=== PATIENT | male | born 1955 | race Caucasian/White ===

== ENCOUNTER 2020-02-25 16:36 | Outpatient (REF) | payer BC, SELFPAY ==
[2020-02-25 17:48] LABS: Glucose Urine UA NEG (NEG); Leukocyte Esterase Urine 1+ (NEG); Nitrite Urine NEG (NEG); PH 5.5 (5.0-8.0); Urine Blood 1+ (NEG); Urine Ketones NEG (NEG); Urine Protein NEG (NEG-TRACE)
[2020-02-25 17:49] LABS: Appearance Urine HAZY; Color Urine YELLOW
[2020-02-25 17:54] LABS: Bacteria Urine 1+ /LPF; Squamous Epithelial Cell Urine 1+ /LPF
== END 2020-02-25 16:37 | disposition home or self-care (01) ==
LOC: HO.LAB 16:36
PROVIDERS: Visit Provider Urology
DX: R39.15 Urgency of urination (principal); N31.9 Neuromuscular dysfunction of bladder, unspecified
CPT/HCPCS: 81001; 87086

== ENCOUNTER 2020-05-13 17:34 | Outpatient (REF) | payer BC, SELFPAY ==
--- NOTE | ~2020-05-13 | MR_ITS ---
EXAMINATION: MR THORACIC SPINE WITHOUT CONTRAST CLINICAL INFORMATION: Transverse myelitis. COMPARISON: None TECHNIQUE: MRI of the thoracic spine was obtained using routine sequences without contrast. FINDINGS: The thoracic vertebral bodies maintain normal height and alignment. There is focal levoscoliotic curvature at the thoracolumbar junction. Multilevel intervertebral disc height loss is predominantly seen within the lower thoracic spine. No significant marrow edema is seen. The thoracic cord is normal in signal. The spinal canal is capacious without compression of the cord. Moderate degree of cord volume loss is seen from T2 through T8 compatible with myelomalacia. No definite perturbation of the dorsal subarachnoid space pulsation artifact is seen to suggest an intradural arachnoid cyst. Multiple small disc bulges/herniations are seen but none of which result in spinal canal narrowing. Neural foraminal stenosis appears moderate to severe bilaterally at T9-T10 and less advanced at other levels. Multilevel spondylosis is seen within the upper lumbar spine. The extraspinal soft tissues are within normal limits. MR/MR thoracic spine wo con IMPRESSION: Cord volume loss is seen from T2 through T8 compatible with myelomalacia. There is no evidence of compressive lesion. No abnormal intramedullary signal change is seen to suggest transverse myelitis at the present time. Imaging findings may represent the sequela of prior myelitis. Mild spondylotic changes are noted but without significant narrowing the spinal canal. Neural foraminal stenosis appears moderate to severe bilaterally at T9-T10.
== END 2020-05-13 17:35 | disposition home or self-care (01) ==
LOC: HO.MRI 17:34
PROVIDERS: Visit Provider Psychiatry & Neurology Neurology
DX: G37.3 Acute transverse myelitis in demyelinating disease of central nervous system (principal)
CPT/HCPCS: 72146

== ENCOUNTER 2020-08-21 11:45 | Outpatient (REF) | payer BC, SELFPAY ==
[2020-08-21 14:07] LABS: Glucose Urine UA NEG (NEG); Leukocyte Esterase Urine 1+ (NEG); Nitrite Urine NEG (NEG); Urine Blood 2+ (NEG); Urine Ketones NEG (NEG); Urine Protein 2+ MG/DL (NEG-TRACE)
[2020-08-21 14:16] LABS: Appearance Urine HAZY; Color Urine STRAW
[2020-08-21 14:48] LABS: Bacteria Urine 1+ /LPF; Squamous Epithelial Cell Urine TRACE /LPF
== END 2020-08-21 11:46 | disposition home or self-care (01) ==
LOC: HO.LAB 11:45
PROVIDERS: PCP Registered Nurse Community Health; Visit Provider Family Medicine
DX: R82.90 Unspecified abnormal findings in urine (principal); Z78.9 Other specified health status
CPT/HCPCS: 81001; 87086; 87088; 87186

== ENCOUNTER 2020-08-29 14:39 | Outpatient (REF) | payer BC, SELFPAY ==
[2020-08-29 15:38] LABS: MANUAL DIFF FLAG NO
[2020-08-29 15:46] LABS: Basophils Percent Auto 0.5 % (0-2); Eosinophils Absolute Auto 0.1 X10*3/uL (0.0-0.4); Eosinophils Percent Auto 2.4 % (0-4); Hematocrit 42.8 % (42-52); Hemoglobin 13.8 g/dl (14.0-18.0); Imm Gran Abs Auto 0.02 X10*3/uL (0.00-0.03); Imm Gran Pct Auto 0.3 % (0.0-0.4); Lymphocytes Percent Auto 17.9 % (20-40); Mean Corpuscular HGB Conc 32.2 g/dl (31.0-36.0); Mean Corpuscular Hemoglobin 28.1 pg (27.0-33.0); Mean Corpuscular Volume 87.2 fL (80-98); Mean Platelet Volume 8.8 fL (9.4-12.4); Monocytes Absolute Auto 0.4 X10*3/uL (0.1-1.2); Neutrophils Absolute Auto 4.1 X10*3/uL (2.0-8.3); Neutrophils Percent Auto 71.9 % (45-73); Platelet Count 333 X10*3/uL (160-400); Red Blood Count 4.91 X10*6/uL (4.60-5.80); Red Cell Distribution Width 15.4 % (11.0-16.0); White Blood Count 5.7 X10*3/uL (4.8-10.8)
[2020-08-29 16:12] LABS: Alanine Aminotransferase 13 U/L (0-40); Albumin Level 4.1 g/dL (3.5-5.0); Alkaline Phosphatase 74 U/L (39-117); Anion Gap 14 (12-20); Aspartate Amino Transferase 14 U/L (5-37); Bilirubin Total 0.2 mg/dL (0.0-1.0); Blood Urea Nitrogen 16 mg/dL (9-16); Calcium 9.6 mg/dL (8.4-10.2); Carbon Dioxide 20 mmol/L (22-29); Chloride 110 mmol/L (96-108); Cholesterol 191 mg/dL; Estimated Glomerular Filt Rate 45; Glucose Random 100 mg/dL (60-115); HDL Cholesterol 43 mg/dL; LDL Cholesterol Calculated 94 mg/dl; Potassium 3.8 mmol/L (3.3-5.1); Sodium 140 mmol/L (135-145); Total Protein 6.4 g/dL (6.5-8.0); Triglycerides 270 mg/dL
[2020-08-29 16:33] LABS: TSH reflex Free T4 1.97 uIU/mL (0.32-4.0)
[2020-08-29 17:10] LABS: Microalbum/Creatinine Ratio Ur 18.1 ug/mg cr
[2020-09-02 16:07] LABS: Testosterone, Total 193 ng/dL (250-1100)
[2020-09-06 01:12] LABS: Estradiol Free 0.15 pg/mL; Estradiol, Ultrasensitive 7 pg/mL
== END 2020-08-29 14:40 | disposition home or self-care (01) ==
LOC: HO.LAB 14:39
PROVIDERS: PCP Family Medicine; Visit Provider Family Medicine
DX: F64.0 Transsexualism (principal); G37.3 Acute transverse myelitis in demyelinating disease of central nervous system; L03.116 Cellulitis of left lower limb; N17.9 Acute kidney failure, unspecified; N18.1 Chronic kidney disease, stage 1; Z78.9 Other specified health status
CPT/HCPCS: 36415; 80053; 80061; 82043; 82670; 82681; 84403; 84443; 85025

== ENCOUNTER 2020-09-09 12:31 | Outpatient (REF) | payer BC, SELFPAY ==
--- NOTE | ~2020-09-09 | XR_ITS ---
EXAMINATION: XR CERVICAL SPINE AND LEFT HIP CLINICAL INFORMATION: Pain. COMPARISON: None. TECHNIQUE: 3 view cervical spine and 2 views left hip. FINDINGS: Cervical Spine: There is mild straightening of cervical lordosis. There is mild loss of C6-C7 disc height with mild ventral and minimal posterior spondylosis. The rest of the disc heights and all vertebral heights and alignment are normal. The craniovertebral junction and the C1-C2 alignment is normal. No visible acute fracture, dislocation or subluxation seen. The prevertebral soft tissues are normal. There is focal calcification of the ligamentum nuchae and posterior C6 vertebra. Left Hip: There is no acute fracture, dislocation or subluxation seen. No bony erosive changes. There is a sclerotic density left femoral neck. The soft tissues are normal. XR/XR hip LT min 2V IMPRESSION: Sclerotic density with irregular margins left femoral neck. Benign osteoblastic lesion versus metastasis. Correlate with old x-rays if possible. Otherwise, recommend follow-up with bone scan or CT left hip exam. Degenerative disc changes with ventral and mild posterior spondylosis C6-C7 disc level. No acute fracture or dislocation seen.
--- NOTE | ~2020-09-09 | XR_ITS ---
EXAMINATION: XR CERVICAL SPINE AND LEFT HIP CLINICAL INFORMATION: Pain. COMPARISON: None. TECHNIQUE: 3 view cervical spine and 2 views left hip. FINDINGS: Cervical Spine: There is mild straightening of cervical lordosis. There is mild loss of C6-C7 disc height with mild ventral and minimal posterior spondylosis. The rest of the disc heights and all vertebral heights and alignment are normal. The craniovertebral junction and the C1-C2 alignment is normal. No visible acute fracture, dislocation or subluxation seen. The prevertebral soft tissues are normal. There is focal calcification of the ligamentum nuchae and posterior C6 vertebra. Left Hip: There is no acute fracture, dislocation or subluxation seen. No bony erosive changes. There is a sclerotic density left femoral neck. The soft tissues are normal. XR/XR cervical spine 2V IMPRESSION: Sclerotic density with irregular margins left femoral neck. Benign osteoblastic lesion versus metastasis. Correlate with old x-rays if possible. Otherwise, recommend follow-up with bone scan or CT left hip exam. Degenerative disc changes with ventral and mild posterior spondylosis C6-C7 disc level. No acute fracture or dislocation seen.
[2020-09-09 14:02] LABS: MANUAL DIFF FLAG NO
[2020-09-09 14:08] LABS: Basophils Absolute Auto 0.1 X10*3/uL (0.0-0.2); Basophils Percent Auto 1.3 % (0-2); Eosinophils Absolute Auto 0.1 X10*3/uL (0.0-0.4); Eosinophils Percent Auto 2.4 % (0-4); Imm Gran Abs Auto 0.02 X10*3/uL (0.00-0.03); Imm Gran Pct Auto 0.4 % (0.0-0.4); Lymphocytes Absolute Auto 1.7 X10*3/uL (1.2-4.9); Lymphocytes Percent Auto 31.1 % (20-40); Mean Corpuscular HGB Conc 31.1 g/dl (31.0-36.0); Mean Corpuscular Hemoglobin 27.7 pg (27.0-33.0); Mean Corpuscular Volume 89.1 fL (80-98); Mean Platelet Volume 8.8 fL (9.4-12.4); Monocytes Absolute Auto 0.4 X10*3/uL (0.1-1.2); Monocytes Percent Auto 7.6 % (2-11); Neutrophils Absolute Auto 3.1 X10*3/uL (2.0-8.3); Neutrophils Percent Auto 57.2 % (45-73); Platelet Count 387 X10*3/uL (160-400); Red Blood Count 5.05 X10*6/uL (4.60-5.80); Red Cell Distribution Width 14.4 % (11.0-16.0); White Blood Count 5.4 X10*3/uL (4.8-10.8)
[2020-09-09 14:46] LABS: Alanine Aminotransferase 11 U/L (0-40); Albumin Level 4.1 g/dL (3.5-5.0); Alkaline Phosphatase 71 U/L (39-117); Anion Gap 11 (12-20); Aspartate Amino Transferase 14 U/L (5-37); Bilirubin Total 0.6 mg/dL (0.0-1.0); Blood Urea Nitrogen 21 mg/dL (9-16); C Reactive Protein 0.08 mg/dL (< or = 0.50); Calcium 10.1 mg/dL (8.4-10.2); Carbon Dioxide 27 mmol/L (22-29); Chloride 107 mmol/L (96-108); Estimated Glomerular Filt Rate 46; Glucose Random 102 mg/dL (60-115); Potassium 4.4 mmol/L (3.3-5.1); Rheumatoid Factor < 15.0 IU/mL (<15.0); Sodium 141 mmol/L (135-145); Total Protein 6.4 g/dL (6.5-8.0)
[2020-09-09 15:02] LABS: Erythrocyte Sedimentation Rate 3 MM/HR (0-15)
[2020-09-09 17:33] LABS: Amphetamine Screen Urine Not Detected (Not Detect); Barbiturates, Urine Not Detected (Not Detect); Benzodiazepines Screen Urine Not Detected (Not Detect); Cannabinoid Screen Urine POSITIVE (Not Detect); Cocaine Screen Urine Not Detected (Not Detect); Opiate Screen Urine Not Detected (Not Detect); Phencyclidine Screen Urine Not Detected (Not Detect)
[2020-09-10 20:07] LABS: Cyclic Citrullinated Peptide <16 UNITS
[2020-09-11 13:32] LABS: Anti Nuclear Antibody Screen NEGATIVE (NEGATIVE)
== END 2020-09-09 12:32 | disposition home or self-care (01) ==
LOC: HO.LAB 12:31
PROVIDERS: Absent Provider Internal Medicine; PCP Family Medicine; Visit Provider Student in an Organized Health Care Education/Training Program
DX: M54.2 Cervicalgia (principal); M25.552 Pain in left hip; M79.642 Pain in left hand; G89.29 Other chronic pain; Z79.899 Other long term (current) drug therapy
CPT/HCPCS: 36415; 72040; 73502; 80053; 80307; 85025; 85652; 86038; 86039; 86140; 86200; 86431

== ENCOUNTER 2020-10-07 16:30 | Outpatient (REF) | payer BC, SELFPAY ==
--- NOTE | ~2020-10-07 | CT_ITS ---
EXAMINATION: CT HIP WITHOUT CONTRAST, LEFT CLINICAL INFORMATION: Sclerotic lesion left hip. COMPARISON: Left hip x-ray 09/09/2020 TECHNIQUE: Axial 2 mm thin and reformatted 2 mm thin coronal and sagittal images of left hip were obtained. This CT examination was performed using dose optimization techniques as appropriate, variously including the following: *Automated exposure control *Adjustment of mA and/or kV according to patient size (this includes techniques or standardized protocols for targeted exams where dose is matched to indication/reason for exam; i.e. extremities or head) *Use of iterative reconstruction technique DLP: 429 mGy-cm FINDINGS: There is a sclerotic lesion left distal femoral neck measuring 1.3 x 1.0 x 2.1 cm. There is no cortical thickening or thinning of the overlying femur. The left hip joint space is maintained normal. No bony erosive changes. The soft tissues are normal. The SI joints are symmetric and normal. The soft tissues are normal. CT/CT hip LT wo con IMPRESSION: 1.3 cm sclerotic lesion left hip joint likely large bone island.
== END 2020-10-07 16:31 | disposition home or self-care (01) ==
LOC: HO.CT 16:30
PROVIDERS: Visit Provider Student in an Organized Health Care Education/Training Program
DX: M89.9 Disorder of bone, unspecified (principal)
CPT/HCPCS: 73700

== ENCOUNTER 2021-01-01 12:03 | Outpatient (REF) | payer BC, SELFPAY ==
--- NOTE | ~2021-01-01 | US_ITS ---
EXAMINATION: US RETROPERITONEAL LIMITED (RENAL ONLY) CLINICAL INFORMATION: Renal calculus. Evaluate for hydronephrosis. COMPARISON: Ultrasound kidneys and bladder 09/10/2016. TECHNIQUE: Real-time imaging of the kidneys. FINDINGS: RIGHT KIDNEY: 11.3 x 5.6 x 6.0 cm (SAG x AP x TRV). The kidney is normal in size, contour, and echogenicity. Renal cortical thickness is normal. No renal calculi or hydronephrosis. Simple upper pole cyst measuring 1.5 x 1.3 x 1.4 cm. Findings are not clinically significant and no follow-up imaging is recommended. LEFT KIDNEY: 10.2 x 4.9 x 5.4 cm (SAG x AP x TRV). The kidney is normal in size, contour, and echogenicity. Renal cortical thickness is normal. No calculi or focal parenchymal lesions. No hydronephrosis. US/US renal BI IMPRESSION: No hydronephrosis or nephrolithiasis.
== END 2021-01-01 12:04 | disposition home or self-care (01) ==
LOC: HO.US 12:03
PROVIDERS: Visit Provider Internal Medicine Nephrology
DX: N31.8 Other neuromuscular dysfunction of bladder (principal)
CPT/HCPCS: 76775

== ENCOUNTER → 2021-02-17 12:34 | Outpatient (BNVA) | payer BC, SELFPAY | PROVIDERS: PCP Family Medicine; Visit Provider Nurse Practitioner Family ==

== ENCOUNTER 2021-02-17 13:56 | Outpatient (REF) | payer BC, SELFPAY ==
--- NOTE | ~2021-02-17 | XR_ITS ---
EXAMINATION: XR KNEE, RIGHT CLINICAL INFORMATION: Pain COMPARISON: None TECHNIQUE: Three views of the right knee. FINDINGS: There is valgus angulation. No fracture or dislocation is seen. There is arthritis at the lateral femoral tibial and patellofemoral joints with joint space narrowing and osteophyte formation. There is slight lateral subluxation of the patella respect to the femoral groove on the sunrise view. There is a moderate to large joint effusion. XR/XR knee RT 3V IMPRESSION: Arthritis and joint effusion.
[2021-02-17 15:32] LABS: Appearance Urine CLEAR; Color Urine YELLOW; Glucose Urine UA NEG (NEG); Leukocyte Esterase Urine NEG (NEG); Nitrite Urine NEG (NEG); PH 6.5 (5.0-8.0); Urine Blood NEG (NEG); Urine Ketones NEG (NEG); Urine Protein NEG (NEG-TRACE)
== END 2021-02-17 13:57 | disposition home or self-care (01) ==
LOC: HO.LAB 13:56
PROVIDERS: PCP Family Medicine; Referring Provider Urology; Visit Provider Student in an Organized Health Care Education/Training Program
DX: M25.561 Pain in right knee (principal); N39.41 Urge incontinence
CPT/HCPCS: 73562; 81003; 87086

== ENCOUNTER → 2021-03-04 13:12 | Outpatient (BNVA) | payer BC, SELFPAY | PROVIDERS: PCP Family Medicine; Visit Provider Physician Assistant ==

== ENCOUNTER 2021-03-20 09:33 | Outpatient (REF) | payer BC, SELFPAY ==
--- NOTE | ~2021-03-20 | CT_ITS ---
EXAMINATION: CT CHEST SCREENING CLINICAL INFORMATION: Former smoker quit 4 years. 35 pack-year history of smoking. COMPARISON: None. TECHNIQUE: Multidetector volumetric CT imaging of the chest is performed without contrast using low dose technique. Additional 2D coronal and sagittal reformatted images and axial 3D maximum intensity projection (MIP) images are generated on the CT workstation. This CT examination was performed using dose optimization techniques as appropriate, variously including the following: *Automated exposure control *Adjustment of mA and/or kV according to patient size (this includes techniques or standardized protocols for targeted exams where dose is matched to indication/reason for exam; i.e. extremities or head) *Use of iterative reconstruction technique DLP: 56 mGy-cm FINDINGS: LUNGS: There is centrilobular emphysema without acute pneumonic process. There is 5 mm pulmonary nodule right middle lobe axial image 329/6. No additional pulmonary nodules, mass or consolidation seen. Mild focal atelectatic changes are seen in the lingula. No additional pulmonary nodules, mass or groundglass density seen. MEDIASTINUM: The thyroid lobes are symmetric and normal. The central trachea and the bronchi widely patent. Heart size and the great vessels are normal caliber. No abnormal size mediastinal or hilar lymph nodes seen. There is no pericardial effusion. PLEURA: There is no pleural effusion. No pleural mass or thickening. AXILLA: No abnormal axillary lymphadenopathy seen. The chest wall is unremarkable. UPPER ABDOMEN: Visualized liver, spleen, pancreas and bilateral adrenal glands are unremarkable. OSSEOUS STRUCTURES: No lytic or sclerotic process seen. There is mild ventral spondylosis. CT/CT lung screening IMPRESSION: 5 mm pulmonary nodule right middle lobe. No additional nodules seen. No abnormal mediastinal adenopathy. ASSESSMENT: Lung-RADS category 2: Benign RECOMMENDATION: Low-dose annual CT chest.
== END 2021-03-20 09:34 | disposition home or self-care (01) ==
LOC: HO.CT 09:33
PROVIDERS: Visit Provider Physician Assistant Medical
DX: Z12.2 Encounter for screening for malignant neoplasm of respiratory organs (principal); Z87.891 Personal history of nicotine dependence
CPT/HCPCS: 71271

== ENCOUNTER 2021-04-30 14:00 | Outpatient (RCR) | payer BC, SELFPAY ==
--- NOTE | 2021-03-17 15:04 | MHC.PT.OE ---
[facility] [place] Office [place] Office [place] Office [address] Chula Oropeza [address] [phone] F: [phone] F: [phone] F: [phone] F: [phone] Physical Therapy Evaluation Evaluation Date: 03/17/21 Current Condition Diagnosis: cervicalgia/ L hip pain Onset Date: 1 year Date of Surgery: n/a Chief Complaint/ Current Level of Function: Pt presents today with L hip pain that began over the course of the last year. States he has a bone island in his hip. He denies any injury. Pain began insidiously. He localizes his pain to his posterior L hip and states at times his pain wraps around to the front of his L thigh radiates down his L leg to his knee. He states he is unable to identify if he has numbness or tingling due to comorbidity of transverse myelitis which he was diagnosed with 5-6 years ago. He uses a cane at baseline due to this dx. Prior Level of Function/Occupation: does not work lives with spouse in a house with stairs ADLs able but doesn't do a lot spouse helps but this is due to transverse myelitis spends time watching movies or surfing internet Diagnostic Imaging: X-Ray MRI CT Scan IMPRESSION: hip CT 1.3 cm sclerotic lesion left hip joint likely large bone island. IMPRESSION: hip x-ray Sclerotic density with irregular margins left femoral neck. Benign osteoblastic lesion versus metastasis. Correlate with old x-rays if possible. Otherwise, recommend follow-up with bone scan or CT left hip exam. Degenerative disc changes with ventral and mild posterior spondylosis C6-C7 disc level. No acute fracture or dislocation seen. IMPRESSION: thoracic MRI Cord volume loss is seen from T2 through T8 compatible with myelomalacia. There is no evidence of compressive lesion. No abnormal intramedullary signal change is seen to suggest transverse myelitis at the present time. Imaging findings may represent the sequela of prior myelitis. Mild spondylotic changes are noted but without significant narrowing the spinal canal. Neural foraminal stenosis appears moderate to severe bilaterally at T9-T10 Patient Goals and Expectations: less pain and more flexibility Past Medical History: Transverse myelitis arthritis COPD Medications: please refer to chart Precautions/ Contraindications: transverse myelitis Outcome Measure: LEFI 28/80 Pain Pain Score: 2 Pain Scale Used: Numeric (0 - 10) Pain Location/ Description: L posterior hip wrapping around to ant L thigh stopping at knee Aggravating Factors: worse in the morning, standing Alleviating Factors: stretching Objective Findings Posture: Forward Head Rounded Shoulders Skin & Soft Tissue/ Palpation: +ttp L piriformis Gait/ Functional Mobility: WBOS, decreased push off B AROM (PROM) Strength Cervical Spine Flexion: Extension: Lateral Flexion: Rotation: Cervical Comments: Flexion: Extension: Lateral Flexion: Rotation: Other: Shoulder Flexion: Extension: Abduction: ER: IR: Apley ER: Apley IR: Comments: Flexion: Extension: Abduction: Adduction: ER: IR: Other: Elbow Flexion: Extension: Pronation: Supination: Comments: Flexion: Extension: Pronation: Supination: Wrist Flexion: Wrist Extension: Other: Lumbar Spine Flexion: to mid lozano Extension: 25% states he will lose balance but no increase in pain Lateral Flexion: to distal thigh B Rotation: 25% slight pain on L hip Comments: Transverse abdominus: Extensors: Other: Hip Flexion: L 110, R 105 Extension: B 10 Abduction: Adduction: ER: R 30, L 30 IR: R 30, L 25 Comment: Flexion: b 4/5 Extension: B 3+/5 Abduction: B 3+/5 Adduction: ER: IR: Other: Knee Flexion: Extension: Comments: Patella Mobility: Flexion: B 5/5 Extension: B 5/5 Other: Ankle Dorsiflexion: Plantarflexion: Inversion: Eversion: Comments: Dorsiflexion: B 5/5 Plantarflexion: B 5/5 against hand resistance Inversion: Eversion: Comments: Orquidea Assessment: Sacroiliac Assessment: Muscle Length: Special Tests: slump neg B Vitals: BP: HR: O2SAT: RR: Other: Balance: pt reports this is off at baseline due to transverse myelitis Neurological Screen: Biceps DTR: Brachioradialis DTR: Triceps DTR: Patella DTR: Achilles DTR: Other: Dermatomes: Sensation: states at baseline his sensation is spotty in different regions of his legs due to transverse myelitis Myotomes: Patient Education 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 Pt reports onset of pain began progressively over the last year due to insidious onset. He presents today with impairments in hip strength, +ttp L piriformis, posture, core strength, and pain. Pt's current occupation is none, with baseline physical activities including ambulation, sitting, ADLs, stair negotiation. 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 Clinical presentation today is most consistent with signs and sx associated with possible L piriformis syndrome and pt will benefit from skilled PT to address the following problems and impairments noted upon evaluation: hip strength, +ttp L piriformis, core strength, posture, and pain. These problems limit the patient with the following functional activities: ADLs, sitting, ambulation, and stair negotiation. The prescribed treatment plan of care is medically necessary. Co-morbidities of transverse myelitis and COPD were identified and taken into considerations of plan of care. Pt was educated on HEP, role of PT, prognosis, POC. Rehabilitation Potential: Good Plan of Care Frequency and Duration 2 x week x 4 weeks Short Term Goals Pt will demonstrate improved hip strength by 1/3 MMT for improved lumbopelvic stability in 2 weeks. Pt will demonstrate only minimal tenderness to palpation to L piriformis in 2 weeks. Pt will demonstrate ability to perform PPT to demonstrate good core recruitment in 2 weeks. Pt will demonstrate improved posture as evidence by <2 cues required during session for upright posture in 2 weeks. Supervising Deputy Goals Pt will demonstrate improved LEFI score by 9 points for improved overall functional mobility in 4 weeks. Pt will demonstrate ability to complete ADLs at his PLOF with min to no pain in 4 weeks. Pt will demonstrate ability to both sit an stand for prolonged periods of time at his PLOF with min to no pain in 4 weeks. Treatment Plan Therapeutic Exercise Dynamic Therapeutic Activities Neuromuscular Re-ed Manual Therapies Joint Mobilization Taping Gait Home Exercise Program Patient Education Hot or Cold Pack Reviewed/ Agreed with Student Documentation: Therapist: Electronically signed by: Valery Brumfield, PT, DPT, ATC Please sign and return to therapist. Thank you for your referral.
--- NOTE | 2021-03-17 15:05 | MHC.PT.EP ---
[facility] [place] Office [place] Office [place] Office [address] Chula Oropeza [address] [phone] F: [phone] F: [phone] F: [phone] F: [phone] Physical Therapy Plan of Care Date of Evaluation: Date of Surgery: n/a Diagnosis: cervicalgia/ L hip pain Assessment: Patient is a 66 year old male presenting to PT with complaints of pain in his L posterior hip. Pt reports onset of pain began progressively over the last year due to insidious onset. He presents today with impairments in hip strength, +ttp L piriformis, posture, core strength, and pain. Pt's current occupation is none, with baseline physical activities including ambulation, sitting, ADLs, stair negotiation. 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 Clinical presentation today is most consistent with signs and sx associated with possible L piriformis syndrome and pt will benefit from skilled PT to address the following problems and impairments noted upon evaluation: hip strength, +ttp L piriformis, core strength, posture, and pain. These problems limit the patient with the following functional activities: ADLs, sitting, ambulation, and stair negotiation. The prescribed treatment plan of care is medically necessary. Co-morbidities of transverse myelitis and COPD were identified and taken into considerations of plan of care. Pt was educated on HEP, role of PT, prognosis, POC. Frequency and Duration: The patient will be seen 2 x week x 4 weeks Short Term Goals: Pt will demonstrate improved hip strength by 1/3 MMT for improved lumbopelvic stability in 2 weeks. Pt will demonstrate only minimal tenderness to palpation to L piriformis in 2 weeks. Pt will demonstrate ability to perform PPT to demonstrate good core recruitment in 2 weeks. Pt will demonstrate improved posture as evidence by <2 cues required during session for upright posture in 2 weeks. Retirement Goals: Pt will demonstrate improved LEFI score by 9 points for improved overall functional mobility in 4 weeks. Pt will demonstrate ability to complete ADLs at his PLOF with min to no pain in 4 weeks. Pt will demonstrate ability to both sit an stand for prolonged periods of time at his PLOF with min to no pain in 4 weeks. Treatment Plan: Modalities to reduce pain, spasms and effusion. Manual therapy to restore motion and function. Therapeutic exercise to improve strength and flexibility. Neuromuscular re-education for posture and balance. Therapeutic activities to return to functional activities of daily living. Electronically signed by: Valery Brumfield, PT, DPT, ATC Please sign and return to therapist. Thank you for your referral.
--- NOTE | 2021-05-04 11:51 | MHC.PT.DC ---
[facility] [place] Office [place] Office [place] [facility] [address] Chula Oropeza [address] [phone] F: [phone] F: [phone] F: [phone] F: [phone] Physical Therapy Discharge Report Diagnosis: cervicalgia/ L hip pain Date of Surgery: n/a Date of Evaluation: 03/17/21 Date of Discharge: 05/04/21 Treatments to Date: 9 Cancellations to Date: 2 No Shows to Date: Discharge Status: Achieved Goals Improved Function Independent with HEP Discharge Summary: Pt was seen for PT from 03/17/21-04/30/21. His last scheduled and attended PT session was 04/30/21. He has made good progress since SOC. He has had no pain in his most recent PT sessions and reports he feels ready for D/C at this time. Pt is I with HEP. Pt is being D/C from skilled PT services. Electronically signed by: Rebekah Peralta, PT, DPT Please sign and return to therapist. Thank you for your referral.
== END 2021-05-04 11:52 | disposition home or self-care (01) ==
LOC: HO.PT 14:00
PROVIDERS: PCP Family Medicine; Visit Provider Nurse Practitioner Family
DX: M54.2 Cervicalgia (principal); M25.552 Pain in left hip
CPT/HCPCS: 97110; 97161

== ENCOUNTER → 2021-08-03 13:03 | Outpatient (BNVA) | payer BC, SELFPAY | PROVIDERS: PCP Family Medicine; Visit Provider Nurse Practitioner Family | DX: M54.2 Cervicalgia (principal) ==

== ENCOUNTER 2021-08-19 15:24 | Outpatient (REF) | payer BC, SELFPAY ==
[2021-08-19 15:56] LABS: Appearance Urine CLEAR; Color Urine YELLOW; Glucose Urine UA NEG (NEG); Leukocyte Esterase Urine 2+ (NEG); Nitrite Urine NEG (NEG); Urine Blood 1+ (NEG); Urine Ketones NEG (NEG); Urine Protein NEG (NEG-TRACE)
[2021-08-19 16:07] LABS: Bacteria Urine TRACE /LPF; Squamous Epithelial Cell Urine TRACE /LPF
== END 2021-08-19 15:25 | disposition home or self-care (01) ==
LOC: HO.LAB 15:24
PROVIDERS: PCP Family Medicine; Visit Provider Urology
DX: R39.15 Urgency of urination (principal)
CPT/HCPCS: 81001; 81003; 87086; 87088; 87186

== ENCOUNTER 2021-09-14 12:12 | Outpatient (REF) | payer BC, SELFPAY | END 2021-09-14 12:13 | disposition home or self-care (01) | LOC: HO.HOSX 12:12 | PROVIDERS: Visit Provider Orthopaedic Surgery | DX: Z13.89 Encounter for screening for other disorder (principal) ==

== ENCOUNTER 2021-09-28 08:10 | Outpatient (REF) | payer BC, SELFPAY ==
--- NOTE | ~2021-09-28 | XR_ITS ---
EXAMINATION: XR KNEE AP STANDING CLINICAL INFORMATION: Pain in the knee COMPARISON: Right knee 02/17/2021 TECHNIQUE: AP bilateral standing view of the knees was obtained. FINDINGS: Marked degenerative joint disease of the right knee. There is [id number] contact, marginal bone spurs and subchondral osteosclerosis of the femur and tibia at the lateral femoral tibial joint. Mild joint narrowing of the medial femoral tibial joint. Compared to prior study 02/17/2021 there has been further joint narrowing of the lateral femoral tibial joint of the knee. There is moderate degenerative joint narrowing of the medial and lateral femoral tibial joint of the left knee with small marginal bone spurs of femur and tibia at the lateral femoral tibial compartment. Faint chondrocalcinosis of the medial and lateral meniscus of the left knee. XR/XR knee standing BI IMPRESSION: 1. Marked degenerative arthrosis of the right knee. 2. Moderate degenerative joint disease of left knee.
== END 2021-09-28 08:11 | disposition home or self-care (01) ==
LOC: HO.HOSX 08:10
PROVIDERS: Visit Provider Physician Assistant
DX: M17.11 Unilateral primary osteoarthritis, right knee (principal)
CPT/HCPCS: 20610; 73565; J1040

== ENCOUNTER 2021-11-10 16:45 | Outpatient (REF) | payer BC, SELFPAY ==
[2021-11-10 17:01] LABS: MANUAL DIFF FLAG NO
[2021-11-10 17:25] LABS: Basophils Absolute Auto 0.1 X10*3/uL (0.0-0.2); Basophils Percent Auto 0.7 % (0-2); Eosinophils Absolute Auto 0.5 X10*3/uL (0.0-0.4); Eosinophils Percent Auto 6.3 % (0-4); Hematocrit 44.9 % (42.0-52.0); Hemoglobin 14.2 g/dl (14.0-18.0); Imm Gran Abs Auto 0.04 X10*3/uL (0.00-0.03); Imm Gran Pct Auto 0.5 % (0.0-0.4); Lymphocytes Absolute Auto 1.2 X10*3/uL (1.2-4.9); Lymphocytes Percent Auto 14.8 % (20-40); Mean Corpuscular HGB Conc 31.6 g/dl (31.0-36.0); Mean Corpuscular Hemoglobin 28.2 pg (27.0-33.0); Mean Corpuscular Volume 89.1 fL (80.0-98.0); Monocytes Absolute Auto 0.6 X10*3/uL (0.1-1.2); Monocytes Percent Auto 7.2 % (2-11); Neutrophils Absolute Auto 5.7 x10*3/uL (2.0-8.3); Neutrophils Percent Auto 70.5 % (45-73); Platelet Count 370 X10*3/uL (160-400); Red Blood Count 5.04 X10*6/uL (4.60-5.80); Red Cell Distribution Width 12.6 % (11.0-16.0); White Blood Count 8.1 X10*3/uL (4.8-10.8)
[2021-11-10 17:47] LABS: Alanine Aminotransferase 13 U/L (0-40); Alkaline Phosphatase 84 U/L (39-117); Anion Gap 14 (12-20); Aspartate Amino Transferase 12 U/L (5-37); Bilirubin Total 0.3 mg/dL (0.0-1.0); Blood Urea Nitrogen 24 mg/dL (9-16); Calcium 9.8 mg/dL (8.4-10.2); Carbon Dioxide 27 mmol/L (22-29); Chloride 107 mmol/L (96-108); Estimated Glomerular Filt Rate 46; Glucose Random 97 mg/dL (60-115); Potassium 4.6 mmol/L (3.3-5.1); Sodium 143 mmol/L (135-145); Total Protein 6.3 g/dL (6.5-8.0)
[2021-11-10 18:28] LABS: Erythrocyte Sedimentation Rate 16 MM/HR (0-15)
== END 2021-11-10 16:46 | disposition home or self-care (01) ==
LOC: HO.LAB 16:45
PROVIDERS: PCP Family Medicine; Visit Provider Psychiatry & Neurology Neurology
DX: G37.3 Acute transverse myelitis in demyelinating disease of central nervous system (principal)
CPT/HCPCS: 36415; 80053; 85025; 85652

== ENCOUNTER 2021-11-17 00:23 | Emergency (ER) | payer BC, SELFPAY ==
--- NOTE | ~2021-11-17 | XR_ITS ---
EXAMINATION: XR CHEST CLINICAL INFORMATION: Pain COMPARISON: 03/20/2020 TECHNIQUE: Frontal view of the chest was obtained. FINDINGS: Normal symmetric lung volumes. Mild emphysema. No parenchymal consolidation. No pleural effusion. No pneumothorax. Cardiomediastinal silhouette and pulmonary vascularity are within normal limits. Aorta is atherosclerotic. No acute osseous abnormalities. XR/XR chest 1V IMPRESSION: No acute findings.
--- NOTE | ~2021-11-17 | CT_ITS ---
EXAMINATION: CT HEAD WITHOUT CONTRAST CLINICAL INFORMATION: Confusion COMPARISON: None TECHNIQUE: Contiguous axial imaging was performed from the skull base to vertex without intravenous administration of contrast. This CT examination was performed using dose optimization techniques as appropriate, variously including the following: *Automated exposure control *Adjustment of mA and/or kV according to patient size (this includes techniques or standardized protocols for targeted exams where dose is matched to indication/reason for exam; i.e. extremities or head) *Use of iterative reconstruction technique DLP: 684 mGy-cm FINDINGS: There is no evidence of acute intracranial hemorrhage or territorial infarction. No abnormal mass effect or midline shift is seen. [place] to white matter differentiation is well preserved. No extra-axial fluid collections are identified. There is no abnormal attenuation within the brain parenchyma. The ventricles are normal in size. The osseous structures and soft tissues are normal. The mastoid air cells and visualized portions of the paranasal sinuses are well-aerated. CT/CT head/brain wo con IMPRESSION: No acute intracranial pathology.
--- NOTE | 2021-11-17 00:50 | ECG_ITS ---
Test Reason : DIZZINESS Blood Pressure : / mmHG Vent. Rate : 059 BPM Atrial Rate : 059 BPM P-R Int : 150 ms QRS Dur : 074 ms QT Int : 408 ms P-R-T Axes : 043 012 058 degrees QTc Int : 403 ms Poor data quality, interpretation may be adversely affected Sinus bradycardia Septal infarct , age undetermined Abnormal ECG When compared with ECG of 29-SEP-2016 13:16, Heart rate has decreased Referred By: Frank Casas Electronically Signed By:DI WHATLEY
--- NOTE | 2021-11-17 00:53 | ED.GENADULT ---
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 The patient has trouble sleeping and for several days has not felt well at night. Today was noted to sleep all day. His family member found him this evening the basement and he seemed disoriented also had profound word-finding difficulty, no slurring of speech, and did not appear to be himself. The patient has a history of COPD but denies any increased shortness of breath. Denies being in pain at this time, though his family member does state that he previously had complained of pain when she 1st came home. He denies any chest pain, cough, abdominal pain, vomiting, diarrhea. He does have a rectal prolapse and has some chronic symptoms related to that denies any change. Says the transverse myelitis affects his left foot and has had gradually progressive problems with ambulation, but no significant change today. Related Data Home Medications Medication Instructions Recorded Confirmed acetaminophen 500 mg tablet 500 mg PO Q6H PRN 09/09/20 (Tylenol Extra Strength) ascorbic acid (vitamin C) 1,000 mg 1 g PO DAILY 09/09/20 tablet cholecalciferol (vitamin D3) 125 125 mcg PO BID 09/09/20 mcg (5,000 unit) capsule duloxetine 60 mg capsule,delayed 60 mg PO DAILY 09/09/20 release ferrous sulfate 325 mg (65 mg 325 mg PO DAILY 09/09/20 iron) tablet gabapentin 600 mg tablet 600 mg PO BEDTIME 09/09/20 glucosamine HCl 500 mg tablet 500 mg PO BID 09/09/20 ibuprofen 200 mg capsule 200 mg PO Q6H PRN 09/09/20 lorazepam 1 mg tablet 1 mg PO BEDTIME PRN 09/09/20 magnesium 250 mg tablet 250 mg PO BID 09/09/20 oxybutynin chloride 15 mg 15 mg PO DAILY 09/09/20 tablet,extended release 24 hr oxycodone-acetaminophen 5 mg-325 1 tab PO .twice a day PRN 09/09/20 mg tablet potassium gluconate 595 mg (99 mg) 595 mg PO DAILY 09/09/20 tablet ropinirole 0.5 mg tablet 0.5 mg PO BEDTIME 09/09/20 tizanidine 4 mg capsule 4 mg PO BEDTIME 09/09/20 topiramate 50 mg tablet 50 mg PO BID 09/09/20 zonisamide 100 mg capsule 200 mg PO BID 09/09/20 diphenhydramine HCl 25 mg capsule 25 mg PO BEDTIME PRN 09/28/21 (Allergy Medication) Previous Rx's Medication Instructions Recorded cefdinir 300 mg capsule 300 mg PO BID #14 caps 11/17/21 Allergies Allergy/AdvReac Type Severity Reaction Status Date / Time No Known Allergies Allergy Verified 09/28/21 14:36 [No Known Allergies*] Review of Systems Review of Systems: Yes all other systems are reviewed and are negative Constitutional: Constitutional: Reports as per HPI and Denies fever(s) Eyes: Eyes: Reports as per HPI and Reports no additional eye complaints ENT: Reports system reviewed and no additional complaints, except as documented, Reports as per HPI, Denies nasal congestion, Denies nasal discharge and Denies sore throat Cardiovascular: Cardiovascular: Reports as per HPI, Denies chest pain and Denies dyspnea Respiratory: Respiratory: Reports as per HPI, Denies cough and Denies dyspnea Gastrointestinal: Gastrointestinal: Reports as per HPI, Denies abdominal pain, Denies diarrhea and Denies vomiting Genitourinary: Genitourinary: Reports as per HPI, Denies hematuria, Denies dysuria and Denies urinary frequency Musculoskeletal: Musculoskeletal: Reports no additional musculoskeletal complaints Integumentary/Breasts: Skin/Breast: Reports as per HPI and Denies rash Neurologic: Reports as per HPI, Reports Abnormal speech present (Word-finding difficulty) and Reports focal weakness (Chronic unchanged) Psychiatric: Psychiatric: Reports no additional psychiatric complaints and Reports as per HPI Endocrine: Endocrine: Reports no additional endocrine complaints and Reports as per HPI Hematologic/Lymphatic: Hematologic/Lymphatic: Reports no additional hematologic/lymphatic complaints, Reports as per HPI and Reports other (No peripheral edema) [facility] Past Medical History Medical History Arthritis Transverse myelitis Surgical History History of surgery on wrist Social History Social History Alcohol intake: former Patient Tobacco Use Status: Former Tobacco user Tobacco use type: Cigarette Cigarettes Per Day: 20 Years Smoked: 35 e-Cigarette/Vaping Use: Never Used Use of substances other than those prescribed or required for medical reasons: No Advance Directives: No Advance Directives Information Provided: No Current occupational status: disabled Current occupation: rt handed Physical Exam ED Vital Signs: Vital Signs - 24 hr 11/17/21 01:00 11/17/21 01:59 Temperature 98.7 F Pulse Rate 69 67 Respiratory Rate 18 20 Blood Pressure 152/84 H 135/80 Pulse Oximetry 94 95 Oxygen Delivery Method Room Air Room Air BMI result Body Mass Index 24.6 Const Other: Patient oriented x3. Does have occasional word-finding difficulties but overall is fluent answers questions appropriately. No dysarthria. General: no acute distress Orientation/consciousness: patient oriented x3 HENMT Head: Yes normal to inspection General nose exam: Normal external nose present Mouth: moist mucous membranes Throat: Yes posterior oropharynx normal, Yes tonsils normal and Yes uvula midline Eyes Eyelids: Yes eyelids normal Conjunctivae: conjunctivae normal Pupils: Equal, round and reactive pupils present Neck Neck: Yes supple Resp Effort & Inspection: normal respiratory effort Auscultation: clear to auscultation bilaterally Cardio Rate: regular rate Rhythm: regular rhythm Heart sounds: S1 normal heart sound present, S2 normal heart sound present, no gallops, no murmurs and no rubs GI Inspection: No distended Palpation (GI): Soft to palpation and nontender Auscultation: normal bowel sounds Skin General skin exam: other (Warm and dry) Neuro General: patient oriented x3 and CN's II-XI intact bilaterally Cranial nerves: Yes Equal, round and reactive pupils present Speech: Abnormal speech present (Word-finding difficulty) Extrem General: Yes no pedal edema Psych Affect: normal affect Attitude: cooperative Medical Decision Making [facility] Narrative Medical decision making narrative: Patient with reported mild confusion, word-finding difficulties. Patient did not appear confused but did seem to have some word-finding difficulty but overall had fluent speech, interacted normally, had a sense of humor. Workup including CT of the brain, EKG, chest x-ray, labs shows no concerning findings. Urinalysis did show evidence of UTI. Patient was given Rocephin 1 g IV, normal saline. Patient will be treated with cefdinir. Mild confusion likely secondary to UTI. Patient has mild renal insufficiency which is chronic, at baseline Lab Data Lab results reviewed: Yes I reviewed the patient's lab results. Result diagrams: 11/17/21 01:11 11/17/21 01:11 Labs: Lab Results 11/17/21 11/17/21 11/17/21 Range/Units 01:11 01:11 01:59 WBC 8.3 (4.8-10.8) X10*3/uL RBC 4.94 (4.60-5.80) X10*6/uL Hgb 13.8 L (14.0-18.0) g/dl Hct 43.0 (42.0-52.0) % MCV 87.0 (80.0-98.0) fL MCH 27.9 (27.0-33.0) pg MCHC 32.1 (31.0-36.0) g/dl RDW 12.9 (11.0-16.0) % Plt Count 335 (160-400) X10*3/uL MPV 9.0 L (9.4-12.4) fL Immature Gran % (Auto) 0.4 (0.0-0.4) % Neut % (Auto) 71.5 (45-73) % Lymph % (Auto) 10.5 L (20-40) % [place] % (Auto) 10.6 (2-11) % Eos % (Auto) 6.2 H (0-4) % Baso % (Auto) 0.8 (0-2) % Lymph # (Auto) 0.9 L (1.2-4.9) X10*3/uL [place] # (Auto) 0.9 (0.1-1.2) X10*3/uL Eos # (Auto) 0.5 H (0.0-0.4) X10*3/uL Baso # (Auto) 0.1 (0.0-0.2) X10*3/uL Abs Immat Gran (auto) 0.03 (0.00-0.03) X10*3/uL Absolute Neuts (auto) 5.9 (2.0-8.3) x10*3/uL Absolute Nucleated RBC 0.000 (0.0-0.012) X10*3/uL Nucleated RBC % (auto) 0.0 (0.0-0.2) /100WBC Sodium 146 H (135-145) mmol/L Potassium 4.1 (3.3-5.1) mmol/L Chloride 108 (96-108) mmol/L Carbon Dioxide 28 (22-29) mmol/L Anion Gap 14 (12-20) BUN 20 H (9-16) mg/dL Creatinine 1.47 H (0.5-1.4) mg/dL Estim Creat Clear Calc 52.4 Estimated GFR 48 Random Glucose 107 (60-115) mg/dL Calcium 9.9 (8.4-10.2) mg/dL Total Bilirubin 0.4 (0.0-1.0) mg/dL AST 16 (5-37) U/L ALT 15 (0-40) U/L Alkaline Phosphatase 78 (39-117) U/L Total Protein 6.2 L (6.5-8.0) g/dL Albumin 3.9 (3.5-5.0) g/dL TSH 1.66 (0.32-4.0) uIU/mL Urine Color Yellow Urine Appearance Clear Urine pH 6.0 (5.0-8.0) Ur Specific [place] 1.015 (1.005-1.025) Urine Protein Negative (Neg-Trace) mg/dL Urine Glucose (UA) Negative (Negative) mg/dL Urine Ketones Negative (Negative) mg/dL Urine Blood Negative (Negative) Urine Nitrite Negative (Negative) Ur Leukocyte Esterase Small (1+) H (Negative) Urine RBC 0-2 (0-2) /HPF Urine WBC 11-20 H (0-5) /HPF Ur Squamous Epith Cells 0-2 (0-2) /HPF Urine Bacteria None Seen (None Seen) Hyaline Casts 0-2 (0-2) /LPF Imaging Data CT brain without contrast: Radiologist's impression: IMPRESSION: No acute intracranial pathology. Chest x-ray: Radiologist's impression: No acute pathology ECG Data Attestation: I personally reviewed and interpreted this ECG as follows: Interpretation: Sinus rhythm with a rate of 59. No ST elevation or depression. No ectopy. Normal QRS axis. Discharge Plan Discharge Clinical Impression: Acute UTI, Acute confusion Patient Disposition: Home, Self-Care Instructions: Urinary Tract Infection in Men (ED) Additional Instructions: Drink plenty of fluids. Take the antibiotics as prescribed. Follow up with her primary care physician. Return for any new or worsened symptoms Prescriptions: New cefdinir 300 mg capsule 300 mg PO BID Qty: 14 0RF No Action zonisamide 100 mg capsule 200 mg PO BID topiramate 50 mg tablet 50 mg PO BID duloxetine 60 mg capsule,delayed release(DR/EC) 60 mg PO DAILY oxybutynin chloride 15 mg tablet extended release 24 hr 15 mg PO DAILY oxycodone-acetaminophen 5-325 mg tablet 1 tab PO .twice a day PRN gabapentin 600 mg tablet 600 mg PO BEDTIME ropinirole 0.5 mg tablet 0.5 mg PO BEDTIME Rx Instructions: administer 1-3 hours before bedtime tizanidine 4 mg capsule 4 mg PO BEDTIME lorazepam 1 mg tablet 1 mg PO BEDTIME PRN magnesium 250 mg tablet 250 mg PO BID potassium gluconate 595 mg (99 mg) tablet 595 mg PO DAILY ferrous sulfate 325 mg (65 mg iron) tablet 325 mg PO DAILY cholecalciferol (vitamin D3) 125 mcg (5,000 unit) capsule 125 mcg PO BID ascorbic acid (vitamin C) 1,000 mg tablet 1 g PO DAILY glucosamine HCl 500 mg tablet 500 mg PO BID Rx Instructions: administer with meals ibuprofen 200 mg capsule 200 mg PO Q6H PRN acetaminophen [Tylenol Extra Strength] 500 mg tablet 500 mg PO Q6H PRN diphenhydramine HCl [Allergy Medication] 25 mg capsule 25 mg PO BEDTIME PRN Interventions: ED Discharge Assessment Last Done: 11/17/21 03:57 Discharge Date/Time: 11/17/21 03:58
[2021-11-17 01:00] VITALS: BP 152/84; PULSE 69; RESP 18; TEMP 37.1; O2SAT 94; BMI 24.6
[2021-11-17 01:23] LABS: MANUAL DIFF FLAG NO
[2021-11-17 01:24] LABS: Basophils Absolute Auto 0.1 X10*3/uL (0.0-0.2); Basophils Percent Auto 0.8 % (0-2); Eosinophils Absolute Auto 0.5 X10*3/uL (0.0-0.4); Eosinophils Percent Auto 6.2 % (0-4); Hemoglobin 13.8 g/dl (14.0-18.0); Imm Gran Abs Auto 0.03 X10*3/uL (0.00-0.03); Imm Gran Pct Auto 0.4 % (0.0-0.4); Lymphocytes Absolute Auto 0.9 X10*3/uL (1.2-4.9); Lymphocytes Percent Auto 10.5 % (20-40); Mean Corpuscular HGB Conc 32.1 g/dl (31.0-36.0); Mean Corpuscular Hemoglobin 27.9 pg (27.0-33.0); Monocytes Absolute Auto 0.9 X10*3/uL (0.1-1.2); Monocytes Percent Auto 10.6 % (2-11); Neutrophils Absolute Auto 5.9 x10*3/uL (2.0-8.3); Neutrophils Percent Auto 71.5 % (45-73); Platelet Count 335 X10*3/uL (160-400); Red Blood Count 4.94 X10*6/uL (4.60-5.80); Red Cell Distribution Width 12.9 % (11.0-16.0); White Blood Count 8.3 X10*3/uL (4.8-10.8)
[2021-11-17 01:54] LABS: Alanine Aminotransferase 15 U/L (0-40); Albumin Level 3.9 g/dL (3.5-5.0); Alkaline Phosphatase 78 U/L (39-117); Anion Gap 14 (12-20); Aspartate Amino Transferase 16 U/L (5-37); Bilirubin Total 0.4 mg/dL (0.0-1.0); Blood Urea Nitrogen 20 mg/dL (9-16); Calcium 9.9 mg/dL (8.4-10.2); Carbon Dioxide 28 mmol/L (22-29); Chloride 108 mmol/L (96-108); Creatinine Clr Calc Pharmacy 52.4; Estimated Glomerular Filt Rate 48; Glucose Random 107 mg/dL (60-115); Potassium 4.1 mmol/L (3.3-5.1); Sodium 146 mmol/L (135-145); Total Protein 6.2 g/dL (6.5-8.0)
[2021-11-17 01:59] VITALS: BP 135/80; PULSE 67; RESP 20; O2SAT 95
[2021-11-17 02:06] LABS: TSH reflex Free T4 1.66 uIU/mL (0.32-4.0)
[2021-11-17 02:06] LABS: Appearance Urine Clear; Color Urine Yellow; Glucose Urine UA Negative (Negative); Leukocyte Esterase Urine Small (1+) (Negative); Nitrite Urine Negative (Negative); Specific Gravity - Urine 1.015 (1.005-1.025); Urine Blood Negative (Negative); Urine Ketones Negative (Negative); Urine Protein Negative (Neg-Trace)
[2021-11-17 02:11] LABS: Bacteria Urine None Seen (None Seen); Hyaline Casts Urine 0-2 /LPF (0-2); RBC Urine 0-2 /HPF (0-2); Squamous Epithelial Cell Urine 0-2 /HPF (0-2); UACC Culture Trigger YES
[2021-11-17] MEDS: cefTRIAXone sodium 1 GM in 0.9 % Sodium Chloride 50 ML IV (03:38)
== END 2021-11-17 03:58 | disposition home or self-care (01) ==
PROVIDERS: Emergency Provider Emergency Medicine
DX: N39.0 Urinary tract infection, site not specified (principal); R41.0 Disorientation, unspecified; N28.9 Disorder of kidney and ureter, unspecified; F17.210 Nicotine dependence, cigarettes, uncomplicated
CPT/HCPCS: 36415; 70450; 71045; 80053; 81001; 84443; 85025; 87086; 87088; 87186; 93005; 96374; 99284; J0696

== ENCOUNTER 2021-11-18 20:14 | Inpatient (IN) | payer BC, SELFPAY ==
--- NOTE | 2021-11-18 | ECG_ITS ---
Test Reason : ALTERED MENTAL STATUS Blood Pressure : / mmHG Vent. Rate : 052 BPM Atrial Rate : 052 BPM P-R Int : 162 ms QRS Dur : 082 ms QT Int : 484 ms P-R-T Axes : 043 011 041 degrees QTc Int : 450 ms Sinus bradycardia Septal infarct (cited on or before 17-NOV-2021) Abnormal ECG When compared with ECG of 17-NOV-2021 00:54, No significant change was found Referred By: Generic ED Physician Electronically Signed By:DI WHATLEY
--- NOTE | ~2021-11-18 | US_ITS ---
EXAMINATION: US RETROPERITONEAL LIMITED (RENAL ONLY) CLINICAL INFORMATION: UTI. COMPARISON: Renal ultrasound 01/01/2021. CT chest 07/23/2019, 06/23/2018. TECHNIQUE: Real-time imaging of the kidneys. FINDINGS: RIGHT KIDNEY: 10.2 x 5.4 x 5.2 cm (SAG x AP x TRV). No hydronephrosis or visible calculi. Normal renal parenchymal thickness and echogenicity. There is a stable parapelvic cyst upper pole measuring 1.4 cm similar to prior exam 01/01/2021. No additional imaging follow-up recommended. LEFT KIDNEY: 9.6 x 5.3 x 4.5 cm (SAG x AP x TRV). The kidney is normal in size, contour, and echogenicity. Renal cortical thickness is normal. No calculi or focal parenchymal lesions. No hydronephrosis. US/US renal BI IMPRESSION: -No hydronephrosis or visible calculi.
[2021-11-18 21:11] VITALS: BMI 28.1
[2021-11-18 21:39] VITALS: BP 118/81; PULSE 50; RESP 17; O2SAT 97
[2021-11-18 21:43] VITALS: TEMP 36.1
[2021-11-18 22:04] LABS: Glucose, Whole Blood 84 mg/dL (60-115)
[2021-11-18 22:15] LABS: MANUAL DIFF FLAG NO
[2021-11-18 22:18] LABS: Basophils Absolute Auto 0.1 X10*3/uL (0.0-0.2); Basophils Percent Auto 0.7 % (0-2); Eosinophils Absolute Auto 0.6 X10*3/uL (0.0-0.4); Eosinophils Percent Auto 8.4 % (0-4); Hematocrit 41.7 % (42.0-52.0); Hemoglobin 13.2 g/dl (14.0-18.0); Imm Gran Abs Auto 0.02 X10*3/uL (0.00-0.03); Imm Gran Pct Auto 0.3 % (0.0-0.4); Lymphocytes Absolute Auto 0.8 X10*3/uL (1.2-4.9); Lymphocytes Percent Auto 11.5 % (20-40); Mean Corpuscular HGB Conc 31.7 g/dl (31.0-36.0); Mean Corpuscular Volume 88.5 fL (80.0-98.0); Mean Platelet Volume 9.2 fL (9.4-12.4); Monocytes Percent Auto 13.9 % (2-11); Neutrophils Absolute Auto 4.5 x10*3/uL (2.0-8.3); Neutrophils Percent Auto 65.2 % (45-73); Platelet Count 306 X10*3/uL (160-400); Red Blood Count 4.71 X10*6/uL (4.60-5.80); Red Cell Distribution Width 12.7 % (11.0-16.0); White Blood Count 6.9 X10*3/uL (4.8-10.8)
--- NOTE | 2021-11-18 22:27 | ED_ITS ---
HPI - Altered Mental Status General Chief Complaint: Altered Mental Status Stated Complaint: confused,disoriented,very sleepy Time Seen by Provider: 11/18/21 22:27 Source: patient Mode of arrival: ambulatory Limitations: no limitations History of Present Illness HPI narrative: Patient history of transverse myelitis self-catheterize was seen here 2 days ago for 3 days of confusion patient had lab workup done which showed urinary tract infection urine culture grew enterococci final sensitivity pending patient sta rted on Cefdinir patient again got more confused today and came to the hospital was forgetful did not remember that he took his medicine and not no fever or chills no signs of injury or fall Related Data Home Medications Medication Instructions Recorded Confirmed acetaminophen 500 mg tablet 500 mg PO Q6H PRN 09/09/20 (Tylenol Extra Strength) ascorbic acid (vitamin C) 1,000 mg 1 g PO DAILY 09/09/20 tablet cholecalciferol (vitamin D3) 125 125 mcg PO BID 09/09/20 mcg (5,000 unit) capsule duloxetine 60 mg capsule,delayed 60 mg PO DAILY 09/09/20 release ferrous sulfate 325 mg (65 mg 325 mg PO DAILY 09/09/20 iron) tablet gabapentin 600 mg tablet 600 mg PO BEDTIME 09/09/20 glucosamine HCl 500 mg tablet 500 mg PO BID 09/09/20 ibuprofen 200 mg capsule 200 mg PO Q6H PRN 09/09/20 lorazepam 1 mg tablet 1 mg PO BEDTIME PRN 09/09/20 magnesium 250 mg tablet 250 mg PO BID 09/09/20 oxybutynin chloride 15 mg 15 mg PO DAILY 09/09/20 tablet,extended release 24 hr oxycodone-acetaminophen 5 mg-325 1 tab PO .twice a day PRN 09/09/20 mg tablet potassium gluconate 595 mg (99 mg) 595 mg PO DAILY 09/09/20 tablet ropinirole 0.5 mg tablet 0.5 mg PO BEDTIME 09/09/20 tizanidine 4 mg capsule 4 mg PO BEDTIME 09/09/20 topiramate 50 mg tablet 50 mg PO BID 09/09/20 zonisamide 100 mg capsule 200 mg PO BID 09/09/20 diphenhydramine HCl 25 mg capsule 25 mg PO BEDTIME PRN 09/28/21 (Allergy Medication) Previous Rx's Medication Instructions Recorded cefdinir 300 mg capsule 300 mg PO BID #14 caps 11/17/21 Allergies Allergy/AdvReac Type Severity Reaction Status Date / Time No Known Allergies Allergy Verified 09/28/21 14:36 [No Known Allergies*] Review of Systems Review of Systems: Yes all other systems are reviewed and are negative [facility] Past Medical History Medical History Arthritis Transverse myelitis Surgical History History of surgery on wrist Social History Social History Alcohol intake: former Patient Tobacco Use Status: Former Tobacco user Tobacco use type: Cigarette Cigarettes Per Day: 20 Years Smoked: 35 e-Cigarette/Vaping Use: Never Used Advance Directives: No Advance Directives Information Provided: No Current occupational status: disabled Current occupation: rt handed Physical Exam ED Vital Signs: Vital Signs - 24 hr 11/18/21 21:39 11/18/21 21:43 Temperature 97.0 F Pulse Rate 50 Respiratory Rate 17 Blood Pressure 118/81 Pulse Oximetry 97 Oxygen Delivery Method Room Air BMI result Body Mass Index 28.1 Appearance: Alert. Oriented X3. No acute distress. Eyes: PERRLA, No Nystagmus ENT: Pharynx normal. Oral Mucosa moist Neck: Normal inspection. Neck supple. CVS: Normal heart rate and rhythm. Pulses normal. Respiratory: No respiratory distress. Equal air entry bilateral, no wheezing/rales/rhonchi Abdomen: Soft and nontender. Bowel sounds are present, no mass palpable, no CVA tenderness Skin: Skin warm and dry. Normal skin color. Normal skin turgor. Extremities: No lower extremity edema. No calf tenderness Neuro: Oriented X 3. No motor deficit. No sensory deficit.No cerebellar signs , cranial nerves II-XII intact MDM - Altered Mental Status MDM Narrative Medical decision making narrative: Patient with enterococcus in the urine will start patient on vancomycin admit Lab Data Result diagrams: 11/18/21 22:07 11/18/21 22:46 Labs: Lab Results 11/18/21 11/18/21 11/18/21 Range/Units 22:00 22:07 22:07 WBC 6.9 (4.8-10.8) X10*3/uL RBC 4.71 (4.60-5.80) X10*6/uL Hgb 13.2 L (14.0-18.0) g/dl Hct 41.7 L (42.0-52.0) % MCV 88.5 (80.0-98.0) fL MCH 28.0 (27.0-33.0) pg MCHC 31.7 (31.0-36.0) g/dl RDW 12.7 (11.0-16.0) % Plt Count 306 (160-400) X10*3/uL MPV 9.2 L (9.4-12.4) fL Immature Gran % (Auto) 0.3 (0.0-0.4) % Neut % (Auto) 65.2 (45-73) % Lymph % (Auto) 11.5 L (20-40) % [place] % (Auto) 13.9 H (2-11) % Eos % (Auto) 8.4 H (0-4) % Baso % (Auto) 0.7 (0-2) % Lymph # (Auto) 0.8 L (1.2-4.9) X10*3/uL [place] # (Auto) 1.0 (0.1-1.2) X10*3/uL Eos # (Auto) 0.6 H (0.0-0.4) X10*3/uL Baso # (Auto) 0.1 (0.0-0.2) X10*3/uL Abs Immat Gran (auto) 0.02 (0.00-0.03) X10*3/uL Absolute Neuts (auto) 4.5 (2.0-8.3) x10*3/uL Absolute Nucleated RBC 0.000 (0.0-0.012) X10*3/uL Nucleated RBC % (auto) 0.0 (0.0-0.2) /100WBC Sodium (135-145) mmol/L Potassium (3.3-5.1) mmol/L Chloride (96-108) mmol/L Carbon Dioxide (22-29) mmol/L Anion Gap (12-20) BUN (9-16) mg/dL Creatinine (0.5-1.4) mg/dL Estim Creat Clear Calc Estimated GFR POC Glucose 84 (60-115) mg/dL Random Glucose (60-115) mg/dL Lactic Acid 0.8 (0.5-2.0) mmol/L Calcium (8.4-10.2) mg/dL Ammonia (13-55) umol/L Ethyl Alcohol mg/dL 11/18/21 11/18/21 Range/Units 22:07 22:46 WBC (4.8-10.8) X10*3/uL RBC (4.60-5.80) X10*6/uL Hgb (14.0-18.0) g/dl Hct (42.0-52.0) % MCV (80.0-98.0) fL MCH (27.0-33.0) pg MCHC (31.0-36.0) g/dl RDW (11.0-16.0) % Plt Count (160-400) X10*3/uL MPV (9.4-12.4) fL Immature Gran % (Auto) (0.0-0.4) % Neut % (Auto) (45-73) % Lymph % (Auto) (20-40) % [place] % (Auto) (2-11) % Eos % (Auto) (0-4) % Baso % (Auto) (0-2) % Lymph # (Auto) (1.2-4.9) X10*3/uL [place] # (Auto) (0.1-1.2) X10*3/uL Eos # (Auto) (0.0-0.4) X10*3/uL Baso # (Auto) (0.0-0.2) X10*3/uL Abs Immat Gran (auto) (0.00-0.03) X10*3/uL Absolute Neuts (auto) (2.0-8.3) x10*3/uL Absolute Nucleated RBC (0.0-0.012) X10*3/uL Nucleated RBC % (auto) (0.0-0.2) /100WBC Sodium 148 H (135-145) mmol/L Potassium 3.5 (3.3-5.1) mmol/L Chloride 112 H (96-108) mmol/L Carbon Dioxide 24 (22-29) mmol/L Anion Gap 16 (12-20) BUN 27 H (9-16) mg/dL Creatinine 1.61 H (0.5-1.4) mg/dL Estim Creat Clear Calc 47.4 Estimated GFR 43 POC Glucose (60-115) mg/dL Random Glucose 92 (60-115) mg/dL Lactic Acid (0.5-2.0) mmol/L Calcium 10.0 (8.4-10.2) mg/dL Ammonia 21 (13-55) umol/L Ethyl Alcohol < 10 mg/dL Discharge Plan Discharge Clinical Impression: Altered mental status, Urinary tract infection Patient Disposition: Admitted As Inpatient
[2021-11-18 22:28] LABS: Lactic Acid 0.8 mmol/L (0.5-2.0)
[2021-11-18 22:30] LABS: Ammonia 21 umol/L (13-55)
[2021-11-18 23:08] LABS: Anion Gap 16 (12-20); Blood Urea Nitrogen 27 mg/dL (9-16); Carbon Dioxide 24 mmol/L (22-29); Chloride 112 mmol/L (96-108); Creatinine Clr Calc Pharmacy 47.4; Estimated Glomerular Filt Rate 43; Ethanol < 10 mg/dL; Glucose Random 92 mg/dL (60-115); Potassium 3.5 mmol/L (3.3-5.1); Sodium 148 mmol/L (135-145)
--- NOTE | 2021-11-18 23:16 | P.HPHOSP_ITS ---
History of Present Illness Date of Service: 11/18/21 Chief Complaint: confusion 66-year-old male with a past medical history of seizures, transverse myelitis, arthritis, restless legs syndrome, chronic pain syndrome, overactive bladder, presented to the hospital today with a chief complaint of confusion. Patient initially presented to the hospital on 11/17 with a chief complaint of confusion; noted to have UTI-given ceftriaxone and sent home on cefdinir p.o.. Patient presented back to the hospital with a chief complaint of confusion again with. Denies any falls or trauma denies any chest pain or palpitations denies any fevers and chills denies any abdominal pain nausea vomiting or diaphoresis. Denies any cough or sputum production. Review of all other systems is negative except mentioned above ER course: Per ER team patient noted to have UTI, cultures grew enterococci - given vancomycin; admitted to the hospital for further management [facility] Medical History Arthritis Transverse myelitis Pertinent family history: patient unable to provide information Surgical History History of surgery on wrist Social History Household Members: Spouse Housing: House Do you presently have visiting nurse or other home services: No Alcohol intake: former Patient Tobacco Use Status: Former Tobacco user Tobacco use type: Cigarette Cigarettes Per Day: 20 Years Smoked: 35 e-Cigarette/Vaping Use: Never Used service: No Current occupational status: disabled Current occupation: rt handed Meds Allergies Allergy/AdvReac Type Severity Reaction Status Date / Time No Known Allergies Allergy Verified 09/28/21 14:36 [No Known Allergies*] Active Medications: Current Medications Acetaminophen (Acetaminophen 325 Mg Tablet) 650 mg PO Q6H PRN PRN Reason: Pain, Mild (Pain Scale 1-3) Heparin Sodium (Porcine) (Heparin Sodium,Porcine 5,000 Unit/Ml Vial) 5,000 unit SUBCUT Q8H ANI Vancomycin HCl 1,000 mg/Vancomycin HCl 750 mg/ Sodium Chloride 535 mls @ 267.5 mls/hr IV ONCE ONE Stop: 11/19/21 00:59 Vancomycin HCl 1,000 mg/ (Sodium Chloride) 270 mls @ 270 mls/hr IV Q12H ANI Melatonin (Melatonin 3 Mg Tablet) 6 mg PO BEDTIME PRN PRN Reason: Insomnia Pharmacy Consult (Consult Rx Vancomycin Dosing) 1 each MISCELLANE DAILY PRN PRN Reason: Consult order Pharmacy Consult (Consult Rx Vancomycin Dosing) 1 each MISCELLANE DAILY PRN PRN Reason: Consult order Senna (Sennosides 8.6 Mg Tablet) 17.2 mg PO BEDTIME PRN PRN Reason: Constipation Sodium Chloride (0.9 % Sodium Chloride Flush 3 Ml Syringe) 3 ml IVFLUSH QSHIFT [facility] Home Medications Medication Instructions Recorded Confirmed Last Taken Type acetaminophen 500 mg tablet 500 mg PO Q6H PRN Pain 09/09/20 11/19/21 Unknown History (Tylenol Extra Strength) ascorbic acid (vitamin C) 1,000 mg 1 g PO DAILY 09/09/20 11/19/21 Unknown History tablet cholecalciferol (vitamin D3) 125 125 mcg PO BID 09/09/20 11/19/21 Unknown History mcg (5,000 unit) capsule duloxetine 60 mg capsule,delayed 60 mg PO DAILY 09/09/20 11/19/21 Unknown History release ferrous sulfate 325 mg (65 mg 325 mg PO DAILY 09/09/20 11/19/21 Unknown History iron) tablet gabapentin 600 mg tablet 600 mg PO BEDTIME 09/09/20 11/19/21 Unknown History glucosamine HCl 500 mg tablet 500 mg PO BID 09/09/20 11/19/21 Unknown History ibuprofen 200 mg capsule 200 mg PO Q6H PRN Pain 09/09/20 11/19/21 Unknown History lorazepam 1 mg tablet 1 mg PO BEDTIME PRN Anxiety 09/09/20 11/19/21 Unknown History magnesium 250 mg tablet 500 mg PO BID 09/09/20 11/19/21 Unknown History oxybutynin chloride 15 mg 15 mg PO DAILY 09/09/20 11/19/21 Unknown History tablet,extended release 24 hr oxycodone-acetaminophen 5 mg-325 1 tab PO BID PRN Pain 09/09/20 11/19/21 Unknown History mg tablet potassium gluconate 595 mg (99 mg) 595 mg PO DAILY 09/09/20 11/19/21 Unknown History tablet ropinirole 0.5 mg tablet 0.5 mg PO BEDTIME 09/09/20 11/19/21 Unknown History tizanidine 4 mg capsule 4 mg PO BEDTIME 09/09/20 11/19/21 Unknown History topiramate 50 mg tablet 100 mg PO BID 09/09/20 11/19/21 Unknown History zonisamide 100 mg capsule 200 mg PO BID 09/09/20 11/19/21 Unknown History diphenhydramine HCl 25 mg capsule 25 mg PO BEDTIME PRN Allergic 09/28/21 11/19/21 Unknown History (Allergy Medication) Reaction lidocaine 5 % topical patch 2 patch topical DAILY 11/19/21 11/19/21 11/18/21 History 0900 lidocaine 5 % topical patch 2 patch topical DAILY 11/19/21 11/19/21 11/18/21 09:00 History Physical Exam Vital Signs and Narrative: Vital Signs: Last Vital Signs Temp 97.0 F 11/18/21 21:43 Pulse 50 11/18/21 21:39 Resp 17 11/18/21 21:39 BP 118/81 11/18/21 21:39 Pulse Ox 97 11/18/21 21:39 O2 Del Method 11/18/21 21:39 BMI result Body Mass Index 28.1 Gen: Appears be in no acute distress HEENT: NCAT, Moist mucosa. Pulmonary: Vesicular breath sounds, fair air entry CVS: Normal S1-S2 Abdomen: BS+, Soft, Nontender Extremities: Warm well perfused Neuro: Alert and awake. oriented x2. Grossly nonfocal Results Labs CBC and Chem 7: 11/19/21 06:45 11/20/21 06:02 Labs: Laboratory Results - last 24 hr 11/18/21 11/18/21 11/18/21 22:00 22:07 22:07 MCV 88.5 MCH 28.0 MCHC 31.7 RDW 12.7 Plt Count 306 MPV 9.2 L Immature Gran % (Auto) 0.3 Neut % (Auto) 65.2 Lymph % (Auto) 11.5 L [place] % (Auto) 13.9 H Eos % (Auto) 8.4 H Baso % (Auto) 0.7 Lymph # (Auto) 0.8 L [place] # (Auto) 1.0 Eos # (Auto) 0.6 H Baso # (Auto) 0.1 Abs Immat Gran (auto) 0.02 Absolute Neuts (auto) 4.5 Absolute Nucleated RBC 0.000 Nucleated RBC % (auto) 0.0 Anion Gap Estim Creat Clear Calc Estimated GFR POC Glucose 84 Random Glucose Lactic Acid 0.8 Calcium Ammonia Ethyl Alcohol 11/18/21 11/18/21 22:07 22:46 MCV MCH MCHC RDW Plt Count MPV Immature Gran % (Auto) Neut % (Auto) Lymph % (Auto) [place] % (Auto) Eos % (Auto) Baso % (Auto) Lymph # (Auto) [place] # (Auto) Eos # (Auto) Baso # (Auto) Abs Immat Gran (auto) Absolute Neuts (auto) Absolute Nucleated RBC Nucleated RBC % (auto) Anion Gap 16 Estim Creat Clear Calc 47.4 Estimated GFR 43 POC Glucose Random Glucose 92 Lactic Acid Calcium 10.0 Ammonia 21 Ethyl Alcohol < 10 Assessment and Plan (1) Urinary tract infection: Status: Acute Plan 66-year-old male with a past medical history of arthritis, transverse myelitis, chronic back pain, neuropathy, restless leg syndrome, presented to the hospital today with a chief complaint of altered mental status. Noted to have UTI. Admitted for further management Recurrent UTI: Cultures growing enterococci /Streptococcal -continue vancomycin Id consult renal USG altered mental status: Toxic metabolic encephalopathy in the setting of UTI. Supportive care. History of restless leg syndrome: Continue omeprazole History of seizures: Continue to provide/ thoracic might History of neuropathy: Continue home gabapentin History of anxiety depression: Continue home duloxetine DVT prophylaxis: Subcu heparin Code status: Full code Quality Stroke Does the patient have a stroke diagnosis?: No VTE Prior VTE?: No VTE Risk Level:: Medical - moderate - high VTE Device Contraindication: Treatment Not Indicated VTE Drug Contraindication: N/A - Med Ordered
[2021-11-18] MEDS: vancomycin HCL 1,000 MG, vancomycin HCL 750 MG in 0.9 % Sodium Chloride 500 ML 267.5 MG IV (23:19)
[2021-11-19] MEDS: Heparin Sodium,Porcine 5,000 UNIT/ML VIAL 5000 UNIT SUBCUT ×4 (00:26→22:20)
[2021-11-19 02:00] VITALS: BP 131/73; PULSE 52; RESP 16; TEMP 36.5; O2SAT 96
[2021-11-19 05:37] LABS: Appearance Urine Clear; Color Urine Yellow; Glucose Urine UA Negative (Negative); Leukocyte Esterase Urine Moderate (2+) (Negative); Nitrite Urine Negative (Negative); Urine Blood Negative (Negative); Urine Ketones Trace mg/dL (Negative); Urine Protein Negative (Neg-Trace)
[2021-11-19 05:42] LABS: Bacteria Urine None Seen (None Seen); Hyaline Casts Urine 0-2 /LPF (0-2); RBC Urine 0-2 /HPF (0-2); WBC Urine 21-50 /HPF (0-5)
[2021-11-19 05:51] LABS: COVID-19 Test Negative (Negative)
[2021-11-19 06:00] VITALS: BP 133/71; PULSE 61; RESP 16; TEMP 36.6; O2SAT 94
[2021-11-19 06:49] LABS: MANUAL DIFF FLAG NO
[2021-11-19 06:53] LABS: Basophils Percent Auto 0.6 % (0-2); Eosinophils Absolute Auto 0.4 X10*3/uL (0.0-0.4); Eosinophils Percent Auto 6.1 % (0-4); Hematocrit 42.3 % (42.0-52.0); Hemoglobin 13.6 g/dl (14.0-18.0); Imm Gran Abs Auto 0.03 X10*3/uL (0.00-0.03); Imm Gran Pct Auto 0.4 % (0.0-0.4); Lymphocytes Absolute Auto 0.8 X10*3/uL (1.2-4.9); Lymphocytes Percent Auto 12.2 % (20-40); Mean Corpuscular HGB Conc 32.2 g/dl (31.0-36.0); Mean Corpuscular Hemoglobin 28.7 pg (27.0-33.0); Mean Corpuscular Volume 89.2 fL (80.0-98.0); Mean Platelet Volume 9.1 fL (9.4-12.4); Monocytes Absolute Auto 0.5 X10*3/uL (0.1-1.2); Monocytes Percent Auto 7.5 % (2-11); Neutrophils Absolute Auto 5.1 x10*3/uL (2.0-8.3); Neutrophils Percent Auto 73.2 % (45-73); Platelet Count 306 X10*3/uL (160-400); Red Blood Count 4.74 X10*6/uL (4.60-5.80); Red Cell Distribution Width 12.6 % (11.0-16.0); White Blood Count 6.9 X10*3/uL (4.8-10.8)
[2021-11-19 07:10] LABS: Anion Gap 15 (12-20); Blood Urea Nitrogen 23 mg/dL (9-16); Calcium 9.3 mg/dL (8.4-10.2); Carbon Dioxide 24 mmol/L (22-29); Chloride 111 mmol/L (96-108); Creatinine Clr Calc Pharmacy 55.3; Estimated Glomerular Filt Rate 52; Glucose Random 85 mg/dL (60-115); Potassium 3.2 mmol/L (3.3-5.1); Sodium 147 mmol/L (135-145)
[2021-11-19 07:25] LABS: Glucose, Whole Blood 69 mg/dL (60-115)
[2021-11-19 07:55] LABS: Glucose, Whole Blood 69 mg/dL (60-115)
--- NOTE | 2021-11-19 07:57 | PHA.PROG ---
Admission Date/Time: November 18, 2021 23:11 Indication: UTI Weight in k.647 kg Adjusted body weight in K.319 Velva body weight in K.1 Obesity Dosing Indication % IBW: N/a Serum Creatinine - Last 168 Hours 11/18/21 11/19/21 22:46 06:45 Creatinine 1.61 H 1.38 Estimated CrCl and GFR - Last 168 Hours 11/18/21 11/19/21 22:46 06:45 Estim Creat Clear Calc 47.4 55.3 Estimated GFR 43 52 Vancomycin Loading Dose: 1750mg Current Vancomycin Dosing Regimen: 750mg Q12 Vancomycin Monitoring using AUC goal of 400 - 600 range with trough as surrogate marker: 543 Date and Time for next Vancomycin Level to be drawn: 11/20 @0900 Pharmacist Comments on Vancomycin Plan: Patient received proper load. Scr down from last night, from 1.61 to 1.38 mg/dL. Patient younger than 65 years old, Q12 dosing chosen. Predicted AUC 543 mg/L/hr. Vancomycin dosing will take advantage of [employer] as a clinical decision support tool that uses Bayesian modeling to calculate individual patient's pharmacokinetic parameters and forecast the patient's drug concentration time course with the target goal AUC 24 range of 400 - 600 mg/L/hr.
--- NOTE | 2021-11-19 08:27 | PHA.MEDREC ---
Addendum entered by Cristela Roque, [facility] 11/19/21 08:50: Tried call [facility] for a list of medications, was told pt has not picked up from there in two years. Original Note: Pharmacy Consult ? Medication Reconciliation Pharmacy has REVIEWED the medication reconciliation done by [facility]anch[facility]. Pt has testosterone prescription at [facility], picked up 11/12/2021. Could not confirm with patient whether they take it or not.
[2021-11-19] MEDS: Potassium Chloride ER 20 MEQ TAB.ER.PRT 40 MEQ PO (09:10)
[2021-11-19] MEDS: Cholecalciferol (Vitamin D3) 25 MCG TABLET 125 MCG PO ×2 (09:10→21:54)
[2021-11-19] MEDS: Topiramate 25 MG TABLET 100 MG PO ×2 (09:11→21:53)
[2021-11-19] MEDS: Magnesium Oxide 400 MG TABLET PO ×2 (09:11→21:53)
[2021-11-19] MEDS: DULoxetine HCl 60 MG CAPSULE.DR PO (09:11)
[2021-11-19] MEDS: 0.9 % Sodium Chloride Flush 3 ML SYRINGE IVFLUSH ×2 (09:12→21:54)
[2021-11-19 09:19] VITALS: BP 142/80; PULSE 73; RESP 12; O2SAT 95
[2021-11-19] MEDS: vancomycin HCL 750 MG in 0.9 % Sodium Chloride 250 ML 265 MG IV ×2 (11:12→21:55)
--- NOTE | 2021-11-19 11:45 | MHC.CM.PN ---
Patient is here with AMS/Acute Confusion; CM spoke with /Gilma @ [phone].Patient lives in a house with his and he uses a cane when ambulating outdoors. Home/no services, as [employer] is the goal but Patient may benefit from a PT eval. CM has initiated and will follow for dc planning. Patient has received Covid vax X3 and PCP is Dr. Radha Adan.
--- NOTE | 2021-11-19 13:16 | HO.PM.IMPN ---
Subjective Subjective Date of Service: 11/19/21 Interval History: Patient feels his confusion has resolved, answering questions appropriately denies nausea, vomiting, tolerating diet, no abdominal pain, no fevers no chills, no urinary symptoms. Review of Systems [employer] no headache no dizziness CVS no chest pain, no palpitation GI no nausea no vomiting Review of Systems: Yes all other systems are reviewed and are negative Physical Exam Vital Signs: Vital Signs: Last Vital Signs Temp 97.9 F 11/19/21 06:00 Pulse 73 11/19/21 09:19 Resp 12 11/19/21 09:19 BP 142/80 H 11/19/21 09:19 Pulse Ox 95 11/19/21 09:19 O2 Del Method 11/19/21 09:19 BMI result Body Mass Index 28.1 Const: Other: General awake alert,in no acute distress. Anicteric sclera Neck no JVD. CVS regular rate rhythm, Respiratory lungs clear to auscultation, no respiratory distress, no wheeze, no rhonchi. Gastrointestinal abdomen soft, nontender, bowel sounds audible, no guarding , no rigidity. Extremities no edema. Neuro speech clear, alert oriented x3 Psych normal affect Objective Data Active Medications Acetaminophen (Acetaminophen 325 Mg Tablet) 650 mg PO Q6H PRN PRN Reason: Pain, Mild (Pain Scale 1-3) Diphenhydramine HCl (Diphenhydramine Hcl 25 Mg Tablet) 25 mg PO BEDTIME PRN PRN Reason: Allergic Reaction Duloxetine HCl (Duloxetine Hcl 60 Mg Capsule.) 60 mg PO DAILY [facility] Last Admin: 11/19/21 09:11 Dose: 60 mg Documented By: AMARI Gabapentin (Gabapentin 600 Mg Tablet) 600 mg PO BEDTIME [facility] Heparin Sodium (Porcine) (Heparin Sodium,Porcine 5,000 Unit/Ml Vial) 5,000 unit SUBCUT Q8H [facility] Last Admin: 11/19/21 09:11 Dose: 5,000 unit Documented By: AMARI Vancomycin HCl 750 mg/ Sodium (Chloride) 265 mls @ 265 mls/hr IV Q12H [facility] Last Admin: 11/19/21 11:12 Dose: 265 mls/hr Documented By: AMARI Lorazepam (Lorazepam 1 Mg Tablet) 1 mg PO BEDTIME PRN PRN Reason: Anxiety Magnesium Oxide (Magnesium Oxide 400 Mg Tablet) 400 mg PO BID [facility] Last Admin: 11/19/21 09:11 Dose: 400 mg Documented By: AMARI Melatonin (Melatonin 3 Mg Tablet) 6 mg PO BEDTIME PRN PRN Reason: Insomnia Non-Formulary Medication (Lidocaine) 2 patch TOPICAL DAILY [facility] Oxybutynin Chloride (Oxybutynin Chloride Er 5 Mg Tab.Er.24) 15 mg PO DAILY [facility] Last Admin: 11/19/21 09:11 Dose: 15 mg Documented By: AMARI Pharmacy Consult (Consult Rx Vancomycin Dosing) 1 each MISCELLANE DAILY PRN PRN Reason: Consult order Pharmacy Consult (Consult Rx Vancomycin Dosing) 1 each MISCELLANE DAILY PRN PRN Reason: Consult order Potassium Chloride (Potassium Chloride Er 20 Meq Tab.Er.Prt) 40 meq PO DAILY [facility] Last Admin: 11/19/21 09:10 Dose: 40 meq Documented By: AMARI Ropinirole HCl (Ropinirole Hcl 0.5 Mg Tablet) 0.5 mg PO BEDTIME [facility] Senna (Sennosides 8.6 Mg Tablet) 17.2 mg PO BEDTIME PRN PRN Reason: Constipation Sodium Chloride (0.9 % Sodium Chloride Flush 3 Ml Syringe) 3 ml IVFLUSH QSHIFT [facility] Last Admin: 11/19/21 09:12 Dose: 3 ml Documented By: AMARI Tizanidine HCl (Tizanidine Hcl 4 Mg Tablet) 4 mg PO BEDTIME [facility] Topiramate (Topiramate 25 Mg Tablet) 100 mg PO BID [facility] Last Admin: 11/19/21 09:11 Dose: 100 mg Documented By: AMARI Vitamin D (Cholecalciferol (Vitamin D3) 25 Mcg Tablet) 125 mcg PO BID [facility] Last Admin: 11/19/21 09:10 Dose: 125 mcg Documented By: AMARI Zonisamide (Zonisamide 100 Mg Capsule) 200 mg PO BID [facility] Labs CBC & Chem 7: 11/19/21 06:45 11/19/21 06:45 Labs: Laboratory Results - last 24 hr 11/18/21 11/18/21 11/18/21 22:00 22:07 22:07 MCV 88.5 MCH 28.0 MCHC 31.7 RDW 12.7 Plt Count 306 MPV 9.2 L Immature Gran % (Auto) 0.3 Neut % (Auto) 65.2 Lymph % (Auto) 11.5 L [place] % (Auto) 13.9 H Eos % (Auto) 8.4 H Baso % (Auto) 0.7 Lymph # (Auto) 0.8 L [place] # (Auto) 1.0 Eos # (Auto) 0.6 H Baso # (Auto) 0.1 Abs Immat Gran (auto) 0.02 Absolute Neuts (auto) 4.5 Absolute Nucleated RBC 0.000 Nucleated RBC % (auto) 0.0 Anion Gap Estim Creat Clear Calc Estimated GFR POC Glucose 84 Random Glucose Lactic Acid 0.8 Calcium Ammonia Urine Color Urine Appearance Urine pH Ur Specific [place] Urine Protein Urine Glucose (UA) Urine Ketones Urine Blood Urine Nitrite Ur Leukocyte Esterase Urine RBC Urine WBC Ur Squamous Epith Cells Urine Bacteria Hyaline Casts Ethyl Alcohol COVID-19 (TJ) COVID-19 Clin Com 11/18/21 11/18/21 11/19/21 22:07 22:46 05:31 MCV MCH MCHC RDW Plt Count MPV Immature Gran % (Auto) Neut % (Auto) Lymph % (Auto) [place] % (Auto) Eos % (Auto) Baso % (Auto) Lymph # (Auto) [place] # (Auto) Eos # (Auto) Baso # (Auto) Abs Immat Gran (auto) Absolute Neuts (auto) Absolute Nucleated RBC Nucleated RBC % (auto) Anion Gap 16 Estim Creat Clear Calc 47.4 Estimated GFR 43 POC Glucose Random Glucose 92 Lactic Acid Calcium 10.0 Ammonia 21 Urine Color Urine Appearance Urine pH Ur Specific [place] Urine Protein Urine Glucose (UA) Urine Ketones Urine Blood Urine Nitrite Ur Leukocyte Esterase Urine RBC Urine WBC Ur Squamous Epith Cells Urine Bacteria Hyaline Casts Ethyl Alcohol < 10 COVID-19 (TJ) Negative COVID-19 Clin Com See Note 11/19/21 11/19/21 11/19/21 05:31 06:45 06:45 MCV 89.2 MCH 28.7 MCHC 32.2 RDW 12.6 Plt Count 306 MPV 9.1 L Immature Gran % (Auto) 0.4 Neut % (Auto) 73.2 H Lymph % (Auto) 12.2 L [place] % (Auto) 7.5 Eos % (Auto) 6.1 H Baso % (Auto) 0.6 Lymph # (Auto) 0.8 L [place] # (Auto) 0.5 Eos # (Auto) 0.4 Baso # (Auto) 0.0 Abs Immat Gran (auto) 0.03 Absolute Neuts (auto) 5.1 Absolute Nucleated RBC 0.000 Nucleated RBC % (auto) 0.0 Anion Gap 15 Estim Creat Clear Calc 55.3 Estimated GFR 52 POC Glucose Random Glucose 85 Lactic Acid Calcium 9.3 D Ammonia Urine Color Yellow Urine Appearance Clear Urine pH 6.0 Ur Specific [place] 1.010 Urine Protein Negative Urine Glucose (UA) Negative Urine Ketones Trace Urine Blood Negative Urine Nitrite Negative Ur Leukocyte Esterase Moderate (2+) H Urine RBC 0-2 Urine WBC 21-50 H Ur Squamous Epith Cells 3-5 Urine Bacteria None Seen Hyaline Casts 0-2 Ethyl Alcohol COVID-19 (TJ) COVID-19 Pharmacopeia Com 11/19/21 11/19/21 07:21 07:21 MCV MCH MCHC RDW Plt Count MPV Immature Gran % (Auto) Neut % (Auto) Lymph % (Auto) [place] % (Auto) Eos % (Auto) Baso % (Auto) Lymph # (Auto) [place] # (Auto) Eos # (Auto) Baso # (Auto) Abs Immat Gran (auto) Absolute Neuts (auto) Absolute Nucleated RBC Nucleated RBC % (auto) Anion Gap Estim Creat Clear Calc Estimated GFR POC Glucose 69 69 Random Glucose Lactic Acid Calcium Ammonia Urine Color Urine Appearance Urine pH Ur Specific [place] Urine Protein Urine Glucose (UA) Urine Ketones Urine Blood Urine Nitrite Ur Leukocyte Esterase Urine RBC Urine WBC Ur Squamous Epith Cells Urine Bacteria Hyaline Casts Ethyl Alcohol COVID-19 (TJ) COVID-19 Clin Com Assessment and Plan (1) Urinary tract infection: Status: Acute Plan 66-year-old male with a past medical history of arthritis, transverse myelitis, chronic back pain, neuropathy, restless leg syndrome,? presented to the hospital today with a chief complaint of altered mental status.? Noted to have UTI.? Admitted for further management Acute toxic metabolic encephalopathy Resolved Head CT negative Was Likely due to UTI /electrolyte abnormality UTI Patient afebrile, normal Wbc, urine culture grew Enterococcus faecalis, sensitive to vanco , amp and nitrofurantoin Blood cultures x2 pending Renal ultrasound showed no hydronephrosis or visible calculi If blood cultures negative will transition to by mouth antibiotic Mild hypokalemia and hypernatremia Will replace potassium/give IV fluids History of restless leg syndrome:? Continue Requip History of neuropathy: Continue home gabapentin History of seizure continue seizure medication and seizure precautions History of anxiety depression: Continue home duloxetine History of transverse myelitis continue home medication DVT prophylaxis:? Subcu heparin Code status:? Full code Patient will need continued inpatient hospitalization since receiving IV antibiotic for UTI and awaiting blood culture report. Quality Stroke Does the patient have a stroke diagnosis?: No VTE Prior VTE?: No VTE Risk Level:: Medical - moderate - high VTE Device Contraindication: Treatment Not Indicated VTE Drug Contraindication: N/A - Med Ordered
[2021-11-19] MEDS: Lidocaine 4 % Patch ADH..PATCH 2 PATCH TRANSDERMA (14:39)
[2021-11-19] MEDS: Dextrose 5 % 1,000 ML 100 ML IVCONT (15:10)
[2021-11-19 15:11] VITALS: BP 109/68; PULSE 73; RESP 12; TEMP 36.9; O2SAT 97
[2021-11-19 18:44] VITALS: BP 142/61; PULSE 61; RESP 17; TEMP 36.8; O2SAT 97
[2021-11-19] MEDS: rOPINIRole HCL 0.5 MG TABLET PO (21:53)
[2021-11-19] MEDS: TiZANidine HCL 4 MG TABLET PO (21:53)
[2021-11-19] MEDS: Gabapentin 600 MG TABLET PO (21:53)
[2021-11-20 04:00] VITALS: BP 140/62; PULSE 68; RESP 20; TEMP 36.7; O2SAT 97
[2021-11-20 06:49] LABS: Anion Gap 19 (12-20); Blood Urea Nitrogen 22 mg/dL (9-16); Calcium 9.2 mg/dL (8.4-10.2); Carbon Dioxide 18 mmol/L (22-29); Chloride 109 mmol/L (96-108); Creatinine Clr Calc Pharmacy 54.5; Estimated Glomerular Filt Rate 51; Glucose Random 76 mg/dL (60-115); Potassium 3.7 mmol/L (3.3-5.1); Sodium 142 mmol/L (135-145)
[2021-11-20 07:30] VITALS: BP 144/76; PULSE 65; RESP 18; TEMP 36.8; O2SAT 96
[2021-11-20] MEDS: Lidocaine 4 % Patch ADH..PATCH 2 PATCH TRANSDERMA (08:44)
[2021-11-20] MEDS: Heparin Sodium,Porcine 5,000 UNIT/ML VIAL 5000 UNIT SUBCUT (08:45)
[2021-11-20] MEDS: 0.9 % Sodium Chloride Flush 3 ML SYRINGE IVFLUSH (08:45)
[2021-11-20] MEDS: Topiramate 25 MG TABLET 100 MG PO (08:46)
[2021-11-20] MEDS: Cholecalciferol (Vitamin D3) 25 MCG TABLET 125 MCG PO (08:47)
[2021-11-20] MEDS: Potassium Chloride ER 20 MEQ TAB.ER.PRT 40 MEQ PO (08:47)
[2021-11-20] MEDS: Magnesium Oxide 400 MG TABLET PO (08:48)
[2021-11-20] MEDS: DULoxetine HCl 60 MG CAPSULE.DR PO (08:48)
[2021-11-20] MEDS: Amoxicillin 500 MG CAPSULE PO (10:32)
--- NOTE | 2021-11-20 11:08 | PM.DS ---
DS: Providers Provider Date of Service: 11/20/21 Date of admission: 11/18/21 23:11 Primary care physician: Radha Adan MD Consults: 11/18/21 23:11 Consult to Infectious Diseases Routine Consulting Provider: Anna Herzog Reason for consultation: rec UTI DS: Diagnosis Discharge Diagnosis (1) Urinary tract infection: Status: Acute DS: Summary Hospital Course Hospital Course: History of presenting illness Date of Service: 11/18/21 Chief Complaint:? confusion ?66-year-old male with a past medical history of seizures, transverse myelitis, arthritis, restless legs syndrome, chronic pain syndrome, overactive bladder, presented to the hospital today with a chief complaint of confusion.? Patient initially presented to the hospital on 11/17 with a chief complaint of confusion; noted to have UTI-given ceftriaxone and sent home on cefdinir p.o..? Patient presented back to the hospital with a chief complaint of confusion again denies any falls or trauma denies any chest pain, or palpitations denies any fevers and chills, denies any abdominal pain nausea, vomiting or diaphoresis.?Denies any cough or sputum production.? Review of all other systems is negative except mentioned above ER course: Per ER team patient noted to have UTI, cultures from before grew enterococci - given vancomycin; admitted to the hospital for further management Hospital course 6-year-old male with a past medical history of arthritis, transverse myelitis, chronic back pain, neuropathy, restless leg syndrome,? presented to the hospital today with a chief complaint of altered mental status.? Noted to have UTI.? Admitted for further management Patient admitted with a diagnosis of Acute toxic metabolic encephalopathy related to acute UTI and electrolyte abnormality patient treated with IV vancomycin since urine culture from 11/17 of was growing Enterococcus faecalis, Potassium was replaced, confusion resolved patient seems to be at baseline he had no symptoms of fever chills WBC remains normal, blood cultures negative, since patient is feeling better ambulating with assistance of cane with no symptoms of lightheadedness dizziness and no change in baseline strength and activity he is being discharged home to finish 10 more days of by mouth amoxicillin. Head CT negative, repeat electrolytes are normal Mild hypokalemia and hypernatremia repleted and improved History of restless leg syndrome:? Continue Requip History of neuropathy: Continue home gabapentin History of seizure continue seizure medication and seizure precautions History of anxiety depression: Continue home duloxetine History of transverse myelitis continue home medication Time Spent with Patient Time attestation: Total time spent providing and/or coordinating discharge services: Discharge coordination time: Greater than 30 minutes Quality: Safe Use of Opioids Does Pt have an Active Cancer Diagnosis on the Problem List?: No Quality: Stroke Does the patient have a stroke diagnosis?: No Physical Exam Vital Signs: Vital Signs: Last Vital Signs Temp 98.2 F 11/20/21 07:30 Pulse 65 11/20/21 07:30 Resp 18 11/20/21 07:30 BP 144/76 H 11/20/21 07:30 Pulse Ox 96 11/20/21 07:30 O2 Del Method 11/20/21 07:30 BMI result Body Mass Index 28.1 Const: Other: General awake aler t,in no acute dist ress. Anicteric sc [place] Neck no JVD. CVS? regular rate rhythm, Respirator y lungs clear to a uscultation, no re spiratory distress , no wheeze, no rh onchi. Gastrointes tinal abdomen soft , nontender, bowel sounds audible, n o guarding , no ri gidity. Extremitie s no edema. Neuro speech clear, aler t oriented x3 Psyc h normal affect DS: Data Data Completed and Pending Labs on day of discharge: Laboratory Results - last 24 hr 11/20/21 06:02 Sodium 142 Potassium 3.7 Chloride 109 H Carbon Dioxide 18 L Anion Gap 19 BUN 22 H Creatinine 1.40 Estim Creat Clear Calc 54.5 Estimated GFR 51 Random Glucose 76 Calcium 9.2 Preliminary micro results at discharge 11/18/21 22:46 Blood Culture - Preliminary Blood - Venous No growth after 24 hours. 11/18/21 22:07 Blood Culture - Preliminary Blood - Venous No growth after 24 hours. Discharge Plan Discharge Patient Disposition: Home, Self-Care Discharge Diagnosis: Acute toxic metabolic encephalopathy UTI Referrals: Radha Adan MD [Primary Care Provider] - 1 Week Discharge Medications: New amoxicillin 500 mg Capsule 500 mg PO Q8H Qty: 30 0RF Continued lidocaine 5 % adhesive patch,medicated 2 patch topical DAILY lidocaine 5 % adhesive patch,medicated 2 patch topical DAILY zonisamide 100 mg capsule 200 mg PO BID topiramate 50 mg tablet 100 mg PO BID duloxetine 60 mg capsule,delayed release(DR/EC) 60 mg PO DAILY oxybutynin chloride 15 mg tablet extended release 24 hr 15 mg PO DAILY Rx Instructions: 1-2 caps, 1-2 x per day oxycodone-acetaminophen 5-325 mg tablet 1 tab PO BID PRN (Reason: Pain) gabapentin 600 mg tablet 600 mg PO BEDTIME ropinirole 0.5 mg tablet 0.5 mg PO BEDTIME Rx Instructions: administer 1-3 hours before bedtime tizanidine 4 mg capsule 4 mg PO BEDTIME lorazepam 1 mg tablet 1 mg PO BEDTIME PRN (Reason: Anxiety) magnesium 250 mg tablet 500 mg PO BID potassium gluconate 595 mg (99 mg) tablet 595 mg PO DAILY ferrous sulfate 325 mg (65 mg iron) tablet 325 mg PO DAILY cholecalciferol (vitamin D3) 125 mcg (5,000 unit) capsule 125 mcg PO BID ascorbic acid (vitamin C) 1,000 mg tablet 1 g PO DAILY glucosamine HCl 500 mg tablet 500 mg PO BID Rx Instructions: administer with meals ibuprofen 200 mg capsule 200 mg PO Q6H PRN (Reason: Pain) acetaminophen [Tylenol Extra Strength] 500 mg tablet 500 mg PO Q6H PRN (Reason: Pain) diphenhydramine HCl [Allergy Medication] 25 mg capsule 25 mg PO BEDTIME PRN (Reason: Allergic Reaction) Discharge Orders: Discharge Order (Routine); Ordered 11/20/21 Ordered By: Aby Hong Diet: Advance to usual diet Activity on Discharge: As tolerated Stand Alone Forms: Patient Portal Discharge page Care Plan Goals: Acute encephalopathy resolved likely due to UTI and electrolyte abnormality take amoxicillin 1 tablet 3 times a day for 10 days Health Concerns: Continue all home medications as before Plan of Treatment: Outpatient follow-up with primary care physician Assessment: As per discharge summary
--- NOTE | 2021-11-20 11:10 | MHC.CM.PN ---
Patient has been medically cleared for dc to home today, self care.
[2021-11-20 11:21] VITALS: BP 132/77; PULSE 73; RESP 18; TEMP 36.8; O2SAT 97
--- NOTE | 2021-11-20 13:36 | PC.NURSE ---
Alert and oriented. Denies pain, VSS, afebrile, no acute resp. distress noted. Self catheterize as needed. ABT changed to po amoxicillin. New order to discharge patient home. Went over discharge instructions, follow up apt and medication administration with patient, verbalized understanding back. Staff transported patient to the lobby via w/c. left the hospital via car with his .
== END 2021-11-20 13:35 | disposition home or self-care (01) | DRG 463 ==
LOC: HO.ED 23:14 → HO.EDOVER 23:18 → HO.IMC 11-19 17:31
PROVIDERS: Admitting Provider Hospitalist; Emergency Provider Internal Medicine; PCP Family Medicine; Visit Provider Hospitalist
DX: N39.0 Urinary tract infection, site not specified (principal); G92.8 Other toxic encephalopathy; G37.3 Acute transverse myelitis in demyelinating disease of central nervous system; E87.0 Hyperosmolality and hypernatremia; F41.9 Anxiety disorder, unspecified; E87.6 Hypokalemia; G62.9 Polyneuropathy, unspecified; F32.A Depression, unspecified; G25.81 Restless legs syndrome; G89.4 Chronic pain syndrome; Z20.822 Contact with and (suspected) exposure to COVID-19; Z87.891 Personal history of nicotine dependence; Z87.440 Personal history of urinary (tract) infections; Z79.899 Other long term (current) drug therapy
CPT/HCPCS: 36415; 70450; 71045; 76775; 80048; 80053; 81001; 82077; 82140; 82947; 83605; 84443; 85025; 87040; 87086; 87088; 87186; 87635; 93005; 96374; 99284; 99285; J0696; J3370

== ENCOUNTER 2021-11-23 01:11 | Emergency (ER) | payer BC, SELFPAY ==
[2021-11-23 01:16] VITALS: BP 129/59; PULSE 73; RESP 18; TEMP 37.2; O2SAT 94; BMI 27.4
--- NOTE | 2021-11-23 02:04 | PC.NURSE ---
RN WAS NOTIFY BY THIS WE[employer]OX TENDER THAT I WAS UNABLE TO GET THE CBC BLOOD TEST
[2021-11-23 02:16] LABS: MANUAL DIFF FLAG NO
[2021-11-23 02:17] LABS: Basophils Percent Auto 0.7 % (0-2); Eosinophils Absolute Auto 0.5 X10*3/uL (0.0-0.4); Eosinophils Percent Auto 9.4 % (0-4); Hematocrit 38.5 % (42.0-52.0); Hemoglobin 12.4 g/dl (14.0-18.0); Imm Gran Abs Auto 0.01 X10*3/uL (0.00-0.03); Imm Gran Pct Auto 0.2 % (0.0-0.4); Lymphocytes Percent Auto 17.1 % (20-40); Mean Corpuscular HGB Conc 32.2 g/dl (31.0-36.0); Mean Corpuscular Hemoglobin 27.9 pg (27.0-33.0); Mean Corpuscular Volume 86.7 fL (80.0-98.0); Mean Platelet Volume 9.3 fL (9.4-12.4); Monocytes Absolute Auto 0.7 X10*3/uL (0.1-1.2); Monocytes Percent Auto 13.1 % (2-11); Neutrophils Absolute Auto 3.3 x10*3/uL (2.0-8.3); Neutrophils Percent Auto 59.5 % (45-73); Platelet Count 307 X10*3/uL (160-400); Red Blood Count 4.44 X10*6/uL (4.60-5.80); Red Cell Distribution Width 12.7 % (11.0-16.0); White Blood Count 5.6 X10*3/uL (4.8-10.8)
[2021-11-23 02:31] LABS: Alanine Aminotransferase 21 U/L (0-40); Albumin Level 3.5 g/dL (3.5-5.0); Alkaline Phosphatase 72 U/L (39-117); Anion Gap 16 (12-20); Aspartate Amino Transferase 17 U/L (5-37); Bilirubin Total < 0.2 mg/dL (0.0-1.0); Blood Urea Nitrogen 27 mg/dL (9-16); Calcium 9.8 mg/dL (8.4-10.2); Carbon Dioxide 21 mmol/L (22-29); Chloride 109 mmol/L (96-108); Creatinine Clr Calc Pharmacy 38.4; Estimated Glomerular Filt Rate 36; Glucose Random 102 mg/dL (60-115); Potassium 3.9 mmol/L (3.3-5.1); Sodium 142 mmol/L (135-145); Total Protein 5.8 g/dL (6.5-8.0)
--- NOTE | 2021-11-23 02:38 | ED_ITS ---
HPI - General Adult General Chief complaint: General Medical Stated complaint: bladder infection, confusion Time Seen by Provider: 11/23/21 01:34 Source: patient and family Mode of arrival: ambulatory History of Present Illness HPI narrative: 66-year-old male who presents with his family member and reports of waxing and waning confusion and sleeping all day. Patient was recently discharged from this facility on Tuesday for urinary tract infection with confusion. He was discharged with amoxicillin. Patient states that he has not consumed much water today because he has been sleeping. Related Data Home Medications Medication Instructions Recorded Confirmed acetaminophen 500 mg tablet 500 mg PO Q6H PRN Pain 09/09/20 11/19/21 (Tylenol Extra Strength) ascorbic acid (vitamin C) 1,000 mg 1 g PO DAILY 09/09/20 11/19/21 tablet cholecalciferol (vitamin D3) 125 125 mcg PO BID 09/09/20 11/19/21 mcg (5,000 unit) capsule duloxetine 60 mg capsule,delayed 60 mg PO DAILY 09/09/20 11/19/21 release ferrous sulfate 325 mg (65 mg 325 mg PO DAILY 09/09/20 11/19/21 iron) tablet gabapentin 600 mg tablet 600 mg PO BEDTIME 09/09/20 11/19/21 glucosamine HCl 500 mg tablet 500 mg PO BID 09/09/20 11/19/21 ibuprofen 200 mg capsule 200 mg PO Q6H PRN Pain 09/09/20 11/19/21 lorazepam 1 mg tablet 1 mg PO BEDTIME PRN Anxiety 09/09/20 11/19/21 magnesium 250 mg tablet 500 mg PO BID 09/09/20 11/19/21 oxybutynin chloride 15 mg 15 mg PO DAILY 09/09/20 11/19/21 tablet,extended release 24 hr oxycodone-acetaminophen 5 mg-325 1 tab PO BID PRN Pain 09/09/20 11/19/21 mg tablet potassium gluconate 595 mg (99 mg) 595 mg PO DAILY 09/09/20 11/19/21 tablet ropinirole 0.5 mg tablet 0.5 mg PO BEDTIME 09/09/20 11/19/21 tizanidine 4 mg capsule 4 mg PO BEDTIME 09/09/20 11/19/21 topiramate 50 mg tablet 100 mg PO BID 09/09/20 11/19/21 zonisamide 100 mg capsule 200 mg PO BID 09/09/20 11/19/21 diphenhydramine HCl 25 mg capsule 25 mg PO BEDTIME PRN Allergic 09/28/21 11/19/21 (Allergy Medication) Reaction lidocaine 5 % topical patch 2 patch topical DAILY 11/19/21 11/19/21 lidocaine 5 % topical patch 2 patch topical DAILY 11/19/21 11/19/21 Previous Rx's Medication Instructions Recorded amoxicillin 500 mg capsule 500 mg PO Q8H #30 caps 11/20/21 Allergies Allergy/AdvReac Type Severity Reaction Status Date / Time No Known Allergies Allergy Verified 09/28/21 14:36 [No Known Allergies*] Review of Systems Review of Systems: Pertinent positives and negatives as stated in HPI 10 point review of systems is otherwise negative. [facility] Past Medical History Source: nursing notes reviewed Medical History Arthritis Transverse myelitis Surgical History History of surgery on wrist Social History Social History Household Members: Spouse Housing: House Do you presently have visiting nurse or other home services: No Alcohol intake: former Patient Tobacco Use Status: Former Tobacco user Tobacco use type: Cigarette Cigarettes Per Day: 20 Years Smoked: 35 e-Cigarette/Vaping Use: Never Used Advance Directives: No service: No Current occupational status: disabled Current occupation: rt handed Physical Exam ED Vital Signs: Vital Signs - 24 hr 11/23/21 01:16 11/23/21 04:49 Temperature 98.9 F 97.9 F Pulse Rate 73 63 Respiratory Rate 18 16 Blood Pressure 129/59 L 131/81 Pulse Oximetry 94 94 Oxygen Delivery Method Room Air Room Air BMI result Body Mass Index 27.4 VITAL SIGNS: Reviewed. GENERAL: Well developed, well nourished, in no acute distress. HEAD: Normocephalic/atraumatic EYES: PERRLA, EOMI EARS: Ext canals without abnormality OROPHARYNX: no oral lesions noted, posterior pharynx clear, dry mucosa LUNGS: Normal breath sounds. No adventitious sounds or accessory muscle use. SpO2<94> CARDIOVASCULAR: Regular rate and rhythm without noted murmurs ABDOMEN: Soft, non-tender, non-distended with bowel sounds. MUSCULOSKELETAL: No tenderness, deformities, or effusions noted on gross inspection. EXTREMITIES: No cyanosis, clubbing or edema. SKIN: Inspection of the skin reveals no rashes NEUROLOGIC: Alert and oriented x 4. Strength and sensation to light touch were grossly intact x 4. Course Course Course Narrative: 66-year-old male with history and clinical presentation consistent with likely being tired after hospitalization in may be some mild hospital old Ranger confusion, will evaluate for evidence of persistent urinary tract infection, on review of lab work he is noted to have an LAURO. He will received 2 L of IV fluids and have a repeat BMP. Review of all investigations negative for acute findings in comparison, although there is a noted LAURO a feel that this is likely contributed by patient's lack of adequate hydration. On review of the urinalysis results the UTI does appear to be somewhat improved. Patient received all IV fluids and on re-evaluation states that he is feeling a little bit better and he is otherwise stable for discharge to home with the understanding that if his confusion does not show improvement that he should return to the emergency room. Patient is afebrile. Medical Decision Making Lab Data Result diagrams: 11/23/21 02:11 11/23/21 01:59 Labs: Lab Results 11/23/21 11/23/21 11/23/21 Range/Units 01:59 02:11 03:00 WBC 5.6 (4.8-10.8) X10*3/uL RBC 4.44 L (4.60-5.80) X10*6/uL Hgb 12.4 L (14.0-18.0) g/dl Hct 38.5 L (42.0-52.0) % MCV 86.7 (80.0-98.0) fL MCH 27.9 (27.0-33.0) pg MCHC 32.2 (31.0-36.0) g/dl RDW 12.7 (11.0-16.0) % Plt Count 307 (160-400) X10*3/uL MPV 9.3 L (9.4-12.4) fL Immature Gran % (Auto) 0.2 (0.0-0.4) % Neut % (Auto) 59.5 (45-73) % Lymph % (Auto) 17.1 L (20-40) % [place] % (Auto) 13.1 H (2-11) % Eos % (Auto) 9.4 H (0-4) % Baso % (Auto) 0.7 (0-2) % Lymph # (Auto) 1.0 L (1.2-4.9) X10*3/uL [place] # (Auto) 0.7 (0.1-1.2) X10*3/uL Eos # (Auto) 0.5 H (0.0-0.4) X10*3/uL Baso # (Auto) 0.0 (0.0-0.2) X10*3/uL Abs Immat Gran (auto) 0.01 (0.00-0.03) X10*3/uL Absolute Neuts (auto) 3.3 (2.0-8.3) x10*3/uL Absolute Nucleated RBC 0.000 (0.0-0.012) X10*3/uL Nucleated RBC % (auto) 0.0 (0.0-0.2) /100WBC Sodium 142 (135-145) mmol/L Potassium 3.9 (3.3-5.1) mmol/L Chloride 109 H (96-108) mmol/L Carbon Dioxide 21 L (22-29) mmol/L Anion Gap 16 (12-20) BUN 27 H (9-16) mg/dL Creatinine 1.90 H (0.5-1.4) mg/dL Estim Creat Clear Calc 38.4 Estimated GFR 36 Random Glucose 102 (60-115) mg/dL Calcium 9.8 D (8.4-10.2) mg/dL Total Bilirubin < 0.2 (0.0-1.0) mg/dL AST 17 (5-37) U/L ALT 21 (0-40) U/L Alkaline Phosphatase 72 (39-117) U/L Total Protein 5.8 L (6.5-8.0) g/dL Albumin 3.5 (3.5-5.0) g/dL Urine Color Urine Appearance Urine pH (5.0-9.0) Ur Specific [place] (1.005-1.025) Urine Protein (Neg-Trace) mg/dL Urine Glucose (UA) (Negative) mg/dL Urine Ketones (Negative) mg/dL Urine Blood (Negative) Urine Nitrite (Negative) Ur Leukocyte Esterase (Negative) Urine RBC (0-2) /HPF Urine WBC (0-5) /HPF Ur Squamous Epith Cells (0-2) /HPF Urine Bacteria (None Seen) Hyaline Casts (0-2) /LPF COVID-19 (TJ) Negative (Negative) COVID-19 Clin Com See Note 11/23/21 Range/Units 03:00 WBC (4.8-10.8) X10*3/uL RBC (4.60-5.80) X10*6/uL Hgb (14.0-18.0) g/dl Hct (42.0-52.0) % MCV (80.0-98.0) fL MCH (27.0-33.0) pg MCHC (31.0-36.0) g/dl RDW (11.0-16.0) % Plt Count (160-400) X10*3/uL MPV (9.4-12.4) fL Immature Gran % (Auto) (0.0-0.4) % Neut % (Auto) (45-73) % Lymph % (Auto) (20-40) % [place] % (Auto) (2-11) % Eos % (Auto) (0-4) % Baso % (Auto) (0-2) % Lymph # (Auto) (1.2-4.9) X10*3/uL [place] # (Auto) (0.1-1.2) X10*3/uL Eos # (Auto) (0.0-0.4) X10*3/uL Baso # (Auto) (0.0-0.2) X10*3/uL Abs Immat Gran (auto) (0.00-0.03) X10*3/uL Absolute Neuts (auto) (2.0-8.3) x10*3/uL Absolute Nucleated RBC (0.0-0.012) X10*3/uL Nucleated RBC % (auto) (0.0-0.2) /100WBC Sodium (135-145) mmol/L Potassium (3.3-5.1) mmol/L Chloride (96-108) mmol/L Carbon Dioxide (22-29) mmol/L Anion Gap (12-20) BUN (9-16) mg/dL Creatinine (0.5-1.4) mg/dL Estim Creat Clear Calc Estimated GFR Random Glucose (60-115) mg/dL Calcium (8.4-10.2) mg/dL Total Bilirubin (0.0-1.0) mg/dL AST (5-37) U/L ALT (0-40) U/L Alkaline Phosphatase (39-117) U/L Total Protein (6.5-8.0) g/dL Albumin (3.5-5.0) g/dL Urine Color Yellow Urine Appearance Clear Urine pH 6.0 (5.0-9.0) Ur Specific [place] 1.010 (1.005-1.025) Urine Protein Negative (Neg-Trace) mg/dL Urine Glucose (UA) Negative (Negative) mg/dL Urine Ketones Negative (Negative) mg/dL Urine Blood Negative (Negative) Urine Nitrite Negative (Negative) Ur Leukocyte Esterase Small (1+) H (Negative) Urine RBC 0-2 (0-2) /HPF Urine WBC 11-20 H (0-5) /HPF Ur Squamous Epith Cells 0-2 (0-2) /HPF Urine Bacteria None Seen (None Seen) Hyaline Casts 0-2 (0-2) /LPF COVID-19 (TJ) (Negative) COVID-19 Clin Com Discharge Plan Discharge Clinical Impression: Confusion, UTI (urinary tract infection) Patient Disposition: Home, Self-Care Instructions: Urinary Tract Infection in Men (ED) Additional Instructions: 1. Resume all home medications as prescribed. 2. Continue with antibiotics as ordered. 3. Follow-up with your primary care provider on Tuesday morning. Return to the ER for worsening symptoms, specifically the you begin worsen over the next 12-18 hours you need to return to the emergency room. Prescriptions: No Action lidocaine 5 % adhesive patch,medicated 2 patch topical DAILY lidocaine 5 % adhesive patch,medicated 2 patch topical DAILY amoxicillin 500 mg Capsule 500 mg PO Q8H Qty: 30 0RF zonisamide 100 mg capsule 200 mg PO BID topiramate 50 mg tablet 100 mg PO BID duloxetine 60 mg capsule,delayed release(DR/EC) 60 mg PO DAILY oxybutynin chloride 15 mg tablet extended release 24 hr 15 mg PO DAILY Rx Instructions: 1-2 caps, 1-2 x per day oxycodone-acetaminophen 5-325 mg tablet 1 tab PO BID PRN (Reason: Pain) gabapentin 600 mg tablet 600 mg PO BEDTIME ropinirole 0.5 mg tablet 0.5 mg PO BEDTIME Rx Instructions: administer 1-3 hours before bedtime tizanidine 4 mg capsule 4 mg PO BEDTIME lorazepam 1 mg tablet 1 mg PO BEDTIME PRN (Reason: Anxiety) magnesium 250 mg tablet 500 mg PO BID potassium gluconate 595 mg (99 mg) tablet 595 mg PO DAILY ferrous sulfate 325 mg (65 mg iron) tablet 325 mg PO DAILY cholecalciferol (vitamin D3) 125 mcg (5,000 unit) capsule 125 mcg PO BID ascorbic acid (vitamin C) 1,000 mg tablet 1 g PO DAILY glucosamine HCl 500 mg tablet 500 mg PO BID Rx Instructions: administer with meals ibuprofen 200 mg capsule 200 mg PO Q6H PRN (Reason: Pain) acetaminophen [Tylenol Extra Strength] 500 mg tablet 500 mg PO Q6H PRN (Reason: Pain) diphenhydramine HCl [Allergy Medication] 25 mg capsule 25 mg PO BEDTIME PRN (Reason: Allergic Reaction) Referrals: Radha Adan MD [Primary Care Provider] -
[2021-11-23 03:06] LABS: Appearance Urine Clear; Color Urine Yellow; Glucose Urine UA Negative (Negative); Leukocyte Esterase Urine Small (1+) (Negative); Nitrite Urine Negative (Negative); Urine Blood Negative (Negative); Urine Ketones Negative (Negative); Urine Protein Negative (Neg-Trace)
[2021-11-23 03:11] LABS: Bacteria Urine None Seen (None Seen); Hyaline Casts Urine 0-2 /LPF (0-2); RBC Urine 0-2 /HPF (0-2); Squamous Epithelial Cell Urine 0-2 /HPF (0-2); UACC Culture Trigger YES
[2021-11-23 03:20] LABS: COVID-19 Test Negative (Negative)
[2021-11-23] MEDS: 0.9 % Sodium Chloride 2,000 ML 999 ML IV (03:40)
[2021-11-23 04:49] VITALS: BP 131/81; PULSE 63; RESP 16; TEMP 36.6; O2SAT 94
== END 2021-11-23 05:37 | disposition home or self-care (01) ==
PROVIDERS: Emergency Provider Student in an Organized Health Care Education/Training Program; PCP Family Medicine
DX: R41.0 Disorientation, unspecified (principal); N39.0 Urinary tract infection, site not specified; Z20.822 Contact with and (suspected) exposure to COVID-19
CPT/HCPCS: 36415; 80053; 81001; 85025; 87086; 87635; 99284

== ENCOUNTER 2021-12-11 14:20 | Outpatient (REF) | payer BC, SELFPAY ==
[2021-12-11 15:03] LABS: Appearance Urine Clear; Color Urine Yellow; Glucose Urine UA Negative (Negative); Leukocyte Esterase Urine Large (3+) (Negative); Nitrite Urine Positive (Negative); UMIC TRIGGER UACC YES; Urine Blood Negative (Negative); Urine Ketones Negative (Negative); Urine Protein Negative (Neg-Trace)
[2021-12-11 15:08] LABS: Bacteria Urine 4+ (None Seen); Hyaline Casts Urine 0-2 /LPF (0-2); RBC Urine 0-2 /HPF (0-2); Squamous Epithelial Cell Urine 0-2 /HPF (0-2); UACC Culture Trigger YES; WBC Urine >50 /HPF (0-5)
== END 2021-12-11 14:21 | disposition home or self-care (01) ==
LOC: HO.LAB 14:20
PROVIDERS: PCP Family Medicine; Visit Provider Family Medicine
DX: N39.0 Urinary tract infection, site not specified (principal)
CPT/HCPCS: 81001; 81003; 87086; 87088; 87186

== ENCOUNTER 2022-01-13 15:37 | Outpatient (REF) | payer BC, SELFPAY ==
[2022-01-13 16:29] LABS: Appearance Urine Cloudy; Color Urine Yellow; Glucose Urine UA Negative (Negative); Leukocyte Esterase Urine Small (1+) (Negative); Nitrite Urine Negative (Negative); UMIC TRIGGER UACC YES; Urine Blood Negative (Negative); Urine Ketones Negative (Negative); Urine Protein Negative (Neg-Trace)
[2022-01-13 16:33] LABS: Bacteria Urine None Seen (None Seen); Hyaline Casts Urine 0-2 /LPF (0-2); RBC Urine 0-2 /HPF (0-2); Squamous Epithelial Cell Urine 0-2 /HPF (0-2); UACC Culture Trigger YES; WBC Urine 21-50 /HPF (0-5)
== END 2022-01-13 15:38 | disposition home or self-care (01) ==
LOC: HO.LAB 15:37
PROVIDERS: PCP Family Medicine; Visit Provider Urology
DX: N39.0 Urinary tract infection, site not specified (principal)
CPT/HCPCS: 81001; 87086

== ENCOUNTER 2022-09-07 17:33 | Inpatient (IN) | payer BC, SELFPAY ==
--- NOTE | ~2022-09-07 | CT_ITS ---
EXAMINATION: CT HEAD WITHOUT CONTRAST (STROKE PROTOCOL) CLINICAL INFORMATION: Stroke protocol. Facial droop COMPARISON: CT of head 11/17/2021 TECHNIQUE: Contiguous axial imaging was performed from the skull base to vertex without intravenous administration of contrast. Coronal and sagittal reformatted images are performed at the CT scanner. [This CT examination was performed using dose optimization techniques as appropriate, variously including the following: *Automated exposure control *Adjustment of mA and/or kV according to patient size (this includes techniques or standardized protocols for targeted exams where dose is matched to indication/reason for exam; i.e. extremities or head) *Use of iterative reconstruction technique] DLP: 650 mGy-cm. FINDINGS: There is no evidence of acute intracranial hemorrhage or territorial infarction. No abnormal mass-effect or midline shift is seen. Mora to white matter differentiation is well preserved. No extra-axial fluid collections are identified. The ventricles are normal in size. There is no abnormal attenuation within the brain parenchyma. There is no osseous abnormality. The mastoid air cells and visualized portions of the paranasal sinuses are well-aerated. CT/CT head for stroke IMPRESSION: No acute intracranial pathology. This critical result was discussed with Carmen Lassiter on 09/07/2022, 5:54 PM and it was ascertained that the content and urgency of the report was understood at the time of direct communication.
--- NOTE | ~2022-09-07 | CT_ITS ---
EXAMINATION: CT ANGIOGRAM HEAD CT ANGIOGRAM NECK CLINICAL INFORMATION: Left-sided facial droop. COMPARISON: CT head from 09/07/2022 and 11/17/2021. TECHNIQUE: Initial noncontrast associate merchandise planner imaging of the head and neck was performed. Comparison is made with noncontrast head CT from earlier today. Test bolus sequences followed by intravenous administration 70 mL of Omnipaque 350. Helical imaging was performed in the axial plane from the aortic arch to the skull vertex. Delayed postcontrast imaging of the head was also performed. The data was processed at the mri special procedures technologist's workstation for generation of MIP sequences. Angled MIPs and volume rendered reformatted images were also generated at an offline 3D workstation. Stenoses are assessed in accordance with NASCET criteria unless otherwise indicated. This CT examination was performed using dose optimization techniques as appropriate, variously including the following: *Automated exposure control. *Adjustment of mA and/or kV according to patient size (this includes techniques or standardized protocols for targeted exams where dose is matched to indication/reason for exam; i.e. extremities or head). *Use of iterative reconstruction technique. DLP: 1413 mGy-cm FINDINGS: CT Head: There is no evidence of acute intracranial hemorrhage or edematous territorial infarction. There is no abnormal attenuation within the brain parenchyma. Mora-white matter differentiation is preserved. The ventricles are normal in size and configuration. No evidence for obstructive hydrocephalus. No abnormal mass effect or midline shift. No extra-axial fluid collections. No pathologic intra-axial enhancement or regional oligemia. No acute soft tissue or osseous abnormalities. Mild mucosal thickening of the paranasal sinuses. The mastoid air cells and middle ear cavities are clear. Mild degenerative arthropathy of the left temporomandibular joint. Bilateral lens extractions. CT Neck: The thyroid gland and remaining cervical soft tissues are within normal limits. Straightening of the normal cervical lordosis. Mild degenerative anterolistheses of C4 on C5 and C5 on C6. Advanced degenerative arthropathy of the left atlantoaxial articulation. Advanced degenerative disc disease at C6-C7. CT Upper Chest: Prominent centrilobular emphysema of the visualized upper lungs. The visualized lung apices and upper mediastinum are within normal limits. Neck CTA: Aortic Arch: Normal contour and caliber. Classic 3 vessel branching pattern of the aortic arch. Great Vessel Origins: No significant stenosis of the branch origins. Right Common Carotid Artery: No focal stenosis or occlusion. Cervical Right Internal Carotid Artery: Mild calcific atherosclerotic disease of the carotid bulb and proximal internal carotid artery without flow-limiting stenosis. Left Common Carotid Artery: No focal stenosis or occlusion. Cervical Left Internal Carotid Artery: Normal opacification without focal stenosis or occlusion. Cervical Right Vertebral Artery: No focal stenosis or occlusion. Cervical Left Vertebral Artery: Dominant. No focal stenosis or occlusion. Brain CTA: Intracranial Internal Carotid Arteries: Calcific atherosclerotic disease of the intracranial internal carotid arteries without occlusion or flow-limiting stenosis. Right Anterior Cerebral Artery: Normal A1 segment. Normal opacification of the distal DOTTIE segments. Left Anterior Cerebral Artery: Normal A1 segment. Normal opacification of the distal DOTTIE segments. Anterior Communicating Artery: Normal. Right Middle Cerebral Artery: Normal M1 segment of the MCA without focal stenosis or occlusion. Normal arborization of the distal segments. Left Middle Cerebral Artery: Normal M1 segment of the MCA without focal stenosis or occlusion. Normal arborization of the distal segments. Right Vertebral Artery: The V4 segment largely terminates as the posterior inferior cerebellar artery. Left Vertebral Artery: Normal V4 segment. Normal opacification of the proximal segments of the posterior inferior cerebellar artery. Basilar Artery: Normal without focal stenosis or occlusion. Normal appearance of the proximal superior cerebellar arteries. Right Posterior Cerebral Artery: Normal P1 segment. Normal opacification of the distal DRYING EQUIPMENT OPERATOR segments. Left Posterior Cerebral Artery: Normal P1 segment. Normal opacification of the distal DRYING EQUIPMENT OPERATOR segments. Normal opacification of the superior sagittal, straight, transverse, and sigmoid sinuses. CT/CT angio head neck stroke IMPRESSION: 1. No evidence of acute intracranial hemorrhage or edematous territorial infarction. 2. CTA of the head and neck without proximal occlusion or flow-limiting stenosis. 3. Emphysema.
--- NOTE | ~2022-09-07 | XR_ITS ---
EXAMINATION: XR CHEST CLINICAL INFORMATION: Question pneumonia. COMPARISON: Chest radiograph dated 11/17/2021 TECHNIQUE: Frontal view of the chest was obtained. FINDINGS: The heart, great vessels, pulmonary vasculature and mediastinum are stable. There is a moderate focus of airspace disease at the lateral left base, new from prior. This may represent focal atelectasis or infiltrate. There is no congestive heart failure. No pleural effusion or pneumothorax is seen. There are degenerative changes of the shoulders. XR/XR chest 1V IMPRESSION: There is interim appearance of a moderate focus of atelectasis versus infiltrate at the lateral left base. Please correlate clinically. Recommend short-term follow-up chest radiographs to ensure clearance and exclude the possibility of underlying obstructive process.
--- NOTE | 2022-09-07 17:45 | ECG_ITS ---
Test Reason : STROKE Blood Pressure : / mmHG Vent. Rate : 066 BPM Atrial Rate : 066 BPM P-R Int : 184 ms QRS Dur : 076 ms QT Int : 452 ms P-R-T Axes : 064 004 001 degrees QTc Int : 473 ms Normal sinus rhythm Septal infarct (cited on or before 17-NOV-2021) Abnormal ECG When compared with ECG of 18-NOV-2021 22:23, No significant change was found Referred By: Carmen Britt Electronically Signed By:KYAW ANAYA
--- NOTE | 2022-09-07 17:47 | ED.NEUROSD ---
HPI - Neuro Symptoms/Deficit General Chief Complaint: Stroke Stated Complaint: AMS, R/SIDE WEAKNESS + FACIAL DROOP Time Seen by Provider: 09/07/22 17:42 Source: patient and EMS Mode of arrival: EMS Limitations: altered mental status History of Present Illness HPI Narrative: Patient comes to the emergency room via ambulance for altered mental status and TIA like symptoms. According to EMS, the patient's found him on the floor, on his knees, unable to get up. EMS reports though when they arrived, the patient have left-sided facial droop and generalized weakness. On arrival to the emergency room, patient is confused, no facial droop, decreased strength in both upper and lower extremities but symmetric. Patient seems confused, states that he has no complaints. Related Data Home Medications Medication Instructions Recorded Confirmed acetaminophen 500 mg tablet 500 mg PO Q6H PRN Pain 09/09/20 09/07/22 (Tylenol Extra Strength) ascorbic acid (vitamin C) 1,000 mg 1 g PO DAILY 09/09/20 09/07/22 tablet cholecalciferol (vitamin D3) 125 125 mcg PO BID 09/09/20 09/07/22 mcg (5,000 unit) capsule duloxetine 60 mg capsule,delayed 60 mg PO DAILY 09/09/20 09/07/22 release ferrous sulfate 325 mg (65 mg 325 mg PO DAILY 09/09/20 09/07/22 iron) tablet gabapentin 600 mg tablet 600 mg PO BEDTIME 09/09/20 09/07/22 glucosamine HCl 500 mg tablet 500 mg PO BID 09/09/20 09/07/22 ibuprofen 200 mg capsule 200 mg PO Q6H PRN Pain 09/09/20 09/07/22 lorazepam 1 mg tablet 1 mg PO BEDTIME PRN Anxiety 09/09/20 09/07/22 magnesium 250 mg tablet 500 mg PO BID 09/09/20 09/07/22 oxybutynin chloride 15 mg 30 mg PO DAILY 09/09/20 09/07/22 tablet,extended release 24 hr oxycodone-acetaminophen 5 mg-325 1 tab PO BID PRN Pain 09/09/20 09/07/22 mg tablet potassium gluconate 595 mg (99 mg) 595 mg PO DAILY 09/09/20 09/07/22 tablet ropinirole 0.5 mg tablet 0.5 mg PO BEDTIME 09/09/20 09/07/22 tizanidine 4 mg capsule 4 mg PO BEDTIME 09/09/20 09/07/22 topiramate 50 mg tablet 50 mg PO BID 09/09/20 09/07/22 zonisamide 100 mg capsule 200 mg PO BID 09/09/20 09/07/22 diphenhydramine HCl 25 mg capsule 25 mg PO BEDTIME PRN Allergic 09/28/21 09/07/22 (Allergy Medication) Reaction lidocaine 5 % topical patch 2 patch topical DAILY 11/19/21 09/07/22 testosterone cypionate 200 mg/mL 100 mg IM Q2W 09/07/22 09/07/22 intramuscular oil Allergies Allergy/AdvReac Type Severity Reaction Status Date / Time No Known Allergies Allergy Verified 02/04/22 13:06 [No Known Allergies*] Review of Systems Review of Systems: Yes Unobtainable due to mental status [facility] Past Medical History Medical History Arthritis Chronic pain syndrome Restless legs Transverse myelitis Surgical History History of surgery on wrist Social History Social History Household Members: Spouse Housing: House Do you presently have visiting nurse or other home services: No Alcohol intake: former Patient Tobacco Use Status: Former Tobacco user Tobacco use type: Cigarette Cigarettes Per Day: 20 Years Smoked: 35 Smoked in Last 30 Days: No e-Cigarette/Vaping Use: Never Used Use of substances other than those prescribed or required for medical reasons: No Advance Directives: No Advance Directives Information Provided: No service: No Current occupational status: disabled Current occupation: rt handed Physical Exam Vital Signs: Vital Signs: Last Vital Signs Temp 97.3 F 09/07/22 23:59 Pulse 56 09/07/22 23:59 Resp 19 09/07/22 23:59 BP 122/74 09/08/22 00:17 Pulse Ox 97 09/07/22 23:59 O2 Del Method BiPAP 09/07/22 23:59 BMI result Body Mass Index 28.6 Const: Other: Appearance: Alert. Oriented X2. No acute distress, seems confused Eyes: Pupils equal, round and reactive to light. ENT: Pharynx normal. Neck: Normal inspection. Neck supple. No lymph nodes noted. No crepitus CVS: Normal heart rate and rhythm. Pulses normal. Normal S1 and S2 Respiratory: No respiratory distress. Breath sounds normal. No Wheezing. No rales Abdomen: Soft and nontender. No rigidity. No distention. Skin: Skin warm and dry. Normal skin color. Normal skin turgor. Extremities: No lower extremity edema. No Lacerations. No Rash Neuro: Oriented X2 , slow to respond, able to follow commands, No sensory deficit. Moving all extremities. No slurred speech. CN 2 through 12 grossly intact Psych: calm, cooperative, normal affect Course Course Course Narrative: -patient does not have any aphasia or dysarthria, NIH score is 0. Patient just seems confused, slow to respond -according to EMS, the patient's reported that way and he gets a UTI, this is how he acts -I discussed the head CT with [facility], it is normal, CTA of head and neck pending -CTA of the head and neck are negative for any obstruction -at 20:45, urine was obtained, there is trace leukocyte esterase, unlikely to account for patient's altered mental status. -21:10, patient's is at bedside, it remains unclear why the patient is often. I reviewed patient's medical history with the patient's , patient has history of COPD. At this time, we are ordering blood gases, it is possible the patient may be retaining pCO2 Medications Administered Discontinued Medications Generic Name Dose Route Start Last Admin Trade Name Freq PRN Reason Stop Dose Admin Ceftriaxone Sodium 1 gm/ 50 mls @ 100 mls/hr 09/07/22 22:23 09/07/22 23:11 Sodium Chloride IV 09/07/22 22:52 Infused ONCE ONE Infusion Azithromycin 500 mg/ Sodium 250 mls @ 125 mls/hr 09/07/22 22:23 09/07/22 23:11 Chloride IV 09/08/22 00:22 125 mls/hr ONCE ONE Administration Sodium Chloride 1,000 mls @ 999 mls/hr 09/07/22 22:24 09/07/22 23:34 Ns IVCONT 09/07/22 23:24 Infused .Q1H1M ONE Infusion Medical Decision Making Medical Decision Making [facility] Narrative: Patient's chest x-ray shows possible infiltrates versus atelectasis. We will go ahead and treat empirically with antibiotics. Patient's blood pressure stable, lactic acid within normal limits, sepsis not suspected. -patient was on BiPAP for 3 hours, pCO2 did not change. PH stable, bicarb elevated both times, this is likely patient's baseline. However, patient is more awake, answering questions. -U tox negative -CT and CTA scan of the head and neck both negative -unclear where patient became so somnolent. -I discussed the patient with Dr. Arevalo, patient being admitted Admission/Observation Consideration of admission/observation: Escalation of care including admission/observation considered Consult Healthcare Provider Management of the patient was discussed with: Hospitalist Lab Data MDM Lab Attestation statement: I reviewed the patient's lab results. 09/07/22 18:42 09/07/22 18:42 Labs: Lab Results 09/07/22 09/07/22 09/07/22 Range/Units 18:10 18:13 18:30 WBC (4.8-10.8) X10*3/uL RBC (4.60-5.80) X10*6/uL Hgb (14.0-18.0) g/dl Hct (42.0-52.0) % MCV (80.0-98.0) fL MCH (27.0-33.0) pg MCHC (31.0-36.0) g/dl RDW (11.0-16.0) % Plt Count (160-400) X10*3/uL MPV (9.4-12.4) fL Immature Gran % (Auto) (0.0-0.4) % Neut % (Auto) (45-73) % Lymph % (Auto) (20-40) % [place] % (Auto) (2-11) % Eos % (Auto) (0-4) % Baso % (Auto) (0-2) % Lymph # (Auto) (1.2-4.9) X10*3/uL [place] # (Auto) (0.1-1.2) X10*3/uL Eos # (Auto) (0.0-0.4) X10*3/uL Baso # (Auto) (0.0-0.2) X10*3/uL Abs Immat Gran (auto) (0.00-0.03) X10*3/uL Absolute Neuts (auto) (2.0-8.3) x10*3/uL Absolute Nucleated RBC (0.0-0.012) X10*3/uL Nucleated RBC % (auto) (0.0-0.2) /100WBC Whole Blood PT 12.2 (11.1-13.5) sec Whole Blood INR 1.0 (0.9-1.1) VBG pH (7.32-7.43) VBG pCO2 mmHg VBG pO2 mmHg VBG HCO3 (22-26) mmol/L VBG O2 Saturation % VBG Base Excess mmol/L Sodium (135-145) mmol/L Potassium (3.3-5.1) mmol/L Chloride (96-108) mmol/L Carbon Dioxide (22-29) mmol/L Anion Gap (12-20) BUN (9-16) mg/dL Creatinine (0.5-1.4) mg/dL Estim Creat Clear Calc Estimated GFR POC Glucose 95 (60-115) mg/dL Random Glucose (60-115) mg/dL Lactic Acid (0.5-2.0) mmol/L Calcium (8.4-10.2) mg/dL Magnesium (1.6-2.6) mg/dL Total Bilirubin (0.0-1.0) mg/dL Direct Bilirubin (0.0-0.5) mg/dL AST (5-37) U/L ALT (0-40) U/L Alkaline Phosphatase (39-117) U/L Ammonia (13-55) umol/L Troponin I High Sens (<3.5-35.0) ng/L Total Protein (6.5-8.0) g/dL Albumin (3.5-5.0) g/dL Urine Color Urine Appearance Urine pH (5.0-9.0) Ur Specific [place] (1.005-1.025) Urine Protein (Neg-Trace) mg/dL Urine Glucose (UA) (Negative) mg/dL Urine Ketones (Negative) mg/dL Urine Blood (Negative) Urine Nitrite (Negative) Ur Leukocyte Esterase (Negative) Urine RBC (0-2) /HPF Urine WBC (0-5) /HPF Ur Squamous Epith Cells (0-2) /HPF Urine Bacteria (None Seen) Hyaline Casts (0-2) /LPF Urine Opiates Screen (Not Detect) Urine Fentanyl Screen (Not Detect) Ur Barbiturates Screen (Not Detect) Ur Phencyclidine Scrn (Not Detect) Ur Amphetamines Screen (Not Detect) U Benzodiazepines Scrn (Not Detect) Urine Cocaine Screen (Not Detect) U Marijuana (THC) Screen (Not Detect) Ethyl Alcohol < 10 mg/dL COVID-19 (TJ) (Negative) COVID-19 Clin Com 09/07/22 09/07/22 09/07/22 Range/Units 18:42 18:42 18:42 WBC 15.1 H (4.8-10.8) X10*3/uL RBC 4.21 L (4.60-5.80) X10*6/uL Hgb 12.0 L (14.0-18.0) g/dl Hct 38.3 L (42.0-52.0) % MCV 91.0 (80.0-98.0) fL MCH 28.5 (27.0-33.0) pg MCHC 31.3 (31.0-36.0) g/dl RDW 13.0 (11.0-16.0) % Plt Count 466 H D (160-400) X10*3/uL MPV 8.8 L (9.4-12.4) fL Immature Gran % (Auto) 0.5 H (0.0-0.4) % Neut % (Auto) 89.3 H (45-73) % Lymph % (Auto) 6.0 L (20-40) % [place] % (Auto) 3.6 (2-11) % Eos % (Auto) 0.3 (0-4) % Baso % (Auto) 0.3 (0-2) % Lymph # (Auto) 0.9 L (1.2-4.9) X10*3/uL [place] # (Auto) 0.6 (0.1-1.2) X10*3/uL Eos # (Auto) 0.0 (0.0-0.4) X10*3/uL Baso # (Auto) 0.1 (0.0-0.2) X10*3/uL Abs Immat Gran (auto) 0.08 H (0.00-0.03) X10*3/uL Absolute Neuts (auto) 13.4 H (2.0-8.3) x10*3/uL Absolute Nucleated RBC 0.000 (0.0-0.012) X10*3/uL Nucleated RBC % (auto) 0.0 (0.0-0.2) /100WBC Whole Blood PT (11.1-13.5) sec Whole Blood INR (0.9-1.1) VBG pH (7.32-7.43) VBG pCO2 mmHg VBG pO2 mmHg VBG HCO3 (22-26) mmol/L VBG O2 Saturation % VBG Base Excess mmol/L Sodium 144 (135-145) mmol/L Potassium 3.5 (3.3-5.1) mmol/L Chloride 108 (96-108) mmol/L Carbon Dioxide 22 (22-29) mmol/L Anion Gap 18 (12-20) BUN 17 H (9-16) mg/dL Creatinine 1.23 (0.5-1.4) mg/dL Estim Creat Clear Calc 51.7 Estimated GFR 59 POC Glucose (60-115) mg/dL Random Glucose 96 (60-115) mg/dL Lactic Acid 1.5 (0.5-2.0) mmol/L Calcium 9.9 (8.4-10.2) mg/dL Magnesium 2.5 (1.6-2.6) mg/dL Total Bilirubin 0.3 (0.0-1.0) mg/dL Direct Bilirubin 0.1 (0.0-0.5) mg/dL AST 14 (5-37) U/L ALT 23 (0-40) U/L Alkaline Phosphatase 79 (39-117) U/L Ammonia (13-55) umol/L Troponin I High Sens (<3.5-35.0) ng/L Total Protein 6.1 L (6.5-8.0) g/dL Albumin 3.2 L (3.5-5.0) g/dL Urine Color Urine Appearance Urine pH (5.0-9.0) Ur Specific [place] (1.005-1.025) Urine Protein (Neg-Trace) mg/dL Urine Glucose (UA) (Negative) mg/dL Urine Ketones (Negative) mg/dL Urine Blood (Negative) Urine Nitrite (Negative) Ur Leukocyte Esterase (Negative) Urine RBC (0-2) /HPF Urine WBC (0-5) /HPF Ur Squamous Epith Cells (0-2) /HPF Urine Bacteria (None Seen) Hyaline Casts (0-2) /LPF Urine Opiates Screen (Not Detect) Urine Fentanyl Screen (Not Detect) Ur Barbiturates Screen (Not Detect) Ur Phencyclidine Scrn (Not Detect) Ur Amphetamines Screen (Not Detect) U Benzodiazepines Scrn (Not Detect) Urine Cocaine Screen (Not Detect) U Marijuana (THC) Screen (Not Detect) Ethyl Alcohol mg/dL COVID-19 (TJ) (Negative) COVID-19 Clin Com 09/07/22 09/07/22 09/07/22 Range/Units 18:42 18:42 18:42 WBC (4.8-10.8) X10*3/uL RBC (4.60-5.80) X10*6/uL Hgb (14.0-18.0) g/dl Hct (42.0-52.0) % MCV (80.0-98.0) fL MCH (27.0-33.0) pg MCHC (31.0-36.0) g/dl RDW (11.0-16.0) % Plt Count (160-400) X10*3/uL MPV (9.4-12.4) fL Immature Gran % (Auto) (0.0-0.4) % Neut % (Auto) (45-73) % Lymph % (Auto) (20-40) % [place] % (Auto) (2-11) % Eos % (Auto) (0-4) % Baso % (Auto) (0-2) % Lymph # (Auto) (1.2-4.9) X10*3/uL [place] # (Auto) (0.1-1.2) X10*3/uL Eos # (Auto) (0.0-0.4) X10*3/uL Baso # (Auto) (0.0-0.2) X10*3/uL Abs Immat Gran (auto) (0.00-0.03) X10*3/uL Absolute Neuts (auto) (2.0-8.3) x10*3/uL Absolute Nucleated RBC (0.0-0.012) X10*3/uL Nucleated RBC % (auto) (0.0-0.2) /100WBC Whole Blood PT (11.1-13.5) sec Whole Blood INR (0.9-1.1) VBG pH (7.32-7.43) VBG pCO2 mmHg VBG pO2 mmHg VBG HCO3 (22-26) mmol/L VBG O2 Saturation % VBG Base Excess mmol/L Sodium (135-145) mmol/L Potassium (3.3-5.1) mmol/L Chloride (96-108) mmol/L Carbon Dioxide (22-29) mmol/L Anion Gap (12-20) BUN (9-16) mg/dL Creatinine (0.5-1.4) mg/dL Estim Creat Clear Calc Estimated GFR POC Glucose (60-115) mg/dL Random Glucose (60-115) mg/dL Lactic Acid (0.5-2.0) mmol/L Calcium (8.4-10.2) mg/dL Magnesium (1.6-2.6) mg/dL Total Bilirubin (0.0-1.0) mg/dL Direct Bilirubin (0.0-0.5) mg/dL AST (5-37) U/L ALT (0-40) U/L Alkaline Phosphatase (39-117) U/L Ammonia 35 (13-55) umol/L Troponin I High Sens 11.0 (<3.5-35.0) ng/L Total Protein (6.5-8.0) g/dL Albumin (3.5-5.0) g/dL Urine Color Urine Appearance Urine pH (5.0-9.0) Ur Specific [place] (1.005-1.025) Urine Protein (Neg-Trace) mg/dL Urine Glucose (UA) (Negative) mg/dL Urine Ketones (Negative) mg/dL Urine Blood (Negative) Urine Nitrite (Negative) Ur Leukocyte Esterase (Negative) Urine RBC (0-2) /HPF Urine WBC (0-5) /HPF Ur Squamous Epith Cells (0-2) /HPF Urine Bacteria (None Seen) Hyaline Casts (0-2) /LPF Urine Opiates Screen (Not Detect) Urine Fentanyl Screen (Not Detect) Ur Barbiturates Screen (Not Detect) Ur Phencyclidine Scrn (Not Detect) Ur Amphetamines Screen (Not Detect) U Benzodiazepines Scrn (Not Detect) Urine Cocaine Screen (Not Detect) U Marijuana (THC) Screen (Not Detect) Ethyl Alcohol mg/dL COVID-19 (TJ) Negative (Negative) COVID-19 Clin Com See Note 09/07/22 09/07/22 09/07/22 Range/Units 20:16 20:16 21:57 WBC (4.8-10.8) X10*3/uL RBC (4.60-5.80) X10*6/uL Hgb (14.0-18.0) g/dl Hct (42.0-52.0) % MCV (80.0-98.0) fL MCH (27.0-33.0) pg MCHC (31.0-36.0) g/dl RDW (11.0-16.0) % Plt Count (160-400) X10*3/uL MPV (9.4-12.4) fL Immature Gran % (Auto) (0.0-0.4) % Neut % (Auto) (45-73) % Lymph % (Auto) (20-40) % [place] % (Auto) (2-11) % Eos % (Auto) (0-4) % Baso % (Auto) (0-2) % Lymph # (Auto) (1.2-4.9) X10*3/uL [place] # (Auto) (0.1-1.2) X10*3/uL Eos # (Auto) (0.0-0.4) X10*3/uL Baso # (Auto) (0.0-0.2) X10*3/uL Abs Immat Gran (auto) (0.00-0.03) X10*3/uL Absolute Neuts (auto) (2.0-8.3) x10*3/uL Absolute Nucleated RBC (0.0-0.012) X10*3/uL Nucleated RBC % (auto) (0.0-0.2) /100WBC Whole Blood PT (11.1-13.5) sec Whole Blood INR (0.9-1.1) VBG pH 7.35 (7.32-7.43) VBG pCO2 60 mmHg VBG pO2 33 mmHg VBG HCO3 33 H (22-26) mmol/L VBG O2 Saturation 48.0 % VBG Base Excess 6.0 mmol/L Sodium (135-145) mmol/L Potassium (3.3-5.1) mmol/L Chloride (96-108) mmol/L Carbon Dioxide (22-29) mmol/L Anion Gap (12-20) BUN (9-16) mg/dL Creatinine (0.5-1.4) mg/dL Estim Creat Clear Calc Estimated GFR POC Glucose (60-115) mg/dL Random Glucose (60-115) mg/dL Lactic Acid (0.5-2.0) mmol/L Calcium (8.4-10.2) mg/dL Magnesium (1.6-2.6) mg/dL Total Bilirubin (0.0-1.0) mg/dL Direct Bilirubin (0.0-0.5) mg/dL AST (5-37) U/L ALT (0-40) U/L Alkaline Phosphatase (39-117) U/L Ammonia (13-55) umol/L Troponin I High Sens (<3.5-35.0) ng/L Total Protein (6.5-8.0) g/dL Albumin (3.5-5.0) g/dL Urine Color Yellow Urine Appearance Clear Urine pH 6.0 (5.0-9.0) Ur Specific [place] 1.010 (1.005-1.025) Urine Protein Negative (Neg-Trace) mg/dL Urine Glucose (UA) Negative (Negative) mg/dL Urine Ketones Negative (Negative) mg/dL Urine Blood Negative (Negative) Urine Nitrite Negative (Negative) Ur Leukocyte Esterase Trace H (Negative) Urine RBC 0-2 (0-2) /HPF Urine WBC 0-5 (0-5) /HPF Ur Squamous Epith Cells 0-2 (0-2) /HPF Urine Bacteria None Seen (None Seen) Hyaline Casts 0-2 (0-2) /LPF Urine Opiates Screen Not Detected (Not Detect) Urine Fentanyl Screen Not Detected (Not Detect) Ur Barbiturates Screen Not Detected (Not Detect) Ur Phencyclidine Scrn Not Detected (Not Detect) Ur Amphetamines Screen Not Detected (Not Detect) U Benzodiazepines Scrn Not Detected (Not Detect) Urine Cocaine Screen Not Detected (Not Detect) U Marijuana (THC) Screen Not Detected (Not Detect) Ethyl Alcohol mg/dL COVID-19 (TJ) (Negative) COVID-19 Clin Com 09/08/22 Range/Units 00:44 WBC (4.8-10.8) X10*3/uL RBC (4.60-5.80) X10*6/uL Hgb (14.0-18.0) g/dl Hct (42.0-52.0) % MCV (80.0-98.0) fL MCH (27.0-33.0) pg MCHC (31.0-36.0) g/dl RDW (11.0-16.0) % Plt Count (160-400) X10*3/uL MPV (9.4-12.4) fL Immature Gran % (Auto) (0.0-0.4) % Neut % (Auto) (45-73) % Lymph % (Auto) (20-40) % [place] % (Auto) (2-11) % Eos % (Auto) (0-4) % Baso % (Auto) (0-2) % Lymph # (Auto) (1.2-4.9) X10*3/uL [place] # (Auto) (0.1-1.2) X10*3/uL Eos # (Auto) (0.0-0.4) X10*3/uL Baso # (Auto) (0.0-0.2) X10*3/uL Abs Immat Gran (auto) (0.00-0.03) X10*3/uL Absolute Neuts (auto) (2.0-8.3) x10*3/uL Absolute Nucleated RBC (0.0-0.012) X10*3/uL Nucleated RBC % (auto) (0.0-0.2) /100WBC Whole Blood PT (11.1-13.5) sec Whole Blood INR (0.9-1.1) VBG pH 7.32 (7.32-7.43) VBG pCO2 63 mmHg VBG pO2 28 mmHg VBG HCO3 32 H (22-26) mmol/L VBG O2 Saturation 35.0 % VBG Base Excess 5.0 mmol/L Sodium (135-145) mmol/L Potassium (3.3-5.1) mmol/L Chloride (96-108) mmol/L Carbon Dioxide (22-29) mmol/L Anion Gap (12-20) BUN (9-16) mg/dL Creatinine (0.5-1.4) mg/dL Estim Creat Clear Calc Estimated GFR POC Glucose (60-115) mg/dL Random Glucose (60-115) mg/dL Lactic Acid (0.5-2.0) mmol/L Calcium (8.4-10.2) mg/dL Magnesium (1.6-2.6) mg/dL Total Bilirubin (0.0-1.0) mg/dL Direct Bilirubin (0.0-0.5) mg/dL AST (5-37) U/L ALT (0-40) U/L Alkaline Phosphatase (39-117) U/L Ammonia (13-55) umol/L Troponin I High Sens (<3.5-35.0) ng/L Total Protein (6.5-8.0) g/dL Albumin (3.5-5.0) g/dL Urine Color Urine Appearance Urine pH (5.0-9.0) Ur Specific [place] (1.005-1.025) Urine Protein (Neg-Trace) mg/dL Urine Glucose (UA) (Negative) mg/dL Urine Ketones (Negative) mg/dL Urine Blood (Negative) Urine Nitrite (Negative) Ur Leukocyte Esterase (Negative) Urine RBC (0-2) /HPF Urine WBC (0-5) /HPF Ur Squamous Epith Cells (0-2) /HPF Urine Bacteria (None Seen) Hyaline Casts (0-2) /LPF Urine Opiates Screen (Not Detect) Urine Fentanyl Screen (Not Detect) Ur Barbiturates Screen (Not Detect) Ur Phencyclidine Scrn (Not Detect) Ur Amphetamines Screen (Not Detect) U Benzodiazepines Scrn (Not Detect) Urine Cocaine Screen (Not Detect) U Marijuana (THC) Screen (Not Detect) Ethyl Alcohol mg/dL COVID-19 (TJ) (Negative) COVID-19 Clin Com Radiology Impression Discussion of test interpretation with radiology: I have reviewed the radiologist's reading. Radiologist Impression: FINDINGS: CT Head: There is no evidence of acute intracranial hemorrhage or edematous territorial infarction. There is no abnormal attenuation within the brain parenchyma. Mora-white matter differentiation is preserved. The ventricles are normal in size and configuration. No evidence for obstructive hydrocephalus. No abnormal mass effect or midline shift. No extra-axial fluid collections. No pathologic intra-axial enhancement or regional oligemia. No acute soft tissue or osseous abnormalities. Mild mucosal thickening of the paranasal sinuses. The mastoid air cells and middle ear cavities are clear. Mild degenerative arthropathy of the left temporomandibular joint. Bilateral lens extractions. CT Neck: The thyroid gland and remaining cervical soft tissues are within normal limits. Straightening of the normal cervical lordosis. Mild degenerative anterolistheses of C4 on C5 and C5 on C6. Advanced degenerative arthropathy of the left atlantoaxial articulation. Advanced degenerative disc disease at C6-C7. CT Upper Chest: Prominent centrilobular emphysema of the visualized upper lungs. The visualized lung apices and upper mediastinum are within normal limits. Neck CTA: Aortic Arch: Normal contour and caliber. Classic 3 vessel branching pattern of the aortic arch. Great Vessel Origins: No significant stenosis of the branch origins. Right Common Carotid Artery: No focal stenosis or occlusion. Cervical Right Internal Carotid Artery: Mild calcific atherosclerotic disease of the carotid bulb and proximal internal carotid artery without flow-limiting stenosis. Left Common Carotid Artery: No focal stenosis or occlusion. Cervical Left Internal Carotid Artery: Normal opacification without focal stenosis or occlusion. Cervical Right Vertebral Artery: No focal stenosis or occlusion. Cervical Left Vertebral Artery: Dominant. No focal stenosis or occlusion. Brain CTA: Intracranial Internal Carotid Arteries: Calcific atherosclerotic disease of the intracranial internal carotid arteries without occlusion or flow-limiting stenosis. Right Anterior Cerebral Artery: Normal A1 segment. Normal opacification of the distal DOTTIE segments. Left Anterior Cerebral Artery: Normal A1 segment. Normal opacification of the distal DOTTIE segments. Anterior Communicating Artery: Normal. Right Middle Cerebral Artery: Normal M1 segment of the MCA without focal stenosis or occlusion. Normal arborization of the distal segments. Left Middle Cerebral Artery: Normal M1 segment of the MCA without focal stenosis or occlusion. Normal arborization of the distal segments. Right Vertebral Artery: The V4 segment largely terminates as the posterior inferior cerebellar artery. Left Vertebral Artery: Normal V4 segment. Normal opacification of the proximal segments of the posterior inferior cerebellar artery. Basilar Artery: Normal without focal stenosis or occlusion. Normal appearance of the proximal superior cerebellar arteries. Right Posterior Cerebral Artery: Normal P1 segment. Normal opacification of the distal [employer] segments. Left Posterior Cerebral Artery: Normal P1 segment. Normal opacification of the distal GRAPP[employer] OPERATOR segments. Normal opacification of the superior sagittal, straight, transverse, and sigmoid sinuses. CT/CT angio head? neck stroke IMPRESSION: 1.? No evidence of acute intracranial hemorrhage or edematous territorial infarction. 2.? CTA of the head and neck without proximal occlusion or flow-limiting stenosis. 3.? Emphysema. ? NIH Stroke Scale Level of Consciousness: Alert Level of Consciousness Questions: Answers both questions correctly Level of Consciousness Commands: Performs both tasks correctly Best Gaze: Normal Visual: No visual loss Facial Palsy: Normal Motor Arm (Right): No drift Motor Arm (Left): No drift Motor Leg (Right): No drift Limb Ataxia: Absent Sensory: Normal Best Language: No aphasia Dysarthia: Normal Extinction and Inattention: No abnormality Discharge Plan Discharge Clinical Impression: Acute alteration in mental status, Pneumonia Patient Disposition: Admitted As Inpatient Prescriptions: No Action lidocaine 5 % adhesive patch,medicated 2 patch topical DAILY testosterone cypionate 200 mg/mL oil 100 mg IM Q2W zonisamide 100 mg capsule 200 mg PO BID topiramate 50 mg tablet 50 mg PO BID duloxetine 60 mg capsule,delayed release(DR/EC) 60 mg PO DAILY oxybutynin chloride 15 mg tablet extended release 24 hr 30 mg PO DAILY Rx Instructions: 1-2 caps, 1-2 x per day oxycodone-acetaminophen 5-325 mg tablet 1 tab PO BID PRN (Reason: Pain) gabapentin 600 mg tablet 600 mg PO BEDTIME ropinirole 0.5 mg tablet 0.5 mg PO BEDTIME Rx Instructions: administer 1-3 hours before bedtime tizanidine 4 mg capsule 4 mg PO BEDTIME lorazepam 1 mg tablet 1 mg PO BEDTIME PRN (Reason: Anxiety) magnesium 250 mg tablet 500 mg PO BID potassium gluconate 595 mg (99 mg) tablet 595 mg PO DAILY ferrous sulfate 325 mg (65 mg iron) tablet 325 mg PO DAILY cholecalciferol (vitamin D3) 125 mcg (5,000 unit) capsule 125 mcg PO BID ascorbic acid (vitamin C) 1,000 mg tablet 1 g PO DAILY glucosamine HCl 500 mg tablet 500 mg PO BID Rx Instructions: administer with meals ibuprofen 200 mg capsule 200 mg PO Q6H PRN (Reason: Pain) acetaminophen [Tylenol Extra Strength] 500 mg tablet 500 mg PO Q6H PRN (Reason: Pain) diphenhydramine HCl [Allergy Medication] 25 mg capsule 25 mg PO BEDTIME PRN (Reason: Allergic Reaction)
[2022-09-07 18:06] VITALS: BP 116/78; PULSE 68; PULSE 70; RESP 19; TEMP 36.6; O2SAT 95; O2SAT 98; BMI 28.6
[2022-09-07 18:47] LABS: Prothrombin Time Whole Bld POC 12.2 sec (11.1-13.5)
[2022-09-07 18:47] LABS: MANUAL DIFF FLAG NO
[2022-09-07 18:48] VITALS: BP 102/57; PULSE 56; RESP 12; O2SAT 93
[2022-09-07 18:48] LABS: Glucose, Whole Blood 95 mg/dL (60-115)
[2022-09-07 18:49] LABS: Basophils Absolute Auto 0.1 X10*3/uL (0.0-0.2); Basophils Percent Auto 0.3 % (0-2); Eosinophils Percent Auto 0.3 % (0-4); Hematocrit 38.3 % (42.0-52.0); Imm Gran Abs Auto 0.08 X10*3/uL (0.00-0.03); Imm Gran Pct Auto 0.5 % (0.0-0.4); Lymphocytes Absolute Auto 0.9 X10*3/uL (1.2-4.9); Mean Corpuscular HGB Conc 31.3 g/dl (31.0-36.0); Mean Corpuscular Hemoglobin 28.5 pg (27.0-33.0); Mean Platelet Volume 8.8 fL (9.4-12.4); Monocytes Absolute Auto 0.6 X10*3/uL (0.1-1.2); Monocytes Percent Auto 3.6 % (2-11); Neutrophils Absolute Auto 13.4 x10*3/uL (2.0-8.3); Neutrophils Percent Auto 89.3 % (45-73); Platelet Count 466 X10*3/uL (160-400); Red Blood Count 4.21 X10*6/uL (4.60-5.80); White Blood Count 15.1 X10*3/uL (4.8-10.8)
[2022-09-07 18:51] LABS: Ethanol < 10 mg/dL
[2022-09-07 19:03] LABS: COVID-19 Test Negative (Negative); IDNOW Serial# 6674DD1D
[2022-09-07 19:04] LABS: Lactic Acid 1.5 mmol/L (0.5-2.0)
[2022-09-07 19:06] LABS: Ammonia 35 umol/L (13-55)
[2022-09-07 19:10] LABS: Alanine Aminotransferase 23 U/L (0-40); Albumin Level 3.2 g/dL (3.5-5.0); Alkaline Phosphatase 79 U/L (39-117); Anion Gap 18 (12-20); Aspartate Amino Transferase 14 U/L (5-37); Bilirubin Direct 0.1 mg/dL (0.0-0.5); Bilirubin Total 0.3 mg/dL (0.0-1.0); Blood Urea Nitrogen 17 mg/dL (9-16); Calcium 9.9 mg/dL (8.4-10.2); Carbon Dioxide 22 mmol/L (22-29); Chloride 108 mmol/L (96-108); Creatinine Clr Calc Pharmacy 51.7; Estimated Glomerular Filt Rate 59; Glucose Random 96 mg/dL (60-115); Magnesium 2.5 mg/dL (1.6-2.6); Potassium 3.5 mmol/L (3.3-5.1); Sodium 144 mmol/L (135-145); Total Protein 6.1 g/dL (6.5-8.0)
--- NOTE | 2022-09-07 19:45 | PHA.MEDREC ---
Pharmacy Consult ? Medication Reconciliation Pharmacy has completed the medication reconciliation. Spoke to patient's spouse to confirm meds.
[2022-09-07 20:26] VITALS: BP 112/65; PULSE 74; RESP 18; O2SAT 96
[2022-09-07 20:34] LABS: Appearance Urine Clear; Color Urine Yellow; Glucose Urine UA Negative (Negative); Leukocyte Esterase Urine Trace (Negative); Nitrite Urine Negative (Negative); UMIC TRIGGER UACC YES; Urine Blood Negative (Negative); Urine Ketones Negative (Negative); Urine Protein Negative (Neg-Trace)
[2022-09-07 20:43] LABS: Bacteria Urine None Seen (None Seen); Hyaline Casts Urine 0-2 /LPF (0-2); RBC Urine 0-2 /HPF (0-2); Squamous Epithelial Cell Urine 0-2 /HPF (0-2); WBC Urine 0-5 /HPF (0-5)
--- NOTE | 2022-09-07 20:45 | PC.NURSE ---
this n and manager knowledge placed straight cath 1200 ml output immediately upon insertion. urine sample sent down to lab. pt not awake at this time. pt partner at bedside
--- NOTE | 2022-09-07 20:46 | PC.NURSE ---
swallow eval FAILED as pt is not fully and consistently awake. dr redd made aware
[2022-09-07 20:53] LABS: Amphetamine Screen Urine Not Detected (Not Detect); Barbiturates, Urine Not Detected (Not Detect); Benzodiazepines Screen Urine Not Detected (Not Detect); Cannabinoid Screen Urine Not Detected (Not Detect); Cocaine Screen Urine Not Detected (Not Detect); Fentanyl, urine Not Detected (Not Detect); Opiate Screen Urine Not Detected (Not Detect); Phencyclidine Screen Urine Not Detected (Not Detect)
[2022-09-07 22:03] LABS: Venous Blood Gas Refer to POC result
[2022-09-07 22:04] LABS: VBG HCO3 33 mmol/L (22-26); VBG pCO2 60 mmHg; VBG pH 7.35 (7.32-7.43); VBG pO2 33 mmHg
[2022-09-07 22:06] VITALS: BP 99/56; PULSE 55; RESP 12; O2SAT 96
[2022-09-07] MEDS: cefTRIAXone sodium 1 GM in 0.9 % Sodium Chloride 50 ML IV (22:33)
[2022-09-07] MEDS: 0.9 % Sodium Chloride 1,000 ML 999 ML IVCONT (22:33)
--- NOTE | 2022-09-07 22:43 | PC.NURSE ---
pt placed on bipap RT at bedside. pt medicated according to mar. pt at bedside. pt not responsive to bipap placement
[2022-09-07 22:49] VITALS: PULSE 87; RESP 16; O2SAT 97
[2022-09-07] MEDS: Azithromycin 500 MG in 0.9 % Sodium Chloride 250 ML 125 MG IV (23:11)
[2022-09-07 23:59] VITALS: BP 112/73; PULSE 56; RESP 19; TEMP 36.3; O2SAT 97
[2022-09-08] VITALS (9 sets, daily range): BP systolic 122–145; BP diastolic 62–80; PULSE 64–85; RESP 16–20; TEMP 36.4–37.1; O2SAT 91–98; BMI 29.2
--- NOTE | 2022-09-08 | EEG_ITS ---
This is a 16-channel EEG with an EKG lead. The patient is reported awake during the tracing. Background EEG rhythm is 7 to 8 hertz 5 to 70 microvolt posteriorly with lower amplitude fast anteriorly. Intermittently, the patient states generalize delta range discharges. No obvious focal sharp waves or spikes were noted. Cardiac lead did not reveal any significant abnormality. Photic stimulation did not produce any significant driving. Hyperventilation is unremarkable. IMPRESSION: Abnormal EEG revealing generalized slowing suggestive of probably metabolic encephalopathy, but also paroxysmal generalized discharges that could suggest a seizure disorder. Clinical correlation is recommended. MD SIMI Rivas/THO / [id number]
[2022-09-08 00:52] LABS: VBG HCO3 32 mmol/L (22-26); VBG pCO2 63 mmHg; VBG pH 7.32 (7.32-7.43); VBG pO2 28 mmHg
[2022-09-08 00:53] LABS: Venous Blood Gas Refer to POC result
--- NOTE | 2022-09-08 01:21 | P.HPHOSP_ITS ---
History of Present Illness Date of Service: 09/08/22 Chief Complaint: AMS This is a 67-year-old female to male with pertinent history of seizures, transverse myelitis, mood disorder, chronic opioid use, restless leg syndrome, peripheral neuropathy who was brought to the emergency department for evaluation of altered mentation. Unable to obtain significant medical history from the patient, history obtained from ER provider and chart review. Patient's stated earlier that she found him on the floor and patient was unable to get up. As per EMS, patient had questionable left-sided facial droop upon arrival. In the emergency department, facial droop was not noted but patient was found to be confused. No family at bedside and unable to obtain review of systems. In the emergency department, CT head and CTA negative. Review of Systems Review of Systems: Yes Unobtainable due to mental status PMFSH Medical History Arthritis Chronic pain syndrome Restless legs Transverse myelitis Pertinent family history: Unable to obtain Surgical History History of surgery on wrist Social History Household Members: Spouse Housing: House Do you presently have visiting nurse or other home services: No Alcohol intake: former Patient Tobacco Use Status: Former Tobacco user Tobacco use type: Cigarette Cigarettes Per Day: 20 Years Smoked: 35 Smoked in Last 30 Days: No e-Cigarette/Vaping Use: Never Used Use of substances other than those prescribed or required for medical reasons: No Advance Directives: No Advance Directives Information Provided: No Nutrition Risks: Difficulty swallowing service: No Current occupational status: disabled Current occupation: rt handed Meds Allergies Allergy/AdvReac Type Severity Reaction Status Date / Time No Known Allergies Allergy Verified 02/04/22 13:06 [No Known Allergies*] Home Medications Medication Instructions Recorded Confirmed Last Taken Type acetaminophen 500 mg tablet 500 mg PO Q6H PRN Pain 09/09/20 09/07/22 Unknown History (Tylenol Extra Strength) ascorbic acid (vitamin C) 1,000 mg 1 g PO DAILY 09/09/20 09/07/22 09/06/22 History tablet cholecalciferol (vitamin D3) 125 125 mcg PO BID 09/09/20 09/07/22 09/06/22 History mcg (5,000 unit) capsule duloxetine 60 mg capsule,delayed 60 mg PO DAILY 09/09/20 09/07/22 09/06/22 History release ferrous sulfate 325 mg (65 mg 325 mg PO DAILY 09/09/20 09/07/22 09/06/22 History iron) tablet gabapentin 600 mg tablet 600 mg PO BEDTIME 09/09/20 09/07/22 09/06/22 History glucosamine HCl 500 mg tablet 500 mg PO BID 09/09/20 09/07/22 09/06/22 History ibuprofen 200 mg capsule 200 mg PO Q6H PRN Pain 09/09/20 09/07/22 Unknown History lorazepam 1 mg tablet 1 mg PO BEDTIME PRN Anxiety 09/09/20 09/07/22 Unknown H istory magnesium 250 mg tablet 500 mg PO BID 09/09/20 09/07/22 09/06/22 History oxybutynin chloride 15 mg 30 mg PO DAILY 09/09/20 09/07/22 09/06/22 History tablet,extended release 24 hr oxycodone-acetaminophen 5 mg-325 1 tab PO BID PRN Pain 09/09/20 09/07/22 Unknown History mg tablet potassium gluconate 595 mg (99 mg) 595 mg PO DAILY 09/09/20 09/07/22 09/06/22 History tablet ropinirole 0.5 mg tablet 0.5 mg PO BEDTIME 09/09/20 09/07/22 09/06/22 History tizanidine 4 mg capsule 4 mg PO BEDTIME 09/09/20 09/07/22 09/06/22 History topiramate 50 mg tablet 50 mg PO BID 09/09/20 09/07/22 09/06/22 History zonisamide 100 mg capsule 200 mg PO BID 09/09/20 09/07/22 09/06/22 History diphenhydramine HCl 25 mg capsule 25 mg PO BEDTIME PRN Allergic 09/28/21 09/07/22 Unknown History (Allergy Medication) Reaction lidocaine 5 % topical patch 2 patch topical DAILY 11/19/21 09/07/22 09/06/22 History testosterone cypionate 200 mg/mL 100 mg IM Q2W 06/20/23 06/20/23 06/18/23 History intramuscular oil Physical Exam Vital Signs and Narrative: Vital Signs: Last Vital Signs Temp 97.3 F 09/07/22 23:59 Pulse 56 09/07/22 23:59 Resp 19 09/07/22 23:59 BP 122/74 09/08/22 00:17 Pulse Ox 97 09/07/22 23:59 O2 Del Method BiPAP 09/07/22 23:59 BMI result Body Mass Index 28.6 Middle-aged male lying in bed in no distress Neck supple, no JVD Regular rate and rhythm, S1-S2 heard Left-sided crackles Abdomen soft nontender, no guarding, no rigidity Patient is awake, alert and oriented to self, disoriented to place, time and person ; strength equal in bilateral upper and lower extremity, no facial droop No pedal edema Results Labs 09/07/22 18:42 09/07/22 18:42 Labs: Laboratory Results - last 24 hr 09/07/22 09/07/22 09/07/22 18:10 18:13 18:30 MCV MCH MCHC RDW Plt Count MPV Immature Gran % (Auto) Neut % (Auto) Lymph % (Auto) [facility] % (Auto) Eos % (Auto) Baso % (Auto) Lymph # (Auto) [facility] # (Auto) Eos # (Auto) Baso # (Auto) Abs Immat Gran (auto) Absolute Neuts (auto) Absolute Nucleated RBC Nucleated RBC % (auto) Whole Blood PT 12.2 Whole Blood INR 1.0 VBG pH VBG pCO2 VBG pO2 VBG HCO3 VBG O2 Saturation VBG Base Excess Anion Gap Estim Creat Clear Calc Estimated GFR POC Glucose 95 Random Glucose Lactic Acid Calcium Magnesium Total Bilirubin Direct Bilirubin AST ALT Alkaline Phosphatase Ammonia Troponin I High Sens Total Protein Albumin Urine Color Urine Appearance Urine pH Ur Specific [place] Urine Protein Urine Glucose (UA) Urine Ketones Urine Blood Urine Nitrite Ur Leukocyte Esterase Urine RBC Urine WBC Ur Squamous Epith Cells Urine Bacteria Hyaline Casts Urine Opiates Screen Urine Fentanyl Screen Ur Barbiturates Screen Ur Phencyclidine Scrn Ur Amphetamines Screen U Benzodiazepines Scrn Urine Cocaine Screen U Marijuana (THC) Screen Ethyl Alcohol < 10 COVID-19 (TJ) COVID-19 Clin Com 09/07/22 09/07/22 09/07/22 18:42 18:42 18:42 MCV 91.0 MCH 28.5 MCHC 31.3 RDW 13.0 Plt Count 466 H D MPV 8.8 L Immature Gran % (Auto) 0.5 H Neut % (Auto) 89.3 H Lymph % (Auto) 6.0 L [facility] % (Auto) 3.6 Eos % (Auto) 0.3 Baso % (Auto) 0.3 Lymph # (Auto) 0.9 L [facility] # (Auto) 0.6 Eos # (Auto) 0.0 Baso # (Auto) 0.1 Abs Immat Gran (auto) 0.08 H Absolute Neuts (auto) 13.4 H Absolute Nucleated RBC 0.000 Nucleated RBC % (auto) 0.0 Whole Blood PT Whole Blood INR VBG pH VBG pCO2 VBG pO2 VBG HCO3 VBG O2 Saturation VBG Base Excess Anion Gap 18 Estim Creat Clear Calc 51.7 Estimated GFR 59 POC Glucose Random Glucose 96 Lactic Acid 1.5 Calcium 9.9 Magnesium 2.5 Total Bilirubin 0.3 Direct Bilirubin 0.1 AST 14 ALT 23 Alkaline Phosphatase 79 Ammonia Troponin I High Sens Total Protein 6.1 L Albumin 3.2 L Urine Color Urine Appearance Urine pH Ur Specific [place] Urine Protein Urine Glucose (UA) Urine Ketones Urine Blood Urine Nitrite Ur Leukocyte Esterase Urine RBC Urine WBC Ur Squamous Epith Cells Urine Bacteria Hyaline Casts Urine Opiates Screen Urine Fentanyl Screen Ur Barbiturates Screen Ur Phencyclidine Scrn Ur Amphetamines Screen U Benzodiazepines Scrn Urine Cocaine Screen U Marijuana (THC) Screen Ethyl Alcohol COVID-19 (TJ) COVID-19 Clin Com 09/07/22 09/07/22 09/07/22 18:42 18:42 18:42 MCV MCH MCHC RDW Plt Count MPV Immature Gran % (Auto) Neut % (Auto) Lymph % (Auto) [facility] % (Auto) Eos % (Auto) Baso % (Auto) Lymph # (Auto) [facility] # (Auto) Eos # (Auto) Baso # (Auto) Abs Immat Gran (auto) Absolute Neuts (auto) Absolute Nucleated RBC Nucleated RBC % (auto) Whole Blood PT Whole Blood INR VBG pH VBG pCO2 VBG pO2 VBG HCO3 VBG O2 Saturation VBG Base Excess Anion Gap Estim Creat Clear Calc Estimated GFR POC Glucose Random Glucose Lactic Acid Calcium Magnesium Total Bilirubin Direct Bilirubin AST ALT Alkaline Phosphatase Ammonia 35 Troponin I High Sens 11.0 Total Protein Albumin Urine Color Urine Appearance Urine pH Ur Specific [place] Urine Protein Urine Glucose (UA) Urine Ketones Urine Blood Urine Nitrite Ur Leukocyte Esterase Urine RBC Urine WBC Ur Squamous Epith Cells Urine Bacteria Hyaline Casts Urine Opiates Screen Urine Fentanyl Screen Ur Barbiturates Screen Ur Phencyclidine Scrn Ur Amphetamines Screen U Benzodiazepines Scrn Urine Cocaine Screen U Marijuana (THC) Screen Ethyl Alcohol COVID-19 (TJ) Negative COVID-19 Clin Com See Note 09/07/22 09/07/22 09/07/22 20:16 20:16 21:57 MCV MCH MCHC RDW Plt Count MPV Immature Gran % (Auto) Neut % (Auto) Lymph % (Auto) [facility] % (Auto) Eos % (Auto) Baso % (Auto) Lymph # (Auto) [facility] # (Auto) Eos # (Auto) Baso # (Auto) Abs Immat Gran (auto) Absolute Neuts (auto) Absolute Nucleated RBC Nucleated RBC % (auto) Whole Blood PT Whole Blood INR VBG pH 7.35 VBG pCO2 60 VBG pO2 33 VBG HCO3 33 H VBG O2 Saturation 48.0 VBG Base Excess 6.0 Anion Gap Estim Creat Clear Calc Estimated GFR POC Glucose Random Glucose Lactic Acid Calcium Magnesium Total Bilirubin Direct Bilirubin AST ALT Alkaline Phosphatase Ammonia Troponin I High Sens Total Protein Albumin Urine Color Yellow Urine Appearance Clear Urine pH 6.0 Ur Specific [place] 1.010 Urine Protein Negative Urine Glucose (UA) Negative Urine Ketones Negative Urine Blood Negative Urine Nitrite Negative Ur Leukocyte Esterase Trace H Urine RBC 0-2 Urine WBC 0-5 Ur Squamous Epith Cells 0-2 Urine Bacteria None Seen Hyaline Casts 0-2 Urine Opiates Screen Not Detected Urine Fentanyl Screen Not Detected Ur Barbiturates Screen Not Detected Ur Phencyclidine Scrn Not Detected Ur Amphetamines Screen Not Detected U Benzodiazepines Scrn Not Detected Urine Cocaine Screen Not Detected U Marijuana (THC) Screen Not Detected Ethyl Alcohol COVID-19 (TJ) COVID-19 Clin Com 09/08/22 00:44 MCV MCH MCHC RDW Plt Count MPV Immature Gran % (Auto) Neut % (Auto) Lymph % (Auto) [facility] % (Auto) Eos % (Auto) Baso % (Auto) Lymph # (Auto) [facility] # (Auto) Eos # (Auto) Baso # (Auto) Abs Immat Gran (auto) Absolute Neuts (auto) Absolute Nucleated RBC Nucleated RBC % (auto) Whole Blood PT Whole Blood INR VBG pH 7.32 VBG pCO2 63 VBG pO2 28 VBG HCO3 32 H VBG O2 Saturation 35.0 VBG Base Excess 5.0 Anion Gap Estim Creat Clear Calc Estimated GFR POC Glucose Random Glucose Lactic Acid Calcium Magnesium Total Bilirubin Direct Bilirubin AST ALT Alkaline Phosphatase Ammonia Troponin I High Sens Total Protein Albumin Urine Color Urine Appearance Urine pH Ur Specific [place] Urine Protein Urine Glucose (UA) Urine Ketones Urine Blood Urine Nitrite Ur Leukocyte Esterase Urine RBC Urine WBC Ur Squamous Epith Cells Urine Bacteria Hyaline Casts Urine Opiates Screen Urine Fentanyl Screen Ur Barbiturates Screen Ur Phencyclidine Scrn Ur Amphetamines Screen U Benzodiazepines Scrn Urine Cocaine Screen U Marijuana (THC) Screen Ethyl Alcohol COVID-19 (TJ) COVID-19 Clin Com Imaging Radiologist's Impressions: Impressions Head CT 09/07/22 17:45 IMPRESSION: No acute intracranial pathology. This critical result was discussed with Carmen Lassiter on 09/07/2022, 5:54 PM and it was ascertained that the content and urgency of the report was understood at the time of direct communication. Head/Neck CTA 09/07/22 17:49 IMPRESSION: 1. No evidence of acute intracranial hemorrhage or edematous territorial infarction. 2. CTA of the head and neck without proximal occlusion or flow-limiting stenosis. 3. Emphysema. Chest X-Ray 09/07/22 21:14 IMPRESSION: There is interim appearance of a moderate focus of atelectasis versus infiltrate at the lateral left base. Please correlate clinically. Recommend short-term follow-up chest radiographs to ensure clearance and exclude the possibility of underlying obstructive process. Assessment and Plan (1) Acute alteration in mental status: Status: Acute Plan This is a 67-year-old female to male with pertinent history of seizures, transverse myelitis, mood disorder, chronic opioid use, restless leg syndrome, peripheral neuropathy who was brought to the emergency department for evaluation of altered mentation. #. Acute encephalopathy. Will obtain MRI to rule out acute CVA. Further workup and neurology consult based on MRI results. Encephalopathy could also be contributed due to left-sided pneumonia #. Left-sided community-acquired pneumonia. Unable to obtain history from the patient. Does have leukocytosis. Will treat empirically with IV antibiotics #. Primary metabolic alkalosis with respiratory acidosis on blood gas analysis. No history of vomiting. Patient not on loop or thiazide diuretics. Will obtain urine chloride #. Restless leg syndrome. On ropinirole #. Mood disorder. Continue home mood stabilizers #. Seizure disorder. Continue antiepileptics and seizure precautions #. Chronic opioid use #. Peripheral neuropathy on gabapentin Med rec pending DVT prophylaxis: Lovenox Full code NPO until patient passes swallow eval Admit as inpatient and will require two night minimum hospital stay for IV antibiotics and workup for acute encephalopathy Time Spent With Patient Time: Total time managing care of this patient today ____ minutes. Quality Stroke Does the patient have a stroke diagnosis?: No VTE Prior VTE?: No VTE Risk Level:: Medical - moderate - high VTE Device Contraindication: Treatment Not Indicated VTE Drug Contraindication: N/A - Med Ordered
[2022-09-08] MEDS: Enoxaparin Sodium 40 MG/0.4 ML SYRINGE SUBCUT (01:55)
--- NOTE | 2022-09-08 03:25 | PC.NURSE ---
Nursing report provided to TEA Frank. Pt being transferred to room 467. Pt made aware.
[2022-09-08 05:39] LABS: MANUAL DIFF FLAG NO
[2022-09-08 05:44] LABS: Basophils Absolute Auto 0.1 X10*3/uL (0.0-0.2); Basophils Percent Auto 0.8 % (0-2); Eosinophils Absolute Auto 0.1 X10*3/uL (0.0-0.4); Hematocrit 41.1 % (42.0-52.0); Hemoglobin 12.8 g/dl (14.0-18.0); Imm Gran Abs Auto 0.09 X10*3/uL (0.00-0.03); Imm Gran Pct Auto 0.7 % (0.0-0.4); Lymphocytes Absolute Auto 1.4 X10*3/uL (1.2-4.9); Lymphocytes Percent Auto 10.5 % (20-40); Mean Corpuscular HGB Conc 31.1 g/dl (31.0-36.0); Mean Corpuscular Hemoglobin 28.7 pg (27.0-33.0); Mean Corpuscular Volume 92.2 fL (80.0-98.0); Mean Platelet Volume 8.8 fL (9.4-12.4); Monocytes Absolute Auto 0.7 X10*3/uL (0.1-1.2); Monocytes Percent Auto 5.4 % (2-11); Neutrophils Absolute Auto 10.6 x10*3/uL (2.0-8.3); Neutrophils Percent Auto 81.6 % (45-73); Platelet Count 481 X10*3/uL (160-400); Red Blood Count 4.46 X10*6/uL (4.60-5.80); Red Cell Distribution Width 13.1 % (11.0-16.0)
[2022-09-08 05:59] LABS: Anion Gap 17 (12-20); Blood Urea Nitrogen 14 mg/dL (9-16); Calcium 9.6 mg/dL (8.4-10.2); Carbon Dioxide 21 mmol/L (22-29); Chloride 113 mmol/L (96-108); Creatinine Clr Calc Pharmacy 58.4; Estimated Glomerular Filt Rate > 60; Glucose Random 85 mg/dL (60-115); Potassium 3.4 mmol/L (3.3-5.1); Sodium 148 mmol/L (135-145)
[2022-09-08] MEDS: 0.9 % Sodium Chloride Flush 3 ML SYRINGE IVFLUSH ×2 (08:53→15:46)
--- NOTE | 2022-09-08 09:03 | PM.EVENT ---
Event Note Date of Service: 09/08/22 Event Note: pt seen and examined, admitted this morning for encephalopathy of unclear etiology, further work up needed, MRI , neuro eval , check ammonia.. Otherwise a/p per h and p from this morning Time Spent With Patient Time: Total time managing care of this patient today ____ minutes.
--- NOTE | 2022-09-08 09:38 | MHC.CM.PN ---
PT CURRENTLY UNABLE TO PARTICIPATE IN ASSESSMENT. INFORMATION GLEANED FROM [facility]/HCP [facility]. PT LIVES WITH SPOUSE, IS INDEPENDENT AT BASELINE. USES [facility] FOR MOBILITY FOR BALANCE. NO SERVICES PRIOR TO HOSPITALIZATION. + COVID VAX X3 +HCP ON FILE. PCP DR. KIRBY AT [facility]. DP: PER [facility], HOME IS PREFERRED AND OPEN TO [facility] IF RECOMMENDED. NO PREFERENCE TO AGENCY IF NEEDED. [facility] WILL TRANSPORT. CM WILL CONTINUE TO FOLLOW FOR DC PLAN/NEEDS
[2022-09-08] MEDS: DULoxetine HCl 60 MG CAPSULE.DR PO (10:57)
[2022-09-08 10:59] LABS: MRSA Nasal PCR NEGATIVE (Negative); SA Nasal PCR NEGATIVE (Negative)
--- NOTE | 2022-09-08 15:04 | PM.NEUROCN ---
History of Present Illness Data of Consult Service Date: 09/08/22 Primary Care Provider: Unknown Physician HPI Reason for consult: Encephalopathy 67 years old man with previous diagnoses of transverse myelitis, possible seizure disorder, opiate abuse, and UTIs who came to hospital with confusion. Apparently he was totally confused not making any sense and there was no obvious explanation. He denied any use of new medicine or drugs, or exposure to significant alcohol. He was noted to be quite confused yesterday but much better this morning. Review of Systems Review of Systems: No recent fever chills or cough. PMF Past Medical History Medical History Arthritis Chronic pain syndrome Restless legs Transverse myelitis Surgical History Surgical History History of surgery on wrist Social History Social History Household Members: Spouse Housing: House Do you presently have visiting nurse or other home services: No Alcohol intake: former Patient Tobacco Use Status: Former Tobacco user Tobacco use type: Cigarette Cigarettes Per Day: 20 Years Smoked: 35 e-Cigarette/Vaping Use: Never Used Substance Use Type: Opiates service: No Current occupational status: disabled Current occupation: rt handed [employer] Allergies Allergy/AdvReac Type Severity Reaction Status Date / Time No Known Allergies Allergy Verified 02/04/22 13:06 [No Known Allergies*] Active Medications: Current Medications Acetaminophen (Acetaminophen 325 Mg Tablet) 650 mg PO Q6H PRN PRN Reason: Pain, Mild (Pain Scale 1-3) Ascorbic Acid (Ascorbic Acid 500 Mg Tablet) 1,000 mg PO DAILY [facility] Diphenhydramine HCl (Diphenhydramine Hcl 25 Mg Capsule) 25 mg PO BEDTIME PRN PRN Reason: Allergic Reaction Duloxetine HCl (Duloxetine Hcl 60 Mg Capsule.) 60 mg PO DAILY [facility] Last Admin: 09/08/22 10:57 Dose: 60 mg Enoxaparin Sodium (Enoxaparin Sodium 40 Mg/0.4 Ml Syringe) 40 mg SUBCUT Q24H [facility] Last Admin: 09/08/22 01:55 Dose: 40 mg Ferrous Sulfate (Ferrous Sulfate 324 Mg Tablet.) 324 mg PO DAILY [facility] Gabapentin (Gabapentin 600 Mg Tablet) 600 mg PO BEDTIME [facility] Ceftriaxone Sodium 1 gm/ (Sodium Chloride) 50 mls @ 100 mls/hr IV Q24H [facility] Azithromycin 500 mg/ Sodium (Chloride) 250 mls @ 125 mls/hr IV Q24H [facility] Ibuprofen (Ibuprofen 200 Mg Tablet) 200 mg PO Q6H PRN PRN Reason: Pain Lidocaine (Lidocaine 4 % Patch Adh..Patch) 2 patch TRANSDERMA DAILY [facility] Lorazepam (Lorazepam 1 Mg Tablet) 1 mg PO BEDTIME PRN PRN Reason: Anxiety Magnesium Oxide (Magnesium Oxide 400 Mg Tablet) 400 mg PO BID [facility] Melatonin (Melatonin 3 Mg Tablet) 6 mg PO BEDTIME PRN PRN Reason: Insomnia Non-Formulary Medication (Testosterone Cypionate) 100 mg IM Q14D [facility] Ondansetron HCl (Ondansetron Hcl 4 Mg/2 Ml Vial) 4 mg IVPUSH Q8H PRN PRN Reason: Nausea and Vomiting Oxybutynin Chloride (Oxybutynin Chloride Er 5 Mg Tab.Er.24) 30 mg PO DAILY [facility] Oxycodone HCl (Oxycodone Hcl Immed Release 5 Mg Tablet) 5 mg PO BID PRN PRN Reason: Pain, Moderate(Pain Scale 4-6) Ropinirole HCl (Ropinirole Hcl 0.5 Mg Tablet) 0.5 mg PO BEDTIME [facility] Sodium Chloride (0.9 % Sodium Chloride Flush 3 Ml Syringe) 3 ml IVFLUSH QSHIFT [facility] Last Admin: 09/08/22 08:53 Dose: 3 ml Tizanidine HCl (Tizanidine Hcl 4 Mg Tablet) 4 mg PO BEDTIME [facility] Topiramate (Topiramate 25 Mg Tablet) 50 mg PO BID [facility] Vitamin D (Cholecalciferol (Vitamin D3) 25 Mcg Tablet) 125 mcg PO BID [facility] Zonisamide (Zonisamide 100 Mg Capsule) 200 mg PO BID [facility] Home Medications Medication Instructions Recorded Confirmed Last Taken Type acetaminophen 500 mg tablet 500 mg PO Q6H PRN Pain 09/09/20 09/07/22 Unknown History (Tylenol Extra Strength) ascorbic acid (vitamin C) 1,000 mg 1 g PO DAILY 09/09/20 09/07/22 09/06/22 History tablet cholecalciferol (vitamin D3) 125 125 mcg PO BID 09/09/20 09/07/22 09/06/22 History mcg (5,000 unit) capsule duloxetine 60 mg capsule,delayed 60 mg PO DAILY 09/09/20 09/07/22 09/06/22 History release ferrous sulfate 325 mg (65 mg 325 mg PO DAILY 09/09/20 09/07/22 09/06/22 History iron) tablet gabapentin 600 mg tablet 600 mg PO BEDTIME 09/09/20 09/07/22 09/06/22 History glucosamine HCl 500 mg tablet 500 mg PO BID 09/09/20 09/07/22 09/06/22 History ibuprofen 200 mg capsule 200 mg PO Q6H PRN Pain 09/09/20 09/07/22 Unknown History lorazepam 1 mg tablet 1 mg PO BEDTIME PRN Anxiety 09/09/20 09/07/22 Unknown History magnesium 250 mg tablet 500 mg PO BID 09/09/20 09/07/22 09/06/22 History oxybutynin chloride 15 mg 30 mg PO DAILY 09/09/20 09/07/22 09/06/22 History tablet,extended release 24 hr oxycodone-acetaminophen 5 mg-325 1 tab PO BID PRN Pain 09/09/20 09/07/22 Unknown History mg tablet potassium gluconate 595 mg (99 mg) 595 mg PO DAILY 09/09/20 09/07/22 09/06/22 History tablet ropinirole 0.5 mg tablet 0.5 mg PO BEDTIME 09/09/20 09/07/22 09/06/22 History tizanidine 4 mg capsule 4 mg PO BEDTIME 09/09/20 09/07/22 09/06/22 History topiramate 50 mg tablet 50 mg PO BID 09/09/20 09/07/22 09/06/22 History zonisamide 100 mg capsule 200 mg PO BID 09/09/20 09/07/22 09/06/22 History diphenhydramine HCl 25 mg capsule 25 mg PO BEDTIME PRN Allergic 09/28/21 09/07/22 Unknown History (Allergy Medication) Reaction lidocaine 5 % topical patch 2 patch topical DAILY 11/19/21 09/07/22 09/06/22 History testosterone cypionate 200 mg/mL 100 mg IM Q2W 09/07/22 09/07/22 09/05/22 History intramuscular oil Physical Exam Vital Signs: Vital Signs: Last Vital Signs Temp 97.5 F 09/08/22 12:00 Pulse 74 09/08/22 12:00 Resp 20 09/08/22 12:00 BP 137/74 09/08/22 12:00 Pulse Ox 96 09/08/22 12:00 O2 Del Method Room Air 09/08/22 12:00 BMI result Body Mass Index 29.2 Neuro: Other: He is alert and awake with normal spontaneity of speech fluency comprehension and slightly vague affect. Face is symmetrical. Visual tripathi are full. There is no focal arm or leg weakness. Deep tendon reflexes are trace to 1+ with flexor plantars. Speech is normal. Results Labs 09/08/22 05:33 09/08/22 05:33 Labs: Short CBC 09/07/22 09/08/22 Range/Units 18:42 05:33 WBC 15.1 H 13.0 H (4.8-10.8) X10*3/uL Hgb 12.0 L 12.8 L (14.0-18.0) g/dl Hct 38.3 L 41.1 L (42.0-52.0) % Plt Count 466 H D 481 H (160-400) X10*3/uL BMP 09/07/22 09/08/22 18:42 05:33 Sodium 144 148 H Potassium 3.5 3.4 Chloride 108 113 H Carbon Dioxide 22 21 L BUN 17 H 14 Creatinine 1.23 1.09 Calcium 9.9 9.6 Liver Function 09/07/22 Range/Units 18:42 Total Bilirubin 0.3 (0.0-1.0) mg/dL Direct Bilirubin 0.1 (0.0-0.5) mg/dL AST 14 (5-37) U/L ALT 23 (0-40) U/L Alkaline Phosphatase 79 (39-117) U/L Albumin 3.2 L (3.5-5.0) g/dL Urine 09/07/22 Range/Units 20:16 Urine Color Yellow Urine Appearance Clear Urine pH 6.0 (5.0-9.0) Ur Specific [place] 1.010 (1.005-1.025) Urine Protein Negative (Neg-Trace) mg/dL Urine Glucose (UA) Negative (Negative) mg/dL Head CT did not reveal any significant abnormality. CTA of brain and neck were okay. 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 For now my recommendation is to start lamotrigine 25 mg daily as he is already taking topiramate and zonisamide, both of them antiepileptics. Outpatient ambulatory 48 hour EEG is recommended for further evaluation. He should not drive and stay away from activities that could put his life in danger per Time Spent With Patient Time: Total time managing care of this patient today ____ minutes. Procedures Date of Service Date of Service: 09/08/22
--- NOTE | 2022-09-08 16:57 | MHC.SL.SWA ---
Risk of Aspiration Due to: None Dysphasia Diet Status: UPGRADE Liquid Consistency and Strategies for Safe Swallow: Liquid Intake Recommendation: Thin Liquid Intake Strategies: Small Sips Solid Food Consistency: Dietary Recommendations: Regular Additional Modifications to Solid Foods: Add sauce/gravy to solids Oral Medication Intake: Whole with Liquid Please contact the pharmacy regarding appropriate crushable or liquid drug formulations that are available whenever modified delivery is recommended. Compensatory Strategies and Precautions to be Taken for Safe Swallow: Sitting Upright (90 deg) Small Bites and Sips Alternate Liquids/Solids Supervision While Eating and Drinking for Safe Swallow: None Needed Recommendation for Speech: Inpatient Speech Therapy Comment: Recommend UPGRADE to REGULAR solids, THIN liquids, pills WHOLE w/ liquid/puree (depending on patient preference). Recommend 1-2 f/u to monitor for toleration of diet pending patient's mental status and MRI results. RN, RD, and MD notified via [employer]. Patient's whiteboard updated. Frequency/Duration: 1-2 f/u [facility] Clinican/Clinical Fellow: No Supervisory Statement: I have reviewed and agree with the student/clinical fellow's documentation: No Speech Language Pathologist: Leanna Jimenez M.A., FIRE ENGINE OPERATOR
[2022-09-08] MEDS: Ibuprofen 200 MG TABLET PO (17:58)
[2022-09-08] MEDS: Gabapentin 600 MG TABLET PO (20:22)
[2022-09-08] MEDS: Magnesium Oxide 400 MG TABLET PO (20:22)
[2022-09-08] MEDS: rOPINIRole HCL 0.5 MG TABLET PO (20:22)
[2022-09-08] MEDS: TiZANidine HCL 4 MG TABLET PO (20:22)
[2022-09-08] MEDS: Zonisamide 100 MG CAPSULE 200 MG PO (20:22)
[2022-09-08] MEDS: cefTRIAXone sodium 1 GM in 0.9 % Sodium Chloride 50 ML IV (20:23)
[2022-09-08] MEDS: Topiramate 25 MG TABLET 50 MG PO (20:23)
[2022-09-08] MEDS: Cholecalciferol (Vitamin D3) 25 MCG TABLET 125 MCG PO (20:23)
[2022-09-08] MEDS: Azithromycin 500 MG in 0.9 % Sodium Chloride 250 ML 125 MG IV (23:28)
[2022-09-09] MEDS: LORazepam 1 MG TABLET PO (01:41)
[2022-09-09] MEDS: Enoxaparin Sodium 40 MG/0.4 ML SYRINGE SUBCUT (01:54)
[2022-09-09 03:29] VITALS: BP 129/77; PULSE 65; RESP 20; TEMP 37.2; O2SAT 97
[2022-09-09 07:33] VITALS: BP 142/67; PULSE 68; RESP 16; TEMP 37; O2SAT 99
--- NOTE | 2022-09-09 07:40 | PM.DS ---
DS: Providers Provider Date of Service: 09/09/22 Date of admission: 09/08/22 01:19 Primary care physician: Unknown Physician Consults: 09/08/22 13:45 Consult to Neurology Routine Consulting Provider: [facility] Reason for consultation: Transient altered mental status Has provider been notified: No DS: Diagnosis Discharge Diagnosis (1) Acute alteration in mental status: Status: Acute DS: Summary Hospital Course Hospital Course: Chief Complaint: AMS This is a 67-year-old female to male with pertinent history of seizures, transverse myelitis, mood disorder, chronic opioid use, restless leg syndrome, peripheral neuropathy who was brought to the emergency department for evaluation of altered mentation.? Unable to obtain significant medical history from the patient, history obtained from ER provider and chart review.? Patient's stated earlier that she found him on the floor and patient was unable to get up.? As per EMS, patient had questionable left-sided facial droop upon arrival.? In the emergency department, facial droop was not noted but patient was found to be confused.? No family at bedside and unable to obtain review of systems. In the emergency department, CT head and CTA negative. Hospital course: Patient was admitted and closely monitored and did not have any further episode of altered mentation, he has been lucid with no neurological deficit of any sort, head CT and CTA were negative, he had an EEG that was abnormal, he was evaluated by Dr. Murry (Neurologist) and he's recommending Lamictal 25 mg daily for high suspicion for seizure, MRI not recommended at this time Time Spent with Patient Time attestation: Total time managing care of this patient today ____ minutes. Discharge coordination time: Greater than 30 minutes Quality: Safe Use of Opioids Does Pt have an Active Cancer Diagnosis on the Problem List?: No Quality: Stroke Does the patient have a stroke diagnosis?: No Physical Exam Vital Signs: Vital Signs: Last Vital Signs Temp 98.6 F 09/09/22 07:33 Pulse 68 09/09/22 07:33 Resp 16 09/09/22 07:33 BP 142/67 H 09/09/22 07:33 Pulse Ox 99 09/09/22 07:33 O2 Del Method Room Air 09/09/22 07:33 BMI result Body Mass Index 29.2 DS: Data Data Completed and Pending Labs on day of discharge: Laboratory Results - last 24 hr 09/08/22 03:22 Nasal Screen MRSA (PCR) NEGATIVE Nasal S. aureus Screen NEGATIVE Nasal MRSA/S.aureus Interp SEE NOTE Preliminary micro results at discharge 09/07/22 18:30 Blood Culture - Preliminary Blood - Venous No growth after 24 hours. 09/07/22 18:30 Blood Culture - Preliminary Blood - Venous No growth after 24 hours. Discharge Plan Discharge Anticipated Discharge Date/Time: 09/09/22 07:43 Patient Disposition: Home, Self-Care Discharge Diagnosis: Seizure, pneumonia Referrals: Physician,Unknown J [Primary Care Provider] - 1 Week Discharge Medications: Continued lidocaine 5 % adhesive patch,medicated 2 patch topical DAILY testosterone cypionate 200 mg/mL oil 100 mg IM Q2W zonisamide 100 mg capsule 200 mg PO BID topiramate 50 mg tablet 50 mg PO BID duloxetine 60 mg capsule,delayed release(DR/EC) 60 mg PO DAILY oxybutynin chloride 15 mg tablet extended release 24 hr 30 mg PO DAILY Rx Instructions: 1-2 caps, 1-2 x per day oxycodone-acetaminophen 5-325 mg tablet 1 tab PO BID PRN (Reason: Pain) gabapentin 600 mg tablet 600 mg PO BEDTIME ropinirole 0.5 mg tablet 0.5 mg PO BEDTIME Rx Instructions: administer 1-3 hours before bedtime tizanidine 4 mg capsule 4 mg PO BEDTIME lorazepam 1 mg tablet 1 mg PO BEDTIME PRN (Reason: Anxiety) magnesium 250 mg tablet 500 mg PO BID potassium gluconate 595 mg (99 mg) tablet 595 mg PO DAILY ferrous sulfate 325 mg (65 mg iron) tablet 325 mg PO DAILY cholecalciferol (vitamin D3) 125 mcg (5,000 unit) capsule 125 mcg PO BID ascorbic acid (vitamin C) 1,000 mg tablet 1 g PO DAILY glucosamine HCl 500 mg tablet 500 mg PO BID Rx Instructions: administer with meals ibuprofen 200 mg capsule 200 mg PO Q6H PRN (Reason: Pain) acetaminophen [Tylenol Extra Strength] 500 mg tablet 500 mg PO Q6H PRN (Reason: Pain) diphenhydramine HCl [Allergy Medication] 25 mg capsule 25 mg PO BEDTIME PRN (Reason: Allergic Reaction) Diet: Advance to usual diet Activity on Discharge: As tolerated Stand Alone Forms: Patient Portal Discharge page Care Plan Goals: seizure prevention and recovery from pneumonia Health Concerns: seizure, pneumonia Plan of Treatment: continue taking topomax, neurontin to prevent seizure, No driving, no operating heavy machinery, no swiming without a guard and avoid all other activity that could endanger your life should you suffer a seizure take, Augmentin for pneumonia Follow up with your Doctor in a week, call for appointment Assessment: as above
[2022-09-09] MEDS: Zonisamide 100 MG CAPSULE 200 MG PO (08:37)
[2022-09-09] MEDS: Magnesium Oxide 400 MG TABLET PO (08:38)
[2022-09-09] MEDS: Cholecalciferol (Vitamin D3) 25 MCG TABLET 125 MCG PO (08:38)
[2022-09-09] MEDS: oxyBUTYnin chloride ER 5 MG TAB.ER.24 30 MG PO (08:38)
[2022-09-09] MEDS: DULoxetine HCl 60 MG CAPSULE.DR PO (08:38)
[2022-09-09] MEDS: Ferrous Sulfate 324 MG TABLET.DR PO (08:38)
[2022-09-09] MEDS: Ascorbic Acid 500 MG TABLET 1000 MG PO (08:38)
[2022-09-09] MEDS: Lidocaine 4 % Patch ADH..PATCH 2 PATCH TRANSDERMA (08:38)
[2022-09-09] MEDS: Topiramate 25 MG TABLET 50 MG PO (08:38)
[2022-09-09] MEDS: 0.9 % Sodium Chloride Flush 3 ML SYRINGE IVFLUSH (08:39)
[2022-09-09] MEDS: lamoTRIgine 25 MG TABLET PO (09:44)
--- NOTE | 2022-09-09 10:43 | MHC.CM.PN ---
EMR reviewed and per MD rounds, pt medically cleared for discharge home. Pts will transport.
--- NOTE | 2022-09-09 11:11 | P.CDIM_ITS ---
PROVIDER RESPONSE TEXT: To clarify, the appropriate diagnosis supported by the clinical indicators: Hypernatremia QUERY TEXT: PHYSICIAN'S DOCUMENTATION REQUEST Date of Query: 09/08/2022 09:47 AM EDT Patient Name: Magdalena Vicente Admit Date: 09/08/2022 Dear Reese Regan, A review of the medical record indicates additional documentation may be needed. Please review below and update the documentation accordingly. Clinical Indicators: LAB FINDINGS: sodium 148 H IV fluids Based on the above, could you clarify the appropriate diagnosis, if significant, that supports the ab ove abnormalities and additional evaluation, monitoring, and/or treatment rendered: Hypernatremia Labs indicate a diagnosis of (please specify) Other Other (explain)Clinically unable to determine (explain)Thank you, Lilia Del Valle, CCS, CDIS Use of terms such as suspected, likely, concern for, or probable (associated with a specific diagnosi s that is being evaluated, monitored, or treated as if it exists) are acceptable and can be coded in the inpatient se tting, when documented at the time of discharge. Please use your independent medical judgment in providing your response. THIS QUERY IS PART OF THE PERMANENT MEDICAL RECORD
[2022-09-09 11:12] VITALS: BP 128/63; PULSE 61; RESP 16; TEMP 36.1; O2SAT 95
--- NOTE | 2022-09-09 12:59 | MHC.SLORD ---
Speech Language Pathology Order Status: Patient seen during lunch, tolerating regular diet/liquids well with no complaints. Plan is for discharge this p.m. No additional speech/language needs at this time.
[2022-09-13 22:59] LABS: Strep Pneumo Ag urine Not Detected (Not Detected)
== END 2022-09-09 16:03 | disposition home or self-care (01) | DRG 139 ==
LOC: HO.ED 09-08 01:20 → HO.EDOVER 09-08 01:29 → HO.IMC 09-08 02:33
PROVIDERS: Admitting Provider Student in an Organized Health Care Education/Training Program; Emergency Provider Emergency Medicine; PCP Family Medicine; Visit Provider Internal Medicine
DX: J18.9 Pneumonia, unspecified organism (principal); E87.4 Mixed disorder of acid-base balance; E87.0 Hyperosmolality and hypernatremia; G40.209 Localization-related (focal) (partial) symptomatic epilepsy and epileptic syndromes with complex partial seizures, not intractable, without status epilepticus; F11.10 Opioid abuse, uncomplicated; G25.81 Restless legs syndrome; G62.9 Polyneuropathy, unspecified; Z20.822 Contact with and (suspected) exposure to COVID-19; Z87.891 Personal history of nicotine dependence; Z79.899 Other long term (current) drug therapy
CPT/HCPCS: 36415; 70450; 70496; 70498; 71045; 80048; 80076; 80307; 81001; 82140; 82436; 82803; 82947; 83605; 83735; 84484; 85025; 85610; 87040; 87070; 87205; 87635; 87640; 87641; 87899; 92610; 93005; 95816; 99285; C1758; J0456; J0696; J1650

== ENCOUNTER 2022-10-11 14:26 | Outpatient (REF) | payer BC, SELFPAY ==
[2022-10-11 15:47] LABS: Appearance Urine Cloudy; Color Urine Yellow; Glucose Urine UA Negative (Negative); Leukocyte Esterase Urine Large (3+) (Negative); Nitrite Urine Negative (Negative); PH 6.5 (5.0-9.0); Specific Gravity - Urine <= 1.005 (1.005-1.025); UMIC TRIGGER UA YES; Urine Blood Trace (Negative); Urine Ketones Negative (Negative); Urine Protein Negative (Neg-Trace)
[2022-10-11 15:52] LABS: Bacteria Urine None Seen (None Seen); Hyaline Casts Urine 0-2 /LPF (0-2); RBC Urine 0-2 /HPF (0-2); Squamous Epithelial Cell Urine 0-2 /HPF (0-2); WBC Urine >50 /HPF (0-5)
== END 2022-10-11 14:27 | disposition home or self-care (01) ==
LOC: HO.LAB 14:26
PROVIDERS: Visit Provider Urology
DX: R35.0 Frequency of micturition (principal)
CPT/HCPCS: 81001; 87086; 87088; 87186

== ENCOUNTER 2022-11-10 16:30 | Outpatient (REF) | payer BC, SELFPAY ==
[2022-11-10 16:46] LABS: Appearance Urine Turbid; Color Urine Yellow; Glucose Urine UA Negative (Negative); Leukocyte Esterase Urine Trace (Negative); Nitrite Urine Negative (Negative); UMIC TRIGGER UACC YES; Urine Blood Negative (Negative); Urine Ketones Negative (Negative); Urine Protein Negative (Neg-Trace)
[2022-11-10 16:48] LABS: Bacteria Urine None Seen (None Seen); Hyaline Casts Urine 0-2 /LPF (0-2); RBC Urine 0-2 /HPF (0-2); Squamous Epithelial Cell Urine 0-2 /HPF (0-2); WBC Urine 0-5 /HPF (0-5)
== END 2022-11-10 16:31 | disposition home or self-care (01) ==
LOC: HO.HHCLNP 16:30
PROVIDERS: Visit Provider Family Medicine
DX: R32 Unspecified urinary incontinence (principal)
CPT/HCPCS: 81001

== ENCOUNTER 2022-11-17 10:12 | Outpatient (REF) | payer BC, SELFPAY ==
[2022-11-17 10:40] LABS: MANUAL DIFF FLAG NO
[2022-11-17 11:01] LABS: Basophils Absolute Auto 0.1 X10*3/uL (0.0-0.2); Basophils Percent Auto 1.2 % (0-2); Eosinophils Absolute Auto 0.2 X10*3/uL (0.0-0.4); Eosinophils Percent Auto 2.7 % (0-4); Hematocrit 35.8 % (42.0-52.0); Imm Gran Abs Auto 0.02 X10*3/uL (0.00-0.03); Imm Gran Pct Auto 0.3 % (0.0-0.4); Lymphocytes Absolute Auto 1.4 X10*3/uL (1.2-4.9); Lymphocytes Percent Auto 22.5 % (20-40); Mean Corpuscular HGB Conc 30.7 g/dl (31.0-36.0); Mean Corpuscular Volume 91.1 fL (80.0-98.0); Mean Platelet Volume 9.2 fL (9.4-12.4); Monocytes Absolute Auto 0.5 X10*3/uL (0.1-1.2); Monocytes Percent Auto 8.8 % (2-11); Neutrophils Absolute Auto 3.9 x10*3/uL (2.0-8.3); Neutrophils Percent Auto 64.5 % (45-73); Platelet Count 375 X10*3/uL (160-400); Red Blood Count 3.93 X10*6/uL (4.60-5.80)
[2022-11-17 11:34] LABS: Alanine Aminotransferase 13 U/L (0-40); Albumin Level 4.1 g/dL (3.5-5.0); Alkaline Phosphatase 66 U/L (39-117); Anion Gap 12 (12-20); Aspartate Amino Transferase 12 U/L (5-37); Bilirubin Direct 0.1 mg/dL (0.0-0.5); Bilirubin Total 0.3 mg/dL (0.0-1.0); Blood Urea Nitrogen 21 mg/dL (9-16); Calcium 9.5 mg/dL (8.4-10.2); Carbon Dioxide 26 mmol/L (22-29); Chloride 111 mmol/L (96-108); Cholesterol 190 mg/dL (<200); Estimated Glomerular Filt Rate 48; Glucose Random 88 mg/dL (60-115); HDL Cholesterol 67 mg/dL (>40); Iron 20 mcg/dL (45-160); LDL Cholesterol Calculated 106 mg/dL (<100); Percent Iron Saturation 7 % (15-50); Potassium 3.7 mmol/L (3.3-5.1); Sodium 145 mmol/L (135-145); Total Iron Binding Capacity 289 mcg/dL (228-428); Total Protein 6.6 g/dL (6.5-8.0); Triglycerides 89 mg/dL (<150); Unsaturated Iron Binding 269 ug/dL
[2022-11-17 11:45] LABS: Thyroid Stimulating Hormone 4.97 uIU/mL (0.32-4.0)
[2022-11-17 11:46] LABS: Syphilis Screen Nonreactive (Nonreactive)
[2022-11-17 11:50] LABS: Ferritin 21 ng/mL (20-250); TSH reflex Free T4 5.03 uIU/mL (0.32-4.0); Vitamin D 25-OH Total 86.3 ng/mL (>30)
[2022-11-17 11:58] LABS: Folate 13.7 ng/mL (> or = 4.0); Vitamin B12 823 pg/mL (200-900)
[2022-11-17 11:59] LABS: Folate 13.2 ng/mL (> or = 4.0)
[2022-11-17 12:28] LABS: Free T4 (Free Thyroxine) 0.71 ng/dL (0.71-1.85)
[2022-11-19 09:54] LABS: Ceruloplasmin 23 mg/dL (18-36)
[2022-11-22 15:43] LABS: Testosterone, Free 86.5 pg/mL (35.0-155.0); Testosterone, Total 655 ng/dL (250-1100)
== END 2022-11-17 10:13 | disposition home or self-care (01) ==
LOC: HO.LAB 10:12
PROVIDERS: Psychiatry & Neurology Neurology; Absent Provider Family Medicine; PCP Family Medicine; Visit Provider Internal Medicine
DX: R41.3 Other amnesia (principal); G40.909 Epilepsy, unspecified, not intractable, without status epilepticus; D50.9 Iron deficiency anemia, unspecified; F64.9 Gender identity disorder, unspecified; Z13.220 Encounter for screening for lipoid disorders
CPT/HCPCS: 36415; 80048; 80061; 80076; 82306; 82390; 82607; 82728; 82746; 83540; 84402; 84403; 84439; 84443; 85025; 86780

== ENCOUNTER 2022-12-15 09:52 | Emergency (ER) | payer BC, SELFPAY ==
--- NOTE | ~2022-12-15 | CT_ITS ---
EXAMINATION: CT HEAD WITHOUT CONTRAST CT CERVICAL SPINE WITHOUT CONTRAST CLINICAL INFORMATION: Fall with head strike. COMPARISON: CT angiogram of the head and neck 09/07/2022. TECHNIQUE: Lasting Machine Operator Bed images were obtained. CT imaging of the head and cervical spine was performed without contrast. Data was reformatted into multiplanar images at the acquisition workstation. This CT examination was performed using dose optimization techniques as appropriate, including one or more of the following: Automated exposure control, iterative reconstruction, and adjustment of technique factors (mA and/or kVp) according to patient size (this includes techniques or standardized protocols for targeted exams where dose is matched to indication/reason for exam). Fleischner Society criteria for the followup of incidental pulmonary nodules was implemented if appropriate. DLP: 957 mGy-cm. FINDINGS: Head: There is no acute intracranial hemorrhage or abnormal extra-axial collection. No intracranial mass effect or midline shift. Lateral and third ventricles are normal. No hydrocephalus. Mora-white matter differentiation is grossly preserved and there is no evidence of acute territorial infarct. The calvarium and skull base are intact. Mastoid air cells and middle ear cavities are well aerated. No active paranasal sinus disease. Cervical spine: There is no evidence of acute cervical spinal fracture. There is a slight anterolisthesis of C4 on C5 that appears to be related to facet degenerative changes at this level. Alignment is otherwise normal. Vertebral heights are preserved. Spinal canal canal patency is not well assessed on this examination due to inherent limitations of CT without intrathecal contrast. Grossly no canal compromise. There are varying degrees of neuroforaminal encroachment related to a vertebral joint spurring and facet degenerative change. Severe left neuroforaminal encroachment at C3-C4 and C4-C5. There is relatively severe degenerative arthrosis of the left C1-C2 facet joint best depicted on sagittal image 24 of 56 series 16. Visualized lung apices are clear. CT/CT cervical spine wo IV con IMPRESSION: Head: No acute intracranial hemorrhage. No evidence of acute territorial infarct. Cervical spine: No evidence of acute cervical spine fracture. There is multilevel degenerative spondylosis of the cervical spine with a slight anterolisthesis of C4 on C5 related to facet degenerative changes at this level. Grossly no evidence of canal compromise. There is severe left neuroforaminal encroachment at C3-C4 and C4-C5. There is also relatively severe degenerative arthrosis of the left C1-C2 facet joint.
--- NOTE | ~2022-12-15 | CT_ITS ---
EXAMINATION: CT HEAD WITHOUT CONTRAST CT CERVICAL SPINE WITHOUT CONTRAST CLINICAL INFORMATION: Fall with head strike. COMPARISON: CT angiogram of the head and neck 09/07/2022. TECHNIQUE: Closing Manager images were obtained. CT imaging of the head and cervical spine was performed without contrast. Data was reformatted into multiplanar images at the acquisition workstation. This CT examination was performed using dose optimization techniques as appropriate, including one or more of the following: Automated exposure control, iterative reconstruction, and adjustment of technique factors (mA and/or kVp) according to patient size (this includes techniques or standardized protocols for targeted exams where dose is matched to indication/reason for exam). Fleischner Society criteria for the followup of incidental pulmonary nodules was implemented if appropriate. DLP: 957 mGy-cm. FINDINGS: Head: There is no acute intracranial hemorrhage or abnormal extra-axial collection. No intracranial mass effect or midline shift. Lateral and third ventricles are normal. No hydrocephalus. Mora-white matter differentiation is grossly preserved and there is no evidence of acute territorial infarct. The calvarium and skull base are intact. Mastoid air cells and middle ear cavities are well aerated. No active paranasal sinus disease. Cervical spine: There is no evidence of acute cervical spinal fracture. There is a slight anterolisthesis of C4 on C5 that appears to be related to facet degenerative changes at this level. Alignment is otherwise normal. Vertebral heights are preserved. Spinal canal canal patency is not well assessed on this examination due to inherent limitations of CT without intrathecal contrast. Grossly no canal compromise. There are varying degrees of neuroforaminal encroachment related to a vertebral joint spurring and facet degenerative change. Severe left neuroforaminal encroachment at C3-C4 and C4-C5. There is relatively severe degenerative arthrosis of the left C1-C2 facet joint best depicted on sagittal image 24 of 56 series 16. Visualized lung apices are clear. CT/CT head/brain wo IV con IMPRESSION: Head: No acute intracranial hemorrhage. No evidence of acute territorial infarct. Cervical spine: No evidence of acute cervical spine fracture. There is multilevel degenerative spondylosis of the cervical spine with a slight anterolisthesis of C4 on C5 related to facet degenerative changes at this level. Grossly no evidence of canal compromise. There is severe left neuroforaminal encroachment at C3-C4 and C4-C5. There is also relatively severe degenerative arthrosis of the left C1-C2 facet joint.
--- NOTE | ~2022-12-15 | XR_ITS ---
EXAMINATION: XR SHOULDER, RIGHT CLINICAL INFORMATION: Right shoulder pain following a fall. COMPARISON: Right shoulder radiographs dated 11/08/2020. TECHNIQUE: AP, Grashey, and scapular Y views of the right shoulder. FINDINGS: Chronic superior subluxation of the humeral head with bony remodeling of the acromial undersurface, increased when compared to the prior examination and consistent with chronic, complete rotator cuff tendon tears. Moderate acromioclavicular osteoarthritis. [id number] glenohumeral joint space narrowing with bony remodeling and prominent marginal osteophytes, increased when compared to the prior examination. Flattening of the humeral head superomedially measuring up to 1.8 cm, new when compared to the prior examination. Findings could represent bony remodeling versus a mildly depressed subchondral fracture. No concerning lytic or blastic osseous lesion. XR/XR shoulder RT min 2V IMPRESSION: 1. Flattening of the humeral head superomedially measuring up to 1.8 cm, new when compared to the prior examination. Findings could represent bony remodeling versus a mildly depressed subchondral fracture. 2. Chronic superior subluxation of the humeral head with bony remodeling of the acromial undersurface, increased when compared to the prior examination and consistent with chronic, complete rotator cuff tendon tears. 3. Severe glenohumeral and moderate acromioclavicular osteoarthritis, slightly progressed.
[2022-12-15 09:59] VITALS: BP 130/66; PULSE 73; RESP 18; TEMP 36.6; O2SAT 98; BMI 24.3
--- NOTE | 2022-12-15 10:19 | ED_ITS ---
HPI - Fall General Chief Complaint: Fall Stated Complaint: R Eye Lac S/P Fall Time Seen by Provider: 12/15/22 10:19 Source: patient Mode of arrival: ambulatory Limitations: no limitations History of Present Illness HPI Narrative: 67 yo male with history of pneumonia, UTI, osteoarthritis who presents to the ER for evaluation of a mechanical fall earlier today. He states around 04:00 today he tripped in the dark, falling down a few steps. He hit his head. He put his right arm out try to catch himself and injured his right shoulder. He denies losing consciousness. He is not on anticoagulation. He went to his primary care offices urgent care center where they administered a Tdap and told him to come to the ER for further evaluation. Patient denies any headache or neck pain. No chest pain or abdominal pain. He has soreness in his right shoulder but is able to fully range the shoulder. He has a small laceration above his right eye which continues to the who is slightly. No vision changes, lethargy, confusion, nausea, vomiting. MD complaint: fall Onset (ago): hour(s) Fall from: standing Fall witnessed: no Place fall occurred: home Loss of consciousness: none Prolonged down time: no Symptoms prior to fall: none Context: tripped/slipped Location of injury: face Location of injury - extremities: right: shoulder Severity: moderate Severity scale (1-10): 6 Quality: aching Associated symptoms (after fall): denies Related Data Home Medications Medication Instructions Recorded Confirmed acetaminophen 500 mg tablet 500 mg PO Q6H PRN Pain 09/09/20 09/07/22 (Tylenol Extra Strength) ascorbic acid (vitamin C) 1,000 mg 1 g PO DAILY 09/09/20 09/07/22 tablet cholecalciferol (vitamin D3) 125 125 mcg PO BID 09/09/20 09/07/22 mcg (5,000 unit) capsule duloxetine 60 mg capsule,delayed 60 mg PO DAILY 09/09/20 09/07/22 release ferrous sulfate 325 mg (65 mg 325 mg PO DAILY 09/09/20 09/07/22 iron) tablet gabapentin 600 mg tablet 600 mg PO BEDTIME 09/09/20 09/07/22 glucosamine HCl 500 mg tablet 500 mg PO BID 09/09/20 09/07/22 ibuprofen 200 mg capsule 200 mg PO Q6H PRN Pain 09/09/20 09/07/22 lorazepam 1 mg tablet 1 mg PO BEDTIME PRN Anxiety 09/09/20 09/07/22 magnesium 250 mg tablet 500 mg PO BID 09/09/20 09/07/22 oxybutynin chloride 15 mg 30 mg PO DAILY 09/09/20 09/07/22 tablet,extended release 24 hr oxycodone-acetaminophen 5 mg-325 1 tab PO BID PRN Pain 09/09/20 09/07/22 mg tablet potassium gluconate 595 mg (99 mg) 595 mg PO DAILY 09/09/20 09/07/22 tablet ropinirole 0.5 mg tablet 0.5 mg PO BEDTIME 09/09/20 09/07/22 tizanidine 4 mg capsule 4 mg PO BEDTIME 09/09/20 09/07/22 topiramate 50 mg tablet 50 mg PO BID 09/09/20 09/07/22 zonisamide 100 mg capsule 200 mg PO BID 09/09/20 09/07/22 diphenhydramine HCl 25 mg capsule 25 mg PO BEDTIME PRN Allergic 09/28/21 09/07/22 (Allergy Medication) Reaction lidocaine 5 % topical patch 2 patch topical DAILY 11/19/21 09/07/22 testosterone cypionate 200 mg/mL 100 mg IM Q2W 09/07/22 09/07/22 intramuscular oil Previous Rx's Medication Instructions Recorded cefuroxime axetil 500 mg tablet 500 mg PO BID 4 days #8 tabs 09/09/22 lamotrigine 25 mg tablet 25 mg PO DAILY #30 tabs 09/09/22 lidocaine 5 % topical patch 1 patch topical DAILY #15 ea 12/15/22 naproxen 500 mg tablet 500 mg PO BID PRN pain #20 tabs 12/15/22 Allergies Allergy/AdvReac Type Severity Reaction Status Date / Time No Known Allergies Allergy Verified 02/04/22 13:06 [No Known Allergies*] Review of Systems Review of Systems: Yes all other systems are reviewed and are negative PMFSH Past Medical History Medical History Arthritis Chronic pain syndrome Restless legs Transverse myelitis Surgical History History of surgery on wrist Social History Social History Household Members: Spouse Housing: House Do you presently have visiting nurse or other home services: No Alcohol intake: never Patient Tobacco Use Status: Former Tobacco user Tobacco use type: Cigarette Cigarettes Per Day: 20 Years Smoked: 35 Smoked in Last 30 Days: No e-Cigarette/Vaping Use: Never Used Use of substances other than those prescribed or required for medical reasons: No Substance Use Type: Opiates Advance Directives: No Advance Directives Information Provided: Yes service: No Current occupational status: disabled Current occupation: rt handed Physical Exam Vital Signs: Vital Signs: Last Vital Signs Temp 97.7 F 12/15/22 12:01 Pulse 64 12/15/22 12:01 Resp 18 12/15/22 12:01 BP 124/79 12/15/22 12:01 Pulse Ox 100 12/15/22 12:01 O2 Del Method Room Air 12/15/22 12:01 BMI result Body Mass Index 24.3 Appearance: Alert. Oriented X3. No acute distress. Head/face: normocephalic, there is a small 1.5 cm linear, superficial laceration on the superior orbit just below the eyebrow, slight oozing. mild tenderness w/ early ecchymosis. Eyes: Pupils equal, round and reactive to light. EOMI, no nystagmua ENT: Pharynx normal. No tonsillar swelling or exudate. Neck: Normal inspection. Neck supple. CVS: Normal heart rate and rhythm. Pulses normal. Respiratory: No respiratory distress. Breath sounds normal. Abdomen: Soft and nontender. +BS x4 Skin: Skin warm and dry. Normal skin color. Normal skin turgor. No rashes. Extremities: No lower extremity edema. No joint swelling. Right UE with normal active and passive ROM. tenderness over the AC joint Neuro/psych: Oriented X 3. No motor deficit. No sensory deficit. CN II-XII intact. Normal speech and cognition. Medications Administered Discontinued Medications Generic Name Dose Route Start Last Admin Trade Name Freq PRN Reason Stop Dose Admin Lidocaine HCl 2 ml 12/15/22 10:33 12/15/22 10:46 Lidocaine Hcl 2% 2 Ml Vial SUBCUT 12/15/22 10:34 2 ml ONCE ONE Administration Procedures Laceration Laceration 1: Site: face Side (If applicable): right Size (cm): 1.5 Description: linear Depth: simple, single layer Pre-repair: irrigated extensively and deep structures intact Skin layer closed with: other (exofin skin glue and steri strips) Medical Decision Making Medical Decision Making MDM Narrative: 67 yo male presenting with a facial laceration s/p mechanical fall this AM. No LOC. Exam w/ small superficial lac to the right superior orbit. Wound was cleaned and able to be repaired with skin glue and steri strips. XR shoulder with severe OA and flattening of the humeral head, could represent bony remodeling vs mild depressed subchondral fx. Case d/w Julieta Sharp - no acute intervention. would need evaluation for possible shoulder replacement in the future. CT head and neck were unremarkable for injuries, no ICH results d/w patient Patient AAOx3, nonfocal neurologically. no concerning signs or symptoms to suggest concerning head injury. comfortable w/ discharge home, plan to f/u with his PCP , patient agrees w/ plan Differential Diagnosis Differential Diagnoses: The differential diagnosis associated with the presentation includes facial laceartion, orbital fracture, ICH/SAH/epidural hematoma, concussion without LOC Admission/Observation Consideration of admission/observation: Escalation of care including admission/observation considered considered on arrival, elderly male w/ fall and facial injury Consult Healthcare Provider Management of the patient was discussed with: [employer] Analyst julieta sharp PA-C Independent Interpretation I performed an independent interpretation of an: Plain X-Ray and CT Scan Interpretation: CT head without acute bleed or edema, agree w/ radiology read XR shoulder without acute fracture or dislocation, severe OA changes Radiology Impression Discussion of test interpretation with radiology: I have reviewed the radiologist's reading. Radiologist Impression: XR/XR shoulder RT min 2V IMPRESSION: 1. Flattening of the humeral head superomedially measuring up to 1.8 cm, new when compared to the prior examination. Findings could represent bony remodeling versus a mildly depressed subchondral fracture. 2. Chronic superior subluxation of the humeral head with bony remodeling of the acromial undersurface, increased when compared to the prior examination and consistent with chronic, complete rotator cuff tendon tears. 3. Severe glenohumeral and moderate acromioclavicular osteoarthritis, slightly progressed. CT/CT head/brain wo IV con IMPRESSION: Head: No acute intracranial hemorrhage. No evidence of acute territorial infarct. Cervical spine: No evidence of acute cervical spine fracture. There is multilevel degenerative spondylosis of the cervical spine with a slight anterolisthesis of C4 on C5 related to facet degenerative changes at this level. Grossly no evidence of canal compromise. There is severe left neuroforaminal encroachment at C3-C4 and C4-C5. There is also relatively severe degenerative arthrosis of the left C1-C2 facet joint. External Record Review External record reviewed: Prior outpatient labs and Prior outpatient radiology Prescription Management I considered prescription management with: Pain Medication Chronic Conditions Patient?s care impacted by: Other (osteoarthritis ) Critical Care Time Critical Care Time Critical Care Time: No Discharge Plan Discharge Clinical Impression: Facial laceration Qualifiers: Encounter type: initial encounter Qualified Code(s): S01.81XA - Laceration without foreign body of other part of head, initial encounter Osteoarthritis of right shoulder Qualifiers: Osteoarthritis type: unspecified Qualified Code(s): M19.011 - Primary osteoarthritis, right shoulder Patient Disposition: Home, Self-Care Instructions: Laceration (DC), Osteoarthritis (DC) Additional Instructions: Your shoulder x-ray today showed severe osteoarthritis. Recommend following up with Orthopedics for further evaluation and treatment. You will be sore for the next few days. Take the prescribed anti-inflammatory pain medication as needed. Take it with food. Recommend ice and Tylenol as needed for pain. Your CT scans today did not show any acute injuries. Skin glue and Steri-Strips were used to close the laceration above your right eye. They will come off it on their own usually within a week. Do not peel them off. Do not get wet today, after 24 hours you can briefly get wet, then pat dry. Follow-up with primary care doctor. If you develop new or worsening symptoms call 911 or come back to the ER for further evaluation. Prescriptions: New lidocaine 5 % adhesive patch,medicated 1 patch topical DAILY Qty: 15 0RF Rx Instructions: leave on most painful area for up to 12 hrs naproxen 500 mg tablet 500 mg PO BID PRN (Reason: pain) Qty: 20 0RF No Action lidocaine 5 % adhesive patch,medicated 2 patch topical DAILY testosterone cypionate 200 mg/mL oil 100 mg IM Q2W lamotrigine 25 mg Tablet 25 mg PO DAILY Qty: 30 0RF cefuroxime axetil 500 mg tablet 500 mg PO BID 4 Days Qty: 8 0RF zonisamide 100 mg capsule 200 mg PO BID topiramate 50 mg tablet 50 mg PO BID duloxetine 60 mg capsule,delayed release(DR/EC) 60 mg PO DAILY oxybutynin chloride 15 mg tablet extended release 24 hr 30 mg PO DAILY Rx Instructions: 1-2 caps, 1-2 x per day oxycodone-acetaminophen 5-325 mg tablet 1 tab PO BID PRN (Reason: Pain) gabapentin 600 mg tablet 600 mg PO BEDTIME ropinirole 0.5 mg tablet 0.5 mg PO BEDTIME Rx Instructions: administer 1-3 hours before bedtime tizanidine 4 mg capsule 4 mg PO BEDTIME lorazepam 1 mg tablet 1 mg PO BEDTIME PRN (Reason: Anxiety) magnesium 250 mg tablet 500 mg PO BID potassium gluconate 595 mg (99 mg) tablet 595 mg PO DAILY ferrous sulfate 325 mg (65 mg iron) tablet 325 mg PO DAILY cholecalciferol (vitamin D3) 125 mcg (5,000 unit) capsule 125 mcg PO BID ascorbic acid (vitamin C) 1,000 mg tablet 1 g PO DAILY glucosamine HCl 500 mg tablet 500 mg PO BID Rx Instructions: administer with meals ibuprofen 200 mg capsule 200 mg PO Q6H PRN (Reason: Pain) acetaminophen [Tylenol Extra Strength] 500 mg tablet 500 mg PO Q6H PRN (Reason: Pain) diphenhydramine HCl [Allergy Medication] 25 mg capsule 25 mg PO BEDTIME PRN (Reason: Allergic Reaction) Referrals: [facility] [Provider Group] (severe right shoulder OA) Radha Adan MD [Primary Care Provider] - Interventions: ED Discharge Assessment Last Done: 12/15/22 14:06 Discharge Date/Time: 12/15/22 13:35
[2022-12-15 10:24] VITALS: BP 124/72; PULSE 64; RESP 15; TEMP 36.7; O2SAT 100
[2022-12-15 12:01] VITALS: BP 124/79; PULSE 64; RESP 18; TEMP 36.5; O2SAT 100
== END 2022-12-15 13:35 | disposition home or self-care (01) ==
PROVIDERS: Emergency Provider Emergency Medicine; PCP Family Medicine
DX: S01.111A Laceration without foreign body of right eyelid and periocular area, initial encounter (principal); W10.8XXA Fall (on) (from) other stairs and steps, initial encounter; M19.011 Primary osteoarthritis, right shoulder; M25.511 Pain in right shoulder; Y93.9 Activity, unspecified; Y92.018 Other place in single-family (private) house as the place of occurrence of the external cause; Y99.9 Unspecified external cause status
CPT/HCPCS: 12011; 70450; 72125; 73030; 99284

== ENCOUNTER 2023-01-17 08:02 | Outpatient (REF) | payer BC, SELFPAY ==
--- NOTE | ~2023-01-17 | MR_ITS ---
EXAMINATION: MR BRAIN WITHOUT AND WITH CONTRAST CLINICAL INFORMATION: 67-year-old with new seizure, history of transverse myelitis. COMPARISON: 12/15/2022 CT brain. TECHNIQUE: Multiplanar, multisequence MRI of the brain was obtained before and after the intravenous administration of 5 mL Gadavist. Some sequences are degraded by motion artifact. FINDINGS: Brain Volume: Within normal limits within the limitations of qualitative assessment. Structural: No malformations. Brain and Meninges: DWI sequence demonstrates no restricted diffusion to suggest acute or subacute cerebral ischemia. Scattered tiny foci of FLAIR/T2 signal hyperintensity in the white matter of both cerebral hemispheres noted without abnormal enhancement which are nonspecific findings. Gradient refocused imaging demonstrates no abnormal susceptibility-weighted signal loss to suggest hemorrhage, hemosiderin staining or abnormal mineralization. No intracranial mass lesions, extra-axial fluid collections, space-occupying process, mass effect or pathologic intracranial enhancement. Ventricles and Subarachnoid Spaces: The ventricular system and subarachnoid spaces are within normal range; there is no hydrocephalus. Orbital Structures: Bilateral lens replacements are noted. Otherwise, the visualized orbital structures are grossly unremarkable within the limitations of the study. Vascular: Signal voids are noted in the visualized major intracranial vessels. 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 Osseous Structures, Sinuses/Mastoids, Extracranial Soft Tissues: Small amount of retained secretions in the pterygoid recess of the sphenoid sinus on the right with minor mucosal thickening in the ethmoid complex, left more than right. Osseous marrow signal intensity appears grossly within normal limits. MR/MR head/brain wo/w con IMPRESSION: 1. No acute intracranial process. No mass lesions, abnormal enhancement, space-occupying process, mass effect or hydrocephalus. 2. Scattered nonspecific white matter T2 hyperintensities in the cerebral hemispheres. 3. Some limitations related to motion artifact on postcontrast images.
[2023-01-17] MEDS: gadobutroL 7.5 ML VIAL IVPUSH (09:18)
[2023-01-17 11:40] LABS: Thyroid Stimulating Hormone 4.64 uIU/mL (0.32-4.0)
== END 2023-01-17 08:03 | disposition home or self-care (01) ==
LOC: HO.MRI 08:02
PROVIDERS: PCP Family Medicine; Visit Provider Psychiatry & Neurology Neurology
DX: R56.9 Unspecified convulsions (principal); G37.3 Acute transverse myelitis in demyelinating disease of central nervous system; Z13.89 Encounter for screening for other disorder
CPT/HCPCS: 36415; 70553; 84443; A9585

== ENCOUNTER 2023-03-11 08:32 | Emergency (ER) | payer BC, SELFPAY ==
--- NOTE | ~2023-03-11 | XR_ITS ---
EXAMINATION: XR CHEST CLINICAL INFORMATION: Chest pain. COMPARISON: 09/07/2022. TECHNIQUE: Frontal view of the chest was obtained. FINDINGS: The cardiomediastinal silhouette is stable. There is mild lower lung field interstitial prominence similar to previous. There is no focal lung consolidation or pleural effusion. The bony structures and soft tissues are unremarkable. XR/XR chest 1V IMPRESSION: Mild lower lung field increased markings suspected to be chronic. No evidence for active cardiopulmonary disease.
--- NOTE | ~2023-03-11 | CT_ITS ---
EXAMINATION: CT HEAD WITHOUT CONTRAST CLINICAL INFORMATION: Altered mental status. COMPARISON: 12/15/2022. TECHNIQUE: Contiguous axial imaging was performed from the skull base to vertex without intravenous administration of contrast. This CT examination was performed using dose optimization techniques as appropriate, variously including the following: *Automated exposure control *Adjustment of mA and/or kV according to patient size (this includes techniques or standardized protocols for targeted exams where dose is matched to indication/reason for exam; i.e. extremities or head) *Use of iterative reconstruction technique DLP: 624 mGy-cm FINDINGS: The lateral, third and fourth ventricles are normally outlined. The cortical sulci and basal cisterns are normally outlined as well. There is no acute territorial defect, hemorrhage or midline shift. The extra-axial spaces are unremarkable. Calvarium: Intact. Maxillofacial sinuses and mastoids: Clear as visualized. CT/CT head/brain wo IV con IMPRESSION: No acute intracranial pathology.
[2023-03-11 08:37] VITALS: BP 138/67; PULSE 71; RESP 18; TEMP 36.6; O2SAT 95; BMI 24.9
--- NOTE | 2023-03-11 09:21 | ECG_ITS ---
Test Reason : sob Blood Pressure : / mmHG Vent. Rate : 068 BPM Atrial Rate : 068 BPM P-R Int : 128 ms QRS Dur : 084 ms QT Int : 410 ms P-R-T Axes : 065 031 046 degrees QTc Int : 435 ms Normal sinus rhythm Normal ECG When compared with ECG of 07-SEP-2022 18:10, No significant change was found Referred By: Sobeida Hwang Electronically Signed By:GENARO PUGH MD
--- NOTE | 2023-03-11 09:23 | ED.AMS ---
HPI - Altered Mental Status General Chief Complaint: Altered Mental Status Stated Complaint: confusion ? hx of seizure Time Seen by Provider: 03/11/23 08:39 History of Present Illness HPI narrative: Patient is 68 years old has a history of transverse myelitis has a history urinary tract infection baseline self caps has a history of seizure on multitude of medications presented today with having episodes confusion. No fever no chills. Thinks that he is thinking is slightly off. No nausea no vomiting. Patient has been on seizure medication and dose of which is unchanged. History of being on Topamax and also Zonegran. No fever no chills. No chest pain or diaphoresis. No nausea no vomiting patient is from home. No new abdominal pain. No pain on urination. Patient's baseline self caths. Related Data Home Medications Medication Instructions Recorded Confirmed acetaminophen 500 mg tablet 500 mg PO Q6H PRN Pain 09/09/20 09/07/22 (Tylenol Extra Strength) ascorbic acid (vitamin C) 1,000 mg 1 g PO DAILY 09/09/20 09/07/22 tablet cholecalciferol (vitamin D3) 125 125 mcg PO BID 09/09/20 09/07/22 mcg (5,000 unit) capsule duloxetine 60 mg capsule,delayed 60 mg PO DAILY 09/09/20 09/07/22 release ferrous sulfate 325 mg (65 mg 325 mg PO DAILY 09/09/20 09/07/22 iron) tablet gabapentin 600 mg tablet 600 mg PO BEDTIME 09/09/20 09/07/22 glucosamine HCl 500 mg tablet 500 mg PO BID 09/09/20 09/07/22 ibuprofen 200 mg capsule 200 mg PO Q6H PRN Pain 09/09/20 09/07/22 lorazepam 1 mg tablet 1 mg PO BEDTIME PRN Anxiety 09/09/20 09/07/22 magnesium 250 mg tablet 500 mg PO BID 09/09/20 09/07/22 oxybutynin chloride 15 mg 30 mg PO DAILY 09/09/20 09/07/22 tablet,extended release 24 hr oxycodone-acetaminophen 5 mg-325 1 tab PO BID PRN Pain 09/09/20 09/07/22 mg tablet potassium gluconate 595 mg (99 mg) 595 mg PO DAILY 09/09/20 09/07/22 tablet ropinirole 0.5 mg tablet 0.5 mg PO BEDTIME 09/09/20 09/07/22 tizanidine 4 mg capsule 4 mg PO BEDTIME 09/09/20 09/07/22 topiramate 50 mg tablet 50 mg PO BID 09/09/20 09/07/22 zonisamide 100 mg capsule 200 mg PO BID 09/09/20 09/07/22 diphenhydramine HCl 25 mg capsule 25 mg PO BEDTIME PRN Allergic 09/28/21 09/07/22 (Allergy Medication) Reaction lidocaine 5 % topical patch 2 patch topical DAILY 11/19/21 09/07/22 testosterone cypionate 200 mg/mL 100 mg IM Q2W 09/07/22 09/07/22 intramuscular oil Previous Rx's Medication Instructions Recorded cefuroxime axetil 500 mg tablet 500 mg PO BID 4 days #8 tabs 09/09/22 lamotrigine 25 mg tablet 25 mg PO DAILY #30 tabs 09/09/22 lidocaine 5 % topical patch 1 patch topical DAILY #15 ea 12/15/22 naproxen 500 mg tablet 500 mg PO BID PRN pain #20 tabs 12/15/22 cephalexin 500 mg capsule 500 mg PO Q8H 7 days #21 caps 03/11/23 Allergies Allergy/AdvReac Type Severity Reaction Status Date / Time No Known Allergies Allergy Verified 02/04/22 13:06 [No Known Allergies*] Review of Systems Review of Systems: No fever no chills no diaphoresis PMFSH Past Medical History Attestation statement: The following information was validated with the patient. Medical History Chronic pain syndrome Restless legs Arthritis Transverse myelitis Surgical History History of surgery on wrist Social History Social History Household Members: Spouse Housing: House Do you presently have visiting nurse or other home services: No Alcohol intake: never Patient Tobacco Use Status: Former Tobacco user Tobacco use type: Cigarette Cigarettes Per Day: 20 Years Smoked: 35 Smoked in Last 30 Days: No e-Cigarette/Vaping Use: Never Used Use of substances other than those prescribed or required for medical reasons: No Substance Use Type: Opiates Advance Directives: No Advance Directives Information Provided: Yes service: No Current occupational status: disabled Current occupation: rt handed Physical Exam ED Vital Signs: Vital Signs - 24 hr 03/11/23 08:37 03/11/23 09:32 03/11/23 12:07 Temperature 97.8 F Pulse Rate 71 78 75 Respiratory Rate 18 20 18 Blood Pressure 138/67 156/69 H 122/70 Pulse Oximetry 95 92 98 Oxygen Delivery Method Room Air Room Air Room Air BMI result Body Mass Index 24.9 Appearance: Alert. Oriented X3. No acute distress. Eyes: Pupils equal, round and reactive to light. ENT: Pharynx normal. Neck: Normal inspection. Neck supple. No lymph nodes noted. No crepitus CVS: Normal heart rate and rhythm. Pulses normal. Normal S1 and S2 Respiratory: No respiratory distress. Breath sounds normal. No Wheezing. No rales Abdomen: Soft and nontender. No rigidity. No distention. good BS x4 Skin: Skin warm and dry. Normal skin color. Normal skin turgor. Extremities: No lower extremity edema. Neurovascular intact to all extremities. No Lacerations. No Rash Neuro: Oriented X 3. No motor deficit. No sensory deficit. Moving all extermities. No slurred speech Medications Administered Discontinued Medications Generic Name Dose Route Start Last Admin Trade Name Freq PRN Reason Stop Dose Admin Ceftriaxone Sodium 1 gm/ 50 mls @ 100 mls/hr 03/11/23 11:07 03/11/23 12:03 Sodium Chloride IV 03/11/23 11:36 100 mls/hr ONCE ONE Administration Medical Decision Making Medical Decision Making MDM Narrative: Patient's urine was actually infected. Question of that is because of patient's confusion from time to time. History of self catheterization question colonization versus infection. Previous cultures were reviewed. Will start patient on a dose of Rocephin. Patient's lactate was normal there is no evidence for sepsis has no fever in the emergency department. CT scan by my interpretation was grossly negative for any acute evidence of bleeding. No evidence of mass. Patient's electrolytes are otherwise unremarkable. My interpretation patient's chest x-ray was negative for any acute evidence of pneumonia pneumothorax. Patient's hemoglobin is 10.5 there is no signs of gross anemia. His sugar is 119 no evidence for hypoglycemia will discharge patient home close follow-up on an outpatient basis patient is will be started on Keflex as previous culture was sensitive Differential Diagnosis Differential Diagnoses: The differential diagnosis associated with the presentation includes Urinary tract infection, hypoglycemia, intracranial bleed, mass, pneumonia Admission/Observation Consideration of admission/observation: Escalation of care including admission/observation considered Well-appearing observe in the emergency department for many hours no distress Lab Data MDM Lab Attestation statement: I reviewed the patient's lab results. 03/11/23 09:59 03/11/23 09:59 Labs: Lab Results 03/11/23 03/11/23 03/11/23 Range/Units 09:36 09:59 11:35 WBC 12.7 H (4.8-10.8) X10*3/uL RBC 4.34 L (4.60-5.80) X10*6/uL Hgb 10.5 L (14.0-18.0) g/dl Hct 34.9 L (42.0-52.0) % MCV 80.4 (80.0-98.0) fL MCH 24.2 L (27.0-33.0) pg MCHC 30.1 L (31.0-36.0) g/dl RDW 14.6 (11.0-16.0) % Plt Count 413 H (160-400) X10*3/uL MPV 9.1 L (9.4-12.4) fL Immature Gran % (Auto) 0.2 (0.0-0.4) % Neut % (Auto) 83.0 H (45-73) % Lymph % (Auto) 8.3 L (20-40) % Dolores % (Auto) 7.1 (2-11) % Eos % (Auto) 0.9 (0-4) % Baso % (Auto) 0.5 (0-2) % Lymph # (Auto) 1.1 L (1.2-4.9) X10*3/uL Dolores # (Auto) 0.9 (0.1-1.2) X10*3/uL Eos # (Auto) 0.1 (0.0-0.4) X10*3/uL Baso # (Auto) 0.1 (0.0-0.2) X10*3/uL Abs Immat Gran (auto) 0.03 (0.00-0.03) X10*3/uL Absolute Neuts (auto) 10.6 H (2.0-8.3) x10*3/uL Absolute Nucleated RBC 0.000 (0.0-0.012) X10*3/uL Nucleated RBC % (auto) 0.0 (0.0-0.2) /100WBC Sodium 142 (135-145) mmol/L Potassium 3.7 (3.3-5.1) mmol/L Chloride 109 H (96-108) mmol/L Carbon Dioxide 26 (22-29) mmol/L Anion Gap 11 L (12-20) BUN 18 H (9-16) mg/dL Creatinine 1.41 H (0.5-1.4) mg/dL Estim Creat Clear Calc 49.8 Estimated GFR 50 Random Glucose 119 H (60-115) mg/dL Lactic Acid 0.9 (0.5-2.0) mmol/L Calcium 9.3 (8.4-10.2) mg/dL Total Bilirubin 0.2 (0.0-1.0) mg/dL Direct Bilirubin < 0.2 (0.0-0.5) mg/dL AST 17 (5-37) U/L ALT 14 (0-40) U/L Alkaline Phosphatase 73 (39-117) U/L Total Protein 6.4 L (6.5-8.0) g/dL Albumin 3.9 (3.5-5.0) g/dL Urine Color Yellow Urine Appearance Clear Urine pH 7.0 (5.0-9.0) Ur Specific [place] <= 1.005 (1.005-1.025) Urine Protein Negative (Neg-Trace) mg/dL Urine Glucose (UA) Negative (Negative) mg/dL Urine Ketones Negative (Negative) mg/dL Urine Blood Negative (Negative) Urine Nitrite Negative (Negative) Ur Leukocyte Esterase Large (3+) H (Negative) Urine RBC 0-2 (0-2) /HPF Urine WBC >50 H (0-5) /HPF Ur Squamous Epith Cells 0-2 (0-2) /HPF Urine Bacteria None Seen (None Seen) Hyaline Casts 0-2 (0-2) /LPF Urine Opiates Screen Not Detected (Not Detect) Urine Fentanyl Screen Not Detected (Not Detect) Ur Barbiturates Screen Not Detected (Not Detect) Ur Phencyclidine Scrn Not Detected (Not Detect) Ur Amphetamines Screen Not Detected (Not Detect) U Benzodiazepines Scrn Not Detected (Not Detect) Urine Cocaine Screen Not Detected (Not Detect) U Marijuana (THC) Screen Not Detected (Not Detect) Influenza Type A (PCR) NEGATIVE (Negative) Influenza Type B (PCR) NEGATIVE (Negative) RSV RNA Qual (PCR) NEGATIVE (Negative) SARS-CoV-2 RNA (RT-PCR) NEGATIVE (Negative) Independent Interpretation I performed an independent interpretation of an: Plain X-Ray (Chest x-ray showed no pneumonia no pneumothorax) and CT Scan (CT head negative for any acute evidence of bleeding) Radiology Impression Discussion of test interpretation with radiology: I have reviewed the radiologist's reading. Independent Historian Clinical information obtained from an independent historian. History obtained from or confirmed by: Spouse External Record Review External record reviewed: Inpatient record History of transverse myelitis over 10 years ago needs to be self catheterization Prescription Management I considered prescription management with: Antibiotic Antibiotics provided as patient had episodes of transient confusion Chronic Conditions Transverse myelitis, frequent UTIs Discharge Plan Discharge Clinical Impression: Acute UTI Patient Disposition: Home, Self-Care Instructions: Urinary Tract Infection in Men (DC), Catheter-associated Urinary Tract Infection (ED) Prescriptions: New cephalexin 500 mg capsule 500 mg PO Q8H 7 Days Qty: 21 0RF No Action lidocaine 5 % adhesive patch,medicated 2 patch topical DAILY lidocaine 5 % adhesive patch,medicated 1 patch topical DAILY Qty: 15 0RF Rx Instructions: leave on most painful area for up to 12 hrs naproxen 500 mg tablet 500 mg PO BID PRN (Reason: pain) Qty: 20 0RF testosterone cypionate 200 mg/mL oil 100 mg IM Q2W lamotrigine 25 mg Tablet 25 mg PO DAILY Qty: 30 0RF cefuroxime axetil 500 mg tablet 500 mg PO BID 4 Days Qty: 8 0RF zonisamide 100 mg capsule 200 mg PO BID topiramate 50 mg tablet 50 mg PO BID duloxetine 60 mg capsule,delayed release(DR/EC) 60 mg PO DAILY oxybutynin chloride 15 mg tablet extended release 24 hr 30 mg PO DAILY Rx Instructions: 1-2 caps, 1-2 x per day oxycodone-acetaminophen 5-325 mg tablet 1 tab PO BID PRN (Reason: Pain) gabapentin 600 mg tablet 600 mg PO BEDTIME ropinirole 0.5 mg tablet 0.5 mg PO BEDTIME Rx Instructions: administer 1-3 hours before bedtime tizanidine 4 mg capsule 4 mg PO BEDTIME lorazepam 1 mg tablet 1 mg PO BEDTIME PRN (Reason: Anxiety) magnesium 250 mg tablet 500 mg PO BID potassium gluconate 595 mg (99 mg) tablet 595 mg PO DAILY ferrous sulfate 325 mg (65 mg iron) tablet 325 mg PO DAILY cholecalciferol (vitamin D3) 125 mcg (5,000 unit) capsule 125 mcg PO BID ascorbic acid (vitamin C) 1,000 mg tablet 1 g PO DAILY glucosamine HCl 500 mg tablet 500 mg PO BID Rx Instructions: administer with meals ibuprofen 200 mg capsule 200 mg PO Q6H PRN (Reason: Pain) acetaminophen [Tylenol Extra Strength] 500 mg tablet 500 mg PO Q6H PRN (Reason: Pain) diphenhydramine HCl [Allergy Medication] 25 mg capsule 25 mg PO BEDTIME PRN (Reason: Allergic Reaction) Referrals: Radha Adan MD [Primary Care Provider] - 03/15/23
[2023-03-11 09:32] VITALS: BP 156/69; PULSE 78; RESP 20; O2SAT 92
--- NOTE | 2023-03-11 09:35 | PC.NURSE ---
pt ia alert and oriented, answering question appropriately at this time, respirations even and unlabored, pt able to ambulate to the bathroom to straight cath himself for a urine sample, no facial droop, speaking in full clear sentences, hand grasp. spouse reports pt having periods of confusion since yesterday, having difficulty expressing himself-keeps repeating words, then be back to his baseline.
[2023-03-11 09:45] LABS: Appearance Urine Clear; Color Urine Yellow; Glucose Urine UA Negative (Negative); Leukocyte Esterase Urine Large (3+) (Negative); Nitrite Urine Negative (Negative); Specific Gravity - Urine <= 1.005 (1.005-1.025); UMIC TRIGGER UACC YES; Urine Blood Negative (Negative); Urine Ketones Negative (Negative); Urine Protein Negative (Neg-Trace)
[2023-03-11 09:48] LABS: Bacteria Urine None Seen (None Seen); Hyaline Casts Urine 0-2 /LPF (0-2); RBC Urine 0-2 /HPF (0-2); Squamous Epithelial Cell Urine 0-2 /HPF (0-2); UACC Culture Trigger YES; WBC Urine >50 /HPF (0-5)
[2023-03-11 10:06] LABS: MANUAL DIFF FLAG NO
[2023-03-11 10:07] LABS: Basophils Absolute Auto 0.1 X10*3/uL (0.0-0.2); Basophils Percent Auto 0.5 % (0-2); Eosinophils Absolute Auto 0.1 X10*3/uL (0.0-0.4); Eosinophils Percent Auto 0.9 % (0-4); Hematocrit 34.9 % (42.0-52.0); Hemoglobin 10.5 g/dl (14.0-18.0); Imm Gran Abs Auto 0.03 X10*3/uL (0.00-0.03); Imm Gran Pct Auto 0.2 % (0.0-0.4); Lymphocytes Absolute Auto 1.1 X10*3/uL (1.2-4.9); Lymphocytes Percent Auto 8.3 % (20-40); Mean Corpuscular HGB Conc 30.1 g/dl (31.0-36.0); Mean Corpuscular Hemoglobin 24.2 pg (27.0-33.0); Mean Corpuscular Volume 80.4 fL (80.0-98.0); Mean Platelet Volume 9.1 fL (9.4-12.4); Monocytes Absolute Auto 0.9 X10*3/uL (0.1-1.2); Monocytes Percent Auto 7.1 % (2-11); Neutrophils Absolute Auto 10.6 x10*3/uL (2.0-8.3); Platelet Count 413 X10*3/uL (160-400); Red Blood Count 4.34 X10*6/uL (4.60-5.80); Red Cell Distribution Width 14.6 % (11.0-16.0); White Blood Count 12.7 X10*3/uL (4.8-10.8)
[2023-03-11 10:20] LABS: Amphetamine Screen Urine Not Detected (Not Detect); Barbiturates, Urine Not Detected (Not Detect); Benzodiazepines Screen Urine Not Detected (Not Detect); Cannabinoid Screen Urine Not Detected (Not Detect); Cocaine Screen Urine Not Detected (Not Detect); Fentanyl, urine Not Detected (Not Detect); Opiate Screen Urine Not Detected (Not Detect); Phencyclidine Screen Urine Not Detected (Not Detect)
[2023-03-11 10:26] LABS: Alanine Aminotransferase 14 U/L (0-40); Albumin Level 3.9 g/dL (3.5-5.0); Alkaline Phosphatase 73 U/L (39-117); Anion Gap 11 (12-20); Aspartate Amino Transferase 17 U/L (5-37); Bilirubin Direct < 0.2 mg/dL (0.0-0.5); Bilirubin Total 0.2 mg/dL (0.0-1.0); Blood Urea Nitrogen 18 mg/dL (9-16); Calcium 9.3 mg/dL (8.4-10.2); Carbon Dioxide 26 mmol/L (22-29); Chloride 109 mmol/L (96-108); Creatinine Clr Calc Pharmacy 49.8; Estimated Glomerular Filt Rate 50; Glucose Random 119 mg/dL (60-115); Potassium 3.7 mmol/L (3.3-5.1); Sodium 142 mmol/L (135-145); Total Protein 6.4 g/dL (6.5-8.0)
[2023-03-11 11:00] LABS: Influenza A PCR NEGATIVE (Negative); Influenza B PCR NEGATIVE (Negative); Resp Syncy Virus RNA Qual PCR NEGATIVE (Negative); SARS COV2 PCR INHOUSE NEGATIVE (Negative)
[2023-03-11 11:55] LABS: Lactic Acid 0.9 mmol/L (0.5-2.0)
[2023-03-11] MEDS: cefTRIAXone sodium 1 GM in 0.9 % Sodium Chloride 50 ML IV (12:03)
[2023-03-11 12:07] VITALS: BP 122/70; PULSE 75; RESP 18; O2SAT 98
== END 2023-03-11 12:45 | disposition home or self-care (01) ==
PROVIDERS: Emergency Provider Emergency Medicine Emergency Medical Services; PCP Family Medicine
DX: N39.0 Urinary tract infection, site not specified (principal); Z20.822 Contact with and (suspected) exposure to COVID-19; Z20.828 Contact with and (suspected) exposure to other viral communicable diseases; R41.82 Altered mental status, unspecified; Z87.440 Personal history of urinary (tract) infections; Z87.891 Personal history of nicotine dependence; Z79.899 Other long term (current) drug therapy
CPT/HCPCS: 0241U; 36415; 70450; 71045; 80048; 80076; 80307; 81001; 83605; 85025; 87040; 87086; 93005; 96372; 99284; 99285; J0696

== ENCOUNTER → 2023-03-11 09:21 | Outpatient (BNV) | payer BC, SELFPAY | PROVIDERS: Emergency Provider Emergency Medicine Emergency Medical Services; PCP Family Medicine; Visit Provider Internal Medicine Cardiovascular Disease | DX: R06.02 Shortness of breath (principal) | CPT/HCPCS: 93010 ==

== ENCOUNTER 2023-03-22 11:12 | Outpatient (REF) | payer BC, SELFPAY ==
[2023-03-22 13:39] LABS: Basophils Absolute Auto 0.1 X10*3/uL (0.0-0.2); Basophils Percent Auto 0.7 % (0-2); Eosinophils Absolute Auto 0.1 X10*3/uL (0.0-0.4); Eosinophils Percent Auto 0.6 % (0-4); Hematocrit 34.9 % (42.0-52.0); Imm Gran Abs Auto 0.28 X10*3/uL (0.00-0.03); Imm Gran Pct Auto 1.7 % (0.0-0.4); Lymphocytes Percent Auto 6.1 % (20-40); MANUAL DIFF FLAG SCAN; Mean Corpuscular HGB Conc 31.5 g/dl (31.0-36.0); Mean Corpuscular Hemoglobin 23.9 pg (27.0-33.0); Mean Corpuscular Volume 75.9 fL (80.0-98.0); Mean Platelet Volume 9.4 fL (9.4-12.4); Monocytes Absolute Auto 2.1 X10*3/uL (0.1-1.2); Monocytes Percent Auto 12.2 % (2-11); Neutrophils Absolute Auto 13.3 x10*3/uL (2.0-8.3); Neutrophils Percent Auto 78.7 % (45-73); Platelet Count 548 X10*3/uL (160-400); Red Cell Distribution Width 15.5 % (11.0-16.0); SCAN SMEAR FLAG 1; White Blood Count 16.9 X10*3/uL (4.8-10.8)
[2023-03-22 14:02] LABS: SLIDE REVIEW VERIFIED
[2023-03-22 14:05] LABS: TSH reflex Free T4 2.35 uIU/mL (0.32-4.0)
[2023-03-22 14:20] LABS: Alanine Aminotransferase 22 U/L (0-40); Albumin Level 3.1 g/dL (3.5-5.0); Alkaline Phosphatase 85 U/L (39-117); Anion Gap 19 (12-20); Aspartate Amino Transferase 17 U/L (5-37); Bilirubin Total 0.4 mg/dL (0.0-1.0); Blood Urea Nitrogen 91 mg/dL (9-16); Calcium 8.3 mg/dL (8.4-10.2); Carbon Dioxide 15 mmol/L (22-29); Chloride 94 mmol/L (96-108); Estimated Glomerular Filt Rate 14; Glucose Random 102 mg/dL (60-115); Sodium 124 mmol/L (135-145); Total Protein 6.1 g/dL (6.5-8.0)
[2023-03-24 11:39] LABS: Adenovirus F 40/41 Not Detected (Not Detect.); Astrovirus Not Detected (Not Detect.); Campylobacter Not Detected (Not Detect.); Cryptosporidium Not Detected (Not Detect.); Cyclospora cayetanensis Not Detected (Not Detect.); E. coli EAEC Not Detected (Not Detect.); E. coli EPEC Not Detected (Not Detect.); E. coli ETEC Not Detected (Not Detect.); E. coli STEC Not Detected (Not Detect.); Entamoeba histolytica Not Detected (Not Detect.); Giardia lamblia Not Detected (Not Detect.); Norovirus GI/GII Not Detected (Not Detect.); Plesiomonas shigelloides Not Detected (Not Detect.); Rotavirus A Not Detected (Not Detect.); Salmonella Not Detected (Not Detect.); Sapovirus Not Detected (Not Detect.); Shigella sp./EIEC Not Detected (Not Detect.); Vibrio Not Detected (Not Detect.); Vibrio Cholerae Not Detected (Not Detect.); Yersinia enterocolitica Not Detected (Not Detect.)
== END 2023-03-22 11:13 | disposition home or self-care (01) ==
LOC: HO.HHCL 11:12
PROVIDERS: Visit Provider Family Medicine
DX: R19.7 Diarrhea, unspecified (principal)
CPT/HCPCS: 36415; 80053; 84443; 85025; 87507

== ENCOUNTER 2023-03-22 16:24 | Inpatient (IN) | payer BC, SELFPAY ==
--- NOTE | ~2023-03-22 | CT_ITS ---
EXAMINATION: CT ABDOMEN AND PELVIS WITHOUT CONTRAST CLINICAL INFORMATION: Pain. Diarrhea. Fever. COMPARISON: None available. TECHNIQUE: Multidetector volumetric imaging was performed from the superior aspect of the liver through the pubic symphysis. Sagittal and coronal reformatted images were obtained on the technologist's workstation. This CT examination was performed using dose optimization techniques as appropriate, variously including the following: *Automated exposure control *Adjustment of mA and/or kV according to patient size (this includes techniques or standardized protocols for targeted exams where dose is matched to indication/reason for exam; i.e. extremities or head) *Use of iterative reconstruction technique DLP: 673 mGy-cm FINDINGS: LUNG BASES: There is scarring at the lung bases. There is a 2 mm nonspecific nodule at the left lung base. There appears to be lower lung field emphysematous change. LIVER, GALLBLADDER, AND BILIARY TREE: The liver is normal in size, shape, and attenuation. No focal hepatic lesion or biliary ductal dilatation is present. The gallbladder is unremarkable with no evidence of radiopaque gallstones, gallbladder wall thickening, or obvious pericholecystic inflammatory changes. PANCREAS: Unremarkable. SPLEEN: Unremarkable. ADRENAL GLANDS: Unremarkable. KIDNEYS AND URETERS: The kidneys are normal in size, shape, and attenuation. No hydronephrosis, hydroureter, or calculi seen. No perinephric stranding. There is a 2 mm nonobstructing calculus lower pole right kidney. BLADDER: There is mild urinary bladder wall thickening. GASTROINTESTINAL TRACT: There is diffuse moderate colonic thickening. The appendix is not confidently seen as a separate structure. ABDOMINAL WALL: No significant hernia is appreciated. LYMPH NODES: Normal. VASCULAR: Unremarkable. PELVIC VISCERA: Unremarkable. OSSEOUS STRUCTURES: There is moderate diffuse thoracolumbar disc degenerative change with [id number]-[id number] curvature to the right. CT/CT abdomen pelvis wo IV con IMPRESSION: There is diffuse moderate colonic thickening consistent with colitis. There is mild urinary bladder wall thickening. There is a 2 mm nonobstructing calculus lower pole right kidney. There is a 2 mm nonspecific nodule at the left lung base. Per the 2017 revised Fleischner Society guidelines, no routine follow up is necessarily required. There appears to be lower lung field emphysematous change. Fleischner guidelines were followed.
--- NOTE | ~2023-03-22 | CT_ITS ---
EXAMINATION: CT HEAD WITHOUT CONTRAST CLINICAL INFORMATION: Altered mental status. Fall. Head strike. COMPARISON: 03/11/2023. TECHNIQUE: Contiguous axial imaging was performed from the skull base to vertex without intravenous administration of contrast. This CT examination was performed using dose optimization techniques as appropriate, variously including the following: *Automated exposure control *Adjustment of mA and/or kV according to patient size (this includes techniques or standardized protocols for targeted exams where dose is matched to indication/reason for exam; i.e. extremities or head) *Use of iterative reconstruction technique DLP: 607.57 mGy-cm FINDINGS: The lateral, third and fourth ventricles are normally outlined. The cortical sulci and basal cisterns are normally outlined as well. There is no acute territorial defect, hemorrhage or midline shift. The extra-axial spaces are unremarkable. Calvarium: Intact. Maxillofacial sinuses and mastoids: Clear as visualized. CT/CT head/brain wo IV con IMPRESSION: No acute intracranial pathology.
[2023-03-22 17:33] VITALS: BP 106/61; PULSE 83; RESP 18; TEMP 37.4; O2SAT 95; BMI 25.1
--- NOTE | 2023-03-22 17:33 | ED_ITS ---
HPI - General Adult General Chief complaint: General Medical Stated complaint: kidney values high Time Seen by Provider: 03/22/23 23:40 Source: patient and family Mode of arrival: wheelchair Limitations: no limitations History of Present Illness HPI narrative: This is a 68-year-old male who has a history of transverse myelitis who presents to the ER with 1 week of multiple episodes of daily diarrhea now with weakness and LAURO seen on labs. Of note patient was seen here on March 11 and diagnosed with a urinary tract infection was started on cephalexin. Approximately 4 days after being on the antibiotic he started to develop diarrhea, intermittent fevers. He has become progressively weaker and has had 2 falls this week with head strikes at home. No loss of consciousness. No AC therapy use. He has had some intermittent altered mental status which has been going on for several weeks and family contributed to his urinary tract infection. He denies chest pain, shortness of breath, cough, abdominal pain, vomiting, skin rash, neck pain or neck stiffness Related Data Home Medications Medication Instructions Recorded Confirmed acetaminophen 500 mg tablet 500 mg PO Q6H PRN Pain 09/09/20 09/07/22 (Tylenol Extra Strength) ascorbic acid (vitamin C) 1,000 mg 1 g PO DAILY 09/09/20 09/07/22 tablet cholecalciferol (vitamin D3) 125 125 mcg PO BID 09/09/20 09/07/22 mcg (5,000 unit) capsule duloxetine 60 mg capsule,delayed 60 mg PO DAILY 09/09/20 09/07/22 release ferrous sulfate 325 mg (65 mg 325 mg PO DAILY 09/09/20 09/07/22 iron) tablet gabapentin 600 mg tablet 600 mg PO BEDTIME 09/09/20 09/07/22 glucosamine HCl 500 mg tablet 500 mg PO BID 09/09/20 09/07/22 ibuprofen 200 mg capsule 200 mg PO Q6H PRN Pain 09/09/20 09/07/22 lorazepam 1 mg tablet 1 mg PO BEDTIME PRN Anxiety 09/09/20 09/07/22 magnesium 250 mg tablet 500 mg PO BID 09/09/20 09/07/22 oxybutynin chloride 15 mg 30 mg PO DAILY 09/09/20 09/07/22 tablet,extended release 24 hr oxycodone-acetaminophen 5 mg-325 1 tab PO BID PRN Pain 09/09/20 09/07/22 mg tablet potassium gluconate 595 mg (99 mg) 595 mg PO DAILY 09/09/20 09/07/22 tablet ropinirole 0.5 mg tablet 0.5 mg PO BEDTIME 09/09/20 09/07/22 tizanidine 4 mg capsule 4 mg PO BEDTIME 09/09/20 09/07/22 topiramate 50 mg tablet 50 mg PO BID 09/09/20 09/07/22 zonisamide 100 mg capsule 200 mg PO BID 09/09/20 09/07/22 diphenhydramine HCl 25 mg capsule 25 mg PO BEDTIME PRN Allergic 09/28/21 09/07/22 (Allergy Medication) Reaction lidocaine 5 % topical patch 2 patch topical DAILY 11/19/21 09/07/22 testosterone cypionate 200 mg/mL 100 mg IM Q2W 09/07/22 09/07/22 intramuscular oil Previous Rx's Medication Instructions Recorded cefuroxime axetil 500 mg tablet 500 mg PO BID 4 days #8 tabs 09/09/22 lamotrigine 25 mg tablet 25 mg PO DAILY #30 tabs 09/09/22 lidocaine 5 % topical patch 1 patch topical DAILY #15 ea 12/15/22 naproxen 500 mg tablet 500 mg PO BID PRN pain #20 tabs 12/15/22 cephalexin 500 mg capsule 500 mg PO Q8H 7 days #21 caps 03/11/23 Allergies Allergy/AdvReac Type Severity Reaction Status Date / Time No Known Allergies Allergy Verified 02/04/22 13:06 [No Known Allergies*] Review of Systems 2 Review of Systems: Yes all other systems are reviewed and are negative Constitutional: Constitutional: Reports no additional constitutional complaints, Reports body ache(s), Denies chills, Reports fever(s), Denies headache(s) and Reports weakness Eyes: Eyes: Reports no additional eye complaints and Denies change in vision ENT: Reports system reviewed and no additional complaints, except as documented, Denies dizziness, Denies headache(s), Denies nasal congestion, Denies nasal discharge and Denies neck pain Cardiovascular: Cardiovascular: Reports no additional cardiovascular complaints, Denies chest pain, Denies leg edema and Denies dyspnea Respiratory: Respiratory: Reports no additional respiratory complaints, Denies cough and Denies dyspnea Gastrointestinal: Gastrointestinal: Reports no additional gastrointestinal complaints, Denies abdominal pain, Reports diarrhea, Denies nausea and Denies vomiting Genitourinary: Genitourinary: Denies urinary incontinence Musculoskeletal: Musculoskeletal: Reports no additional musculoskeletal complaints, Denies back pain, Denies arthralgias, Denies joint swelling, Denies neck pain, Denies numbness and Denies tingling Integumentary/Breasts: Skin/Breast: Reports system reviewed and no additional complaints, except as docu and Denies rash Neurologic: Reports system reviewed and no additional complaints, except as documented, Denies Abnormal speech present, Denies dizziness, Denies headache(s), Denies numbness, Denies tingling and Reports weakness PMFSH Past Medical History Attestation statement: The following information was validated with the patient. Source: old records reviewed and nursing notes reviewed Onset Date is defined in the Problem List Problems that require an onset date and time if occurred within 24 hrs of arrival to the ED Aortic Dissection and Rupture; Neurologic impairment; Cardiopulmonary Arrest; Endotracheal Intubation; Insertion or Replacement of Mechanical Circulatory Assist Device Medical History Chronic pain syndrome Restless legs Arthritis Transverse myelitis Surgical History History of surgery on wrist Social History Social History Household Members: Spouse Housing: House Do you presently have visiting nurse or other home services: No Alcohol intake: never Patient Tobacco Use Status: Former Tobacco user Tobacco use type: Cigarette Cigarettes Per Day: 20 Years Smoked: 35 e-Cigarette/Vaping Use: Never Used Substance Use Type: Opiates Advance Directives: No Advance Directives Information Provided: No service: No Current occupational status: disabled Current occupation: rt handed Physical Exam ED Vital Signs: Vital Signs - 24 hr 03/22/23 17:33 03/22/23 23:49 03/23/23 01:01 Temperature 99.3 F 96.8 F 97.0 F Pulse Rate 83 79 75 Respiratory Rate 18 14 15 Blood Pressure 106/61 118/68 103/53 L Pulse Oximetry 95 99 98 Oxygen Delivery Method Room Air Room Air Room Air BMI result Body Mass Index 25.1 Const General: cooperative, healthy appearing, comfortable and no acute distress Orientation/consciousness: patient oriented x3 Limitations: no limitations HENMT Other: Tacky mucous members Head: Yes normal to inspection Ears: hearing grossly normal bilaterally General nose exam: Normal external nose present Face and sinus: Yes normal facial exam Mouth: Normal oral and palatal mucosa present Throat: Yes posterior oropharynx normal Eyes General: appearance normal, both eyes and all related structures Pupils: Equal, round and reactive pupils present Neck Neck: Yes normal visual inspection, Yes full ROM, Yes no lymphadenopathy and Yes no meningeal signs Chest Chest palpation & inspection: normal inspection of the chest Resp Effort & Inspection: normal respiratory effort Auscultation: clear to auscultation bilaterally Cardio Rate: regular rate Rhythm: regular rhythm Peripheral pulses: Peripheral pulses 2+ throughout GI Inspection: Yes normal to inspection Palpation (GI): Soft to palpation and Tenderness to palpation present (GI) (Mild tenderness right lower quadrant with no rebound or guard) Auscultation: normal bowel sounds Back/Spine/Pelvis Thoracic/Lumbar Spine: thoracic and lumbar spine normal to inspection Skin General skin exam: no rashes or lesions noted Neuro General: patient oriented x3, moves all extremities, no meningeal signs and normal sensation to monofilament Cranial nerves: Yes Equal, round and reactive pupils present Cognition (Neuro): normal cognition Speech: No Abnormal speech present Extrem General: Yes normal to inspection Course Course Course Narrative: This is an RME: Additional HPI, ROS, PE not included below will be deferred to primary provider. This is a 68-year-old male, with a history of transverse myelitis and seizure disorder, presenting to the emergency department, accompanied by his , with complaints of weakness, lower abdominal pain, and nonstop diarrhea. He was seen by his primary care physician who obtained labs, creatinine bumped from 1 to about 4. Question of C diff as patient has been on multiple rounds of antibiotics for UTI. Plan: Labs, UA, GI panel, c dif. Reevaluation(s) Reevaluation #1: Labs show LAURO which is likely pre renal. Leukocytosis which is likely secondary to diarrhea, volume loss and dehydration. This is likely secondary to dehydration and diarrhea and not from infection. Medications Administered Discontinued Medications Generic Name Dose Route Start Last Admin Trade Name Freq PRN Reason Stop Dose Admin Sodium Chloride 1,000 mls @ 999 mls/hr 03/22/23 23:55 03/23/23 01:10 Ns IV 03/23/23 00:55 999 mls/hr .Q1H1M STA Administration Medical Decision Making Medical Decision Making [facility] Narrative: This is a 68-year-old male who has a history of transverse myelitis who presents to the ER with 1 week of multiple episodes of daily diarrhea now with weakness and LAURO seen on outpatient labs. Of note patient was seen here on March 11 and diagnosed with a urinary tract infection was started on cephalexin. Approximately 4 days after being on the antibiotic he started to develop diarrhea, intermittent fevers. He has become progressively weaker and has had 2 falls this week with head strikes at home. No loss of consciousness. No AC therapy use. He has had some intermittent altered mental status which has been going on for several weeks and family contributed to his urinary tract infection. He denies chest pain, shortness of breath, cough, abdominal pain, vomiting, skin rash, neck pain or neck stiffness Patient improves clinically dry. Patient has tacky mucous membranes. His mild tenderness in lower quadrants with no rebound or guarding. Normal neuro. No lymphadenopathy meningeal signs. Will need labs including blood cultures and lactic acid, stool studies, UA, COVID screen, CT abdomen and pelvis and CT head Differential Diagnosis Differential Diagnoses: The differential diagnosis associated with the presentation includes Electrolyte abnormality, dehydration, anemia, C diff, infectious diarrhea, diverticulitis, appendicitis Admission/Observation Consideration of admission/observation: Escalation of care including admission/observation considered LAURO likely prerenal requiring IV fluids and admission Consult Healthcare Provider Management of the patient was discussed with: Hospitalist Discussed patient with Dr. Alexander and follow the CT results as these are pending Lab Data [facility] Lab Attestation statement: I reviewed the patient's lab results. see course of care for disccussion 03/22/23 20:19 03/22/23 20:19 Labs: Lab Results 03/22/23 03/23/23 03/23/23 Range/Units 20:19 00:02 01:12 WBC 17.8 H (4.8-10.8) X10*3/uL RBC 4.88 (4.60-5.80) X10*6/uL Hgb 11.8 L (14.0-18.0) g/dl Hct 36.5 L (42.0-52.0) % MCV 74.8 L (80.0-98.0) fL MCH 24.2 L (27.0-33.0) pg MCHC 32.3 (31.0-36.0) g/dl RDW 15.3 (11.0-16.0) % Plt Count 603 H (160-400) X10*3/uL MPV 8.9 L (9.4-12.4) fL Immature Gran % (Auto) 1.3 H (0.0-0.4) % Neut % (Auto) 89.5 H (45-73) % Lymph % (Auto) 2.6 L (20-40) % [place] % (Auto) 5.9 (2-11) % Eos % (Auto) 0.1 (0-4) % Baso % (Auto) 0.6 (0-2) % Lymph # (Auto) 0.5 L (1.2-4.9) X10*3/uL [place] # (Auto) 1.1 (0.1-1.2) X10*3/uL Eos # (Auto) 0.0 (0.0-0.4) X10*3/uL Baso # (Auto) 0.1 (0.0-0.2) X10*3/uL Abs Immat Gran (auto) 0.23 H (0.00-0.03) X10*3/uL Absolute Neuts (auto) 16.0 H (2.0-8.3) x10*3/uL Absolute Nucleated RBC 0.000 (0.0-0.012) X10*3/uL Nucleated RBC % (auto) 0.0 (0.0-0.2) /100WBC Sodium 125 L (135-145) mmol/L Potassium 4.5 (3.3-5.1) mmol/L Chloride 93 L (96-108) mmol/L Carbon Dioxide 16 L (22-29) mmol/L Anion Gap 21 H (12-20) BUN 100 H (9-16) mg/dL Creatinine 4.65 H* (0.5-1.4) mg/dL Estim Creat Clear Calc 15.1 Estimated GFR 13 Random Glucose 120 H (60-115) mg/dL Lactic Acid 0.6 (0.5-2.0) mmol/L Calcium 8.8 D (8.4-10.2) mg/dL Magnesium 4.0 H* (1.6-2.6) mg/dL Total Bilirubin 0.4 (0.0-1.0) mg/dL Direct Bilirubin 0.2 (0.0-0.5) mg/dL AST 17 (5-37) U/L ALT 23 (0-40) U/L Alkaline Phosphatase 91 (39-117) U/L Total Protein 6.6 (6.5-8.0) g/dL Albumin 3.4 L (3.5-5.0) g/dL Urine Color Dark Yellow Urine Appearance Cloudy Urine pH 5.5 (5.0-9.0) Ur Specific [place] 1.010 (1.005-1.025) Urine Protein 30 (1+) H (Neg-Trace) mg/dL Urine Glucose (UA) Negative (Negative) mg/dL Urine Ketones Negative (Negative) mg/dL Urine Blood Negative (Negative) Urine Nitrite Negative (Negative) Ur Leukocyte Esterase Negative (Negative) Independent Interpretation I performed an independent interpretation of an: EKG and CT Scan Interpretation: I independently reviewed the EKG which shows sinus Rhythm with a rate of 75, normal [place], normal QRS, normal QT I independetely reviewed the CT scan of the abdomen and pelvis and head and agree with the radiology report Radiology Impression Discussion of test interpretation with radiology: I have reviewed the radiologist's reading. Radiologist Impression: [place] [id number] CT Scan Report Signed Patient: Magdalena Vicente MR#: [id number] : 1955 Acct:[id number] Age/Sex: 68 / M ADM Date: 03/22/23 Loc: HO.ED Attending Dr: Ordering Physician: Dali Haddad NP Date of Service: 03/23/23 Procedure(s): CT head/brain wo IV con Accession Number(s): [id number] cc: Radha Adan MD; Dali Haddad NP~ EXAMINATION: CT HEAD WITHOUT CONTRAST CLINICAL INFORMATION: Altered mental status. Fall. Head strike. COMPARISON: 03/11/2023. TECHNIQUE: Contiguous axial imaging was performed from the skull base to vertex without intravenous administration of contrast. This CT examination was performed using dose optimization techniques as appropriate, variously including the following: *Automated exposure control *Adjustment of mA and/or kV according to patient size (this includes techniques or standardized protocols for targeted exams where dose is matched to indication/reason for exam; i.e. extremities or head) *Use of iterative reconstruction technique DLP: 607.57 mGy-cm FINDINGS: The lateral, third and fourth ventricles are normally outlined. The cortical sulci and basal cisterns are normally outlined as well. There is no acute territorial defect, hemorrhage or midline shift. The extra-axial spaces are unremarkable. Calvarium: Intact. Maxillofacial sinuses and mastoids: Clear as visualized. CT/CT head/brain wo IV con IMPRESSION: No acute intracranial pathology. Independent Historian Clinical information obtained from an independent historian. History obtained from or confirmed by: Spouse External Record Review External record reviewed: Outside ED record Prescription Management I considered prescription management with: Antibiotic Chronic Conditions Patient?s care impacted by: Hypertension Critical Care Time Critical Care Time Critical Care Time: Yes Total Critical Care Time: 60 Attestation: Patient with LAURO requiring admission, discussion with family and hospitalist, management of electrolyte abnormality Discharge Plan Discharge Clinical Impression: LAURO (acute kidney injury), Leukocytosis, Acute hyponatremia Patient Disposition: Admitted As Inpatient
[2023-03-22 20:23] LABS: MANUAL DIFF FLAG NO
[2023-03-22 20:29] LABS: Basophils Absolute Auto 0.1 X10*3/uL (0.0-0.2); Basophils Percent Auto 0.6 % (0-2); Eosinophils Percent Auto 0.1 % (0-4); Hematocrit 36.5 % (42.0-52.0); Hemoglobin 11.8 g/dl (14.0-18.0); Imm Gran Abs Auto 0.23 X10*3/uL (0.00-0.03); Imm Gran Pct Auto 1.3 % (0.0-0.4); Lymphocytes Absolute Auto 0.5 X10*3/uL (1.2-4.9); Lymphocytes Percent Auto 2.6 % (20-40); Mean Corpuscular HGB Conc 32.3 g/dl (31.0-36.0); Mean Corpuscular Hemoglobin 24.2 pg (27.0-33.0); Mean Corpuscular Volume 74.8 fL (80.0-98.0); Mean Platelet Volume 8.9 fL (9.4-12.4); Monocytes Absolute Auto 1.1 X10*3/uL (0.1-1.2); Monocytes Percent Auto 5.9 % (2-11); Neutrophils Percent Auto 89.5 % (45-73); Platelet Count 603 X10*3/uL (160-400); Red Blood Count 4.88 X10*6/uL (4.60-5.80); Red Cell Distribution Width 15.3 % (11.0-16.0); White Blood Count 17.8 X10*3/uL (4.8-10.8)
[2023-03-22 20:46] LABS: Alanine Aminotransferase 23 U/L (0-40); Albumin Level 3.4 g/dL (3.5-5.0); Alkaline Phosphatase 91 U/L (39-117); Anion Gap 21 (12-20); Aspartate Amino Transferase 17 U/L (5-37); Bilirubin Direct 0.2 mg/dL (0.0-0.5); Bilirubin Total 0.4 mg/dL (0.0-1.0); Blood Urea Nitrogen 100 mg/dL (9-16); Calcium 8.8 mg/dL (8.4-10.2); Carbon Dioxide 16 mmol/L (22-29); Chloride 93 mmol/L (96-108); Creatinine Clr Calc Pharmacy 15.1; Estimated Glomerular Filt Rate 13; Glucose Random 120 mg/dL (60-115); Potassium 4.5 mmol/L (3.3-5.1); Sodium 125 mmol/L (135-145); Total Protein 6.6 g/dL (6.5-8.0)
[2023-03-22 23:49] VITALS: BP 118/68; PULSE 79; RESP 14; TEMP 36; O2SAT 99
--- NOTE | 2023-03-23 00:02 | ECG_ITS ---
Test Reason : FALL Blood Pressure : / mmHG Vent. Rate : 075 BPM Atrial Rate : 075 BPM P-R Int : 154 ms QRS Dur : 096 ms QT Int : 386 ms P-R-T Axes : 064 009 044 degrees QTc Int : 431 ms Normal sinus rhythm Septal infarct , age undetermined Abnormal ECG When compared with ECG of 11-MAR-2023 09:46, Septal infarct is now Present Nonspecific T wave abnormality, worse in Inferior leads Referred By: Dali Stuart Electronically Signed By:Obey Brasher
[2023-03-23 00:24] LABS: Lactic Acid 0.6 mmol/L (0.5-2.0)
[2023-03-23 01:01] VITALS: BP 103/53; PULSE 75; RESP 15; TEMP 36.1; O2SAT 98
--- NOTE | 2023-03-23 01:02 | MHC.EDTECH ---
THIS PCT ASSUMED CARE OF PT AT 2300 ,VITALS TAKEN PT WAS INCONTINENT OF LARGE AMOUNT OF STOOL CARE GIVEN ,STOOL SAMPLE COLLECTED AND SENT TO LAB .,PT FAMILY MEMBER AT BEDSIDE
[2023-03-23] MEDS: 0.9 % Sodium Chloride 1,000 ML 999 ML IV (01:10)
[2023-03-23 01:21] LABS: Appearance Urine Cloudy; Color Urine Dark Yellow; Glucose Urine UA Negative (Negative); Leukocyte Esterase Urine Negative (Negative); Nitrite Urine Negative (Negative); PH 5.5 (5.0-9.0); UMIC TRIGGER UACC YES; Urine Blood Negative (Negative); Urine Ketones Negative (Negative); Urine Protein 30 (1+) mg/dL (Neg-Trace)
--- NOTE | 2023-03-23 01:21 | PC.NURSE ---
chronic use of straight cath per pt; request for temp sensing jo from [facility] [employer] for strict monitoring of I&Os + core temp. pt tolerated well draining clear yellow urine sample sent to lab. stool sample sent to lab. pt cleaned fresh linen. spouse at bedside. ivf infusing. call ortega within reach.
[2023-03-23 02:00] LABS: Bacteria Urine Trace (None Seen); Granular Casts Urine Present; WBC Urine 0-5 /HPF (0-5)
[2023-03-23 02:08] LABS: Influenza A PCR NEGATIVE (Negative); Influenza B PCR NEGATIVE (Negative); Resp Syncy Virus RNA Qual PCR NEGATIVE (Negative); SARS COV2 PCR INHOUSE NEGATIVE (Negative)
[2023-03-23 02:42] VITALS: BP 111/64; PULSE 75; RESP 14; TEMP 36.2; O2SAT 96
[2023-03-23 02:57] LABS: CDiff Gene PCR POSITIVE (Negative)
[2023-03-23 03:05] LABS: CDiff Toxin Positive (Negative)
[2023-03-23 03:07] LABS: CDIFF Internal ctrl Dots and bkg OK (V)
--- NOTE | 2023-03-23 03:10 | PM.IMHP ---
History of Present Illness Date of Service: 03/23/23 Chief Complaint: Diarrhea This is a 67-year-old female to male with pertinent history of seizures, transverse myelitis, mood disorder, chronic opioid use, restless leg syndrome, peripheral neuropathy who presents to the emergency department for evaluation of diarrhea. Patient was seen in the ER about 10 days prior to presentation and was discharged on cephalexin for UTI. Patient states he started having multiple episodes of diarrhea after taking cephalexin. This has been ongoing for the last 7 days. ?blood in stools. Has associated generalized lower abdominal discomfort. No fever, chills, chest discomfort, palpitations, shortness of breath, changes in urinary habits. In the emergency department, patient is found to be septic and tested positive for C diff gene and toxin Review of Systems Constitutional: Constitutional: Reports fatigue and Reports weakness Cardiovascular: Cardiovascular: Reports no additional cardiovascular complaints Respiratory: Respiratory: Reports no additional respiratory complaints Gastrointestinal: Gastrointestinal: Reports diarrhea and Reports loose stools Genitourinary: Genitourinary: Reports no additional male genitourinary complaints Neurologic: Reports weakness Endocrine: Endocrine: Reports fatigue [facility] Medical History Chronic pain syndrome Restless legs Arthritis Transverse myelitis Pertinent family history: No family history of early CAD Surgical History History of surgery on wrist Social History Household Members: Spouse Housing: House Do you presently have visiting nurse or other home services: No Alcohol intake: never Patient Tobacco Use Status: Former Tobacco user Tobacco use type: Cigarette Cigarettes Per Day: 20 Years Smoked: 35 e-Cigarette/Vaping Use: Never Used Substance Use Type: Opiates Advance Directives: No Advance Directives Information Provided: No service: No Current occupational status: disabled Current occupation: rt handed Meds Allergies Allergy/AdvReac Type Severity Reaction Status Date / Time No Known Allergies Allergy Verified 02/04/22 13:06 [No Known Allergies*] Active Medications: Current Medications Fidaxomicin (Fidaxomicin 200 Mg Tablet) 200 mg PO Q12H ANI Lactated Ringer's (Lr) 1,000 mls @ 150 mls/hr IVCONT .[id number] ONE Stop: 03/23/23 08:46 Home Medications Medication Instructions Recorded Confirmed Last Taken Type acetaminophen 500 mg tablet 500 mg PO Q6H PRN Pain 09/09/20 09/07/22 Unknown History (Tylenol Extra Strength) ascorbic acid (vitamin C) 1,000 mg 1 g PO DAILY 09/09/20 09/07/22 09/06/22 History tablet cholecalciferol (vitamin D3) 125 125 mcg PO BID 09/09/20 09/07/22 09/06/22 History mcg (5,000 unit) capsule duloxetine 60 mg capsule,delayed 60 mg PO DAILY 09/09/20 09/07/22 09/06/22 History release ferrous sulfate 325 mg (65 mg 325 mg PO DAILY 09/09/20 09/07/22 09/06/22 History iron) tablet gabapentin 600 mg tablet 600 mg PO BEDTIME 09/09/20 09/07/22 09/06/22 History glucosamine HCl 500 mg tablet 500 mg PO BID 09/09/20 09/07/22 09/06/22 History ibuprofen 200 mg capsule 200 mg PO Q6H PRN Pain 09/09/20 09/07/22 Unknown History lorazepam 1 mg tablet 1 mg PO BEDTIME PRN Anxiety 09/09/20 09/07/22 Unknown History magnesium 250 mg tablet 500 mg PO BID 09/09/20 09/07/22 09/06/22 History oxybutynin chloride 15 mg 30 mg PO DAILY 09/09/20 09/07/22 09/06/22 History tablet,extended release 24 hr oxycodone-acetaminophen 5 mg-325 1 tab PO BID PRN Pain 09/09/20 09/07/22 Unknown History mg tablet potassium gluconate 595 mg (99 mg) 595 mg PO DAILY 09/09/20 09/07/22 09/06/22 History tablet ropinirole 0.5 mg tablet 0.5 mg PO BEDTIME 09/09/20 09/07/22 09/06/22 History tizanidine 4 mg capsule 4 mg PO BEDTIME 09/09/20 09/07/22 09/06/22 History topiramate 50 mg tablet 50 mg PO BID 09/09/20 09/07/22 09/06/22 History zonisamide 100 mg capsule 200 mg PO BID 0609/07/22 09/06/22 History diphenhydramine HCl 25 mg capsule 25 mg PO BEDTIME PRN Allergic 09/28/21 09/07/22 Unknown History (Allergy Medication) Reaction lidocaine 5 % topical patch 2 patch topical DAILY 11/19/21 09/07/22 09/06/22 History testosterone cypionate 200 mg/mL 100 mg IM Q2W 09/07/22 09/07/22 09/05/22 History intramuscular oil Physical Exam Vital Signs and Narrative: Vital Signs: Last Vital Signs Temp 97.1 F 03/23/23 02:42 Pulse 75 03/23/23 02:42 Resp 14 03/23/23 02:42 BP 111/64 03/23/23 02:42 Pulse Ox 96 03/23/23 02:42 O2 Del Method Room Air 03/23/23 02:42 BMI result Body Mass Index 25.1 Middle-aged male lying in bed in no distress Neck supple, no JVD Regular rate and rhythm, S1-S2 heard No crackles or wheezing Abdomen with generalized tenderness to deep palpation in the lower quadrant, no guarding, no rigidity, no rebound tenderness Patient is awake, alert and oriented to self, disoriented to place, time and person ; strength equal in bilateral upper and lower extremity, no facial droop No pedal edema Results Labs 03/22/23 20:19 03/22/23 20:19 Labs: Laboratory Results - last 24 hr 03/22/23 03/23/23 03/23/23 20:19 00:02 01:06 MCV 74.8 L MCH 24.2 L MCHC 32.3 RDW 15.3 Plt Count 603 H MPV 8.9 L Immature Gran % (Auto) 1.3 H Neut % (Auto) 89.5 H Lymph % (Auto) 2.6 L [place] % (Auto) 5.9 Eos % (Auto) 0.1 Baso % (Auto) 0.6 Lymph # (Auto) 0.5 L [place] # (Auto) 1.1 Eos # (Auto) 0.0 Baso # (Auto) 0.1 Abs Immat Gran (auto) 0.23 H Absolute Neuts (auto) 16.0 H Absolute Nucleated RBC 0.000 Nucleated RBC % (auto) 0.0 Anion Gap 21 H Estim Creat Clear Calc 15.1 Estimated GFR 13 Random Glucose 120 H Lactic Acid 0.6 Calcium 8.8 D Magnesium 4.0 H* Total Bilirubin 0.4 Direct Bilirubin 0.2 AST 17 ALT 23 Alkaline Phosphatase 91 Total Protein 6.6 Albumin 3.4 L Urine Color Urine Appearance Urine pH Ur Specific [place] Urine Protein Urine Glucose (UA) Urine Ketones Urine Blood Urine Nitrite Ur Leukocyte Esterase Urine RBC Urine WBC Ur Squamous Epith Cells Urine Bacteria Hyaline Casts Granular Casts C. difficile Tox B Gene POSITIVE A* C. difficile Toxin A&B Positive A* C. difficile Interpret SEE NOTE Influenza Type A (PCR) NEGATIVE Influenza Type B (PCR) NEGATIVE RSV RNA Qual (PCR) NEGATIVE SARS-CoV-2 RNA (RT-PCR) NEGATIVE 03/23/23 01:12 MCV MCH MCHC RDW Plt Count MPV Immature Gran % (Auto) Neut % (Auto) Lymph % (Auto) [place] % (Auto) Eos % (Auto) Baso % (Auto) Lymph # (Auto) [place] # (Auto) Eos # (Auto) Baso # (Auto) Abs Immat Gran (auto) Absolute Neuts (auto) Absolute Nucleated RBC Nucleated RBC % (auto) Anion Gap Estim Creat Clear Calc Estimated GFR Random Glucose Lactic Acid Calcium Magnesium Total Bilirubin Direct Bilirubin AST ALT Alkaline Phosphatase Total Protein Albumin Urine Color Dark Yellow Urine Appearance Cloudy Urine pH 5.5 Ur Specific [place] 1.010 Urine Protein 30 (1+) H Urine Glucose (UA) Negative Urine Ketones Negative Urine Blood Negative Urine Nitrite Negative Ur Leukocyte Esterase Negative Urine RBC 3-5 H Urine WBC 0-5 Ur Squamous Epith Cells 6-10 Urine Bacteria Trace Hyaline Casts 6-10 Granular Casts Present C. difficile Tox B Gene C. difficile Toxin A&B C. difficile Interpret Influenza Type A (PCR) Influenza Type B (PCR) RSV RNA Qual (PCR) SARS-CoV-2 RNA (RT-PCR) Imaging Radiologist's Impressions: Impressions Abdomen/Pelvis CT 03/23/23 00:24 IMPRESSION: There is diffuse moderate colonic thickening consistent with colitis. There is mild urinary bladder wall thickening. There is a 2 mm nonobstructing calculus lower pole right kidney. There is a 2 mm nonspecific nodule at the left lung base. Per the 2017 revised Fleischner Society guidelines, no routine follow up is necessarily required. There appears to be lower lung field emphysematous change. Fleischner guidelines were followed. Head CT 03/23/23 00:24 IMPRESSION: No acute intracranial pathology. Assessment and Plan (1) LAURO (acute kidney injury): Status: Acute (2) C. difficile colitis: Status: Acute Plan This is a 67-year-old female to male with pertinent history of seizures, transverse myelitis, mood disorder, chronic opioid use, restless leg syndrome, peripheral neuropathy who presents to the emergency department for evaluation of diarrhea. #. Sepsis due to severe C diff colitis: Will admit patient and continue IV crystalloid resuscitation. Lactic acid and blood culture obtained. Initiating fidaxomicin. Consulted Infectious Disease, appreciate assistance. #. Acute kidney injury, stage III likely prerenal: Continue to monitor creatinine and urine output. Avoid nephrotoxins. #. Hyponatremia, likely hypovolemic: Monitor with crystalloid resuscitation. Urine studies pending #. Restless leg syndrome. On ropinirole #. Mood disorder. Continue home mood stabilizers #. Seizure disorder. Continue antiepileptics and seizure precautions #. Chronic opioid use #. Peripheral neuropathy on gabapentin, adjust to kidney function Med rec pending DVT prophylaxis: Mechanical Full code Admit as inpatient and will require two night minimum hospital stay for treatment of severe C diff, monitoring of kidney function and serum sodium (as above), which is not possible in a lesser acute setting. Quality Stroke Does the patient have a stroke diagnosis?: No VTE Prior VTE?: No VTE Risk Level:: Medical - moderate - high VTE Device Contraindication: Treatment Not Indicated VTE Drug Contraindication: N/A - Med Ordered
[2023-03-23] MEDS: Lactated Ringers 1,000 ML 150 ML IVCONT (04:48)
[2023-03-23] MEDS: Fidaxomicin 200 MG TABLET PO (04:49)
[2023-03-23 04:50] VITALS: BP 105/61; PULSE 75; RESP 14; TEMP 36.5; O2SAT 96
[2023-03-23 05:09] LABS: Osmolality Urine 215 mosm/kg (373-1093)
[2023-03-23 05:11] LABS: Sodium Urine Random < 20.0 mmol/L
[2023-03-23 05:14] LABS: Creatinine Urine 50.77 mg/dL
[2023-03-23 05:31] VITALS: BP 112/62; PULSE 76; RESP 15; TEMP 36.6; O2SAT 95
--- NOTE | 2023-03-23 05:33 | MHC.EDTECH ---
Patient awake in bed ,vitals taken ,Patient Keyes empty 900 ml out put ,Patient drank sips of demetrio gely .
[2023-03-23 06:47] LABS: MANUAL DIFF FLAG NO
[2023-03-23 06:58] LABS: Basophils Absolute Auto 0.1 X10*3/uL (0.0-0.2); Basophils Percent Auto 0.6 % (0-2); Eosinophils Absolute Auto 0.1 X10*3/uL (0.0-0.4); Eosinophils Percent Auto 0.6 % (0-4); Hematocrit 35.7 % (42.0-52.0); Hemoglobin 11.3 g/dl (14.0-18.0); Imm Gran Abs Auto 0.21 X10*3/uL (0.00-0.03); Imm Gran Pct Auto 1.3 % (0.0-0.4); Lymphocytes Absolute Auto 0.6 X10*3/uL (1.2-4.9); Lymphocytes Percent Auto 3.7 % (20-40); Mean Corpuscular HGB Conc 31.7 g/dl (31.0-36.0); Mean Corpuscular Hemoglobin 23.7 pg (27.0-33.0); Monocytes Absolute Auto 1.1 X10*3/uL (0.1-1.2); Monocytes Percent Auto 6.7 % (2-11); Neutrophils Absolute Auto 14.1 x10*3/uL (2.0-8.3); Neutrophils Percent Auto 87.1 % (45-73); Platelet Count 614 X10*3/uL (160-400); Red Blood Count 4.76 X10*6/uL (4.60-5.80); Red Cell Distribution Width 15.3 % (11.0-16.0); White Blood Count 16.1 X10*3/uL (4.8-10.8)
[2023-03-23 07:53] LABS: Osmolality, Serum 303 mosm/kg (281-305)
[2023-03-23 08:04] LABS: Anion Gap 18 (12-20); Blood Urea Nitrogen 98 mg/dL (9-16); Calcium 8.2 mg/dL (8.4-10.2); Carbon Dioxide 16 mmol/L (22-29); Chloride 98 mmol/L (96-108); Creatinine Clr Calc Pharmacy 17.4; Estimated Glomerular Filt Rate 15; Glucose Random 87 mg/dL (60-115); Potassium 3.7 mmol/L (3.3-5.1); Sodium 128 mmol/L (135-145)
--- NOTE | 2023-03-23 08:12 | PC.NURSE ---
assumed care of pt at 0700. report taken from TEA Mehta. pt sleeping hillary in hospital bed. breakfast tray at bedside. rr even/unlabored. call ortega within pt reach. awaiting bed assignment. plan of care ongoing.
--- NOTE | 2023-03-23 08:15 | MHC.CM.PN ---
CM attempted to reach Patient by phone at his listed cell phone # ([phone]) but Patient's /Gilma answered instead. Patient lives in a house with his and he mostly uses a cane to assist with mobility, but at times, he also uses a walker and a w/c. 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 CM has initiated and will follow for dc planning. PCP is Dr. Radha Adan.
[2023-03-23 08:36] LABS: Iron 22 mcg/dL (45-160); Percent Iron Saturation 13 % (15-50); Total Iron Binding Capacity 174 mcg/dL (228-428); Unsaturated Iron Binding 152 ug/dL
[2023-03-23 08:56] LABS: Ferritin 241 ng/mL (20-250)
--- NOTE | 2023-03-23 09:09 | PC.NURSE ---
called pharmacy to bring pt's am meds.
--- NOTE | 2023-03-23 09:39 | PHA.MEDREC ---
Pharmacy Consult ? Medication Reconciliation Pharmacy has completed the medication reconciliation. spoke with patient to confirm medications. He reports getting his testosterone injection last week. He explains that he uses his OTC pain meds a few times per week. He reports taking the zonisamide once daily. Spoke with over the phone to confirm OTC medication strengths and dosages since patient was unsure.
--- NOTE | 2023-03-23 11:04 | HO.PM.IMPN ---
Subjective Subjective Date of Service: 03/23/23 Interval History: still with diarrhea Physical Exam Vital Signs: Vital Signs: Last Vital Signs Temp 97.9 F 03/23/23 05:31 Pulse 76 03/23/23 05:31 Resp 15 03/23/23 05:31 BP 112/62 03/23/23 05:31 Pulse Ox 95 03/23/23 05:31 O2 Del Method Room Air 03/23/23 05:31 BMI result Body Mass Index 25.1 General: AO X 3, no acute distress Resp: CTA bilateral, no accessory muscles used CVS: S1,S2,RRR GI: soft, non tender, non distended Neuro: motor grossly intact, alert Psych: appropriate affect, appropriate insight Objective Data Active Medications Acetaminophen (Acetaminophen 325 Mg Tablet) 650 mg PO Q6H PRN PRN Reason: Pain, Mild (Pain Scale 1-3) Fidaxomicin (Fidaxomicin 200 Mg Tablet) 200 mg PO BID [facility] Last Admin: 03/23/23 10:21 Dose: 200 mg Documented By: EMILY Melatonin (Melatonin 3 Mg Tablet) 6 mg PO BEDTIME PRN PRN Reason: Insomnia Ondansetron HCl (Ondansetron Hcl 4 Mg/2 Ml Vial) 4 mg IVPUSH Q8H PRN PRN Reason: Nausea and Vomiting Sodium Chloride (0.9 % Sodium Chloride Flush 3 Ml Syringe) 3 ml IVFLUSH QSHIFT [facility] Last Admin: 03/23/23 07:28 Dose: Not Given Documented By: EMILY Non-Admin Reason: Med Not Available Labs 03/23/23 05:22 03/23/23 05:22 Labs: Laboratory Results - last 24 hr 03/22/23 03/23/23 03/23/23 20:19 00:02 01:06 MCV 74.8 L MCH 24.2 L MCHC 32.3 RDW 15.3 Plt Count 603 H MPV 8.9 L Immature Gran % (Auto) 1.3 H Neut % (Auto) 89.5 H Lymph % (Auto) 2.6 L [place] % (Auto) 5.9 Eos % (Auto) 0.1 Baso % (Auto) 0.6 Lymph # (Auto) 0.5 L [place] # (Auto) 1.1 Eos # (Auto) 0.0 Baso # (Auto) 0.1 Abs Immat Gran (auto) 0.23 H Absolute Neuts (auto) 16.0 H Absolute Nucleated RBC 0.000 Nucleated RBC % (auto) 0.0 Anion Gap 21 H Estim Creat Clear Calc 15.1 Estimated GFR 13 Random Glucose 120 H Osmolality Lactic Acid 0.6 Calcium 8.8 D Magnesium 4.0 H* Iron TIBC % Saturation Unsat Iron Binding Ferritin Total Bilirubin 0.4 Direct Bilirubin 0.2 AST 17 ALT 23 Alkaline Phosphatase 91 Total Protein 6.6 Albumin 3.4 L Urine Color Urine Appearance Urine pH Ur Specific [place] Urine Protein Urine Glucose (UA) Urine Ketones Urine Blood Urine Nitrite Ur Leukocyte Esterase Urine RBC Urine WBC Ur Squamous Epith Cells Urine Bacteria Hyaline Casts Granular Casts Urine Osmolality Ur Random Sodium Urine Creatinine C. difficile Tox B Gene POSITIVE A* C. difficile Toxin A&B Positive A* C. difficile Interpret SEE NOTE Influenza Type A (PCR) NEGATIVE Influenza Type B (PCR) NEGATIVE RSV RNA Qual (PCR) NEGATIVE SARS-CoV-2 RNA (RT-PCR) NEGATIVE 03/23/23 03/23/23 03/23/23 01:12 04:50 05:22 MCV 75.0 L MCH 23.7 L MCHC 31.7 RDW 15.3 Plt Count 614 H MPV 9.0 L Immature Gran % (Auto) 1.3 H Neut % (Auto) 87.1 H Lymph % (Auto) 3.7 L [place] % (Auto) 6.7 Eos % (Auto) 0.6 Baso % (Auto) 0.6 Lymph # (Auto) 0.6 L [place] # (Auto) 1.1 Eos # (Auto) 0.1 Baso # (Auto) 0.1 Abs Immat Gran (auto) 0.21 H Absolute Neuts (auto) 14.1 H Absolute Nucleated RBC 0.000 Nucleated RBC % (auto) 0.0 Anion Gap 18 Estim Creat Clear Calc 17.4 Estimated GFR 15 Random Glucose 87 Osmolality 303 Lactic Acid Calcium 8.2 L D Magnesium Iron 22 L TIBC 174 L % Saturation 13 L Unsat Iron Binding 152 Ferritin 241 Total Bilirubin Direct Bilirubin AST ALT Alkaline Phosphatase Total Protein Albumin Urine Color Dark Yellow Urine Appearance Cloudy Urine pH 5.5 Ur Specific [place] 1.010 Urine Protein 30 (1+) H Urine Glucose (UA) Negative Urine Ketones Negative Urine Blood Negative Urine Nitrite Negative Ur Leukocyte Esterase Negative Urine RBC 3-5 H Urine WBC 0-5 Ur Squamous Epith Cells 6-10 Urine Bacteria Trace Hyaline Casts 6-10 Granular Casts Present Urine Osmolality 215 L Ur Random Sodium < 20.0 Urine Creatinine 50.77 C. difficile Tox B Gene C. difficile Toxin A&B C. difficile Interpret Influenza Type A (PCR) Influenza Type B (PCR) RSV RNA Qual (PCR) SARS-CoV-2 RNA (RT-PCR) Assessment and Plan (1) C. difficile colitis: Status: Acute Plan 67M PMH epilepsy, transverse myelitis, mood disorder, chronic opiate dependence, restless leg syndrome, peripheral neuropathy presented with weakness and diarrhea Sepsis due to Clostridium difficile colitis Continue fidaxomicin Id follow- up Acute kidney injury complicated by acute metabolic acidosis Due to diarrhea IV fluids, monitor epilepsy topamax Acute hyponatremia Due to diarrhea, monitor Leukocytosis and thrombocytosis pre dates C diff infection Should be monitored after resolution of C diff, possible Hematology eval if persistent Restless leg syndrome Ropinirole Mood disorder Cymbalta DVT prophylaxis-Lovenox Full code reason for continued hospitalization:[facility] Stroke Does the patient have a stroke diagnosis?: No VTE Prior VTE?: No VTE Risk Level:: Medical - moderate - high VTE Device Contraindication: Treatment Not Indicated VTE Drug Contraindication: N/A - Med Ordered
--- NOTE | 2023-03-23 11:33 | PC.NURSE ---
called pharmacy again for medication that was due at 0800.
--- NOTE | 2023-03-23 12:03 | PC.NURSE ---
pt incontinent of diarrhea. full bed change and hygiene given. pt with anal prolapse, covered with thin layer of what appears to be stool/diarrhea an strawberry red underneath, with blood. pt placed back on monitor and given water. awaiting bed assignment.
--- NOTE | 2023-03-23 13:50 | PC.NURSE ---
pt 0800 med finally brought down from pharmacy. t/w checked with pharmacist to make sure it's ok to give pt med so late. given ok. pt medicated per mar with zonegran. pt at bedside. pt provided with water.
--- NOTE | 2023-03-23 14:30 | PC.NURSE ---
admission report complete. pt awaiting transport.
[2023-03-23 15:37] VITALS: BMI 25.1
[2023-03-23 16:00] VITALS: BP 110/62; PULSE 77; RESP 18; TEMP 36.8; O2SAT 97
[2023-03-23 16:08] LABS: Adenovirus F 40/41 Not Detected (Not Detect.); Astrovirus Not Detected (Not Detect.); Campylobacter Not Detected (Not Detect.); Cryptosporidium Not Detected (Not Detect.); Cyclospora cayetanensis Not Detected (Not Detect.); E. coli EAEC Not Detected (Not Detect.); E. coli EPEC Not Detected (Not Detect.); E. coli ETEC Not Detected (Not Detect.); E. coli STEC Not Detected (Not Detect.); Entamoeba histolytica Not Detected (Not Detect.); Giardia lamblia Not Detected (Not Detect.); Norovirus GI/GII Not Detected (Not Detect.); Plesiomonas shigelloides Not Detected (Not Detect.); Rotavirus A Not Detected (Not Detect.); Salmonella Not Detected (Not Detect.); Sapovirus Not Detected (Not Detect.); Shigella sp./EIEC Not Detected (Not Detect.); Vibrio Not Detected (Not Detect.); Vibrio Cholerae Not Detected (Not Detect.); Yersinia enterocolitica Not Detected (Not Detect.)
[2023-03-23 20:00] VITALS: BP 105/58; PULSE 79; RESP 18; TEMP 36.3; O2SAT 97
[2023-03-24 04:00] VITALS: BP 105/55; PULSE 81; RESP 18; TEMP 37; O2SAT 96
[2023-03-24 06:24] LABS: Hematocrit 30.2 % (42.0-52.0); Hemoglobin 9.7 g/dl (14.0-18.0); Mean Corpuscular HGB Conc 32.1 g/dl (31.0-36.0); Mean Corpuscular Volume 74.6 fL (80.0-98.0); Mean Platelet Volume 8.9 fL (9.4-12.4); Platelet Count 680 X10*3/uL (160-400); Red Blood Count 4.05 X10*6/uL (4.60-5.80); Red Cell Distribution Width 15.2 % (11.0-16.0); White Blood Count 20.1 X10*3/uL (4.8-10.8)
[2023-03-24 06:30] LABS: Anion Gap 14 (12-20); Blood Urea Nitrogen 75 mg/dL (9-16); Calcium 7.6 mg/dL (8.4-10.2); Carbon Dioxide 16 mmol/L (22-29); Chloride 102 mmol/L (96-108); Creatinine Clr Calc Pharmacy 23.8; Estimated Glomerular Filt Rate 21; Glucose Fasting 94 mg/dL (60-99); Magnesium 3.4 mg/dL (1.6-2.6); Potassium 3.3 mmol/L (3.3-5.1); Sodium 129 mmol/L (135-145)
[2023-03-24 08:00] VITALS: BP 105/57; PULSE 84; RESP 18; TEMP 36.8; O2SAT 97
--- NOTE | 2023-03-24 08:53 | HO.PM.IMPN ---
Subjective Subjective Date of Service: 03/24/23 Interval History: still with diarrhea Physical Exam Vital Signs: Vital Signs: Last Vital Signs Temp 98.3 F 03/24/23 08:00 Pulse 84 03/24/23 08:00 Resp 18 03/24/23 08:00 BP 105/57 L 03/24/23 08:00 Pulse Ox 97 03/24/23 08:00 O2 Del Method Room Air 03/24/23 08:00 BMI result Body Mass Index 25.1 General: AO X 3, no acute distress Resp: CTA bilateral, no accessory muscles used CVS: S1,S2,RRR GI: soft, non tender, non distended Neuro: motor grossly intact, alert Psych: appropriate affect, appropriate insight Objective Data Active Medications Acetaminophen (Acetaminophen 325 Mg Tablet) 650 mg PO Q6H PRN PRN Reason: Pain, Mild (Pain Scale 1-3) Al Hydroxide/Mg Hydroxide (Magnesium Hydrox/Alum Hydrox 30 Ml Oral.Susp) 30 ml PO Q6H PRN PRN Reason: Heartburn Last Admin: 03/23/23 21:20 Dose: 30 ml Documented By: RIMA Duloxetine HCl (Duloxetine Hcl 60 Mg Capsule.Dr) 60 mg PO DAILY [facility] Last Admin: 03/24/23 08:03 Dose: 60 mg Documented By: PRABHAKAR Fidaxomicin (Fidaxomicin 200 Mg Tablet) 200 mg PO BID [facility] Last Admin: 03/24/23 08:02 Dose: 200 mg Documented By: PRABHAKAR Gabapentin (Gabapentin 600 Mg Tablet) 600 mg PO BEDTIME [facility] Last Admin: 03/23/23 20:17 Dose: 600 mg Documented By: RIMA Sodium Chloride (Ns) 1,000 mls @ 100 mls/hr IVCONT .Q10H [facility] Last Infusion: 03/24/23 08:05 Dose: 0 mls/hr Documented By: PRABHAKAR Metronidazole (Flagyl) 500 mg in 100 mls @ 100 mls/hr IV Q8H [facility] Last Admin: 03/24/23 08:01 Dose: 100 mls/hr Documented By: PRABHAKAR Lamotrigine (Lamotrigine 25 Mg Tablet) 25 mg PO DAILY [facility] Last Admin: 03/24/23 08:03 Dose: 25 mg Documented By: PRABHAKAR Lorazepam (Lorazepam 1 Mg Tablet) 1 mg PO BEDTIME PRN PRN Reason: Anxiety Last Admin: 03/23/23 20:17 Dose: 1 mg Documented By: RIMA Melatonin (Melatonin 3 Mg Tablet) 6 mg PO BEDTIME PRN PRN Reason: Insomnia Last Admin: 03/23/23 20:18 Dose: 6 mg Documented By: RIMA Ondansetron HCl (Ondansetron Hcl 4 Mg/2 Ml Vial) 4 mg IVPUSH Q8H PRN PRN Reason: Nausea and Vomiting Oxybutynin Chloride (Oxybutynin Chloride Er 5 Mg Tab.Er.24) 15 mg PO DAILY [facility] Last Admin: 03/24/23 08:02 Dose: 15 mg Documented By: PRABHAKAR Ropinirole HCl (Ropinirole Hcl 0.5 Mg Tablet) 0.5 mg PO BEDTIME [facility] Last Admin: 03/23/23 20:17 Dose: 0.5 mg Documented By: RIMA Sodium Bicarbonate (Sodium Bicarbonate 650 Mg Tablet) 650 mg PO TID [facility] Last Admin: 03/24/23 08:02 Dose: 650 mg Documented By: PRABHAKAR Sodium Chloride (0.9 % Sodium Chloride Flush 3 Ml Syringe) 3 ml IVFLUSH QSHIFT [facility] Last Admin: 03/24/23 08:03 Dose: Not Given Documented By: PRABHAKAR Non-Admin Reason: IV Running Tizanidine HCl (Tizanidine Hcl 4 Mg Tablet) 4 mg PO BEDTIME [facility] Last Admin: 03/23/23 20:17 Dose: 4 mg Documented By: RIMA Topiramate (Topiramate 25 Mg Tablet) 50 mg PO BID [facility] Last Admin: 03/24/23 08:02 Dose: 50 mg Documented By: PRABHAKAR Labs 03/24/23 05:41 03/24/23 05:41 Labs: Laboratory Results - last 24 hr 03/23/23 03/23/23 03/24/23 01:06 05:22 05:41 MCV 74.6 L MCH 24.0 L MCHC 32.1 RDW 15.2 Plt Count 680 H MPV 8.9 L Absolute Nucleated RBC 0.000 Nucleated RBC % (auto) 0.0 Anion Gap 14 Estim Creat Clear Calc 23.8 Estimated GFR 21 Fasting Glucose 94 Calcium 7.6 L D Magnesium 3.4 H Ferritin 241 Stl C. cayetanensis PCR Not Detected Stool Rotavirus A PCR Not Detected Stl Adenov F 40/41 PCR Not Detected Stool Astrovirus (PCR) Not Detected Stool Campylobacter PCR Not Detected Stool Cryptosporidium PCR Not Detected Stl Sh Tox Pr E STEC PCR Not Detected Stool E coli O157 PCR Not applicable Stl Enterotoxigenic E PCR Not Detected Stool EPEC (PCR) Not Detected Stool EAEC (PCR) Not Detected Stl E. histolytica PCR Not Detected Stool Giardia Lamblia PCR Not Detected Stl P. shigelloides PCR Not Detected Stool Salmonella PCR Not Detected Stool Sapovirus (PCR) Not Detected Stl Shigella/EIEC PCR Not Detected St Y.enterocolitica PCR Not Detected Stool Vibrio (PCR) Not Detected Stl Vibrio cholerae PCR Not Detected Stl Norovirus GI/GII PCR Not Detected Microbiology Microbiology Results: Microbiology 03/23/23 00:02 Blood Culture - Preliminary Blood - Venous No growth after 24 hours. 03/23/23 00:02 Blood Culture - Preliminary Blood - Venous No growth after 24 hours. Assessment and Plan (1) C. difficile colitis: Status: Acute Plan 67M PMH epilepsy, transverse myelitis, mood disorder, chronic opiate dependence, restless leg syndrome, peripheral neuropathy presented with weakness and diarrhea Sepsis due to Clostridium difficile colitis Continue fidaxomicin added iv flagyl Acute kidney injury complicated by acute metabolic acidosis Due to diarrhea IV fluids, monitor, added oral bicarb improving epilepsy topamax Acute hyponatremia Due to diarrhea, monitor Leukocytosis and thrombocytosis pre dates C diff infection Should be monitored after resolution of C diff, possible Hematology eval if persistent Restless leg syndrome Ropinirole Mood disorder Cymbalta DVT prophylaxis-Lovenox Full code reason for continued hospitalization:diarrhea, wil[place] Quality Stroke Does the patient have a stroke diagnosis?: No VTE Prior VTE?: No VTE Risk Level:: Medical - moderate - high VTE Device Contraindication: Treatment Not Indicated VTE Drug Contraindication: N/A - Med Ordered
[2023-03-24 15:32] VITALS: BP 100/60; PULSE 82; RESP 16; TEMP 36.7; O2SAT 98
--- NOTE | 2023-03-24 16:28 | PM.CNGS ---
History of Present Illness Consult details Consult date: 03/24/23 Requesting physician: Brady King Narrative: 68-year-old male patient presenting with a previous history of seizures, transverse myelitis, mood disorder, chronic opioid use, restless legs syndrome, peripheral neuropathy admitted to the hospitalist service on 03/23/2023 for C difficile colitis. He was previously treated for UTI with cephalexin in started having severe diarrhea with associated abdominal pain. Surgical consultation is requested for evaluation of rectal prolapse. He reports having a rectal prolapse for many years which normally is reducible but more recently has become more difficult to reduce. He was previously evaluated by surgery and decision made to hold off on any repair. He is now having multiple loose stools which seems to be aggravating the prolapse. He denies any significant increase in rectal pain at this time but does note some bleeding. Review of Systems Review of Systems: Yes all other systems are reviewed and are negative Constitutional: Constitutional: Reports body ache(s), Denies chills, Reports fatigue, Denies fever(s) and Reports lethargy Cardiovascular: Cardiovascular: Denies chest pain and Denies irregular heart rhythm Respiratory: Respiratory: Denies chest congestion, Denies cough and Denies wheezing Gastrointestinal: Gastrointestinal: Denies abdominal pain, Reports diarrhea, Denies nausea and Denies vomiting Endocrine: Endocrine: Reports fatigue Allergic/Immunologic: Allergic/Immunologic: Denies wheezing PMFSH Past Medical History Medical History Chronic pain syndrome Restless legs Arthritis Transverse myelitis Surgical History Surgical History History of surgery on wrist Social History Social History Household Members: Spouse Housing: House Do you presently have visiting nurse or other home services: No Alcohol intake: never Patient Tobacco Use Status: Former Tobacco user Tobacco use type: Cigarette Cigarettes Per Day: 20 Years Smoked: 35 e-Cigarette/Vaping Use: Never Used Substance Use Type: Marijuana service: No Current occupational status: disabled Current occupation: rt handed Meds Allergies Allergy/AdvReac Type Severity Reaction Status Date / Time No Known Allergies Allergy Verified 02/04/22 13:06 [No Known Allergies*] Active Medications: Current Medications Acetaminophen (Acetaminophen 325 Mg Tablet) 650 mg PO Q6H PRN PRN Reason: Pain, Mild (Pain Scale 1-3) Al Hydroxide/Mg Hydroxide (Magnesium Hydrox/Alum Hydrox 30 Ml Oral.Susp) 30 ml PO Q6H PRN PRN Reason: Heartburn Last Admin: 03/23/23 21:20 Dose: 30 ml Duloxetine HCl (Duloxetine Hcl 60 Mg Capsule.Dr) 60 mg PO DAILY [facility] Last Admin: 03/24/23 08:03 Dose: 60 mg Fidaxomicin (Fidaxomicin 200 Mg Tablet) 200 mg PO BID [facility] Last Admin: 03/24/23 08:02 Dose: 200 mg Gabapentin (Gabapentin 600 Mg Tablet) 600 mg PO BEDTIME [facility] Last Admin: 03/23/23 20:17 Dose: 600 mg Sodium Chloride (Ns) 1,000 mls @ 100 mls/hr IVCONT .Q10H [facility] Last Infusion: 03/24/23 09:14 Dose: 100 mls/hr Metronidazole (Flagyl) 500 mg in 100 mls @ 100 mls/hr IV Q8H [facility] Last Infusion: 03/24/23 16:07 Dose: Infused Lamotrigine (Lamotrigine 25 Mg Tablet) 25 mg PO DAILY [facility] Last Admin: 03/24/23 08:03 Dose: 25 mg Lorazepam (Lorazepam 1 Mg Tablet) 1 mg PO BEDTIME PRN PRN Reason: Anxiety Last Admin: 03/23/23 20:17 Dose: 1 mg Melatonin (Melatonin 3 Mg Tablet) 6 mg PO BEDTIME PRN PRN Reason: Insomnia Last Admin: 03/23/23 20:18 Dose: 6 mg Ondansetron HCl (Ondansetron Hcl 4 Mg/2 Ml Vial) 4 mg IVPUSH Q8H PRN PRN Reason: Nausea and Vomiting Oxybutynin Chloride (Oxybutynin Chloride Er 5 Mg Tab.Er.24) 15 mg PO DAILY [facility] Last Admin: 03/24/23 08:02 Dose: 15 mg Ropinirole HCl (Ropinirole Hcl 0.5 Mg Tablet) 0.5 mg PO BEDTIME [facility] Last Admin: 03/23/23 20:17 Dose: 0.5 mg Sodium Bicarbonate (Sodium Bicarbonate 650 Mg Tablet) 650 mg PO TID [facility] Last Admin: 03/24/23 15:00 Dose: 650 mg Sodium Chloride (0.9 % Sodium Chloride Flush 3 Ml Syringe) 3 ml IVFLUSH QSHIFT [facility] Last Admin: 03/24/23 15:00 Dose: Not Given Tizanidine HCl (Tizanidine Hcl 4 Mg Tablet) 4 mg PO BEDTIME [facility] Last Admin: 03/23/23 20:17 Dose: 4 mg Topiramate (Topiramate 25 Mg Tablet) 50 mg PO BID [facility] Last Admin: 03/24/23 08:02 Dose: 50 mg Home Medications Medication Instructions Recorded Confirmed Last Taken Type acetaminophen 500 mg tablet 500 mg PO Q6H PRN Pain 09/09/20 03/23/23 Unknown History (Tylenol Extra Strength) ascorbic acid (vitamin C) 1,000 mg 1 g PO DAILY 09/09/20 03/23/23 09/06/22 History tablet cholecalciferol (vitamin D3) 125 125 mcg PO DAILY 09/09/20 03/23/23 09/06/22 History mcg (5,000 unit) capsule duloxetine 60 mg capsule,delayed 60 mg PO DAILY 09/09/20 03/23/23 09/06/22 History release ferrous sulfate 325 mg (65 mg 325 mg PO Q OTHER DAY 09/09/20 03/23/23 09/06/22 History iron) tablet gabapentin 600 mg tablet 600 mg PO BEDTIME 09/09/20 03/23/23 09/06/22 History glucosamine HCl 500 mg tablet 1,500 mg PO DAILY 09/09/20 03/23/23 09/06/22 History ibuprofen 200 mg capsule 200 mg PO Q6H PRN Pain 09/09/20 03/23/23 Unknown History lorazepam 1 mg tablet 1 mg PO BEDTIME PRN Anxiety 09/09/20 03/23/23 Unknown History magnesium 250 mg tablet 500 mg PO DAILY 09/09/20 03/23/23 09/06/22 History oxybutynin chloride 15 mg 15 mg PO DAILY 09/09/20 03/23/23 09/06/22 History tablet,extended release 24 hr oxycodone-acetaminophen 5 mg-325 1 tab PO BID PRN Pain 09/09/20 03/23/23 Unknown History mg tablet potassium gluconate 595 mg (99 mg) 595 mg PO DAILY 09/09/20 03/23/23 09/06/22 History tablet ropinirole 0.5 mg tablet 0.5 mg PO BEDTIME 09/09/20 03/23/23 09/06/22 History tizanidine 4 mg capsule 4 mg PO BEDTIME 09/09/20 03/23/23 09/06/22 History topiramate 50 mg tablet 50 mg PO BID 09/09/20 03/23/23 09/06/22 History zonisamide 100 mg capsule 200 mg PO DAILY 09/09/20 03/23/23 09/06/22 History lidocaine 5 % topical patch 2 patch topical DAILY 11/19/21 03/23/23 09/06/22 History testosterone cypionate 200 mg/mL 100 mg IM Q2W 09/07/22 03/23/23 09/05/22 History intramuscular oil lamotrigine 25 mg tablet 25 mg PO QAM 03/23/23 03/23/23 Unknown History Physical Exam Vital Signs: Vital Signs: Last Vital Signs Temp 98.1 F 03/24/23 15:32 Pulse 82 03/24/23 15:32 Resp 16 03/24/23 15:32 BP 100/60 03/24/23 15:32 Pulse Ox 98 03/24/23 15:32 O2 Del Method Room Air 03/24/23 15:32 BMI result Body Mass Index 25.1 Const: General: no acute distress Nutritional Appearance: well nourished Orientation/consciousness: patient oriented x3 Limitations: no limitations Resp: Effort & Inspection: normal respiratory effort, no audible wheezes, no cough and no respiratory distress GI: Other: Weak anal sphincter muscles with large rectal prolapse as noted below. Mucosa is ulcerated with bleeding. Findings suggestive of chronic rectal prolapse. Profuse loose stool passing through the prolapsed rectum. Inspection: Yes normal to inspection Palpation (GI): Soft to palpation, nontender, no guarding and not rigid Rectal Exam - Male: Yes Rectal prolapse (Large rectal prolapse which is partially reducible would quickly returns. ) Neuro: General: patient oriented x3 Extrem: General: Yes normal to inspection Results Labs 03/24/23 05:41 03/24/23 05:41 Labs: Abnormal lab results 03/24/23 Range/Units 05:41 WBC 20.1 H (4.8-10.8) X10*3/uL RBC 4.05 L (4.60-5.80) X10*6/uL Hgb 9.7 L (14.0-18.0) g/dl Hct 30.2 L (42.0-52.0) % MCV 74.6 L (80.0-98.0) fL MCH 24.0 L (27.0-33.0) pg Plt Count 680 H (160-400) X10*3/uL MPV 8.9 L (9.4-12.4) fL Sodium 129 L (135-145) mmol/L Carbon Dioxide 16 L (22-29) mmol/L BUN 75 H (9-16) mg/dL Creatinine 2.95 H (0.5-1.4) mg/dL Calcium 7.6 L D (8.4-10.2) mg/dL Magnesium 3.4 H (1.6-2.6) mg/dL Short CBC 03/24/23 Range/Units 05:41 WBC 20.1 H (4.8-10.8) X10*3/uL Hgb 9.7 L (14.0-18.0) g/dl Hct 30.2 L (42.0-52.0) % Plt Count 680 H (160-400) X10*3/uL BMP 03/24/23 05:41 Sodium 129 L Potassium 3.3 Chloride 102 Carbon Dioxide 16 L BUN 75 H Creatinine 2.95 H Calcium 7.6 L D Urine 03/23/23 Range/Units 01:12 Urine Color Dark Yellow Urine Appearance Cloudy Urine pH 5.5 (5.0-9.0) Ur Specific [place] 1.010 (1.005-1.025) Urine Protein 30 (1+) H (Neg-Trace) mg/dL Urine Glucose (UA) Negative (Negative) mg/dL All other labs normal. Assessment and Plan (1) Rectal prolapse: Status: Acute Plan 68-year-old male patient with severe chronic rectal prolapse which is acutely increased in size due to C difficile colitis with profuse diarrhea. Options for repair are limited at this time due to the C difficile colitis and diarrhea but he ultimately will require rectopexy possibly with sigmoid resection once the colitis has resolved. I will monitor the patient is progress during his hospitalization and make further recommendations as necessary. Procedures Date of Service Date of Service: 03/24/23
[2023-03-24 20:00] VITALS: BP 112/68; PULSE 70; RESP 16; TEMP 36.3; O2SAT 94
[2023-03-25 04:00] VITALS: BP 110/59; PULSE 75; RESP 16; TEMP 36.8; O2SAT 94
[2023-03-25 07:54] VITALS: BP 106/56; PULSE 90; RESP 20; TEMP 37.2; O2SAT 96
--- NOTE | 2023-03-25 09:58 | HO.PM.IMPN ---
Subjective Subjective Date of Service: 03/25/23 Interval History: a bit better Physical Exam Vital Signs: Vital Signs: Last Vital Signs Temp 99.0 F 03/25/23 07:54 Pulse 90 03/25/23 07:54 Resp 20 03/25/23 07:54 BP 106/56 L 03/25/23 07:54 Pulse Ox 96 03/25/23 07:54 O2 Del Method Room Air 03/25/23 07:54 BMI result Body Mass Index 25.1 Const: General: no acute distress Nutritional Appearance: well nourished Orientation/consciousness: patient oriented x3 Limitations: no limitations Resp: Effort & Inspection: normal respiratory effort, no audible wheezes, no cough and no respiratory distress GI: Other: Weak anal sphincter muscles with large rectal prolapse as noted below. Mucosa is ulcerated with bleeding. Findings suggestive of chronic rectal prolapse. Profuse loose stool passing through the prolapsed rectum. Inspection: Yes normal to inspection Palpation (GI): Soft to palpation, nontender, no guarding and not rigid Rectal Exam - Male: Yes Rectal prolapse (Large rectal prolapse which is partially reducible would quickly returns. ) Neuro: General: patient oriented x3 Extrem: General: Yes normal to inspection Objective Data Active Medications Acetaminophen (Acetaminophen 325 Mg Tablet) 650 mg PO Q6H PRN PRN Reason: Pain, Mild (Pain Scale 1-3) Al Hydroxide/Mg Hydroxide (Magnesium Hydrox/Alum Hydrox 30 Ml Oral.Susp) 30 ml PO Q6H PRN PRN Reason: Heartburn Last Admin: 03/23/23 21:20 Dose: 30 ml Documented By: RIMA Duloxetine HCl (Duloxetine Hcl 60 Mg Capsule.) 60 mg PO DAILY [facility] Last Admin: 03/25/23 08:18 Dose: 60 mg Documented By: ARCHANA Fidaxomicin (Fidaxomicin 200 Mg Tablet) 200 mg PO BID [facility] Last Admin: 03/25/23 08:19 Dose: 200 mg Documented By: ARCHANA Gabapentin (Gabapentin 600 Mg Tablet) 600 mg PO BEDTIME [facility] Last Admin: 03/24/23 19:53 Dose: 600 mg Documented By: SAV Sodium Chloride (Ns) 1,000 mls @ 100 mls/hr IVCONT .Q10H [facility] Last Admin: 03/24/23 23:44 Dose: 100 mls/hr Documented By: LIGIA Metronidazole (Flagyl) 500 mg in 100 mls @ 100 mls/hr IV Q8H [facility] Last Admin: 03/25/23 08:15 Dose: 100 mls/hr Documented By: ARCHANA Lamotrigine (Lamotrigine 25 Mg Tablet) 25 mg PO DAILY [facility] Last Admin: 03/25/23 08:18 Dose: 25 mg Documented By: ARCHANA Lorazepam (Lorazepam 1 Mg Tablet) 1 mg PO BEDTIME PRN PRN Reason: Anxiety Last Admin: 03/23/23 20:17 Dose: 1 mg Documented By: RIMA Melatonin (Melatonin 3 Mg Tablet) 6 mg PO BEDTIME PRN PRN Reason: Insomnia Last Admin: 03/23/23 20:18 Dose: 6 mg Documented By: RIMA Ondansetron HCl (Ondansetron Hcl 4 Mg/2 Ml Vial) 4 mg IVPUSH Q8H PRN PRN Reason: Nausea and Vomiting Oxybutynin Chloride (Oxybutynin Chloride Er 5 Mg Tab.Er.24) 15 mg PO DAILY [facility] Last Admin: 03/25/23 08:17 Dose: 15 mg Documented By: ARCHANA Ropinirole HCl (Ropinirole Hcl 0.5 Mg Tablet) 0.5 mg PO BEDTIME [facility] Last Admin: 03/24/23 19:53 Dose: 0.5 mg Documented By: SAV Sodium Bicarbonate (Sodium Bicarbonate 650 Mg Tablet) 650 mg PO TID [facility] Last Admin: 03/25/23 08:18 Dose: 650 mg Documented By: ARCHANA Sodium Chloride (0.9 % Sodium Chloride Flush 3 Ml Syringe) 3 ml IVFLUSH QSHIFT [facility] Last Admin: 03/25/23 08:16 Dose: Not Given Documented By: ARCHANA Non-Admin Reason: IV Running Tizanidine HCl (Tizanidine Hcl 4 Mg Tablet) 4 mg PO BEDTIME [facility] Last Admin: 03/24/23 19:52 Dose: 4 mg Documented By: SAV Topiramate (Topiramate 25 Mg Tablet) 50 mg PO BID [facility] Last Admin: 03/25/23 08:18 Dose: 50 mg Documented By: ARCHANA Labs 03/25/23 05:48 03/25/23 05:48 Labs: Laboratory Results - last 24 hr 03/25/23 05:48 MCV 75.5 L MCH 23.8 L MCHC 31.5 RDW 15.3 Plt Count 727 H MPV 8.5 L Absolute Nucleated RBC 0.000 Nucleated RBC % (auto) 0.0 Anion Gap 13 Estim Creat Clear Calc 34.6 Estimated GFR 33 Fasting Glucose 92 Calcium 7.6 L Microbiology Microbiology Results: Microbiology 03/23/23 00:02 Blood Culture - Preliminary Blood - Venous No growth after 48 hours. 03/23/23 00:02 Blood Culture - Preliminary Blood - Venous No growth after 48 hours. Assessment and Plan (1) C. difficile colitis: Status: Acute Plan 67M PMH epilepsy, transverse myelitis, mood disorder, chronic opiate dependence, restless leg syndrome, peripheral neuropathy presented with weakness and diarrhea Sepsis due to Clostridium difficile colitis Continue fidaxomicin iv flagyl Acute kidney injury complicated by acute metabolic acidosis Due to diarrhea IV fluids, monitor, added oral bicarb improving rectal prolapse surgery appreciated, outpatient follow up acute hpyokalemia replace and monitor epilepsy topamax Acute hyponatremia Due to diarrhea, monitor Leukocytosis and thrombocytosis pre dates C diff infection Should be monitored after resolution of C diff, possible Hematology eval if persistent Restless leg syndrome Ropinirole Mood disorder Cymbalta DVT prophylaxis-Lovenox Full code reason for continued hospitalization:diarrhea, wilman Quality Stroke Does the patient have a stroke diagnosis?: No VTE Prior VTE?: No VTE Risk Level:: Medical - moderate - high VTE Device Contraindication: Treatment Not Indicated VTE Drug Contraindication: N/A - Med Ordered
[2023-03-25 15:35] VITALS: BP 103/54; PULSE 86; RESP 16; TEMP 36.7; O2SAT 97
[2023-03-25 19:02] VITALS: BP 116/51; PULSE 85; RESP 16; TEMP 36.3; O2SAT 97
--- NOTE | 2023-03-26 00:07 | W.PM.IDCN ---
History of Present Illness Data of Consult Service Date: 03/25/23 Requesting physician: Brady King Primary Care Provider: Radha Adan MD HPI Reason for consult: diarrhea,Cdiff He presents with loose stools On 03/11 rx concern over UTI and given Keflex. He said had diarrhea ,watery after; Review of Systems Review of Systems: Yes all other systems are reviewed and are negative PMFSH Past Medical History Medical History Chronic pain syndrome Restless legs Arthritis Transverse myelitis Surgical History Surgical History History of surgery on wrist Social History Social History Household Members: Spouse Housing: House Do you presently have visiting nurse or other home services: No Alcohol intake: never Patient Tobacco Use Status: Former Tobacco user Tobacco use type: Cigarette Cigarettes Per Day: 20 Years Smoked: 35 e-Cigarette/Vaping Use: Never Used Substance Use Type: Marijuana service: No Current occupational status: disabled Current occupation: rt handed Meds Allergies Allergy/AdvReac Type Severity Reaction Status Date / Time No Known Allergies Allergy Verified 02/04/22 13:06 [No Known Allergies*] Active Medications: Current Medications Acetaminophen (Acetaminophen 325 Mg Tablet) 650 mg PO Q6H PRN PRN Reason: Pain, Mild (Pain Scale 1-3) Last Admin: 03/25/23 22:12 Dose: 650 mg Al Hydroxide/Mg Hydroxide (Magnesium Hydrox/Alum Hydrox 30 Ml Oral.Susp) 30 ml PO Q6H PRN PRN Reason: Heartburn Last Admin: 03/23/23 21:20 Dose: 30 ml Duloxetine HCl (Duloxetine Hcl 60 Mg Capsule.Dr) 60 mg PO DAILY [facility] Last Admin: 03/25/23 08:18 Dose: 60 mg Fidaxomicin (Fidaxomicin 200 Mg Tablet) 200 mg PO BID [facility] Last Admin: 03/25/23 22:10 Dose: 200 mg Gabapentin (Gabapentin 600 Mg Tablet) 600 mg PO BEDTIME [facility] Last Admin: 03/25/23 22:10 Dose: 600 mg Sodium Chloride (Ns) 1,000 mls @ 100 mls/hr IVCONT .Q10H [facility] Last Admin: 03/25/23 22:13 Dose: 100 mls/hr Metronidazole (Flagyl) 500 mg in 100 mls @ 100 mls/hr IV Q8H [facility] Last Admin: 03/25/23 22:51 Dose: 100 mls/hr Lamotrigine (Lamotrigine 25 Mg Tablet) 25 mg PO DAILY [facility] Last Admin: 03/25/23 08:18 Dose: 25 mg Lorazepam (Lorazepam 1 Mg Tablet) 1 mg PO BEDTIME PRN PRN Reason: Anxiety Last Admin: 03/25/23 22:10 Dose: 1 mg Melatonin (Melatonin 3 Mg Tablet) 6 mg PO BEDTIME PRN PRN Reason: Insomnia Last Admin: 03/23/23 20:18 Dose: 6 mg Ondansetron HCl (Ondansetron Hcl 4 Mg/2 Ml Vial) 4 mg IVPUSH Q8H PRN PRN Reason: Nausea and Vomiting Oxybutynin Chloride (Oxybutynin Chloride Er 5 Mg Tab.Er.24) 15 mg PO DAILY [facility] Last Admin: 03/25/23 08:17 Dose: 15 mg Ropinirole HCl (Ropinirole Hcl 0.5 Mg Tablet) 0.5 mg PO BEDTIME [facility] Last Admin: 03/25/23 22:10 Dose: 0.5 mg Sodium Bicarbonate (Sodium Bicarbonate 650 Mg Tablet) 650 mg PO TID [facility] Last Admin: 03/25/23 22:10 Dose: 650 mg Sodium Chloride (0.9 % Sodium Chloride Flush 3 Ml Syringe) 3 ml IVFLUSH QSHIFT [facility] Last Admin: 03/25/23 15:28 Dose: Not Given Tizanidine HCl (Tizanidine Hcl 4 Mg Tablet) 4 mg PO BEDTIME [facility] Last Admin: 03/25/23 22:25 Dose: 4 mg Topiramate (Topiramate 25 Mg Tablet) 50 mg PO BID [facility] Last Admin: 03/25/23 22:13 Dose: 50 mg Home Medications Medication Instructions Recorded Confirmed Last Taken Type acetaminophen 500 mg tablet 500 mg PO Q6H PRN Pain 09/09/20 03/23/23 Unknown History (Tylenol Extra Strength) ascorbic acid (vitamin C) 1,000 mg 1 g PO DAILY 09/09/20 03/23/23 09/06/22 History tablet cholecalciferol (vitamin D3) 125 125 mcg PO DAILY 09/09/20 03/23/2323 History mcg (5,000 unit) capsule duloxetine 60 mg capsule,delayed 60 mg PO DAILY 09/09/20 03/23/23 09/06/22 History release ferrous sulfate 325 mg (65 mg 325 mg PO Q OTHER DAY 09/09/20 03/23/23 09/06/22 History iron) tablet gabapentin 600 mg tablet 600 mg PO BEDTIME 09/09/20 03/23/23 09/06/22 History glucosamine HCl 500 mg tablet 1,500 mg PO DAILY 09/09/20 03/23/23 09/06/22 History ibuprofen 200 mg capsule 200 mg PO Q6H PRN Pain 09/09/20 03/23/23 Unknown History lorazepam 1 mg tablet 1 mg PO BEDTIME PRN Anxiety 09/09/20 03/23/23 Unknown History magnesium 250 mg tablet 500 mg PO DAILY 09/09/20 03/23/23 09/06/22 History oxybutynin chloride 15 mg 15 mg PO DAILY 09/09/20 03/23/23 09/06/22 History tablet,extended release 24 hr oxycodone-acetaminophen 5 mg-325 1 tab PO BID PRN Pain 09/09/20 03/23/23 Unknown History mg tablet potassium gluconate 595 mg (99 mg) 595 mg PO DAILY 09/09/20 03/23/23 09/06/22 History tablet ropinirole 0.5 mg tablet 0.5 mg PO BEDTIME 09/09/20 03/23/23 09/06/22 History tizanidine 4 mg capsule 4 mg PO BEDTIME 09/09/20 03/23/23 09/06/22 History topiramate 50 mg tablet 50 mg PO BID 09/09/20 03/23/23 09/06/22 History zonisamide 100 mg capsule 200 mg PO DAILY 09/09/20 03/23/23 09/06/22 History lidocaine 5 % topical patch 2 patch topical DAILY 11/19/21 03/23/23 09/06/22 History testosterone cypionate 200 mg/mL 100 mg IM Q2W 09/07/22 03/23/23 09/05/22 History intramuscular oil lamotrigine 25 mg tablet 25 mg PO QAM 03/23/23 03/23/23 Unknown History Physical Exam Vital Signs: Vital Signs: Last Vital Signs Temp 97.4 F 03/25/23 19:02 Pulse 85 03/25/23 19:02 Resp 16 03/25/23 19:02 BP 116/51 L 03/25/23 19:02 Pulse Ox 97 03/25/23 19:02 O2 Del Method Room Air 03/25/23 19:02 BMI result Body Mass Index 25.1 Const: General: cooperative HEENT: Head: Yes normal to inspection Face and sinus: Yes normal facial exam Mouth: Normal oral and palatal mucosa present Teeth and gingiva: dentition normal Eyes: General: appearance normal, both eyes and all related structures Pupils: Equal, round and reactive pupils present Resp: Effort & Inspection: normal respiratory effort Cardio: Rate: regular rate Rhythm: regular rhythm GI: Palpation (GI): Soft to palpation and nontender : General: Yes no CVA tenderness Back/Spine/Pelvis: Back: no CVA tenderness Skin: General skin exam: no rashes or lesions noted Neuro: General: moves all extremities Cranial nerves: Yes Equal, round and reactive pupils present Extrem: General: Yes normal to inspection Psych: Appearance: grossly normal Results Labs 03/25/23 05:48 03/25/23 05:48 Labs: Short CBC 03/25/23 Range/Units 05:48 WBC 21.2 H (4.8-10.8) X10*3/uL Hgb 9.9 L (14.0-18.0) g/dl Hct 31.4 L (42.0-52.0) % Plt Count 727 H (160-400) X10*3/uL BMP 03/25/23 05:48 Sodium 131 L Potassium 2.9 L Chloride 104 Carbon Dioxide 17 L BUN 48 H Creatinine 2.03 H Calcium 7.6 L Microbiology Microbiology Results: Microbiology 03/23/23 00:02 Blood - Venous Blood Culture - Preliminary No growth after 48 hours. 03/23/23 00:02 Blood - Venous Blood Culture - Preliminary No growth after 48 hours. Assessment and Plan (1) C. difficile colitis: Status: Acute He reports having had Cdiff before. Would give po Vancomycin 125 mg qid 10 daysand flagyl five days
[2023-03-26 04:00] VITALS: BP 109/58; PULSE 81; RESP 16; TEMP 37.1; O2SAT 97
[2023-03-26 08:00] VITALS: BP 105/60; PULSE 90; RESP 16; TEMP 36.1; O2SAT 97
--- NOTE | 2023-03-26 09:20 | PM.DS ---
DS: Providers Provider Date of Service: 03/26/23 Date of admission: 03/23/23 03:09 Primary care physician: Radha Adan MD Consults: 03/23/23 03:07 Consult to Infectious Diseases Routine Consulting Provider: Anna Herzog Reason for consultation: cdiff 03/24/23 15:29 Consult to General Surgery Routine Consulting Provider: [facility] [place] [facility] Reason for consultation: rectal prolapse DS: Diagnosis Discharge Diagnosis (1) C. difficile colitis: Status: Acute DS: Summary Hospital Course Hospital Course: from initial hpi: 67-M with pertinent history of seizures, transverse myelitis, mood disorder, chronic opioid use, restless leg syndrome, peripheral neuropathy who presents to the emergency department for evaluation of diarrhea. Patient was seen in the ER about 10 days prior to presentation and was discharged on cephalexin for UTI. Patient states he started having multiple episodes of diarrhea after taking cephalexin. This has been ongoing for the last 7 days. ?blood in stools. Has associated generalized lower abdominal discomfort. No fever, chills, chest discomfort, palpitations, shortness of breath, changes in urinary habits. In the emergency department, patient is found to be septic and tested positive for C diff gene and toxin hospital course: Patient was admitted for sepsis due to C diff colitis. Was treated with fidaxomicin and IV Flagyl. Diarrhea has improved. Sepsis resolved. He will continue on 10 more days of p.o. vancomycin. For acute kidney injury complicated by acute metabolic acidosis due to diarrhea was treated with IV fluids and oral bicarb with significant improvement. Should be continued to be monitored as outpatient. For rectal prolapse was seen by surgery recommended outpatient follow-up, will likely need surgery once colitis resolved. Patient had acute hypokalemia which was replaced. For epilepsy was continued on Topamax. Acute hyponatremia was due to diarrhea and improved. Patient noted to have chronic leukocytosis and thrombocytosis, this should be monitored after resolution of C diff. for restless legs syndrome was continue ropinirole. For mood disorder was continued on Cymbalta. Patient is feeling better will be discharged home. Time Attestation Discharge coordination time: Greater than 30 minutes Quality: Safe Use of Opioids Does Pt have an Active Cancer Diagnosis on the Problem List?: No Quality: Stroke Does the patient have a stroke diagnosis?: No Physical Exam Vital Signs: Vital Signs: Last Vital Signs Temp 97 F 03/26/23 08:00 Pulse 90 03/26/23 08:00 Resp 16 03/26/23 08:00 BP 105/60 03/26/23 08:00 Pulse Ox 97 03/26/23 08:00 O2 Del Method Room Air 03/26/23 08:00 BMI result Body Mass Index 25.1 Const: General: cooperative HEENT: Head: Yes normal to inspection Face and sinus: Yes normal facial exam Mouth: Normal oral and palatal mucosa present Teeth and gingiva: dentition normal Eyes: General: appearance normal, both eyes and all related structures Pupils: Equal, round and reactive pupils present Resp: Effort & Inspection: normal respiratory effort Cardio: Rate: regular rate Rhythm: regular rhythm GI: Palpation (GI): Soft to palpation and nontender : General: Yes no CVA tenderness Back/Spine/Pelvis: Back: no CVA tenderness Skin: General skin exam: no rashes or lesions noted Neuro: General: moves all extremities Cranial nerves: Yes Equal, round and reactive pupils present Extrem: General: Yes normal to inspection Psych: Appearance: grossly normal DS: Data Data Completed and Pending Labs on day of discharge: Laboratory Results - last 24 hr 03/26/23 06:15 WBC 22.5 H RBC 4.06 L Hgb 9.9 L Hct 31.2 L MCV 76.8 L MCH 24.4 L MCHC 31.7 RDW 15.6 Plt Count 778 H MPV 8.7 L Absolute Nucleated RBC 0.000 Nucleated RBC % (auto) 0.0 Sodium 136 Potassium 3.2 L Chloride 109 H Carbon Dioxide 19 L Anion Gap 11 L BUN 31 H Creatinine 1.59 H Estim Creat Clear Calc 44.2 Estimated GFR 44 Fasting Glucose 82 Calcium 7.7 L Preliminary micro results at discharge 03/23/23 00:02 Blood Culture - Preliminary Blood - Venous No growth after 48 hours. 03/23/23 00:02 Blood Culture - Preliminary Blood - Venous No growth after 48 hours. Discharge Plan Discharge Anticipated Discharge Date/Time: 03/26/23 09:13 Patient Disposition: Home, Self-Care Discharge Diagnosis: cdif wilman Referrals: Radha Adan MD [Primary Care Provider] - 1 Week Sujit Roman MD [Physician] - 2 Weeks (Rectal prolapse ) Discharge Medications: New vancomycin 125 mg capsule 125 mg PO QID Qty: 40 0RF sodium bicarbonate 650 mg Tablet 650 mg PO TID Qty: 90 0RF Continued lidocaine 5 % adhesive patch,medicated 2 patch topical DAILY testosterone cypionate 200 mg/mL oil 100 mg IM Q2W lamotrigine 25 mg tablet 25 mg PO QAM zonisamide 100 mg capsule 200 mg PO DAILY topiramate 50 mg tablet 50 mg PO BID duloxetine 60 mg capsule,delayed release(DR/EC) 60 mg PO DAILY oxybutynin chloride 15 mg tablet extended release 24 hr 15 mg PO DAILY oxycodone-acetaminophen 5-325 mg tablet 1 tab PO BID PRN (Reason: Pain) gabapentin 600 mg tablet 600 mg PO BEDTIME ropinirole 0.5 mg tablet 0.5 mg PO BEDTIME Rx Instructions: administer 1-3 hours before bedtime tizanidine 4 mg capsule 4 mg PO BEDTIME lorazepam 1 mg tablet 1 mg PO BEDTIME PRN (Reason: Anxiety) magnesium 250 mg tablet 500 mg PO DAILY potassium gluconate 595 mg (99 mg) tablet 595 mg PO DAILY ferrous sulfate 325 mg (65 mg iron) tablet 325 mg PO Q OTHER DAY cholecalciferol (vitamin D3) 125 mcg (5,000 unit) capsule 125 mcg PO DAILY ascorbic acid (vitamin C) 1,000 mg tablet 1 g PO DAILY glucosamine HCl 500 mg tablet 1,500 mg PO DAILY Rx Instructions: administer with meals acetaminophen [Tylenol Extra Strength] 500 mg tablet 500 mg PO Q6H PRN (Reason: Pain) Discontinued naproxen 500 mg tablet 500 mg PO BID PRN (Reason: pain) Qty: 20 0RF ibuprofen 200 mg capsule 200 mg PO Q6H PRN (Reason: Pain) Discharge Orders: Discharge Order (Routine); Ordered 03/26/23 Ordered By: Brady King Diet: Advance to usual diet Activity on Discharge: As tolerated Stand Alone Forms: Patient Portal Discharge page Care Plan Goals: recovery Health Concerns: cdif, wilman, rectal prolapse Plan of Treatment: 10 more days po rhea vallejo up suregery for rectal prolapse Assessment: see above
--- NOTE | 2023-03-26 12:10 | MHC.CM.PN ---
PT TO [place] HOME TODAY WITH NO SERVICES PT TO ARRANGE TRANSPORT
== END 2023-03-26 12:34 | disposition home or self-care (01) | DRG 720 ==
LOC: HO.ED 03-23 01:21 → HO.EDOVER 03-23 03:20 → HO.S3 03-23 14:00
PROVIDERS: Nurse Practitioner Family; Physician Assistant Medical; Admitting Provider Student in an Organized Health Care Education/Training Program; Emergency Provider Emergency Medicine Emergency Medical Services; PCP Family Medicine; Visit Provider Internal Medicine
DX: A41.4 Sepsis due to anaerobes (principal); N17.9 Acute kidney failure, unspecified; E87.21 Acute metabolic acidosis; A04.72 Enterocolitis due to Clostridium difficile, not specified as recurrent; E87.1 Hypo-osmolality and hyponatremia; G62.9 Polyneuropathy, unspecified; F11.20 Opioid dependence, uncomplicated; K62.3 Rectal prolapse; G40.909 Epilepsy, unspecified, not intractable, without status epilepticus; F39 Unspecified mood [affective] disorder; D75.839 Thrombocytosis, unspecified; E86.1 Hypovolemia; G25.81 Restless legs syndrome; Z20.822 Contact with and (suspected) exposure to COVID-19; Z87.891 Personal history of nicotine dependence; Z79.899 Other long term (current) drug therapy
CPT/HCPCS: 0241U; 36415; 70450; 74176; 80048; 80076; 81001; 82570; 82728; 83540; 83605; 83735; 83930; 83935; 84300; 85025; 85027; 87040; 87324; 87493; 87507; 93005; 99285; C1758; J1836; J7120

== ENCOUNTER → 2023-03-23 00:02 | Outpatient (BNV) | payer BC, SELFPAY | PROVIDERS: Admitting Provider Student in an Organized Health Care Education/Training Program; Emergency Provider Emergency Medicine Emergency Medical Services; PCP Family Medicine; Visit Provider Internal Medicine Cardiovascular Disease | DX: R94.31 Abnormal electrocardiogram [ECG] [EKG] (principal) | CPT/HCPCS: 93010 ==

== ENCOUNTER → 2023-03-23 03:09 | Outpatient (BNV) | payer BC, SELFPAY | PROVIDERS: Admitting Provider Student in an Organized Health Care Education/Training Program; Emergency Provider Emergency Medicine Emergency Medical Services; PCP Family Medicine; Visit Provider Student in an Organized Health Care Education/Training Program | DX: A04.72 Enterocolitis due to Clostridium difficile, not specified as recurrent (principal) | CPT/HCPCS: 99223; 99233; 99239; 99499 ==

== ENCOUNTER → 2023-03-23 03:09 | Outpatient (BNV) | payer BC, SELFPAY | PROVIDERS: Admitting Provider Student in an Organized Health Care Education/Training Program; Emergency Provider Emergency Medicine Emergency Medical Services; PCP Family Medicine; Visit Provider Surgery | DX: K62.3 Rectal prolapse (principal) | CPT/HCPCS: 99222 ==

== ENCOUNTER → 2023-03-23 03:09 | Outpatient (BNV) | payer BC, SELFPAY | PROVIDERS: Admitting Provider Student in an Organized Health Care Education/Training Program; Emergency Provider Emergency Medicine Emergency Medical Services; PCP Family Medicine; Visit Provider Internal Medicine | DX: A04.72 Enterocolitis due to Clostridium difficile, not specified as recurrent (principal) | CPT/HCPCS: 99222; 99232 ==

== ENCOUNTER 2023-03-28 10:21 | Outpatient (REF) | payer BC, SELFPAY | END 2023-03-28 10:22 | disposition home or self-care (01) | LOC: HO.HHCL 10:21 | PROVIDERS: Visit Provider Family Medicine | DX: A04.72 Enterocolitis due to Clostridium difficile, not specified as recurrent (principal) | CPT/HCPCS: 36415; 80048; 85025 ==

== ENCOUNTER 2023-04-01 15:09 | Outpatient (REF) | payer BC, SELFPAY ==
[2023-04-01 16:43] LABS: Potassium 4.3 mmol/L (3.3-5.1)
== END 2023-04-01 15:10 | disposition home or self-care (01) ==
LOC: HO.HHCL 15:09
PROVIDERS: Visit Provider Family Medicine
DX: E87.6 Hypokalemia (principal)
CPT/HCPCS: 36415; 83735; 84132

== ENCOUNTER 2023-06-17 12:05 | Outpatient (REF) | payer BC, SELFPAY ==
[2023-06-17 13:23] LABS: Appearance Urine Clear; Color Urine Dark Yellow; Glucose Urine UA Negative (Negative); Leukocyte Esterase Urine Negative (Negative); Nitrite Urine Negative (Negative); Specific Gravity - Urine 1.015 (1.005-1.025); Urine Blood Negative (Negative); Urine Ketones Negative (Negative); Urine Protein Negative (Neg-Trace)
[2023-06-17 13:29] LABS: Bacteria Urine None Seen (None Seen); Hyaline Casts Urine 0-2 /LPF (0-2); RBC Urine 0-2 /HPF (0-2); Squamous Epithelial Cell Urine 0-2 /HPF (0-2); UACC Culture Trigger YES
== END 2023-06-17 12:06 | disposition home or self-care (01) ==
LOC: HO.HHCL 12:05
PROVIDERS: Visit Provider Internal Medicine
DX: N31.9 Neuromuscular dysfunction of bladder, unspecified (principal); R82.90 Unspecified abnormal findings in urine
CPT/HCPCS: 81001; 87086

== ENCOUNTER 2023-07-21 17:58 | Outpatient (REF) | payer BC, SELFPAY ==
[2023-07-21 18:23] LABS: Amphetamine Screen Urine Not Detected (Not Detect); Barbiturates, Urine Not Detected (Not Detect); Benzodiazepines Screen Urine Not Detected (Not Detect); Buprenorphine Scr Not Detected (Not Detect); Cannabinoid Screen Urine Not Detected (Not Detect); Cocaine Screen Urine Not Detected (Not Detect); Fentanyl, urine Not Detected (Not Detect); Methadone Screen, Urine Not Detected (Not Detect); Opiate Screen Urine Not Detected (Not Detect); Oxycodone Screen Urine Not Detected (Not Detect); Phencyclidine Screen Urine Not Detected (Not Detect)
== END 2023-07-21 17:59 | disposition home or self-care (01) ==
LOC: HO.HHCLNP 17:58
PROVIDERS: Visit Provider Family Medicine
DX: M54.9 Dorsalgia, unspecified (principal)
CPT/HCPCS: 80307

== ENCOUNTER 2024-04-27 10:24 | Day surgery (SDC) | payer BC, SELFPAY ==
--- NOTE | 2024-04-26 09:12 | P.CONAN_ITS ---
Documented by User: Marilee Mack NP 04/26/24 09:13 HPI - Anesthesia Eval Consult details Narrative: 69yo M for Upper Endoscopy PMF Active Problems Active Problems: All Active Problems Rectal prolapse (Acute) C. difficile colitis (Acute) Leukocytosis (Acute) LAURO (acute kidney injury) (Acute) Acute alteration in mental status (Acute) Pneumonia (Acute) Urinary tract infection (Acute) Osteoarthritis of right knee (Acute) Piriformis syndrome of left side (Acute) Bone lesion (Acute) Hand pain, left (Acute) Left hip pain (Acute) Neck pain (Acute) Past Medical History Medical History (Updated 04/27/24 @ 11:12 by Khloe Louise RN) Lung nodule RLS (restless legs syndrome) COPD (chronic obstructive pulmonary disease) Anemia Seizures Rectal prolapse Cystitis Chronic pain syndrome Restless legs Arthritis Transverse myelitis Surgical History Surgical History (Updated 04/27/24 @ 11:13 by Khloe Louise RN) History of bladder surgery H/O mastectomy Hx of appendectomy History of tonsillectomy History of surgery on wrist Social History Social History Household Members: Spouse Housing: House Do you presently have visiting nurse or other home services: No Alcohol intake: never Patient Tobacco Use Status: Former Tobacco user Tobacco use type: Cigarette Cigarettes Per Day: 20 Years Smoked: 35 e-Cigarette/Vaping Use: Never Used Substance Use Type: Marijuana service: No Current occupational status: disabled Current occupation: rt handed Meds Allergies Allergy/AdvReac Type Severity Reaction Status Date / Time shellfish derived [shellfish] Allergy Vomiting Verified 04/27/24 10:46 Home Medications ?Medication ?Instructions ?Recorded ?Confirmed ?Last Taken ?Type acetaminophen 500 mg tablet 500 mg PO Q6H PRN Pain 09/09/20 03/23/23 Unknown History (Tylenol Extra Strength) ascorbic acid (vitamin C) 1,000 mg 1 g PO DAILY 09/09/20 03/23/23 09/06/22 History tablet cholecalciferol (vitamin D3) 125 125 mcg PO DAILY 09/09/20 03/23/23 09/06/22 History mcg (5,000 unit) capsule duloxetine 60 mg capsule,delayed 60 mg PO DAILY 09/09/20 04/27/24 04/27/24 History release ferrous sulfate 325 mg (65 mg 325 mg PO Q OTHER DAY 09/09/20 04/27/24 04/27/24 History iron) tablet gabapentin 600 mg tablet 600 mg PO BEDTIME 09/09/20 03/23/23 09/06/22 History glucosamine HCl 500 mg tablet 1,500 mg PO DAILY 09/09/20 03/23/23 09/06/22 History lorazepam 1 mg tablet 1 mg PO BEDTIME PRN Anxiety 09/09/20 03/23/23 Unknown History magnesium 250 mg tablet 500 mg PO DAILY 09/09/20 04/27/24 04/27/24 History oxybutynin chloride 15 mg 15 mg PO DAILY 09/09/20 03/23/23 09/06/22 History tablet,extended release 24 hr oxycodone-acetaminophen 5 mg-325 1 tab PO BID PRN Pain 09/09/20 03/23/23 Unknown History mg tablet potassium gluconate 595 mg (99 mg) 595 mg PO DAILY 09/09/20 03/23/23 09/06/22 History tablet ropinirole 0.5 mg tablet 0.5 mg PO BEDTIME 09/09/20 03/23/23 09/06/22 History tizanidine 4 mg capsule 4 mg PO BEDTIME 09/09/20 03/23/23 09/06/22 History topiramate 50 mg tablet 50 mg PO BID 09/09/20 03/23/23 09/06/22 History zonisamide 100 mg capsule 200 mg PO DAILY 09/09/20 03/23/23 09/06/22 History lidocaine 5 % topical patch 2 patch topical DAILY 11/19/21 04/27/24 04/27/24 History testosterone cypionate 200 mg/mL 100 mg IM Q2W 09/07/22 03/23/23 09/05/22 His tory intramuscular oil lamotrigine 25 mg tablet 25 mg PO QAM 03/23/23 04/27/24 04/27/24 History Assessment and Plan Assessment Anesthesia Assessment: Chart Reviewed Documented by User: Vitor Frances MD 04/27/24 12:02 [facility] Past Medical History Medical History (Updated 04/27/24 @ 11:12 by Khloe Louise RN) Lung nodule RLS (restless legs syndrome) COPD (chronic obstructive pulmonary disease) Anemia Seizures Rectal prolapse Cystitis Chronic pain syndrome Restless legs Arthritis Transverse myelitis Family History Family history of problems with anesthesia: No Surgical History Surgical History (Updated 04/27/24 @ 11:13 by Khloe Louise RN) History of bladder surgery H/O mastectomy Hx of appendectomy History of tonsillectomy History of surgery on wrist History of Problems with Anesthesia: No Social History Social History Household Members: Spouse Housing: House Do you presently have visiting nurse or other home services: No Alcohol intake: never Patient Tobacco Use Status: Former Tobacco user Tobacco use type: Cigarette Cigarettes Per Day: 20 Years Smoked: 35 e-Cigarette/Vaping Use: Never Used Substance Use Type: Marijuana service: No Current occupational status: disabled Current occupation: rt handed Meds Allergies Allergy/AdvReac Type Severity Reaction Status Date / Time shellfish derived [shellfish] Allergy Vomiting Verified 04/27/24 10:46 Home Medications ?Medication ?Instructions ?Recorded ?Confirmed ?Last Taken ?Type acetaminophen 500 mg tablet 500 mg PO Q6H PRN Pain 09/09/20 03/23/23 Unknown History (Tylenol Extra Strength) ascorbic acid (vitamin C) 1,000 mg 1 g PO DAILY 09/09/20 03/23/23 09/06/22 History tablet cholecalciferol (vitamin D3) 125 125 mcg PO DAILY 09/09/20 03/23/23 09/06/22 History mcg (5,000 unit) capsule duloxetine 60 mg capsule,delayed 60 mg PO DAILY 09/09/20 04/27/24 04/27/24 History release ferrous sulfate 325 mg (65 mg 325 mg PO Q OTHER DAY 09/09/20 04/27/24 04/27/24 History iron) tablet gabapentin 600 mg tablet 600 mg PO BEDTIME 09/09/20 03/23/23 09/06/22 History glucosamine HCl 500 mg tablet 1,500 mg PO DAILY 09/09/20 03/23/23 09/06/22 History lorazepam 1 mg tablet 1 mg PO BEDTIME PRN Anxiety 09/09/20 03/23/23 Unknown History magnesium 250 mg tablet 500 mg PO DAILY 09/09/20 04/27/24 04/27/24 History oxybutynin chloride 15 mg 15 mg PO DAILY 09/09/20 03/23/23 09/06/22 History tablet,extended release 24 hr oxycodone-acetaminophen 5 mg-325 1 tab PO BID PRN Pain 09/09/20 03/23/23 Unknown History mg tablet potassium gluconate 595 mg (99 mg) 595 mg PO DAILY 09/09/20 03/23/23 09/06/22 History tablet ropinirole 0.5 mg tablet 0.5 mg PO BEDTIME 09/09/20 03/23/23 09/06/22 History tizanidine 4 mg capsule 4 mg PO BEDTIME 09/09/20 03/23/23 09/06/22 History topiramate 50 mg tablet 50 mg PO BID 09/09/20 03/23/23 09/06/22 History zonisamide 100 mg capsule 200 mg PO DAILY 09/09/20 03/23/23 09/06/22 History lidocaine 5 % topical patch 2 patch topical DAILY 11/19/21 04/27/24 04/27/24 History testosterone cypionate 200 mg/mL 100 mg IM Q2W 09/07/22 03/23/23 09/05/22 History intramuscular oil lamotrigine 25 mg tablet 25 mg PO QAM 03/23/23 04/27/24 04/27/24 History Exam Airway Mallampati Class: II TM Dist: >3cm Neck ROM: Full Loose/Missing/Broken Teeth: No Heart: ok Lungs: ok Assessment and Plan Assessment Anesthesia Assessment: Anesthesia Plan Discussed Final Anesthetic Review Family History of Problems with Anesthesia: No History of Problems with Anesthesia: No NPO: Yes ASA Class: II Final Preanesthetic Review: No Changes in Pt Med Stat, Meds/Allgs Chart Reviewed, Consent Obtained/Reviewed and Anes Risks/Benef Reviewed Patient Risk: Intermediate Procedure Risk: Intermediate Anesthetic Plan Anesthetic Plan: Agree w/ Assess. and Plan and TIVA Disposition: Standard PACU
--- NOTE | 2024-04-26 09:32 | MHC.SHP ---
Pre-Procedural Eval Section A - 24 Hr Update-Section A only Date of Service: 04/26/24 The patient is an INPATIENT: No Changes since office visit: Yes Cold of Flu in the past 2 weeks, Yes New Medical Problems, Yes Changes in Medication and Yes Patient answered all questions The patient has been examined within 24 hours of the surgical procedure. 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 No changes have occurred unless specified. Time Spent With Patient Time: Total time managing care of this patient today ____ minutes.
[2024-04-27 10:51] VITALS: BMI 27.4
[2024-04-27 11:00] VITALS: BP 143/68; PULSE 65; RESP 16; TEMP 36.8; O2SAT 96
[2024-04-27] MEDS: Lactated Ringers 1,000 ML 100 ML IVCONT (11:17)
--- OUTSIDE RECORDS SUMMARY | 2024-04-27 11:31 | XMS_ITS | Encounter Summary ---
Author Organization [employer] Address [address] [place] [address] [address] [place] [address] Care Team Providers Care Petroleum Refinery Worker Name Role Phone Radha Adan MD Primary Care Provider [phone] Sujit Bobo MD Unavailable [phone] Du Pretty MD Unavailable [phone] Encounter Details Date Type Department Care Team (Late st Contact Info) Description 04/25/2024 Orders Only [facility] [address] [place] [address] Radha Adan MD [address] [place], [place] [id number] Social History Tobacco Use Types Packs/Day Years Used Date Smoking Tobacco: Former Cigarettes Smokeless Tobacco: Never Depression Answer Date Recorded Patient Health Questionnaire-9 Score 4 09/23/2022 Housing Stability Answer Date Recorded What is your housing situation today? I have hayder villalpando 01/05/[address] you li ve. Do you have problems with any of the following? None of the above 01/05/2023 Food Insecurity Answer Date Recorded Within the past 12 months, y ou worried that your food would run out before you got money to buy more: Never True 01/05/2023 Within the past 12 months,th e food you bought just didn't last and you didn't have enough money to get more: Never True Transportation Answer Date Recorded In the past 12 months, has l ack of transportation kept you from medical appts, meetings, work or from getting things needed for daily living? No 01/05/2023 Utilities Answer Date Recorded In the past 12 months, has t he electric, gas, oil or water company threatened to shut off services in your home? No 01/05/2023 Depression Answer Date Recorded Patient Health Questionnaire-2 Score 2 09/23/2022 Sex and Gender Information Value Date Recorded Sex Assigned at Male 01/18/2022 10:31 AM EDT Legal Sex Male 10:31 AM EDT Gender Identity Male 07/13/2022 1:50 PM EDT Sexual Orientation Bisexual 01/18/2022 10 :31 AM EDT documented as of this encounter Plan of Treatment Upcoming Encounters Date Type Department Care Team (Late st Contact Info) Description 05/18/2024 11:00 AM EST Clinical Support [facility] [address] [place] [address] Marcella Monte RN [address] [place] [address] documented as of this encounter Visit Diagnoses Not on filedocumented in this encounter Additional Health Concerns Assessment Noted Time PHQ-9 Depression Total Score: 4 09/24/19 23 10:44 AM EDT documented as of this encounter Care Teams Petroleum Refinery Worker Relationship Specialty Start Date End Date Radha Adan MD [address] [place] [address] PCP - General Family Medicine 05/27/16 Sujit Bobo MD [address] [place] [id number] Neurology 04/25/24 Du Pretty MD [address] [place] [address] [place] [phone] Gastroenterology 04/25/24 Dr. Yi MD Colon and Rectal Surgery 04/25/24 documented as of this encounter
--- OUTSIDE RECORDS SUMMARY | 2024-04-27 11:31 | XMS_ITS | Encounter Summary ---
Author Organization [employer] Address [address] [facility] 7 [place] [address] Care Team Providers Care Tire Bagger Name Role Phone Radha Adan MD Primary Care Provider [phone] Reason for Visit * Reason Onset Date Comments Med Refill 03/30/2024 Encounter Details Date Type Department Care Team (Late st Contact Info) Description 03/30/2024 Refill [facility] [address] [place] [address] Radha Adan MD [address] [place] [address] Pain Social History Tobacco Use Types Packs/Day Years [...] Description 05/18/2024 11:00 AM EST Clinical Support [facility] [address] [place] [address] Marcella Monte RN [address] [place] [address] documented as of this encounter Visit Diagnoses Diagnosis Pain Generalized pain documented in this encounter Additional Health Concerns Assessment Noted Time PHQ-9 Depression Total Score: 4 09/24/19 23 10:44 AM EDT documented as of this encounter Care Teams Tire Bagger Relationship Specialty Start Date End Date Radha Adan MD [address] [place] [address] PCP - General Family Medicine 05/27/16 documented as of this encounter
--- OUTSIDE RECORDS SUMMARY | 2024-04-27 11:31 | XMS_ITS | Encounter Summary ---
Author Organization [employer] Address [address] [place] [address] [address] [place] [address] Care Team Providers Care Supervisor Nuclear Medicine Name Role Phone Radha Adan MD Primary Care Provider [phone] Sujit Bobo MD Unavailable [phone] Du Pretty MD Unavailable [phone] Encounter Details Date Type Department Care Team (Late st Contact Info) Description 01/03/2024 Orders Only [facility] [address] [place] [address] Radha Adan MD [address] [place], [place] [phone] Social History Tobacco Use Types Packs/Day Years [...] Description 05/18/2024 11:00 AM EST Clinical Support [facility] [address] [place] [address] Marcella Monte RN [address] [place] [address] documented as of this encounter Visit Diagnoses Not on filedocumented in this encounter Additional Health Concerns Assessment Noted Time PHQ-9 Depression Total Score: 4 09/24/19 23 10:44 AM EDT documented as of this encounter Care Teams Supervisor Nuclear Medicine Relationship Specialty Start Date End Date Radha Adan MD [address] [place] [address] PCP - General Family Medicine 05/27/16 Sujit Bobo MD [address] [place] [id number] Neurology 04/25/24 Du Pretty MD [address] [place] [address] [place] [phone] Gastroenterology 04/25/24 Dr. Yi MD Colon and Rectal Surgery 04/25/24 documented as of this encounter
--- OUTSIDE RECORDS SUMMARY | 2024-04-27 11:31 | XMS_ITS | Clinical Summary ---
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 023 Active Botox 200 units injection 023 Active lamoTRIgine (LaMICtal) 25 MG tablet Take 1 tab po daily 90 tablet 023 Active ferrous sulfate (Fe Tabs) 325 (65 Fe) MG EC tablet Take one tab po every other day. Do not crush, chew, or split. 30 tablet 2 023 Active Needle, Disp, (BD Disp Needle) 23G X 1 miscIndication s:Gender dysphoria Use to inject testosterone. 12 each 11 023 Active oxybutynin XL (Ditropan-XL) 15 MG 24 hr tablet 023 Active sodium bicarbonate 650 MG tablet DISSOLVE AND TAKE ONE TABLET BY MOUTH THREE TIMES A DAY 024 Active potassium chloride CR (Klor-Con M20) 20 MEQ ER tablet Take 2 tabs po daily for 1 week. Do not crush or chew. 14 tablet 11 Active lidocaine (Lidoderm) 5 % patchIndicatio ns:Other chronic pain Apply one patch bid, keep patch off at least 12 hours in a 24 hour period 60 patch Active B-D HYPODERMIC NEEDLE 22GX1 22G X 1 miscIndication s:Gender dysphoria USE TO INJECT TESTOSTERONE 12 each Active Needle, Disp, (B-D HYPODERMIC NEEDLE 23GX1 ) 23G X 1 miscIndication s:Gender dysphoria USE TO INJECT TESTOSTERONE 12 each Active naloxone (Narcan) 4 mg/0.1 mL nasal spray Administer 1 spray (4 mg) into affected nostril(s) if needed for opioid reversal. 2 each Active topiramate 50 MG tablet Take 100 mg by mouth. Active zonisamide (Zonegran) 100 MG capsuleIndicat ions:Transvers e myelitis (CMS/HCC) TAKE 2 CAPSULES TWO TIMES ADAY 360 capsule 3 024 Active tiZANidine (Zanaflex) 4 MG tabletIndicati ons:Transverse myelitis (CMS/HCC) Take 1 tablet (4 mg) by mouth if needed at bedtime for muscle spasms. 90 tablet 3 024 Active testosterone cypionate (Depo-Testoste karla) 200 MG/ML injectionIndic ations:Gender dysphoria INJECT 0.5 ML INTRAMUSCULARLY EVERY 2 WEEKS. 1 mL 5 Active rOPINIRole (Requip) 0.5 MG tabletIndicati ons:Other chronic pain TAKE 1 TABLET AT BEDTIME 90 tablet 1 024 Active DULoxetine (Cymbalta) [address] capsuleIndicat ions:Other chronic pain TAKE 1 CAPSULE DAILY 90 capsule 024 Active Syringe, Disposable, 3 ML miscIndication s:Gender dysphoria Use for injection of testosterone as prescribed 25 each Active LORazepam (Ativan) 1 MG tablet Take 1 tablet (1 mg) by mouth if needed each day for anxiety. 30 tablet 2 024 Active oxyCODONE-acet aminophen (Percocet) 5-325 MG tabletIndicati ons:Pain Take 1 tablet by mouth every 12 (twelve) hours if needed for severe pain for up to 28 days. 56 tablet 025 2024 Active oxyCODONE-acet aminophen (Percocet) 5-325 MG tabletIndicati ons:Pain Take 1 tablet by mouth every 12 (twelve) hours if needed for severe pain for up to 28 days. 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 -Has GI appt scheduled 04/14/23 -apt with colorectal 04/11/23 -K and mg normal 04/01/23 Assessment & Plan (04/08/2023 9:15 AM EST): Has GI appt scheduled 04/14/23 Other specified anemias 03/28/2023 Overview (03/28/2023): Lab Results Component Value Date FERRITIN 21 11/17/2022 HGB 10.1 (L) 03/28/2023 HGB 11.0 (L) 03/22/2023 Likely due to blood loss from rectal prolapse in setting of CKD. Assessment & Plan (03/28/2023 12:02 PM EST): Lab Results Component Value Date FERRITIN 21 11/17/2022 HGB 10.1 (L) 03/28/2023 HGB 11.0 (L) 03/22/2023 Likely due to blood loss from rectal prolapse in setting of CKD. Hypokalemia 03/28/2023 Overview (03/28/2023): Lab Results Component Value Date K 2.9 (L) 03/28/2023 K 4.0 03/22/2023 K 3.7 03/11/2023 -Kdur 20mg 2 tabs daily for 1 week started 03/28/23, recheck 4 days Assessment & Plan (03/28/2023 12:39 PM EST): Lab Results Component Value Date K 2.9 (L) 03/28/2023 K 4.0 03/22/2023 K 3.7 03/11/2023 -Kdur 20mg 2 tabs daily for 1 week started 03/28/23, recheck 4 days C. difficile diarrhea 03/24/2023 Overview (07/18/2023): -Admitted to [facility] 03/22/2023 for C. Diff collitis. Osvaldo factors include multiple bouts of antibiotics for choronic UTI, most recent 4 weeks before from ER with cephalexin. In ER AMS, Cr increased to 4, WBC with leukocytosis. Pt admittedfor sepsis foe to C. Diff colitis. Treated with fidaxomicin and IV flagyl. Diarrhea improved. Discharged on 10 more days of po vancomycin. Cr improved with IV hydration. Recommended follow up leukocytosis and thromyocytosis as out patient. -ID note in hospital recommends 10 d vanco and 5 days Flagyl, pt was given IV Flagyl inpatient but no PO at discharge Assessment & Plan (06/17/2023 2:59 PM EDT): Resolved sp Vanco + Flagyl on 03/2023. No need for additional abs at this time. Continue probiotics use. He's to be retested prn recurrent sxs diarrhea, abdominal pain, sp abs use/. Assessment & Plan (04/08/2023 8:51 AM EST): -Admitted to [facility] 03/22/2023 for C. Diff collitis. Osvaldo factors include multiple bouts of antibiotics for choronic UTI, most recent 4 weeks before from ER with cephalexin. In ER AMS, Cr increased to 4, WBC with leukocytosis. Pt admittedfor sepsis foe to C. Diff colitis. Treated with fidaxomicin and IV flagyl. Diarrhea improved. Discharged on 10 more days of po vancomycin. Cr improved with IV hydration. Recommended follow up leukocytosis and thromyocytosis as out patient. -ID note in hospital recommends 10 d vanco and 5 days Flagyl, pt was given IV Flagyl inpatient but no PO at discharge Assessment & Plan (03/28/2023 10:17 AM EST): -Admitted to [facility] 03/22/2023 for C. Diff collitis. Osvaldo factors include multiple bouts of antibiotics for choronic UTI, most recent 4 weeks before from ER with cephalexin. In ER AMS, Cr increased to 4, WBC with leukocytosis. Pt admittedfor sepsis foe to C. Diff colitis. Treated with fidaxomicin and IV flagyl. Diarrhea improved. Discharged on 10 more days of po vancomycin. Cr improved with IV hydration. Recommended follow up leukocytosis and thromyocytosis as out patient. -ID note in hospital recommends 10 d vanco and 5 days Flagyl, pt was given IV Flagyl inpatient but no PO at discharge Urinary incontinence 11/10/2022 Overview (03/28/2023): Due to neurogenic bladder. He received Botox injections in past. -Pt self caths. - followed by Dr. Moya, urology Assessment & Plan (06/17/2023 3:01 PM EDT): Has neurogenic bladder Patient self caths Assessment & Plan (04/08/2023 8:51 AM EST): Due to neurogenic bladder. He received Botox injections in past. -Pt self caths. - followed by Dr. Moya, urology Assessment & Plan (03/28/2023 9:38 AM EST): He received Botox injections approximately September in the bladder about a week later Pt started to experience urinary incontinence in the night that is soaking through his depends. Pt self caths. Assessment & Plan (11/10/2022 11:18 AM EDT): He received Botox injections approximately September in the bladder about a week later Pt started to experience urinary incontinence in the night that is soaking through his depends. Pt self caths. Was treated for UTI with Ceftin, bactrim, and Macrobid in September. Will request records. Urine dip negative, will send formal UA and culture and fax results to urology. Pt to contact Urology regarding incontinence. Seizure disorder 09/23/2022 Overview (07/18/2023): Dx 08/2022 wehn found with ultered mental status and unresponsive with patient care manager and in ER -EEG concerning ffor seizure -Followed by Dr. Sujit Bobo -Continue Lamotrigine once a day Assessment & Plan (03/28/2023 11:58 AM EST): Dx 08/2022 wehn found with ultered mental status and unresponsive with patient care manager and in ER -EEG concerning ffor seizure -Followed by Dr. Sujit Bobo -Continue Lamotrigine once a day Assessment & Plan (03/28/2023 9:04 AM EST): Dx 08/2022 wehn found with ultered mental status and unresponsive with patient care manager and in ER -EEG concerning fro seizure. -His old neurologist is retiring. -Referral placed for enurology 06/2022. -Continue Lamotrigine once a day. Assessment & Plan (09/23/2022 11:47 AM EDT): Dx 08/2022 wehn found with ultered mental status and unresponsive with patient care manager and in ER -EEG concerning fro seizure. -His old neurologist is retiring. -Referral placed for enurology 06/2022. -Continue Lamotrigine once a day. Polypharmacy 09/23/2022 Overview (03/28/2023): Pt on multiple sedating medications on beers criteria. We discussed slowly weaning if possile starting with roprinioal followed by lorazepam and then topamax. -advised decreasing ropinirole from 0.5 daily to 1/2 nightly for 1 week then 1/2 tab every other day for 1 week then discontinue 03/28/23 Assessment & Plan (04/08/2023 8:52 AM EST): Pt on multiple sedating medications on beers criteria. We discussed slowly weaning if possile starting with roprinioal followed by lorazepam and then topamax. -advised decreasing ropinirole from 0.5 daily to 1/2 nightly for 1 week then 1/2 tab every other day for 1 week then discontinue 03/28/23 Assessment & Plan (03/28/2023 10:20 AM EST): Pt on multiple sedating medications on beers criteria. We discussed slowly weaning if possile starting with roprinioal followed by lorazepam and then topamax. -advised decreasing ropinirole from 0.5 daily to 1/2 nightly for 1 week then 1/2 tab every other day for 1 week then discontinue 03/28/23 Assessment & Plan (09/23/2022 11:48 AM EDT): Pt on multiple sedating medications on beers criteria. We discussed slowly weaning if possile starting with roprinioal followed by lorazepam and then topamax. COPD (chronic obstructive pulmonary disease) 05/2022 Assessment & Plan (06/17/2023 2:56 PM EDT): Quit smoking 7y ago and doesn't have nay sxs No need to use inhalers. Recommended early ambulation, use of incentive spirometer in POP Former smoker 09/20/2022 Interstitial lung disease 09/20/2022 Preventative health care 09/20/2022 Overview (09/23/2022): -next physical exam due after 09/24/2023 -eye care facilitated by none, encouraged to set up appointment. -dental home is in [place] Assessment & Plan (04/08/2023 8:52 AM EST): -next physical exam due after 09/24/2023 -eye care facilitated by none, encouraged to set up appointment. -dental home is in [place] Assessment & Plan (03/28/2023 9:05 AM EST): -next physical exam due after 09/24/2023 -eye care facilitated by none, encouraged to set up appointment. -dental home is in [place] Assessment & Plan (09/23/2022 11:13 AM EDT): -next physical exam due after 09/24/2023 -eye care facilitated by none, encouraged to set up appointment. -dental home is [place] Rectal prolapse 08/19/2021 Overview (07/18/2023): History of severe, non-reducible rectal prolapse causing significant pain and difficulty with bowel movements. -s/p surgical intervention with Dr.Ziad Barbosa at [facility] 06/22/23 Assessment & Plan (06/17/2023 2:57 PM EDT): Surgery planned for 06/22/23 Assessment & Plan (04/08/2023 9:15 AM EST): Severe, now non-reducible causing significant pain and difficulty with bowel movements. - F/U with colorectal on 05/12/23 Assessment & Plan (03/28/2023 10:15 AM EST): Severe, now non-reducible causing significant pain and difficulty with bowel movements. Neurogenic bladder 08/19/2021 Assessment & Plan (06/17/2023 3:00 PM EDT): Patient self caths Lung nodule 08/19/2021 Overview (03/28/2023): Repeat 07/2019 recommend repeat [address] Hicks to inquire for CT scan. Assessment & Plan (04/08/2023 8:53 AM EST): Repeat 07/2019 recommend repeat [address] Hicks to inquire for CT scan. Assessment & Plan (03/28/2023 9:03 AM EST): Repeat 07/2019 recommend repeat [address] Hicks to inquire for CT scan. Assessment & Plan (09/23/2022 11:44 AM EDT): Repeat 07/2019 recommend repeat [address] Hicks to inquire for CT scan. Gender dysphoria 08/19/2021 Overview (09/23/2022): -Stable on testosterone cypionate 0.5ml IM q 2 weeks. -No Hx TSH/BSO -s/p chest reconstruction Assessment & Plan (04/08/2023 8:53 AM EST): -Stable on testosterone cypionate 0.5ml IM q 2 weeks. -No Hx TSH/BSO -s/p chest reconstruction Assessment & Plan (03/28/2023 9:04 AM EST): -Stable on testosterone cypionate 0.5ml IM q 2 weeks. -No Hx TSH/BSO -s/p chest reconstruction Assessment & Plan (09/23/2022 11:44 AM EDT): -Stable on testosterone cypionate 0.5ml IM q 2 weeks. -No Hx TSH/BSO -s/p chest reconstruction Abnormal gait 08/19/2021 Self-catheterizes urinary bladder 08/19/2021 Overview (11/10/2022): Hx multiple UTIs, s/p botox with urology. Followed by Dr. Moya. Botox injections done approximatly September. Pt no longer on ditropan. Assessment & Plan (04/08/2023 8:52 AM EST): Hx multiple UTIs, s/p botox with urology. Followed by Dr. Moya. Botox injections done approximatly September. Pt no longer on ditropan. Assessment & Plan (03/28/2023 9:04 AM EST): Hx multiple UTIs, s/p botox with urology. Followed by Dr. Moya. Botox injections done approximatly September. Pt no longer on ditropan. Assessment & Plan (11/10/2022 11:05 AM EDT): Hx multiple UTIs, s/p botox with urology. Followed by Dr. Moya. Botox injections done approximatly September. Pt no longer on ditropan. Assessment & Plan (09/23/2022 9:31 AM EDT): Hx multiple UTIs, s/p botox with urology. Followed by urology Transverse myelitis 05/15/2021 Overview (07/18/2023): Diagnosed in 2013. Pt reports trigger likely flu vaccine. -pt with hemiplegia and limited use of left leg as well as chronic pain and urinary incontinence -Hisotry extensive work up for etiology. Records from prior to establishing care reviewed. -Supportive care with self cath, treatment of pain and spasms with baclofen which he takes in day and cyclobenzaprine which he takes prn at night -continue zonisamide -reffered to physiatry 12/2020 -established with Neurology, Dr. Bobo who referred pt to [facility] around 01/2023 Assessment & Plan (03/28/2023 11:50 AM EST): Diagnosed in 2013. Pt reports trigger likely flu vaccine. -pt with hemiplegia and limited use of left leg as well as chronic pain and urinary incontinence -Hisotry extensive work up for etiology. Records from prior to establishing care reviewed. -Supportive care with self cath, treatment of pain and spasms with baclofen which he takes in day and cyclobenzaprine which he takes prn at night -continue zonisamide -reffered to physiatry 12/2020 -established with Neurology, Dr. Bobo who referred pt to [facility] around 01/2023 Assessment & Plan (03/28/2023 9:03 AM EST): Diagnosed in 2013. Pt reports trigger likely flu vaccine. -pt with hemiplegia and limited use of left leg as well as chronic pain and urinary incontinence -records reviewed. Pt has had extensive work up for etiology -supportive care with self cath, treatment of pain and spasms with baclofen which he takes in day and cyclobenzaprine which he takes prn at night -continue zonisamide [facility] with neurology Assessment & Plan (09/23/2022 9:31 AM EDT): Diagnosed in 2013. Pt reports trigger likely flu vaccine. -pt with hemiplegia and limited use of left leg as well as chronic pain and urinary incontinence -records reviewed. Pt has had extensive work up for etiology -supportive care with self cath, treatment of pain and spasms with baclofen which he takes in day and cyclobenzaprine which he takes prn at night -continue zonisamide -[facility]established with neurology Stage 3a chronic kidney disease 12/05/2020 Overview (04/07/2023): Lab Results Component Value Date CREATININE 1.53 (H) 03/28/2023 CREATININE 4.38 (HH) 03/22/2023 CREATININE 1.41 (H) 03/11/2023 CREATININE 1.47 (H) 11/17/2022 CREATININE 1.90 (H) 11/23/2021 Likely prerenal from diarrhea, recheck Assessment & Plan (04/07/2023 11:15 AM EST): Lab Results Component Value Date CREATININE 1.53 (H) 03/28/2023 CREATININE 4.38 (HH) 03/22/2023 CREATININE 1.41 (H) 03/11/2023 CREATININE 1.47 (H) 11/17/2022 CREATININE 1.90 (H) 11/23/2021 Likely prerenal from diarrhea, recheck Assessment & Plan (03/28/2023 12:04 PM EST): Lab Results Component Value Date CREATININE 4.38 (HH) 03/22/2023 CREATININE 1.41 (H) 03/11/2023 CREATININE 1.47 (H) 11/17/2022 CREATININE 1.90 (H) 11/23/2021 CREATININE 1.61 (H) 11/18/2021 Likely prerenal from diarrhea, recheck Assessment & Plan (09/23/2022 11:43 AM EDT): Creatine 07/2018 when it was 1.4. Creatinine 03/2018 was 1.2 Creatinine 08/2020 1.58 normal MA/Cr ratio No uncontrolled risk factors identified. Incontinence 08/25/2017 Chronic low back pain 08/25/2017 Resolved Problems Problem Noted Date Diagnosed Date Resolved Date Pre-operative clearance 06/17/2023 04/2 11/2023 Assessment & Plan (06/17/2023 3:13 PM EDT): 68 yo patient with multiple medical conditions here for preop evaluation. Most of his medical conditions are stable enough so that he can safely undergo planned procedure. I'm ordering a UA/Cx as he has hx asymptomatic UTIs and treat prn only. He is a LOW risk patient. He's undergoing an INTERMEDIATE risk procedure. The risk of CV complication according to RCRI is 3.9% whcih is an average risk. At this time HE IS ON OPTIMAL CONDITION for planned procedure. -He's to be NPO and hold all meds on the day of procedure EXCEPT OXYCODONE MORNING DOSE which he will take with a sip of water. He will restart his usual med since he resumes and tolerates PO. -Continue Probiotics daily -Caution with antibiotics due to hx recurrent C.diff colitis, consult with ID in the hospital, if needed. -Call back NORM should he develops fever, cough, SOB, CP, UTI sxs or any other acute issue COVID-19 12/24/2022 03/28/2023 Overview (12/24/2022): -Positive for COVID 12/16/2022, pt doing well Assessment & Plan (12/24/2022 11:00 AM EDT): -Positive for COVID 12/16/2022, pt doing well Chronic kidney disease 12/04/202009/20 Encounters Date Type Department Care Team Description 04/25/2024 Orders Only [facility] [address] [place] [id number] Radha Adan MD 03/30/2024 Refill [facility] [address] [place] [phone] Radha Adan MD Pain 03/05/2024 1:30 PM EST Telemedicine [facility] [address] [place] [address] Marcella Monte RN Chronic low back pain, unspecified back pain laterality, unspecified whether sciatica present 03/05/2024 Travel 02/28/2024 Refill [facility] [address] [place] [address] Radha Adan MD Pain 02/28/2024 Refill [facility] [address] [place] [address] Radha Adan MD 02/26/2024 Refill [facility] [address] [place] [address] Radha Adan MD 02/01/2024 Orders Only [facility] [address] [place] [phone] Radha Adan MD Gender dysphoria (Primary Dx) 02/01/2024 Telephone [facility] [address] [place] [phone] Radha Adan MD Med Refill 01/31/2024 Refill [facility] [address] [place] [address] Radha Adan MD Pain from Last 3 Months Immunizations Name Administration Dates Next Due Tdap 12/15/2022 Social History Tobacco Use Types Packs/Day Years Used Date Smoking Tobacco: Former Cigarettes Smokeless Tobacco: Never Tobacco Cessation:Counseling Given: Not Answered Depression Answer Date Recorded Patient Health Questionnaire-9 [...] Orientation Bisexual 01/18/2022 10 :31 AM EDT Last Filed Vital Signs Vital Sign Reading Time Taken Comments Blood Pressure 136/88 07/21/2023 2:06 PM EDT Pulse 80 07/21/2023 2:06 PM EDT Temperature 36.4 ??C (97.5 ??F) 06/17/2023 10:53 AM E DT Respiratory Rate 18 07/21/2023 2:06 PM EDT Oxygen Saturation 97% 06/17/2023 10:53 AM EDT Inhaled Oxygen Concentration - - Weight 73 kg (161 lb) 06/17/2023 10:53 AM EDT Height 172.7 cm (5' 8 ) 06/17/2023 10:53 AM EDT Body Mass Index 24.48 06/17/2023 10:53 AM EDT Plan of Treatment Upcoming Encounters Date Type Department Care Team (Late st Contact Info) Description 05/18/2024 11:00 AM EST Clinical Support [facility] [address] [place], [place] [phone] Marcella Monte, RN [address] [place] [address] Health Maintenance Due Date Last Done Comments CT Colonography 1957 FIT DNA/Cologuard 1957 FIT 1957 FOBT 1957 Sigmoidoscopy 1957 Alcohol/Substance Use Screening 1969 Hepatitis C Screening 1975 Pneumococcal Vaccine: 50+ Years (1 of 2 - PCV) 1976 RSV Patients and Patients Aged 60 years or older (1 - Risk 60-74 years 1-dose series) 2017 Depression Screening 09/24/2023 09/23/2022, 09/24/19 23 SDOH Screening 09/24/2023 09/23/2022 Influenza Vaccine (#1) 2023 COVID-19 Vaccine ( season) 2023 10/13/2023, 12/26/2021, 03/26/2021, Additional history exists Zoster Vaccines (2 of 2) 04/13/2024 02/17/2024 Tobacco Screening 06/16/2024 06/17/2023 Colonoscopy 11/24/2026 11/24/2016 Colorectal Cancer Screening 11/24/2026 Lipid Panel 11/18/2027 11/17/2022 DTaP/Tdap/Td Vaccines (2 - Td or Tdap) 12/15/2032 12/15/2022 Cervical Cancer Screening Discontinued HPV/Cotest Discontinued 01/21/2017, 01/21/2017 Pap Smear Discontinued 01/21/2017 HIB Vaccines Aged Out No longer eligi ble based on patient's age to complete this topic HPV Vaccines Aged Out No longer eligi ble based on patient's age to complete this topic Hepatitis A Vaccines Aged Out No long er eligible based on patient's age to complete this topic Hepatitis B Vaccines Aged Out No long er eligible based on patient's age to complete this topic IPV Vaccines Aged Out No longer eligi ble based on patient's age to complete this topic Meningococcal Vaccine Aged Out No laura jere eligible based on patient's age to complete this topic RSV under 20 months Aged Out No longe r eligible based on patient's age to complete this topic Rotavirus Vaccines Aged Out No longer eligible based on patient's age to complete this topic Procedures Procedure Name Priority Date/Time Associated Diagnosis Comments LIPID PANEL, STANDARD Routine 11/17/2022 10:39 AM EDT Seizure disorder (CMS/HCC) ZZZ HISTORICAL HPV E6/E7 RFLX EDWARD 16 18/45 Routine 01/21/2017 12:30 PM EDT PAP SMEAR Routine 01/21/2017 12:00 AM EDT HM COLONOSCOPY Routine 11/24/2016 from Last 3 Months or Most Recently Relevant to Health Maintenance Results * (ABNORMAL) Lipid Panel, Standard (11/17/2022 10:39 AM EDT) Triglycerides 89 <150 mg/dL [facility] Comment:Desirable Triglyceri de: less than 150 mg/dLBorderline High Triglyceride 150-199 mg/dLHigh Triglyceride: 200-499 mg/dLVery High Triglyceride: greater than or equal to 5OO mg/dL Cholesterol 190 <200 mg/dL [facility] Comment:Desirable Cholestero l: less than 200 mg/dLBorderline High Cholesterol: 200-239 mg/dLHigh Cholesterol: greater than 239 mg/dL LDL Cholesterol Calculated 106(H) <100 mg/dL [facility] Comment:Desirable LDL: less than 100 mg/dLNear Optimal/Above Optimal LDL: 110- 129 mg/dLBorderline High LDL: 130-159 mg/dLHigh LDL: 160-189 mg/dLVery High LDL: greater than or equal to 190 mg/dL HDL Cholesterol 67 >40 mg/dL [facility] Comment:Desirable HDL: great er than 40 mg/dL Note: This HDL assay may give artificially low results in patients with liver disease. Blood Venous blood specimen / Unknown 11/17/2022 10:39 AM EDT 11/17/2022 10:39 AM EDT Radha Adan MD LAB BLOOD ORDERABLES Final Result [facility] [address] [place] [address] [phone] * HPV E6/E7 RFLX EDWARD 16 18/45 (01/21/2017 12:30 PM EDT) HPV 16 RNA Test not performed [facility] HPV mRNA E6/E7 Not Detected NOT DETECTED [facility] Comment: This test was performed using the APTIMA(R) HPV Assay ([employer] This assay detects E6/E7 viral messenger RNA (mRNA) from 14 high-risk HPV types (16,18,31,33,35,39,45,51, 52,56,58,59,66,68). For additional information please refer to: http://education.Upclique/faq/OFB550y0 (This link is being provided for informational/ educational purposes only.) Please note: ??Effective 12/01/2015, HPV testing will be performed using [employer]'s APTIMA test which targets mRNA. Detecting mRNA instead of DNA, as in older methods, offers significant improvements in specificity. HPV 18/45 RNA Test not performed [facility] ADDITIONAL TESTING Not indicated () [facility] Comment: Test Performed by [employer], [employer] [facility], [address] [place] [address] Danyel Dukes M.D., Ph.D., Director of Laboratories , [facility] [id number] 01/21/2017 12:3 0 PM EDT Radha Adan MD HISTORICAL/NON ORDERABLE L ABS Final Result [facility] [address] [place] [address], * Pap Smear (01/21/2017 12:00 AM EDT) Swab Historical Provider LAB CYTOLOGY ORDERABLES F inal Result [facility] [address] [place] [address] [phone] * Colonoscopy (11/24/2016) Colonoscopy Dr. Pretty us Historical Provider HEALTH MAINTENANCE Edited Result - Final from Last 3 Months or Most Recently Relevant to Health Maintenance [place] [address] [address] [place] [address] HMO Care Teams Senior Project Accountant Relationship Specialty Start Date End Date [place], MD Radha [address] [place] [address] PCP - General Family Medicine 05/27/16 Sujit Bobo MD [address] [place] [address] Neurology 04/25/24 Du Pretty MD [address] [place] [address] [phone] Gastroenterology 04/25/24 Dr. Yi MD Colon and Rectal Surgery 04/25/24
--- OUTSIDE RECORDS SUMMARY | 2024-04-27 11:31 | XMS_ITS | Encounter Summary ---
Author Organization [employer] Address [address] [place] [address] 7 [place] [address] Care Team Providers Care Warp Drawer Name Role Phone Radha Adan MD Primary Care Provider [phone]- [phone] Sujit Bobo MD Unavailable [phone] Du Pretty MD Unavailable [phone] Reason for Visit * Reason Onset Date Comments Med Refill 02/01/2024 Encounter Details Date Type Department Care Team (Late st Contact Info) Description 02/01/2024 Telephone [facility] [address] [place], [place] [phone] Radha Adan MD [address] [place] [address] Med Refill Social History Tobacco Use Types Packs/Day Years [...] AM EDT documented as of this encounter Miscellaneous Notes * Telephone Encounter - Helene Blunt LPN - 02/01/2024 3:21 PM EST Refills have been requested for the following medications: Other - I don? t see it on this list but I only have one 3ml syringe left & I? ll be using itthis week so I need those escobar. I have plenty of the actual needles but not the syringes. Help! documented in this encounter Plan of Treatment Upcoming Encounters Date Type Department Care Team (Late st Contact Info) Description 05/18/2024 11:00 AM EST Clinical Support [facility] [address] [place] [address] Marcella Monte RN [address] [place] [address] documented as of this encounter Visit Diagnoses Not on filedocumented in this encounter Additional Health Concerns Assessment Noted Time PHQ-9 Depression Total Score: 4 09/24/19 23 10:44 AM EDT documented as of this encounter Care Teams Warp Drawer Relationship Specialty Start Date End Date Radha Adan MD [address] [place] [address] PCP - General Family Medicine 05/27/16 Sujit Bobo MD [address] [place] [address] Neurology 04/25/24 Du Pretty MD [address] [place] [address] [place] [phone] Gastroenterology 04/25/24 Dr. Yi MD Colon and Rectal Surgery 04/25/24 documented as of this encounter
--- OUTSIDE RECORDS SUMMARY | 2024-04-27 11:31 | XMS_ITS ---
Author Organization [facility] Address [address] [place] [address] Care Team Providers Care Tubular Stock Glass Bulb Machine Former Name Role Phone Radha Adan MD Primary Care Provider Josselyn vailable Du Pretty Jr Unavailable Rupinder Short Unavailable Unavailable REASON FOR VISIT mackenzie's Encounters Encounter Location Date Provider Diagnosis [facility] Outpatient [address] [place] [id number] 04/27/2024 Du Pretty Jr PLAN OF TREATMENT Next Appt Details Provider Name:Du house Jr, 04/27/2024 12:10:00 PM, [address] [place] [address], [phone],
--- OUTSIDE RECORDS SUMMARY | 2024-04-27 11:31 | XMS_ITS | Encounter Summary ---
Author Organization [employer] Address [address] [place] [address] 7 [place] [address] Care Team Providers Care Tanning Solution Maker Name Role Phone Radha Adan MD Primary Care Provider [phone] Sujit Bobo MD Unavailable [phone] Du Pretty MD Unavailable [phone] Reason for Visit * Reason Onset Date Comments Med Refill 01/03/2024 Encounter Details Date Type Department Care Team (Late st Contact Info) Description 01/03/2024 Telephone [facility] [address] [place], [place] [phone] Radha Adan MD [address] [place] [address] Med Refill Social History Tobacco Use Types [...] encounter Miscellaneous Notes * Telephone Encounter - Harley Garcia - 01/03/2024 2:45 PM EDT TC from pt requesting medication refill. Medications needing refill : oxyCODONE-acetaminophen (Percocet) 5-325 MG tablet To be sent to: [facility] documented in this encounter Plan of Treatment Upcoming Encounters Date Type Department Care Team (Late st Contact Info) Description 05/18/2024 11:00 AM EST Clinical Support [facility] [address] [place] [address] Marcella Monte RN [address] [place] [address] documented as of this encounter Visit Diagnoses Not on filedocumented in this encounter Additional Health Concerns Assessment Noted Time PHQ-9 Depression Total Score: 4 09/24/19 23 10:44 AM EDT documented as of this encounter Care Teams Tanning Solution Maker Relationship Specialty Start Date End Date Radha Adan MD [address] [place] [address] PCP - General Family Medicine 05/27/16 Sujit Bobo MD [address] [place] [address] Neurology 04/25/24 Du Pretty MD [address] [place] [address] [address] [place] [address], [place] [phone] Gastroenterology 04/25/24 Dr. Yi MD Colon and Rectal Surgery 04/25/24 documented as of this encounter
--- OUTSIDE RECORDS SUMMARY | 2024-04-27 11:31 | XMS_ITS | Encounter Summary ---
Author Organization [employer] Address [address] [place] [address] 7 [place] [address] Care Team Providers Care Documentation Supervisor Name Role Phone Radha Adan MD Primary Care Provider [phone]- [phone] uSjit Bobo MD Unavailable [phone] Du Pretty MD Unavailable [phone] Reason for Visit * Reason Onset Date Comments Nurse Triage 03/22/2023 Results 03/22/2023 Encounter Details Date Type Department Care Team (Late st Contact Info) Description 03/22/2023 Telephone [facility] [address] [place], [place] [phone] Radha Adan MD [address] [place], [place] [phone] Nurse Triage; Results Social History Tobacco Use Types Packs/Day Years [...] encounter Miscellaneous Notes * Telephone Encounter - Gilma Thornton RN - 04/05/2023 9:51 AM EST T/C placed to pt re below lab results and POC. Informed potassium and magnesium back to normal, canstop magnesium now. Inquired how pt is doing. Pt reports diarrhea is like water. States he is goingnumerous times a day, is constantly on the toilet. Reports no improvement. Reports drinking water and gatorade. Wants to know what PCP recommends he do. * Telephone Encounter - Gilma Thornton RN - 04/05/2023 9:49 AM EST ----- Message from Radha Adan MD sent at 04/04/2023 8:07 AM EST ----- Please let Mr. Vicente know potassium and magnesium are normal. Ok to stop magnesium. Please ask how his bowel movements are. Recently hospitalized for c.diff colitis. Thank you. * Telephone Encounter - Radha Adan MD - 03/28/2023 12:39 PM EST Please mail new lab slip for magnesium and potassium to pt today so they can get it for Tuesday. Thank you. * Telephone Encounter - Debbie Meeks RN - 03/22/2023 9:26 AM EST Triage call Pt spouse , Gilma CharlesinosNEEMA menendez , is requested to be called for Pt. Gilma powellPt has had ED visit 03/11/23 due to increased confusion and UTI dx given. Pt has finished antibiotics. Pt started with a fever of 101 with chills 03/15/23 and diarrhea started at that time. Pt doesn't have fever any more but continues with diarrhea 7-8 times per day. Pt is not reporting abdominal pain. Pt has hx of transverse myelitis and neurogenic bladder. Pt is drinking liquids well but, poor appetite. Pt diarrhea has been with incontinence each night. Pt is offered apt at 1030am this morning with Dr. Brooks and Gilma reports will try to get Pt up and ready to come in as soon as phone call ended. Pt insurance is verified as active prior to booking. Protocol Used: Diarrhea (Adult) Protocol-Based Disposition: See in Office or Video Visit Today Video visit not offered Positive Triage Question: * Moderate diarrhea (e.g., 4-6 times / day more than normal) and present > 48 hours (2 days) * All higher-acuity triage questions were negative Care Advice Discussed: * Reassurance and Education - Diarrhea * Fluid Therapy During Mild to Moderate Diarrhea * Food and Nutrition During Mild to Moderate Diarrhea * Wash Your Hands * Expected Course * Reasons To Call Back - Signs of dehydration occur (e.g., no urine over 12 hours, very dry mouth, lightheaded, etc.) - Moderate diarrhea lasts more than 2 days - Diarrhea lasts over 7 days - You become worse * Telephone Encounter - Elise Alvarado - 03/22/2023 8:35 AM EST Symptom: Diarrhea Outcome: Schedule an appointment to be seen within 24 hours Reason: Caller denied all higher acuity questions The caller accepted this outcome Please contact pt spouse at [phone] documented in this encounter Plan of Treatment Upcoming Encounters Date Type Department Care Team (Late st Contact Info) Description 05/18/2024 11:00 AM EST Clinical Support [facility] [address] [place] [address] Marcella Monte, RN [address] [place] [address] documented as of this encounter Visit Diagnoses Not on filedocumented in this encounter Additional Health Concerns Assessment Noted Time PHQ-9 Depression Total Score: 4 09/24/19 23 10:44 AM EDT documented as of this encounter Care Teams Documentation Supervisor Relationship Specialty Start Date End Date Radha Adan MD [address] [place] [address] PCP - General Family Medicine 05/27/16 Sujit Bobo MD [address] [place] [address] Neurology 04/25/24 Du Pretty MD [address] [place] [phone] Gastroenterology 04/25/24 Dr. Yi MD Colon and Rectal Surgery 04/25/24 documented as of this encounter
--- OUTSIDE RECORDS SUMMARY | 2024-04-27 11:31 | XMS_ITS | Encounter Summary ---
Author Organization [employer] Address [address] [place] [address] 7 [place] [address] Care Team Providers Care Display Designer Outside Name Role Phone Radha Adan MD Primary Care Provider [phone]- [phone] Sujit Bobo MD Unavailable [phone] Du Pretty MD Unavailable Reason for Visit * Reason Onset Date Comments Med Refill 02/28/2024 Encounter Details Date Type Department Care Team (Late st Contact Info) Description 02/28/2024 Refill [facility] [address] [place], [place] [phone] Radha Adan MD [address] [place] [address] Social History Tobacco Use Types Packs/Day Years [...] Description 05/18/2024 11:00 AM EST Clinical Support [facility] [address] [place] [address] Marcella Monte RN [address] [place] [address] documented as of this encounter Visit Diagnoses Not on filedocumented in this encounter Additional Health Concerns Assessment Noted Time PHQ-9 Depression Total Score: 4 09/24/19 23 10:44 AM EDT documented as of this encounter Care Teams Display Designer Outside Relationship Specialty Start Date End Date Radha Adan MD [address] [place] [address] PCP - General Family Medicine 05/27/16 Sujit Bobo MD [address] [place] [address] Neurology 04/25/24 Du Pretty MD [address] [place] [phone] Gastroenterology 04/25/24 Dr. Yi MD Colon and Rectal Surgery 04/25/24 documented as of this encounter
--- OUTSIDE RECORDS SUMMARY | 2024-04-27 11:31 | XMS_ITS | Encounter Summary ---
Author Organization [employer] Address [address] [place] [address] 7 [place] [address] Care Team Providers Care Product/Industry Consultant Name Role Phone Radha Adan MD Primary Care Provider [phone] Sujit Bobo MD Unavailable [phone] Du Pretty MD Unavailable [phone] Reason for Visit * Reason Comments Med Refill Encounter Details Date Type Department Care Team (Late st Contact Info) Description 09/17/2023 Refill [facility] [address] [place], [place] [phone] Val Brooks MD [address] [place] [address] Transverse myelitis (CMS/HCC) (Primary Dx) Social History Tobacco Use Types Packs/Day Years [...] Description 05/18/2024 11:00 AM EST Clinical Support [facility] [address] [place] [address] Marcella Monte RN [address] [place] [address] documented as of this encounter Visit Diagnoses Diagnosis Transverse myelitis (CMS/HCC)- Primary Other causes of myelitis documented in this encounter Additional Health Concerns Assessment Noted Time PHQ-9 Depression Total Score: 4 09/24/19 23 10:44 AM EDT documented as of this encounter Care Teams Product/Industry Consultant Relationship Specialty Start Date End Date Radha Adan MD [address] [place] [address] PCP - General Family Medicine 05/27/16 Sujit Bobo MD [address] [place] [address] Neurology 04/25/24 Du Pretty MD [address] [place] [address] [place] [phone] Gastroenterology 04/25/24 Dr. Yi MD Colon and Rectal Surgery 04/25/24 documented as of this encounter
--- OUTSIDE RECORDS SUMMARY | 2024-04-27 11:32 | XMS_ITS ---
Author Organization [facility] Address [address] [place] [phone] Care Team Providers Care Continuous Towel Roller Name Role Phone Radha Adan MD Primary Care Provider Josselyn vailable Du Pretty Jr Unavailable [phone] Rupinder Short Unavailable Unavailable REASON FOR VISIT please lock ov note Encounters Encounter Location Date Provider Diagnosis [facility] [address] [place] [phone] 04/25/2024 Du Pretty Jr PLAN OF TREATMENT Next Appt Details Provider Name:Du house Jr, 04/27/2024 12:10:00 PM, [address] [place] [address] , [place], [place], [phone],
--- OUTSIDE RECORDS SUMMARY | 2024-04-27 11:32 | XMS_ITS | Encounter Summary ---
Author Organization [employer] Address [address] [place] [address] 7 [place] [address] Care Team Providers Care Manager Report Name Role Phone Radha Adan MD Primary Care Provider [phone]- [phone] Sujit Bobo MD Unavailable [phone] Du Pretty MD Unavailable [phone] Encounter Details Date Type Department Care Team (Late st Contact Info) Description 06/24/2022 Orders Only [facility] [address] [place] [address] Candice Nation LPN Social History Tobacco Use Types Packs/Day Years Used Date Smoking Tobacco: Never Assessed Sex and Gender Information Value Date Recorded Sex Assigned at Male 01/18/2022 10:31 AM EDT Legal Sex Male 10:31 AM EDT Gender Identity Male 07/13/2022 1:50 PM EDT Sexual Orientation Bisexual 01/18/2022 10 :31 AM EDT documented as of this encounter Plan of Treatment Upcoming Encounters Date Type Department Care Team (Late st Contact Info) Description 05/18/2024 11:00 AM EST Clinical Support [facility] [address] [place] [address] Marcella Monte, ETA [address] [place] [address] documented as of this encounter Visit Diagnoses Not on filedocumented in this encounter Care Teams Manager Report Relationship Specialty Start Date End Date Radha Adan MD [address] [place] [address] PCP - General Family Medicine 05/27/16 Sujit Bobo MD [address] [place] [address] Neurology 04/25/24 Du Pretty MD [address] [place] [address] [address] [place] [phone] Gastroenterology 04/25/24 Dr. Yi MD Colon and Rectal Surgery 04/25/24 documented as of this encounter
--- OUTSIDE RECORDS SUMMARY | 2024-04-27 11:32 | XMS_ITS | Encounter Summary ---
Author Organization [employer] Address [address] [place] [address] [address] [address] Care Team Providers Care Senior Network Architect Name Role Phone Radha Adan MD Primary Care Provider [phone] Sujit Bobo MD Unavailable Du Pretty MD Unavailable [phone] Reason for Visit * Reason Comments Med Refill Encounter Details Date Type Department Care Team (Late st Contact Info) Description 11/18/2022 Refill [facility] [address] [place] [address] Radha Adan MD [address] [place], [place] [phone] Social History Tobacco Use Types Packs/Day Years Used Date Smoking Tobacco: Never Assessed Depression Answer Date Recorded Patient Health Questionnaire-9 Score 4 09/23/2022 Depression Answer Date Recorded Patient Health Questionnaire-2 [...] Description 05/18/2024 11:00 AM EST Clinical Support [facility] [address] [place], [place] [phone] Marcella Monte RN [address] [place] [address] documented as of this encounter Visit Diagnoses Not on filedocumented in this encounter Additional Health Concerns Assessment Noted Time PHQ-9 Depression Total Score: 4 09/24/19 23 10:44 AM EDT documented as of this encounter Care Teams Senior Network Architect Relationship Specialty Start Date End Date Radha Adan MD [address] [place] [address] PCP - General Family Medicine 05/27/16 Sujit Bobo MD [address] [place] [address] Neurology 04/25/24 Du Pretty MD [address] [place] [phone] Gastroenterology 04/25/24 Dr. Yi MD Colon and Rectal Surgery 04/25/24 documented as of this encounter
--- OUTSIDE RECORDS SUMMARY | 2024-04-27 11:32 | XMS_ITS | Encounter Summary ---
Author Organization [employer] Address [address] [place] [address] [address] [address] Care Team Providers Care Site Supervisor Name Role Phone Radha Adan MD Primary Care Provider [phone]- [phone] Sujit Bobo MD Unavailable [phone] Du Pretty MD Unavailable [phone] Encounter Details Date Type Department Care Team (Late st Contact Info) Description 07/13/2022 Orders Only [facility] [address] [place] [address] Radha Adan MD [address] [place] [address] Transverse myelitis (CMS/HCC) (Primary Dx) Social History [...] Description 05/18/2024 11:00 AM EST Clinical Support [facility] [address] [place] [address] Marcella Monte RN [address] [place], [place] [phone] documented as of this encounter Visit Diagnoses Diagnosis Transverse myelitis (CMS/HCC)- Primary Other causes of myelitis documented in this encounter Care Teams Site Supervisor Relationship Specialty Start Date End Date Radha Adan MD [address] [place] [address] PCP - General Family Medicine 05/27/16 Sujit Bobo MD [address] [place] [address] [phone] Neurology 04/25/24 Du rPetty MD [address] [place] [phone] Gastroenterology 04/25/24 Dr. Yi MD Colon and Rectal Surgery 04/25/24 documented as of this encounter
--- OUTSIDE RECORDS SUMMARY | 2024-04-27 11:32 | XMS_ITS | Encounter Summary ---
Author Organization [employer] Address [address] [place] [address] 7 [place] [address] Care Team Providers Care Reimbursement Specialist Name Role Phone Radha Adan MD Primary Care Provider [phone] Sujit Bobo MD Unavailable Du Pretty MD Unavailable [phone] Encounter Details Date Type Department Care Team (Late st Contact Info) Description 06/06/2023 Orders Only [facility] [address] [place] [address] Radha Adan MD [address] [place], [place] [phone] Other chronic pain Social History Tobacco Use Types Packs/Day Years [...] Description 05/18/2024 11:00 AM EST Clinical Support [facility] [address] [place] [address] Marcella Monte RN [address] [place] [address] documented as of this encounter Visit Diagnoses Diagnosis Other chronic pain documented in this encounter Additional Health Concerns Assessment Noted Time PHQ-9 Depression Total Score: 4 09/24/19 23 10:44 AM EDT documented as of this encounter Care Teams Reimbursement Specialist Relationship Specialty Start Date End Date Radha Adan MD [address] [place] [address] PCP - General Family Medicine 05/27/16 Sujit Bobo MD [address] [place] [address] Neurology 04/25/24 Du Pretty MD [address] [place] [address] [place] [phone] Gastroenterology 04/25/24 Dr. Yi MD Colon and Rectal Surgery 04/25/24 documented as of this encounter
--- OUTSIDE RECORDS SUMMARY | 2024-04-27 11:32 | XMS_ITS | Encounter Summary ---
Author Organization [employer] Address [address] [place] [address] 7 [place] [address] Care Team Providers Care Donor Services Specialist Name Role Phone Radha Adan MD Primary Care Provider [phone]- [phone] Sujit Bobo MD Unavailable [phone] Du Pretty MD Unavailable [phone] Encounter Details Date Type Department Care Team (Late st Contact Info) Description 04/04/2022 Abstract [facility] [address] [place] [address] Radha Adan MD [address] [place] [address] Social History Tobacco Use Types Packs/Day Years [...] Description 05/18/2024 11:00 AM EST Clinical Support [facility] [address] [place] [address] Marcella Monte RN 505 [place] [address] documented as of this encounter Procedures Procedure Name Priority Date/Time Associated Diagnosis Comments HPV HIGH RISK PCR Routine 01/21/2017 12: 00 AM EDT PAP SMEAR Routine 01/21/2017 12:00 AM EDT HM COLONOSCOPY Routine 11/24/2016 documented in this encounter Results * HPV High Risk PCR (01/21/2017 12:00 AM EDT) Swab Historical Provider LAB MICROBIOLOGY - GENERA L ORDERABLES Final Result Performing Organization Address [facility] Co de Phone Number [facility] [address] [place] [phone] * Pap Smear (01/21/2017 12:00 AM EDT) Swab Historical Provider LAB CYTOLOGY ORDERABLES F inal Result Performing Organization Address [facility] Co de Phone Number [facility] [address] [place] [phone] * Colonoscopy (11/24/2016) Colonoscopy Dr. Pretty Historical Provider [employer] Edited Result - Final documented in this encounter Visit Diagnoses Not on filedocumented in this encounter Care Teams Donor Services Specialist Relationship Specialty Start Date End Date Radha Adan MD [address] [place] [address] PCP - General Family Medicine 05/27/16 Sujit Bobo MD [address] [place] [address] Neurology 04/25/24 Du Pretty MD [address] [place] [phone] Gastroenterology 04/25/24 Dr. Yi MD Colon and Rectal Surgery 04/25/24 documented as of this encounter
--- OUTSIDE RECORDS SUMMARY | 2024-04-27 11:32 | XMS_ITS | Encounter Summary ---
Author Organization [employer] Address [address] [place] [address] [place] [address] Care Team Providers Care Manager Shipping Name Role Phone Radha Adan MD Primary Care Provider [phone] Sujit Bobo MD Unavailable [phone] Du Pretty MD Unavailable [phone] Reason for Visit * Reason Comments Med Refill Encounter Details Date Type Department Care Team (Late st Contact Info) Description 06/22/2022 Refill [facility] [address] [place] [address] Radha Adan MD [address] [place], [place] [phone] Social History Tobacco Use Types Packs/Day Years [...] Description 05/18/2024 11:00 AM EST Clinical Support [facility] [address] [place] [address] Marcella Monte RN 505 [place] [address] documented as of this encounter Visit Diagnoses Not on filedocumented in this encounter Care Teams Manager Shipping Relationship Specialty Start Date End Date Radha Adan MD [address] [place] [address] PCP - General Family Medicine 05/27/16 Sujit Bobo MD [address] [place] [address] Neurology 04/25/24 Du Pretty MD [address] [place] [phone] Gastroenterology 04/25/24 Dr. Yi MD Colon and Rectal Surgery 04/25/24 documented as of this encounter
--- OUTSIDE RECORDS SUMMARY | 2024-04-27 11:32 | XMS_ITS | Encounter Summary ---
Author Organization [employer] Address [address] [place] [address] [place] [address] Care Team Providers Care Target Protection Specialist Name Role Phone Rahda Adan MD Primary Care Provider [phone] Sujit Bobo MD Unavailable [phone] Du Pretty MD Unavailable [phone] Reason for Visit * Reason Comments Med Refill Encounter Details Date Type Department Care Team (Late st Contact Info) Description 06/10/2022 Refill [facility] [address] [place] [address] Radha Adan MD 230 [place] [address] Other chronic pain Social History Tobacco Use [...] Description 05/18/2024 11:00 AM EST Clinical Support [facility] [address] [place] [address] Marcella Monte RN 505 [place] [address] documented as of this encounter Visit Diagnoses Diagnosis Other chronic pain documented in this encounter Care Teams Target Protection Specialist Relationship Specialty Start Date End Date Radha Adan MD [address] [place] [address] PCP - General Family Medicine 05/27/16 Sujit Bobo MD [address] [place] [address] Neurology 04/25/24 Du Pretty MD [address] [place] [phone] Gastroenterology 04/25/24 Dr. Yi MD Colon and Rectal Surgery 04/25/24 documented as of this encounter
--- OUTSIDE RECORDS SUMMARY | 2024-04-27 11:32 | XMS_ITS | Encounter Summary ---
Author Organization [employer] Address [address] [place] [address] [place] [address] Care Team Providers Care Naval Gunfire Liaison Officer Name Role Phone Radha Adan MD Primary Care Provider [phone]- [phone] Sujit Bobo MD Unavailable [phone] Du Pretty MD Unavailable [phone] Encounter Details Date Type Department Care Team (Late st Contact Info) Description 05/06/2022 Orders Only [facility] MED[facility]INE [address] [place] [address] Radha Adan MD 230 [place], [place] [phone] Cloudy urine (Primary Dx); Hx: UTI (urinary tract infection); Self-catheterizes urinary bladder Social History Tobacco Use Types Packs/Day Years [...] Description 05/18/2024 11:00 AM EST Clinical Support [facility] [address] [place] [address] Marcella Monte RN 505 [place] [address] Scheduled Orders Name Type Priority Associated Diagnoses Orde r Schedule Culture, Urine, Routine Microbiology Routine Cloudy urine Hx: UTI (urinary tract infection) Self-catheterizes urinary bladder Expected: 05/06/2022 (Approximate), Expires: 05/06/2023 documented as of this encounter Procedures Procedure Name Priority Date/Time Associated Diagnosis Comments URINALYSIS, COMPLETE Routine 05/06/2022 3:34 PM EST Cloudy urine Hx: UTI (urinary tract infection) Self-catheterizes urinary bladder documented in this encounter Results * (ABNORMAL) Urinalysis Complete (05/06/2022 3:34 PM EST) Color YELLOW YELLOW Mygisticst Appearance CLOUDY(A) CLEAR [facility] Specific [place] 1.011 1.001 - 1.035 [facility] pH, Urine 7.0 5.0 - 8.0 [facility] Glucose, Urine NEGATIVE NEGATIVE [facility] Bilirubin,Uri ne NEGATIVE NEGATIVE [employer] [facility] Ketones,Urine NEGATIVE NEGATIVE [facility] Occult Blood,Urine NEGATIVE NEGATIVE [facility] Protein,Urine NEGATIVE NEGATIVE [facility] Nitrite,Urine POSITIVE(A) NEGATIVE [facility] Leukocyte esterase, Urine 3+(A) NEGATIVE [facility] WBC, UA > OR = 60(A) < OR = 5 /HPF [facility] RBC, UA NONE SEEN < OR = 2 /HPF [facility] Squamous Epithelial Cells NONE SEEN < OR = 5 /HPF [facility] Bacteria MANY(A) NONE SEEN /HPF [facility] Hyaline Cast 0-5(A) NONE SEEN /LPF [facility] Note [facility] Comment: This urine was analyzed for the presence of WBC, RBC, bacteria, casts, and other formed elements. Only those elements seen were reported. Urine Urine specimen obtained by clean catch procedure / Unknown 05/06/2022 3:34 PM EST 05/06/2022 3:35 PM EST Narrative [facility] - 05/07/2022 2:59 AM EST FASTING:UNKNOWN FASTING: UNKNOWN Radha Adan MD LAB URINE ORDERABLES Final Result [facility] [address] [facility] [place] [address] [facility] [address] [facility]) [place] [address] documented in this encounter Visit Diagnoses Diagnosis Cloudy urine- Primary Hx: UTI (urinary tract infection) Personal history of urinary (tract) infection Self-catheterizes urinary bladder documented in this encounter Care Teams Naval Gunfire Liaison Officer Relationship Specialty Start Date End Date Radha Adan MD [address] [place] [address] PCP - General Family Medicine 05/27/16 Sujit Bobo MD [address] [place] [address] Neurology 04/25/24 Du Pretty MD [address] [place] [address] [place] [phone] Gastroenterology 04/25/24 Dr. Yi MD Colon and Rectal Surgery 04/25/24 documented as of this encounter
--- OUTSIDE RECORDS SUMMARY | 2024-04-27 11:32 | XMS_ITS | Patient Health Record ---
Author Organization [facility] Address [address] [place] [address] Care Team Providers Care Feather Renovator Name Role Phone Radha Adan MD Primary Care Provider Josselyn vailable Du Pretty Jr Unavailable Rupinder Short Unavailable Unavailable ALLERGIES No Known Allergies REASON FOR REFERRAL Referring Provider First Name Radha Referring Provider Last Name Antionette Referring Provider Speciality Family Med icine Referred Organization [facility] Referred Provider Du Pretty Jr Referred Address [address] [facility],[place], [place],[address], Referred Provider Specialty Gastroentero logy General Notes Stephanie Vallejo 024 03:30:23 PM EST > requested an o blue referral from Radha adan for visit with Dr. Pretty on [phone] Referral Priority Routine MEDICATIONS Medication SIG (Take, Route, Frequency, Duration) Notes Start Date End Date Status Ferrous Sulfate 325 (65 Fe) MG TAKE ONE TABLET BY MOUTH TWICE A DAY Oral for 30 Active Gabapentin 300 MG Oral for 90 Active rOPINIRole HCl 0.5 MG TAKE ONE TABLET BY MOUTH AT BEDTIME Oral for 30 Active lamoTRIgine 25 MG Oral for 90 Active Lidocaine 5 % APPLY 1 PATCH TWICE A DAY TOPICALLY (APPLY FOR NO MORE THAN 12 HOURS AT A TIME) External for 30 Active Botox 200 UNIT Injection for 168 Active oxyCODONE-Acetaminophen 5-325 MG (Schedule II Drug) TAKE ONE TABLET BY MOUTH EVERY 6 HOURS NEEDED FOR 10 DAYS Oral for 10 Active Topiramate 50 MG Oral for 90 A ctive Zonisamide 100 MG TAKE TWO CAPSULES BY MOUTH EVERY MORNING AND 3 CAPSULES AT BEDTIME Oral for 30 Active Naproxen 500 MG Oral for 10 Ac tive oxyBUTYnin Chloride ER 10 MG TAKE ONE TABLET BY MOUTH TWICE A DAY Oral for 30 Active Testosterone Cypionate 200 MG/ML Intramuscular for 28 Active tiZANidine HCl 2 MG TAKE ONE TABLET BY M OUTH THREE TIMES A DAY NEEDED Oral for 30 Active LORazepam 1 MG Oral for 30 Act miguel Potassium Chloride Lilly ER 20 MEQ Oral for 7 Active DULoxetine HCl 60 MG TAKE ONE CAPSULE BY MOUTH EVERY DAY Oral for 30 Active Testosterone 0.5 IM Q14D Once a day Active IMMUNIZATIONS Vaccine Route Administration Date Status Comme nts Influenza Unknown 04/16/2024 Refused SOCIAL HISTORY Tobacco Use: Social History Observation Description Date Details (start date - stop date) Former Smoker NA - NA Sex Assigned At : Social History Observation Description Sex Assigned At Unknown Tobacco Use/Smoking Question Answer Notes Patient is a former smoker How long has it been since you last smoked? 3-6 months Alcohol Screen Question Answer Notes Did you have a drink containing alcohol in the p ast year? 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) Active confirmed 455352353 VITAL SIGNS Temperature 98.0 degrees Fahrenheit 04/16/2024 Blood pressure diastolic 00 mm Hg 04/16/2024 Height 69 in 04/16/2024 Blood pressure systolic 000 mm Hg 04/16/2024 Weight 175 lbs 04/16/2024 BMI 25.84 kg/m2 04/16/2024 Encounters Encounter Location Date Provider Diagnosis [facility] [place] [place] Outpatient [address] [place], [place] [phone] 04/27/2024 Du Pretty [facility] [address] [facility] [address] [place] [address] 07/20/2023 Du Pretty Jr [facility] [address] [place] [address] 04/16/2024 Du Pretty Jr Lopez's esophagus without dysplasia K22.70 ; Colon cancer screening Z12.11 and Rectal sphincter incontinence R15.9 [facility] [address] [place] [address] 04/25/2024 Du Pretty Jr ASSESSMENTS Encounter Date Diagnosis Assessment Notes Treatment Notes Treatment Clinical Notes 04/16/2024 Colon cancer screening (ICD-10 - Z12.11) 04/16/2024 Lopez's esophagus without dysplasia (ICD-10 - K22.70) Lopez esophagus material was printed 04/16/2024 Rectal sphincter incontinence (ICD-10 - R15.9) PLAN OF TREATMENT Future Test Test Name Order Date UPPER GI ENDOSCOPY 10/22/2016 COLONOSCOPY 10/22/2016 Next Appt Details Provider Name:Du house Jr, 04/27/2024 12:10:00 PM, [address] [place] [address] , [place], [place], [phone], Insurance Providers Payer Name Payer Address Payer Phone Subscriber Number Group Number Insured Name Patient Relationship to Insured Coverage Start Date Coverage End Date [facility] [employer] PROF[employer]AL CLAIMS [address] [place] [address] [id number] RORY WALKER Self - patient is the insured MEDICAL (GENERAL) HISTORY Medical History History ICD Code anemia lung nodule COPD urinary incontinence restless leg syndrome transverse myelitis rectal prolapse Seizure disorder C. difficile infection Colonoscopy 12/05 limited due to poor pre p, negative for polyps EGD 12/05, Eva, treated Surgical History Surgery Date(Month/Year) fistula repair 1982 bladder surgery 2006 bilateral mastectomy 2003 appendectomy as child tonsillectomy as child ORIF wrist fracture 2017 Rectal prolapse repair
--- OUTSIDE RECORDS SUMMARY | 2024-04-27 11:32 | XMS_ITS ---
Author Organization [facility] Address [address] [place] [address] Care Team Providers Care Internet Sales Representative Name Role Phone Radha Adan MD Primary Care Provider Josselyn Du Cortez Jr Unavailable [phone] Rupinder Short Unavailable Unavailable ALLERGIES No Known Allergies REASON FOR VISIT followup MEDICATIONS Medication SIG (Take, Route, Frequency, Duration) Notes Start Date End Date Status Gabapentin 300 MG Oral for 90 Active lamoTRIgine 25 MG Oral for 90 Active Topiramate 50 MG Oral for 90 A ctive Naproxen 500 MG Oral for 10 Ac tive Testosterone Cypionate 200 MG/ML Intramuscular for 28 Active Botox 200 UNIT Injection for 168 Active LORazepam 1 MG Oral for 30 Act miguel Potassium Chloride Lilly ER 20 MEQ Oral for 7 Active DULoxetine HCl 60 MG TAKE ONE CAPSULE BY MOUTH EVERY DAY Oral for 30 Active Testosterone 0.5 IM Q14D Once a day Active Ferrous Sulfate 325 (65 Fe) MG TAKE ONE TABLET BY MOUTH TWICE A DAY Oral for 30 Active rOPINIRole HCl 0.5 MG TAKE ONE TABLET BY MOUTH AT BEDTIME Oral for 30 Active Zonisamide 100 MG TAKE TWO CAPSULES BY MOUTH EVERY MORNING AND 3 CAPSULES AT BEDTIME Oral for 30 Active oxyBUTYnin Chloride ER 10 MG TAKE ONE TABLET BY MOUTH TWICE A DAY Oral for 30 Active tiZANidine HCl 2 MG TAKE ONE TABLET BY M OUTH THREE TIMES A DAY NEEDED Oral for 30 Active Lidocaine 5 % APPLY 1 PATCH TWICE A DAY TOPICALLY (APPLY FOR NO MORE THAN 12 HOURS AT A TIME) External for 30 Active oxyCODONE-Acetaminophen 5-325 MG (Schedule II Drug) TAKE ONE TABLET BY MOUTH EVERY 6 HOURS NEEDED FOR 10 DAYS Oral for 10 Active IMMUNIZATIONS Vaccine Route Administration Date Status [...] W/U Status Risk SNOMED Code Notes Problem 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) Active confirmed 685447008 Problem Colon cancer screening (Z12.11) Active confirmed 801371123 Problem 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) Active confirmed 860606333 VITAL SIGNS BMI 25.84 kg/m2 04/16/2024 Blood pressure systolic 000 mm Hg 04/16/19 25 Blood pressure diastolic 00 mm Hg 025 Height 69 in 04/16/2024 Temperature 98.0 degrees Fahrenheit 04/16/19 25 Weight 175 lbs 04/16/2024 Encounters Encounter Location Date Provider Diagnosis [facility] [address] [place] [address] 04/16/2024 Du Pretty Jr Lopez's esophagus without dysplasia K22.70 ; Colon cancer screening Z12.11 and Rectal sphincter incontinence R15.9 ASSESSMENTS Encounter Date Diagnosis Assessment Notes Treatment Notes Treatment Clinical Notes 04/16/2024 Lopez's esophagus without dysplasia (ICD-10 - K22.70) Lopez esophagus material was printed 04/16/2024 Colon cancer screening (ICD-10 - Z12.11) 04/16/2024 Rectal sphincter incontinence (ICD-10 - R15.9) PLAN OF TREATMENT Treatment Notes Assessment Notes Lopez's esophagus without dysplasia Ba rrett esophagus material was printed Next Appt Details Follow Up: 1 Year, Reason: Provider Name:Du house Jr, 04/27/2024 12:10:00 PM, [address] [place] [address] , [place], [place], [phone],
--- OUTSIDE RECORDS SUMMARY | 2024-04-27 11:32 | XMS_ITS | Encounter Summary ---
Author Organization [employer] Address [address] [place] [address] 7 [place] [address] Care Team Providers Care Delivery Representative Name Role Phone Radha Adan MD Primary Care Provider [phone] Sujit Bobo MD Unavailable [phone] Du Pretty MD Unavailable [phone] Reason for Visit * Reason Onset Date Comments Hospital Follow-up 09/10/2022 Encounter Details Date Type Department Care Team (Late st Contact Info) Description 09/10/[address] [facility] [address] [place], [place] [phone] Radha Adan MD 230 [place] [address] Hospital Follow-up Social History Tobacco Use Types Packs/Day Years Used Date Smoking Tobacco: Never Assessed Sex and Gender Information Value Date Recorded Sex Assigned at Male 01/18/2022 10:31 AM EDT Legal Sex Male 10:31 AM EDT Gender Identity Male 07/13/2022 1:50 PM EDT Sexual Orientation Bisexual 01/18/2022 10 :31 AM EDT documented as of this encounter Miscellaneous Notes * Telephone Encounter - Chelsi Candelario - 09/10/2022 9:27 AM EDT Tc from pt requesting a HDF appt. Pt was admitted at [facility] [place] on 09/07/22 and discharged on 09/09/22. Pt was diagnosed with seizure and pneumonia. documented in this encounter Plan of Treatment Upcoming Encounters Date Type Department Care Team (Late st Contact Info) Description 05/18/2024 11:00 AM EST Clinical [address] [facility] [address] [place] [address] Marcella Monte, RN [address] [place] [address] documented as of this encounter Visit Diagnoses Not on filedocumented in this encounter Care Teams Delivery Representative Relationship Specialty Start Date End Date Radha Adan MD [address] [place] [address] PCP - General Family Medicine 05/27/16 Sujit Bobo MD [address] [place] [address] Neurology 04/25/24 Du Pretty MD [address] [place] [address] [place] [phone] Gastroenterology 04/25/24 Dr. Yi MD Colon and Rectal Surgery 04/25/24 documented as of this encounter
--- OUTSIDE RECORDS SUMMARY | 2024-04-27 11:32 | XMS_ITS | Encounter Summary ---
Author Organization [employer] Address [address] [place] [address] [facility] [place] [address] Care Team Providers Care Forensic Document Examiner Name Role Phone Radha Adan MD Primary Care Provider [phone] Sujit Bobo MD Unavailable [phone] Du Pretty MD Unavailable [phone] Reason for Visit * Reason Onset Date Comments Med Refill 04/12/2022 Encounter Details Date Type Department Care Team (Late st Contact Info) Description 04/12/2022 Telephone [facility] [address] [place] [address] Radha Adan MD [address] [place] [address] Med Refill Social History Tobacco Use Types Packs/Day Years Used Date Smoking Tobacco: Never Assessed Sex and Gender Information Value Date Recorded Sex Assigned at Male 01/18/2022 10:31 AM EDT Legal Sex Male 10:31 AM EDT Gender Identity Male 07/13/2022 1:50 PM EDT Sexual Orientation Bisexual 01/18/2022 10 :31 AM EDT documented as of this encounter Miscellaneous Notes * Telephone Encounter - Veronica Ralph - 04/12/2022 3:35 PM EST Tc from pt requesting a Med refill status on medication Percocet 5mg, please send to [facility] Please contact pt [phone] documented in this encounter Plan of Treatment Upcoming Encounters Date Type Department Care Team (Late st Contact Info) Description 05/18/2024 11:00 AM EST Clinical Support [facility] [address] [place] [address] Marcella Monte, RN [address] [place] [address] documented as of this encounter Visit Diagnoses Not on filedocumented in this encounter Care Teams Forensic Document Examiner Relationship Specialty Start Date End Date Radha Adan MD [address] [place] [address] PCP - General Family Medicine 05/27/16 Sujit Bobo MD [address] [place] [address] Neurology 04/25/24 Du Pretty MD [address] [place] [phone] Gastroenterology 04/25/24 Dr. Yi MD Colon and Rectal Surgery 04/25/24 documented as of this encounter
--- OUTSIDE RECORDS SUMMARY | 2024-04-27 11:32 | XMS_ITS | Encounter Summary ---
Author Organization [employer] Address [address] [place] [address] 7 [place] [address] Care Team Providers Care Associate Automation Engineer Name Role Phone Radha Adan MD Primary Care Provider [phone]- [phone] Sujit Bobo MD Unavailable [phone] Du Pretty MD Unavailable [phone] Encounter Details Date Type Department Care Team (Late st Contact Info) Description 04/23/2022 Orders Only [facility] [address] [place] [address] Candice Nation LPN Social History Tobacco Use [...] Description 05/18/2024 11:00 AM EST Clinical Support [facility] MEDICINE [address] [place] [address] Marcella Monte, TEA [address] [place] [address] documented as of this encounter Visit Diagnoses Not on filedocumented in this encounter Care Teams Associate Automation Engineer Relationship Specialty Start Date End Date Radha Adan MD [address] [place] [address] PCP - General Family Medicine 05/27/16 Suijt Bobo MD [address] [place] [address] Neurology 04/25/24 Du Pretty MD [address] [place] [address] [address] [place] [phone] Gastroenterology 04/25/24 Dr. Yi MD Colon and Rectal Surgery 04/25/24 documented as of this encounter
--- OUTSIDE RECORDS SUMMARY | 2024-04-27 11:32 | XMS_ITS | Encounter Summary ---
Author Organization [employer] Address [address] [place] [address] 7 [place] [address] Care Team Providers Care Quality Officer Name Role Phone Radha Adan MD Primary Care Provider [phone] Reason for Visit * Reason Onset Date Comments Prior Authorization 05/13/2022 Encounter Details Date Type Department Care Team ([facility] st Contact Info) Description 05/13/2022 Telephone [facility] MEDICINE [address] [place] [address] Radha Adan MD [address] [place] [address] Prior Authorization Social History Tobacco Use Types Packs/Day Years [...] Orientation Bisexual 01/18/2022 10 :31 AM EDT COVID-19 Exposure Response Date Recorded In the last 10 days, have yo u been in contact with someone who was confirmed or suspected to have Coronavirus/COVID-19? No / Unsure 09/23/2022 10:19 AM EDT documented as of this encounter Miscellaneous Notes * Telephone Encounter - Veronica Ralph - 05/17/2022 3:17 PM EST Tc from pt requesting status on messages Below * Telephone Encounter - Rebeca Loyola - 05/17/2022 11:19 AM EST PA sent for oxycodone using covermymeds * Telephone Encounter - Chelsi Candelario - 05/17/2022 10:31 AM EST Tc from patient calling on the status of PA, regarding message below. Patient is hs been out of medication since 05/14/22. * Telephone Encounter - Veronica Ralph - 05/14/2022 3:20 PM EST Tc from patient calling on the status of PA for medication Oxycodone. States he is without medication Please contact pt at [phone] * Telephone Encounter - Rebeca Loyola - 05/14/2022 2:29 PM EST PA for oxycodone initiated using covermymeds today waiting on response * Telephone Encounter - Chelsi Candelario - 05/14/2022 1:20 PM EST Tc from patient calling on the status of PA for medication Oxycodone. States he is without medication. * Telephone Encounter - Romina Gage - 05/13/2022 11:12 AM EST Tc from [facility] stating script for oxycodone 5 mg needs a PA also gave contact # to call for PA [phone]. Please contact at [phone] documented in this encounter Plan of Treatment Upcoming Encounters Date Type Department Care Team (Late st Contact Info) Description 05/18/2024 11:00 AM EST Clinical Support [facility] MEDICINE [address] [place] [address] Marcella Monte RN [address] [place] [address] documented as of this encounter Visit Diagnoses Not on filedocumented in this encounter Care Teams Quality Officer Relationship Specialty Start Date End Date Radha Adan MD [address] [place] [address] PCP - General Family Medicine 05/27/16 documented as of this encounter
--- OUTSIDE RECORDS SUMMARY | 2024-04-27 11:32 | XMS_ITS | Encounter Summary ---
Author Organization [employer] Address [address] [place] [address] 7 [place] [address] Care Team Providers Care Plastic Sheeting Cutter Name Role Phone Radha Adan MD Primary Care Provider [phone] Sujit Bobo MD Unavailable [phone] Du Pretty MD Unavailable [phone] Reason for Visit * Reason Onset Date Comments Med Refill 04/29/2023 Encounter Details Date Type Department Care Team (Late st Contact Info) Description 04/29/2023 Telephone [facility] MEDICINE [address] [place], [place] [phone] Radha Adan MD [address] [place] [address] Med Refill Social History Tobacco Use Types [...] encounter Miscellaneous Notes * Telephone Encounter - Lizz Quinteros - 04/29/2023 4:01 PM EST .TC from pt requesting medication refill. Medications needing refill : oxyCODONE-acetaminophen (Percocet) 5-325 MG tablet To be sent to: [facility] documented in this encounter Plan of Treatment Upcoming Encounters Date Type Department Care Team (Late st Contact Info) Description 05/18/2024 11:00 AM EST Clinical Support [facility] MEDICINE [address] [place] [address] Marcella Monte RN [address] [place] [address] documented as of this encounter Visit Diagnoses Not on filedocumented in this encounter Additional Health Concerns Assessment Noted Time PHQ-9 Depression Total Score: 4 09/24/19 23 10:44 AM EDT documented as of this encounter Care Teams Plastic Sheeting Cutter Relationship Specialty Start Date End Date Radha Adan MD [address] [place] [address] PCP - General Family Medicine 05/27/16 Sujit Bobo MD [address] [place] [address] Neurology 04/25/24 Du Pretty MD [address] [place] [address] [address] [place] [address], [place] [phone] Gastroenterology 04/25/24 Dr. Yi MD Colon and Rectal Surgery 04/25/24 documented as of this encounter
--- OUTSIDE RECORDS SUMMARY | 2024-04-27 11:32 | XMS_ITS | Clinical Summary ---
Author Organization [facility] Address [address] [place] [address] Phone Care Team Providers Care Emergency Department Aide Name Role Phone Radha Adan MD Primary Care Provider U navailable Allergies No known active allergies Medications LORazepam (ATIVAN) 1 MG tablet Take 1 mg by mouth 1 (one) time each day if needed for anxiety Active zonisamide (ZONEGRAN) 100 MG capsule Take 200 mg by mouth 2 (two) times a day Active topiramate (TOPAMAX) 50 MG tablet Take 100 mg by mouth 2 (two) times a day Active tiZANidine (ZANAFLEX) 4 MG capsule Take 4 mg by mouth every night Active gabapentin (NEURONTIN) 300 MG capsule Take 600 mg by mouth every night Active acetaminophen (TYLENOL) 500 MG tablet Take by mouth every 6 (six) hours if needed for mild pain Active oxyCODONE-aceta minophen (PERCOCET) 5-325 MG per tablet Take 1 tablet by mouth every 12 (twelve) hours if needed for moderate pain Active rOPINIRole (REQUIP) 0.5 MG tablet Take 0.5 mg by mouth every night Active DULoxetine (CYMBALTA) [address] capsule Take 60 mg by mouth 1 (one) time each day Do not crush or chew. Active oxybutynin XL (DITROPAN-XL) 15 MG 24 hr tablet Take 15-30 mg by mouth 1 (one) time each day Do not crush, chew, or split. Active Magnesium 500 MG tablet Take 500 mg by mouth 1 (one) time each day Active Potassium Citrate 99 MG capsule Take 1 tablet by mouth 1 (one) time each day Active ferrous sulfate 325 (65 Fe) MG tablet Take 325 mg by mouth 1 (one) time each day with breakfast Active Cholecalciferol 125 MCG (5000 UT) tablet Take 1 tablet by mouth 1 (one) time each day Active Ascorbic Acid (vitamin C) 1000 MG tablet Take 1,000 mg by mouth 1 (one) time each day Active glucosamine-cho ndroitin 500-400 MG tablet Take 2 tablets by mouth 1 (one) time each day Active Active Problems Problem Noted Date Diagnosed Date Stage 3a chronic kidney disease 12/05/2020 Chronic kidney disease 12/04/2020 Family History Medical History Relation Comments Diabetes Maternal Grandmother Heart disease Maternal Grandmother Relation Status Comments Maternal Grandmother Social History Tobacco Use Types Packs/Day Years Used Date Smoking Tobacco: Never Smokeless Tobacco: Never Alcohol Use Standard Drinks/Week Comments Never 0 (1 standard drink = 0.6 oz pur e alcohol) Sex and Gender Information Value Date Recorded Sex Assigned at Not on file Legal Sex Male 9:15 AM EDT Gender Identity Not on file Sexual Orientation Not on file Last Filed Vital Signs Vital Sign Reading Time Taken Comments Blood Pressure 110/80 12/05/2020 3:35 PM EDT Pulse 88 12/05/2020 3:35 PM EDT Temperature - - Respiratory Rate - - Oxygen Saturation 96% 12/05/2020 3:35 PM EDT Inhaled Oxygen Concentration - - Weight 78.8 kg (173 lb 12.8 oz) 12/05/2020 3:35 PM EDT Height - - Body Mass Index - - Plan of Treatment Health Maintenance Due Date Last Done Comments Pneumococcal Vaccine: 65+ Ye ars (1 of 2 - PCV) 1961 Colorectal Cancer Screening: Annual FOBT 2006 Colorectal Cancer Screening: Colonoscopy 2006 Colorectal Cancer Screening: Sigmoidoscopy 2006 Influenza Vaccine (#1) 2023 Hepatitis B Vaccine Aged Out No longe r eligible based on patient's age to complete this topic Insurance [facility] Care Teams Emergency Department Aide Relationship Specialty Start Date End Date Antionette, Radha De La O MD PCP - General Family Medicine 09/30/20
--- OUTSIDE RECORDS SUMMARY | 2024-04-27 11:32 | XMS_ITS | Encounter Summary ---
Author Organization [employer] Address [address] [place] [address] 7 [place] [address] Care Team Providers Care Dobby Looms Pegger Name Role Phone Radha Adan MD Primary Care Provider [phone] Sujit Bobo MD Unavailable [phone] Du Pretty MD Unavailable [phone] Reason for Visit * Reason Onset Date Comments Medication Question 06/11/2022 Encounter Details Date Type Department Care Team (Late st Contact Info) Description 06/11/2022 Telephone [facility] MEDICINE [address] [place], [place] [phone] Radha Adan MD [address] [place] [address] Medication Question Social History Tobacco Use Types Packs/Day Years Used Date Smoking Tobacco: Never Assessed Sex and Gender Information Value Date Recorded Sex Assigned at Male 01/18/2022 10:31 AM EDT Legal Sex Male 10:31 AM EDT Gender Identity Male 07/13/2022 1:50 PM EDT Sexual Orientation Bisexual 01/18/2022 10 :31 AM EDT documented as of this encounter Miscellaneous Notes * Telephone Encounter - Veronica Ralph - 06/11/2022 12:31 PM EDT Tc from Connie with Pt Pharmacy requesting for instructions for lidocaine (Lidoderm) 5 % patch tonie fix. Connie claims that this particular patch is supposed to be one patch applied to effectivearea for 12 hours and 12 hours off so a remainder of 24 hours for 1 patch. Please contact Connie to confirm at [phone] Reference number is [id number] documented in this encounter Plan of Treatment Upcoming Encounters Date Type Department Care Team (Late st Contact Info) Description 05/18/2024 11:00 AM EST Clinical Support [facility] MEDICINE [address] [place] [address] Marcella Monet, TEA [address] [place] [address] documented as of this encounter Visit Diagnoses Not on filedocumented in this encounter Care Teams Dobby Looms Pegger Relationship Specialty Start Date End Date Radha Adan MD [address] [place] [address] PCP - General Family Medicine 05/27/16 Sujit Bobo MD [address] [place] [address] Neurology 04/25/24 Du Pretty MD [address] [place] [phone] Gastroenterology 04/25/24 Dr. Yi MD Colon and Rectal Surgery 04/25/24 documented as of this encounter
--- NOTE | 2024-04-27 11:54 | MHC.SHP ---
Pre-Procedural Eval Section A - 24 Hr Update-Section A only Date of Service: 04/27/24 The patient is an INPATIENT: No Changes since office visit: No Cold of Flu in the past 2 weeks, No New Medical Problems, No Changes in Medication and No Patient answered all questions The patient has been examined within 24 hours of the surgical procedure. 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 No changes have occurred unless specified. Time Spent With Patient Time: Total time managing care of this patient today ____ minutes.
--- NOTE | 2024-04-27 12:26 | P.BOP_ITS ---
Brief Operative Note Date of Service: 04/27/24 Pre-op diagnosis: barretts Post-op diagnosis: same Procedure: egd Surgeon: Du Pretty MD Anesthesia: MAC Was an Clinical Dietitian used for this Procedure?: No Estimated blood loss (mL): 2 Pathology: other Condition: stable Disposition: PACU
[2024-04-27 12:27] VITALS: BP 110/69; PULSE 58; RESP 17; TEMP 36.6; O2SAT 92
--- NOTE | 2024-04-27 12:36 | OP_ITS ---
DATE OF SERVICE: 04/27/2024 SURGEON: Du Pretty MD INDICATIONS: Lopez esophagus. PREOPERATIVE DIAGNOSIS: POSTOPERATIVE DIAGNOSIS: PROCEDURE PERFORMED: Upper endoscopy with biopsy. ESTIMATED BLOOD LOSS: COMPLICATIONS: ANESTHESIA: Monitored anesthesia care. ASSISTANTS: SPECIMENS: DESCRIPTION OF PROCEDURE: A history and physical was performed. The risks and benefits of the procedure were explained to the patient and informed consent was obtained. The patient was placed in the left lateral decubitus position. The Olympus video gastroscope was introduced into the esophagus, stomach, duodenum. Examination was performed and the scope was removed. He tolerated the procedure well and was returned to recovery area in stable condition. FINDINGS: Esophagus: The esophagus showed a less than 1 cm area of Lopez esophagus with no raised lesions or ulcerated areas. Biopsies were obtained from the EG junction. Stomach: The stomach showed erythema consistent with gastritis in the body and antrum. Biopsies were obtained from the antrum. Duodenum: The bulb and 2nd portion were normal. IMPRESSION: 1. Lopez esophagus. 2. Gastritis. RECOMMENDATION: Follow up the biopsy results. MD LUISITO Roberson/GLADYSL / [id number]
[2024-04-27 12:37] VITALS: BP 143/80; PULSE 64; RESP 16; TEMP 36.6; O2SAT 97
== END 2024-04-27 13:00 | disposition home or self-care (01) ==
PROVIDERS: PCP Family Medicine; Visit Provider Internal Medicine Gastroenterology
PROC: 0DJ08ZZ Inspection of Upper Intestinal Tract, Via Natural or Artificial Opening Endoscopic (ICD-10-PCS; CPT 43235; principal; 2024-04-27 12:10)
DX: K22.70 Barrett's esophagus without dysplasia (principal); K29.50 Unspecified chronic gastritis without bleeding; K62.3 Rectal prolapse; R91.1 Solitary pulmonary nodule; R15.9 Full incontinence of feces; Z87.19 Personal history of other diseases of the digestive system; D64.9 Anemia, unspecified; G40.909 Epilepsy, unspecified, not intractable, without status epilepticus; G89.29 Other chronic pain; J44.9 Chronic obstructive pulmonary disease, unspecified; K21.9 Gastro-esophageal reflux disease without esophagitis; Z98.890 Other specified postprocedural states; Z87.891 Personal history of nicotine dependence
CPT/HCPCS: 43239; 88305; 88342; J2003; J2704; J3010

== ENCOUNTER 2024-08-30 12:18 | Outpatient (REF) | payer BC, SELFPAY ==
--- NOTE | ~2024-08-30 | XR_ITS ---
EXAMINATION: XR HIP 2 OR MORE VIEWS LEFT HISTORY: Left hip pain COMPARISON: Comparison is made with the prior examination dated 09/09/2020. FINDINGS: Three AP views of the right hip are submitted. Again seen is a sclerotic focus in the femoral neck which likely represents a bone island. There is no fracture or dislocation. The joint space is maintained. The soft tissues are unremarkable. XR/XR hip LT min 2V IMPRESSION: Stable bone island in the intertrochanteric region. No evidence of fracture or significant joint space narrowing. Electronically signed by: Daniel Lehman MD 08/30/2024 02:03 PM EDT
--- OUTSIDE RECORDS SUMMARY | 2024-08-30 14:14 | XMS_ITS | Clinical Summary ---
Author Organization [facility] Address [address] [place] [address] 7 [place] [address] Care Team Providers Care Food Demonstrator Name Role Phone Radha Adan MD Primary Care Provider [phone] Sujit Bobo MD Unavailable [phone] Du Pretty MD Unavailable Allergies Active Allergy Reactions Criticality Noted Date Comments Dust Mite Extract 09/20/2022 Influenza A (H1n1) Monovalent Vaccine 10/06/2018 Influenza Virus Vaccine Unknown 04/09/2022 Medications ferrous sulfate (Fe Tabs) 325 (65 Fe) MG EC tablet Take one tab po every other day. Do not crush, chew, or split. 30 tablet 2 11/18/19 23 Active Needle, Disp, (BD Disp Needle) 23G X 1 miscIndication s:Gender dysphoria Use to inject testosterone. 12 each 11 12/22/19 23 Active B-D HYPODERMIC NEEDLE 22GX1 22G X 1 miscIndication s:Gender dysphoria USE TO INJECT TESTOSTERONE 12 each 11 06/17/19 24 Active Needle, Disp, (B-D HYPODERMIC NEEDLE 23GX1 ) 23G X 1 miscIndication s:Gender dysphoria USE TO INJECT TESTOSTERONE 12 each 06/17/19 24 Active naloxone (Narcan) 4 mg/0.1 mL nasal spray Administer 1 spray (4 mg) into affected nostril(s) if needed for opioid reversal. 2 each 3 06/17/19 24 Active zonisamide (Zonegran) 100 MG capsuleIndicat ions:Transvers e myelitis (CMS/HCC) TAKE 2 CAPSULES TWO TIMES ADAY 360 capsule 3 09/19/19 24 Active rOPINIRole (Requip) 0.5 MG tabletIndicati ons:Other chronic pain TAKE 1 TABLET AT BEDTIME 90 tablet 1 05/08/19 25 Active Syringe, Disposable, 3 ML miscIndication s:Gender dysphoria Use for injection of testosterone as prescribed 25 each 11 05/25/19 25 Active DULoxetine (Cymbalta) [address] capsuleIndicat ions:Other chronic pain TAKE 1 CAPSULE DAILY 90 capsule 3 05/31/19 25 Active lidocaine (Lidoderm) 5 % patchIndicatio ns:Other chronic pain APPLY ONE PATCH THREE TIMES A DAY NEEDED PAIN 90 patch 11 06/19/19 25 Active tiZANidine (Zanaflex) 4 MG tabletIndicati ons:Transverse myelitis (CMS/HCC) TAKE ONE TABLET BY MOUTH EVERY EVENING AT BEDTIME NEEDED FOR MUSCLE SPASM 90 tablet 06/21/19 25 Active oxyCODONE-acet aminophen (Percocet) 5-325 MG tabletIndicati ons:Chronic low back pain, unspecified back pain laterality, unspecified whether sciatica present Take 1 tablet by mouth every 12 (twelve) hours if needed for severe pain for up to 28 days. 56 tablet 08/18/19 25 2024 Active gabapentin (Neurontin) 300 mg split tabletIndicati ons:Transverse myelitis (CMS/HCC) [address] Butler 09/10/19 21 Active B-D 3CC LUER-MARIYA SYR 23GX1 23G X 1 3 ML miscIndication s:Gender dysphoria USE FOR INJECTION OF TESTOSTERONE 05/25/19 25 Active topiramate 50 MG tabletIndicati ons:Transverse myelitis (CMS/HCC) 50 mg. 09/10/19 21 Active LORazepam (Ativan) 1 MG tabletIndicati ons:Transverse myelitis (CMS/HCC) 1 mg. 09/10/19 21 Active lamoTRIgine (LaMICtal XR) 25 mg tablet sustained-rele ase 24 hour 24 hr tabletIndicati ons:Seizure disorder (CMS/HCC) [address] Butler 03/23/19 24 Active testosterone cypionate (Depo-Testoste karla) 200 MG/ML injectionIndic ations:Gender dysphoria Single use vials 2 mL 3 08/31/19 Active gabapentin (Neurontin) 300 MG capsule Take 2 capsules by mouth at bedtime. 06/24/192024 Discontinued(M ed list cleanup (will not trigger notification to Pharmacy)) Botox 200 units injection 07/13/192024 Discontinued lamoTRIgine (LaMICtal) 25 MG tablet Take 1 tab po daily 90 tablet 10/07/192024 Discontinued(M ed list cleanup (will not trigger notification to Pharmacy)) oxybutynin XL (Ditropan-XL) 15 MG 24 hr tablet 12/05/192024 Discontinued(M ed list cleanup (will not trigger notification to Pharmacy)) sodium bicarbonate 650 MG tablet DISSOLVE AND TAKE ONE TABLET BY MOUTH THREE TIMES A DAY 03/26/192024 Discontinued(M ed list cleanup (will not trigger notification to Pharmacy)) potassium chloride CR (Klor-Con M20) 20 MEQ ER tablet Take 2 tabs po daily for 1 week. Do not crush or chew. 14 tablet 11 03/28/192024 Discontinued topiramate 50 MG tablet Take 100 mg by mouth. 05/09/192024 Discontinued(M ed list cleanup (will not trigger notification to Pharmacy)) LORazepam (Ativan) 1 MG tablet Take 1 tablet (1 mg) by mouth if needed each day for anxiety. Do not start before May 28, 2024. 30 tablet 2 05/29/192024 Discontinued(R eorder (will not trigger notification to Pharmacy)) testosterone cypionate (Depo-Testoste karla) 200 MG/ML injectionIndic ations:Gender dysphoria Inject 0.5 mL (100 mg) into the muscle every 14 (fourteen) days. 1 mL 2 07/12/192024 Discontinued(R eorder (will not trigger notification to Pharmacy)) oxyCODONE-acet aminophen (Percocet) 5-325 MG tabletIndicati ons:Pain Take 1 tablet by mouth every 12 (twelve) hours if needed for severe pain for up to 28 days. 56 tablet 07/21/19 25 2024 Discontinued(R eorder (will not trigger notification to Pharmacy)) oxyCODONE-acet aminophen (Percocet) 5-325 MG tabletIndicati ons:Pain Take 1 tablet by mouth every 12 (twelve) hours if needed for severe pain for up to 28 days. Do not start before August 17, 2024. 56 tablet 08/18/19 25 2024 Discontinued(R eorder (will not trigger notification to Pharmacy)) LORazepam (Ativan) 1 MG tablet Take 1 tablet (1 mg) by mouth if needed each day for anxiety. Do not start before August 31, 2024. 30 tablet 2 09/01/19 25 2024 Discontinued(M ed list cleanup (will not trigger notification to Pharmacy)) oxybutynin XL (Ditropan-XL) 15 MG 24 hr tabletIndicati ons:Neurogenic bladder 15 mg. 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 Pretty 04/27/24: Bx negative for intestinal metaplasia and dysplasia Assessment & Plan (08/30/2024 11:55 AM EDT): EGD with Dr. Pretty 04/27/24: Bx negative for intestinal metaplasia and dysplasia Colon cancer screening 04/27/2024 Overview (04/27/2024): -seen by Dr. Pretty 04/2024, colonoscopy scheduled Chronically on benzodiazepine therapy 01/18/2024 snf (current) use of opiate analgesic 12/21 Chronic narcotic use 07/18/2023 Recurrent UTI 07/18/2023 Cardiac risk counseling 07/18/2023 Overview (07/18/2023): Calculated 07/18/23: Intermediate Risk The 10-year ASCVD risk score (Ramiro MAGAÑA, et al., 2019) is: 13% Values used [...] in setting of CKD. Hypokalemia 03/28/2023 Overview (08/30/2024): Lab Results Component Value Date K 4.3 04/01/2023 K 2.9 (L) 03/28/2023 K 4.0 03/22/2023 -Kdur 20mg 2 tabs daily for 1 week started 03/28/23, recheck 4 days Assessment & Plan (03/28/2023 12:39 PM EST): Lab Results Component Value Date K 2.9 (L) 03/28/2023 K 4.0 03/22/2023 K 3.7 03/11/2023 -Kdur 20mg 2 tabs daily for 1 week started 03/28/23, recheck 4 days C. difficile diarrhea 03/24/2023 Overview (08/30/2024): -Admitted to [facility] 03/22/2023 for C. Diff collitis. Osvaldo factors [...] Plan (04/08/2023 8:51 AM EST): -Admitted to [facility] 03/22/2023 for C. Diff collitis. Osvaldo factors [...] Plan (03/28/2023 10:17 AM EST): -Admitted to [facility] 03/22/2023 for C. Diff collitis. Osvaldo factors [...] PO at discharge Urinary incontinence 11/10/2022 Overview (08/30/2024): Due to neurogenic bladder. He received Botox injections in past. -Pt self caths. - followed by Dr. Moya, urology who retired, new referral placed 08/30/24. -Advised do not check urine culture if not symptomatic due to multidrug resistant bacteria in past Assessment & Plan (08/30/2024 11:56 AM EDT): Due to neurogenic bladder. He received Botox injections in past. -Pt self caths. - followed by Dr. Moya, urology who retired, new referral placed 08/30/24. -Advised do not check urine culture if not symptomatic due to multidrug resistant bacteria in past Assessment & Plan (06/17/2023 3:01 PM EDT): [...] Urology regarding incontinence. Seizure disorder 09/23/2022 Overview (08/30/2024): Dx 08/2022 wehn found with ultered mental status and unresponsive with personnel security assistant and in ER -EEG concerning ffor seizure -Followed by Dr. Sujit Bobo -Continue Lamotrigine once a day Assessment & Plan (08/30/2024 11:56 AM EDT): Dx 08/2022 wehn found with ultered mental status and unresponsive with personnel security assistant and in ER -EEG concerning ffor seizure -Followed by Dr. Sujit Bobo -Continue Lamotrigine once a day Assessment & Plan (03/28/2023 11:58 AM EST): Dx 08/2022 wehn found with ultered mental status and unresponsive with personnel security assistant and in ER -EEG concerning ffor seizure -Followed by Dr. Sujit Bobo -Continue Lamotrigine once a day Assessment & Plan (03/28/2023 9:04 AM EST): Dx 08/2022 wehn found with ultered mental status and unresponsive with personnel security assistant and in ER -EEG concerning fro seizure. -His old neurologist is retiring. -Referral placed for enurology 06/2022. -Continue Lamotrigine once a day. Assessment & Plan (09/23/2022 11:47 AM EDT): Dx 08/2022 wehn found with ultered mental status and unresponsive with personnel security assistant and in ER -EEG concerning fro seizure. -His old neurologist is retiring. -Referral placed for enurology 06/2022. -Continue Lamotrigine once a day. Polypharmacy 09/23/2022 Assessment & Plan (04/08/2023 8:52 AM EST): [...] Former smoker 09/20/2022 Interstitial lung disease 09/20/2022 Other specified health status 09/20/2022 Overview (08/30/2024): -next physical exam due after 08/29/25p appointment. -dental home is in [place] Assessment & Plan (08/30/2024 11:56 AM EDT): -next physical exam due after 08/29/25p appointment. -dental home is in [place] Assessment & Plan (04/08/2023 8:52 AM EST): -next physical exam due after 09/24/2023 -eye care facilitated by none, encouraged to set up appointment. -dental home is in [place] Assessment & Plan (03/28/2023 9:05 AM EST): -next physical exam due after 09/24/2023 -eye care facilitated by none, encouraged to set up appointment. -dental home is in [place] Assessment & Plan (09/23/2022 11:13 AM EDT): -next physical exam due after 09/24/2023 -eye care facilitated by none, encouraged to set up appointment. -dental home is [place] Rectal prolapse 08/19/2021 Overview (08/30/2024): History of severe, non-reducible rectal prolapse causing significant pain and difficulty with bowel movements. -s/p surgical intervention with Dr.Ziad Barbosa at [facility] 06/22/23 Assessment & Plan (06/17/2023 2:57 [...] TSH/BSO -s/p chest reconstruction Assessment & Plan (08/30/2024 11:57 AM EDT): -Stable on testosterone cypionate 0.5ml [...] Followed by urology Transverse myelitis 05/15/2021 Overview (08/30/2024): Diagnosed in 2013. Pt reports trigger likely [...] Neurology, Dr. Bobo who referred pt to [place] around 01/2023 Assessment & Plan (08/30/2024 11:55 AM EDT): Diagnosed in 2013. Pt reports [...] Neurology, Dr. Bobo who referred pt to [place] around 01/2023 Assessment & Plan (03/28/2023 11:50 [...] prn at night -continue zonisamide -reffered to [facility] 12/2020 -established with Neurology, Dr. Bobo who referred pt to [place] around 01/2023 Assessment & Plan (03/28/2023 9:03 [...] prn at night -continue zonisamide -reffered to [facility] 12/2020 -established with neurology Assessment & Plan [...] prn at night -continue zonisamide -reffered to [facility] 12/2020 -established with neurology Stage 3a chronic [...] Encounters Date Type Department Care Team Description 08/30/2024 10:45 AM EDT Office Visit [address] [address] Radha Adan MD Seizure disorder (CMS/HCC) (Primary Dx); Transverse myelitis (CMS/HCC); Polypharmacy; Chronic diarrhea; Colon cancer screening; Stage 3a chronic kidney disease (CMS/HCC); Urinary incontinence without sensory awareness; Self-catheterizes urinary bladder; Gender dysphoria; Other specified health status; Neurogenic bladder; 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 care 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 worker (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) use of opiate analgesic; Interstitial lung disease (CMS/HCC); Chronic bronchitis, unspecified chronic bronchitis type (CMS/HCC); Dietary counseling; Exercise counseling; Iron deficiency; Ambulates with cane; Left hip pain; Buttock pain; Encounter for hepatitis C screening test for low risk patient; Screening cholesterol level; Lopez esophagus with esophagitis 08/30/2024 Results Follow-Up [facility] [address] [place] [address] Radha Adan MD XR Hip 2 or 3 Views Left 08/30/[address] [address] Radha Adan MD Medication Question 08/30/2024 Travel 08/29/2024 Telephone [facility] [address] [place] [address] Radha Adan MD chart prep 08/27/2024 Refill [facility] [address] [place] [address] Marcella Monte RN 08/27/2024 Telephone [facility] [address] [place] [address] Radha Adan MD Med Refill 08/23/2024 Patient Outreach [facility] [address] [place] [address] Radha Adan MD Pre-visit Planning ([facility] unable to reach [facility] ) 08/17/2024 Refill [facility] [address] [place] [address] Radha Adan MD Chronic low back pain, unspecified back pain laterality, unspecified whether sciatica present (Primary Dx); Pain 08/17/2024 Telephone [facility] [address] [place] [phone] Radha Adan MD Prior Authorization 08/15/2024 Refill [facility] [address] [place] [address] Kalee Perez MD Pain 08/06/2024 3:00 PM EDT Telemedicine [facility] [address] [place] [address] Marcella Monte, college counselor low back pain, unspecified back pain laterality, unspecified whether sciatica present 08/06/2024 Telephone [facility] [address] [place] [address] Marcella Monte, TEA 08/06/2024 Telephone [facility] [address] [place] [address] Marcella Monte, TEA 08/06/2024 Travel 07/20/2024 Refill [facility] [address] [place] [address] Marcella Monte RN Pain 07/19/2024 Refill [facility] [address] [place] [address] [place] [address] Radha Adan MD 07/12/2024 Refill [facility] [address] [place] [address] Radha Adan MD Transverse myel[place] 07/10/2024 Orders Only [facility] [address] [place] [address] Radha Adan MD Gender dysphoria 06/20/2024 Refill [facility] [address] [place] [address] Radha Adan MD Pain 06/20/2024 Orders Only [facility] [address] [place] [address] Radha Adan MD Transverse myelitis [place] 06/20/2024 Refill [facility] [address] [place] [address] Radha Adan MD Transverse myelitis ([facility] 06/16/2024 Refill [facility] [address] [place] [address] Radha Adan MD Other chronic pain 05/30/2024 Refill [facility] [address] [place] [address] Radha Adan MD Other chronic pain from Last 3 Months Immunizations Immunization Administration Dates Next Due Tdap 12/15/2022 Zoster, Recombinant 02/17/2024 Family History Medical History Relation Name Comments Heart disease Father Diabetes Maternal Grandmother Relation Name Status Comments Father Maternal Grandmother Social History Tobacco Use Types Packs/Day Years Used Date Smoking Tobacco: Former Cigarettes Smokeless Tobacco: Never Tobacco Cessation:Counseling Given: Not Answered Depression Answer Date Recorded Patient Health Questionnaire-9 Score 7 08/30/2024 Patient Health Questionnaire-9 Score 7 08/30/2024 Last PHQ-9: Questionnaire Data Not on file 0 08/30/2024 Housing Stability Answer Date Recorded What is your housing situation today? I have hayder villalpando 08/30/[address] you li ve. Do you have problems with any of the following? I am not sure 08/30/2024 Food Insecurity Answer Date Recorded Within the past 12 months, y ou worried that your food would run out before you got money to buy more: Never True 08/30/2024 Within the past 12 months,th e food you bought just didn't last and you didn't have enough money to get more: Never True 02/2025 Transportation Answer Date Recorded In the past 12 months, has l ack of transportation kept you from medical appts, meetings, work or from getting things needed for daily living? No 08/30/2024 Utilities Answer Date Recorded In the past 12 months, has t he electric, gas, oil or water company threatened to shut off services in your home? No 08/30/2024 Depression Answer Date Recorded Patient Health Questionnaire-2 Score 2 08/30/2024 Internet Access Answer Date Recorded Internet Access Q1 No 08/30/2024 Internet Access Q2 I do not want or need it 08/19 Sex and Gender Information Value Date Recorded Sex Assigned at Male 01/18/2022 10:31 AM EDT Legal Sex Male 10:31 AM EDT Gender Identity Male 07/13/2022 1:50 PM EDT Sexual Orientation Bisexual 01/18/2022 10 :31 AM EDT Last Filed Vital Signs Vital Sign Reading Time Taken Comments Blood Pressure 120/84 08/30/2024 10:50 AM EDT Pulse 76 08/30/2024 10:50 AM EDT Temperature 37.2 ??C (98.9 ??F) 08/30/2024 10:50 AM E DT Respiratory Rate 17 08/30/2024 10:50 AM EDT Oxygen Saturation 98% 08/30/2024 10:50 AM EDT Inhaled Oxygen Concentration - - Weight 77.7 kg (171 lb 3.2 oz) 08/30/2024 10:50 AM EDT Height 172.7 cm (5' 8 ) 08/30/2024 10:50 AM EDT Body Mass Index 26.03 08/30/2024 10:50 AM EDT Plan of Treatment Upcoming Encounters Date Type Department Care Team (Late st Contact Info) Description 10/15/2024 2:00 PM EDT Telemedicine [facility] [address] [place] [address] Marcella Monte RN [address] [place] [address] Health Maintenance Due Date Last Done Comments CT Colonography 1957 FIT DNA/Cologuard 1955 FIT 1955 FOBT 1955 Sigmoidoscopy 1955 Hepatitis C Screening 1975 Pneumococcal Vaccine: 50+ Years (1 of 2 - PCV) 1976 RSV Patients and Patients Aged 60 years or older (1 - Risk 60-74 years 1-dose series) 2017 COVID-19 Vaccine ( season) 2024 10/13/2023, 12/26/2021, 03/26/2021, Additional history exists Postponed from 12/08/2023 (Supply/Drug Shortage) Alcohol/Substance Use Screening 08/30/2025 08/30/2024 Depression Screening 08/30/2025 08/30/2024, 08/31/19 25 SDOH Screening 08/30/2025 08/30/2024 Tobacco Screening 08/30/2025 08/30/2024 Colonoscopy 11/24/2026 11/24/2016 Colorectal Cancer Screening 11/24/2026 Lipid Panel 11/18/2027 11/17/2022 DTaP/Tdap/Td Vaccines (2 - Td or Tdap) 12/15/2032 12/15/2022 Cervical Cancer Screening Discontinued HPV/Cotest Discontinued 01/21/2017, 01/21/2017 Pap Smear Discontinued 01/21/2017 Zoster Vaccines Completed 06/10/2024, 02/17/2024 HIB Vaccines Aged Out No longer eligi [...] on patient's age to complete this topic Influenza Vaccine Discontinued Meningococcal B Vaccine Aged Out No l onger eligible based on patient's age to complete [...] Procedure Name Priority Date/Time Associated Diagnosis Comments XR HIP 2 OR 3 VIEWS LEFT Routine 08/30/2024 11:40 AM EDT Left hip pain Buttock pain LIPID PANEL, STANDARD Routine 11/17/2022 10:39 AM EDT Seizure disorder (CMS/HCC) ZZZ HISTORICAL HPV E6/E7 RFLX EDWARD 16 18/45 Routine 01/21/2017 12:30 PM EDT PAP SMEAR Routine 01/21/2017 12:00 AM EDT HM COLONOSCOPY Routine 11/24/2016 from Last 3 Months or Most Recently Relevant to Health Maintenance Results * XR Hip 2 or 3 Views Left (08/30/2024 11:40 AM EDT) Anatomical Region Laterality Modality Lower Extremities, Hip Left Radiograp hic Imaging 08/30/2024 11:4 0 AM EDT Narrative 08/30/2024 2:07 PM EDT ?[facility] ?[address] ?[place] [address] ?XRay Report ? Signed ? Patient: Jules,Thaniel ?MR#: [id number] ?? 8 ? : 1955 ?Acct:[id number] ? Age/Sex: 69 / M ?ADM Date: 08/30/24 ? Loc: HO.HHCX ? Attending Dr: Radha Adan MD ? Ordering Physician: Radha Adan MD ?? Date of Service: 08/30/24 ?? Procedure(s): XR hip LT min 2V ?? Accession Number(s): [id number] ? cc: Radha Adan MD ? EXAMINATION: ??XR HIP 2 OR MORE VIEWS LEFT ? HISTORY: Left hip pain ? COMPARISON: Comparison is made with the prior examination dated ?? 09/09/2020. ? FINDINGS: ?? Three AP views of the right hip are submitted. ??Again seen ?? is a sclerotic focus in the femoral neck which likely represents a bone ?? island. ??There is no fracture or dislocation. ??The joint space is ?? maintained. ??The soft tissues are unremarkable. ? XR/XR hip LT min 2V ?? IMPRESSION: ?? Stable bone island in the intertrochanteric region. No evidence of ?? fracture or significant joint space narrowing. ? Electronically signed by: ??Daniel Lehman MD ??08/30/2024 02:03 PM EDT ? Dictated By: ?Daniel Lehman MD ? Signed By: ?<Electronically signed by Daniel Lehman MD in OV> ?08/30/24 1403 ? DD/ 1140 ? TD/TT: 08/30/24 1200 ? Pot Fisher: ? Procedure Note Delmi, Rema - 08/30/[address] [address] XRay Report Signed Patient: Rory WalkerMR#: [id number] 8 : 1955cct:[id number] Age/Sex: 69 / MADM Date: 08/30/24 Loc: HO.HHCX Attending Dr: Radha Adan MD Ordering Physician: Radha Adan MD Date of Service: 08/30/24 Procedure(s): XR hip LT min 2V Accession Number(s): [id number] cc: Radha Adan MD EXAMINATION: XR HIP 2 OR MORE VIEWS LEFT HISTORY: Left hip pain COMPARISON: Comparison is made with the prior examination dated 09/09/2020. FINDINGS: Three AP views of the right hip are submitted. Again seen is a sclerotic focus in the femoral neck which likely represents a bone island. There is no fracture or dislocation. The joint space is maintained. The soft tissues are unremarkable. XR/XR hip LT min 2V IMPRESSION: Stable bone island in the intertrochanteric region. No evidence of fracture or significant joint space narrowing. Electronically signed by: Daniel Lehman MD 08/30/2024 02:03 PM EDT Dictated By: Daniel Lehman MD Signed By: <Electronically signed by Daniel Lehman MD in OV> 08/30/24 1403 DD/ 1140 TD/TT: 08/30/24 1200 Pot Fisher: Radha Adan MD IMG XR PROCEDURES Edited R esult - Final * (ABNORMAL) Lipid Panel, Standard (11/17/2022 10:39 AM EDT) Triglycerides 89 <150 mg/dL [facility] Comment:Desirable Triglyceri de: less than 150 mg/dLBorderline High Triglyceride 150-199 mg/dLHigh Triglyceride: 200-499 mg/dLVery High Triglyceride: greater than or equal to 5OO mg/dL Cholesterol 190 <200 mg/dL [facility] Comment:Desirable Cholestero l: less than 200 mg/dLBorderline High Cholesterol: 200-239 mg/dLHigh Cholesterol: greater than 239 mg/dL LDL Cholesterol Calculated 106(H) <100 mg/dL [facility] Comment:Desirable LDL: less than 100 mg/dLNear Optimal/Above Optimal LDL: 110- 129 mg/dLBorderline High LDL: 130-159 mg/dLHigh LDL: 160-189 mg/dLVery High LDL: greater than or equal to 190 mg/dL HDL Cholesterol 67 >40 mg/dL [facility] Comment:Desirable HDL: great er than 40 mg/dL Note: This HDL assay may give artificially low results in patients with liver disease. Blood Venous blood specimen / Unknown 11/17/2022 10:39 AM EDT 11/17/2022 10:39 AM EDT Radha Adan MD LAB BLOOD ORDERABLES Final Result [facility] [address] [place] [address] [phone] * HPV E6/E7 RFLX EDWARD 16 18/45 (01/21/2017 12:30 PM EDT) HPV 16 RNA Test not performed [facility] HPV mRNA E6/E7 Not Detected NOT DETECTED [facility] Comment: This test was performed using the APTIMA(R) HPV Assay ([employer] This assay detects E6/E7 viral messenger RNA (mRNA) from 14 high-risk HPV types (16,18,31,33,35,39,45,51, 52,56,58,59,66,68). For additional information please refer to: http://[email or web address].Wooboard.com/faq/RYK745x1 (This link is being provided for informational/ educational purposes only.) Please note: ??Effective 12/01/2015, HPV testing will be performed using [employer]'s APTIMA test which targets mRNA. Detecting mRNA instead of DNA, as in older methods, offers significant improvements in specificity. HPV 18/45 RNA Test not performed [facility] ADDITIONAL TESTING Not indicated () [facility] Comment: Test Performed by [employer], e(ye)BRAIN [facility], [address] [place] [address] Danyel Dukes M.D., Ph.D., Director of Laboratories , [facility] [id number] 01/21/2017 12:3 0 PM EDT Radha Adan MD HISTORICAL/NON ORDERABLE L ABS Final Result Performing Organization Address City/[facility]/ZIP Co de Phone Number [facility] [address] * Pap Smear (01/21/2017 12:00 AM EDT) Swab Jaleesa Felix MD LAB CYTOLOGY ORDERABLES F inal Result Performing Organization Address City/[facility]/ZIP Co de Phone Number [facility] [address] [place] [address] [phone] * Colonoscopy (11/24/2016) Colonoscopy Dr. Pretty Jaleesa Felix MD HEALTH MAINTENANCE Edited Result - Final from Last 3 Months or Most Recently Relevant to Health Maintenance Insurance [facility] HMO Care Teams Food Demonstrator Relationship Specialty Start Date End Date Antionette, MD Radha [address] [place] [id number] PCP - General Family Medicine 05/27/16 Sujit Bobo MD [address] [place] [phone] Neurology 04/25/24 Du Pretty MD [address] [place] [address] [place] [phone] Gastroenterology 04/25/24 Dr. Yi MD Colon and Rectal Surgery 04/25/24
== END 2024-08-30 12:19 | disposition home or self-care (01) ==
LOC: HO.HHCX 12:18
PROVIDERS: Visit Provider Family Medicine
DX: M79.18 Myalgia, other site (principal); M25.552 Pain in left hip
CPT/HCPCS: 73502

== ENCOUNTER → 2024-08-30 12:19 | Outpatient (BNV) | payer BC, SELFPAY | PROVIDERS: Visit Provider Radiology Diagnostic Radiology | DX: M25.552 Pain in left hip (principal) | CPT/HCPCS: 73502 ==

== ENCOUNTER 2024-08-30 12:36 | Outpatient (REF) | payer BC, SELFPAY ==
[2024-08-30 16:08] LABS: MANUAL DIFF FLAG NO
[2024-08-30 16:20] LABS: Basophils Absolute Auto 0.1 X10*3/uL (0.0-0.2); Basophils Percent Auto 0.9 % (0-2); Eosinophils Absolute Auto 0.1 X10*3/uL (0.0-0.4); Eosinophils Percent Auto 1.9 % (0-4); Hematocrit 48.3 % (42.0-52.0); Hemoglobin 15.7 g/dl (14.0-18.0); Imm Gran Abs Auto 0.03 X10*3/uL (0.00-0.03); Imm Gran Pct Auto 0.4 % (0.0-0.4); Lymphocytes Absolute Auto 1.4 X10*3/uL (1.2-4.9); Lymphocytes Percent Auto 20.2 % (20-40); Mean Corpuscular HGB Conc 32.5 g/dl (31.0-36.0); Mean Corpuscular Hemoglobin 29.8 pg (27.0-33.0); Mean Corpuscular Volume 91.7 fL (80.0-98.0); Mean Platelet Volume 9.5 fL (9.4-12.4); Monocytes Absolute Auto 0.5 X10*3/uL (0.1-1.2); Monocytes Percent Auto 6.6 % (2-11); Neutrophils Absolute Auto 4.9 x10*3/uL (2.0-8.3); Platelet Count 280 X10*3/uL (160-400); Red Blood Count 5.27 X10*6/uL (4.60-5.80); Red Cell Distribution Width 13.7 % (11.0-16.0)
[2024-08-30 16:43] LABS: Alanine Aminotransferase 36 U/L (0-40); Albumin Level 4.6 g/dL (3.5-5.0); Alkaline Phosphatase 85 U/L (39-117); Anion Gap 11 (12-20); Aspartate Amino Transferase 24 U/L (5-37); Bilirubin Direct 0.2 mg/dL (0.0-0.5); Bilirubin Total 0.4 mg/dL (0.0-1.0); Blood Urea Nitrogen 21 mg/dL (9-16); Calcium 10.3 mg/dL (8.4-10.2); Carbon Dioxide 26 mmol/L (22-29); Chloride 110 mmol/L (96-108); Cholesterol 181 mg/dL (<200); Estimated Glomerular Filt Rate 46; Glucose Random 91 mg/dL (60-115); HDL Cholesterol 45 mg/dL (>40); Iron 164 mcg/dL (45-160); LDL Cholesterol Calculated 109 mg/dL (<100); Percent Iron Saturation 70 % (15-50); Potassium 4.2 mmol/L (3.3-5.1); Sodium 143 mmol/L (135-145); Total Iron Binding Capacity 235 mcg/dL (228-428); Total Protein 6.7 g/dL (6.5-8.0); Triglycerides 135 mg/dL (<150); Unsaturated Iron Binding 71 ug/dL
[2024-08-30 16:59] LABS: Ferritin 112 ng/mL (20-250); TSH reflex Free T4 6.01 uIU/mL (0.32-4.0)
[2024-08-30 17:01] LABS: Folate 5.4 ng/mL (> or = 4.0); Vitamin B12 537 pg/mL (200-900)
[2024-08-30 17:45] LABS: Free T4 (Free Thyroxine) 0.83 ng/dL (0.71-1.85)
[2024-08-31 08:13] LABS: ~HepC Num1 0.13 S/CO (0.00-0.79); ~Hepatitis C Antibody Nonreactive (Nonreactive)
== END 2024-08-30 12:37 | disposition home or self-care (01) ==
LOC: HO.HHCL 12:36
PROVIDERS: Visit Provider Family Medicine
DX: N18.31 Chronic kidney disease, stage 3a (principal); Z13.220 Encounter for screening for lipoid disorders; E61.1 Iron deficiency; Z11.59 Encounter for screening for other viral diseases; K52.9 Noninfective gastroenteritis and colitis, unspecified
CPT/HCPCS: 36415; 80048; 80061; 80076; 82607; 82728; 82746; 83540; 84439; 84443; 85025; 86803

== ENCOUNTER 2024-11-06 14:02 | Outpatient (RCR) | payer BC, SELFPAY | END 2024-11-06 18:05 | disposition home or self-care (01) | LOC: HO.PT 14:02 | PROVIDERS: PCP Family Medicine; Visit Provider Family Medicine | DX: M25.552 Pain in left hip (principal); M79.18 Myalgia, other site | CPT/HCPCS: 97110; 97162 ==